=== PATIENT | female | born 1995 | race Hispanic/Latino ===

== ENCOUNTER 2017-08-06 09:35 | Emergency (ER) | payer SELFPAY ==
--- NOTE | 2017-08-06 11:00 | RAD REPORT ---
EXAM DESCRIPTION: RAD - Ankle Left 3 View -08/06/2017 10:52 am CLINICAL HISTORY: Left ankle pain FINDINGS: No fracture or dislocation is seen.
--- NOTE | 2017-08-06 11:02 | RAD REPORT ---
EXAM DESCRIPTION: RAD - Foot Left 3 View - 08/06/2017 10:52 am CLINICAL HISTORY: Left Foot pain FINDINGS: No fracture or dislocation is seen.
--- NOTE | 2017-08-06 11:20 | EDPHYS ---
Physician Documentation [facility] Name: Yahaira Vu Age: 22 yrs Sex: Female : 1995 Arrival Date: 08/06/2017 Time: 09:38 Bed 12 Private MD: None, None ED Physician Asad Mancini HPI: 08/06 10:20 This 22 yrs old Female presents to ER via Wheelchair with complaints of Ankle cp Injury. 10:20 The patient presents with an injury, pain, that is acute, tenderness. The complaints cp affect the left ankle. 10:20 Onset: The symptoms/episode began/occurred last night. cp 10:20 Context: injured ankle walking down stairs. Associated signs and symptoms: Pertinent cp negatives: calf tenderness, numbness, weakness. 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 - Social history:: Smoking status: Patient/guardian denies using tobacco. ROS: 10:25 Constitutional: Negative for body aches, chills, fever, poor PO intake. cp 10:25 Eyes: Negative for injury, pain, redness, and discharge. cp 10:25 Neck: Negative for pain with movement, pain at rest, stiffness, tenderness. 10:25 Respiratory: Negative for cough, shortness of breath, wheezing. 10:25 Abdomen/GI: Negative for abdominal pain, nausea, vomiting, and diarrhea. 10:25 MS/extremity: Positive for pain, tenderness. 10:25 Skin: Negative for cellulitis, rash. 10:25 Neuro: Negative for altered mental status, headache, numbness, tingling, weakness. 10:25 All other systems are negative. Exam: 11:00 Head/Face: Normocephalic, atraumatic. cp 11:00 Constitutional: The patient appears in no acute distress, alert, awake, non-toxic, well developed, well nourished. 11:00 Eyes: Periorbital structures: appear normal, Conjunctiva: normal, no exudate, no injection, Lids and lashes: appear normal, bilaterally. 11:00 ENT: External ear(s): are unremarkable, Nose: is normal, Mouth: is normal. 11:00 Chest/axilla: Inspection: normal. 11:00 Cardiovascular: Rate: normal. 11:00 Respiratory: the patient does not display signs of respiratory distress, Respirations: normal, no use of accessory muscles, no retractions, no splinting, no tachypnea. 11:00 Abdomen/GI: Exam negative for discomfort, distension, guarding, Inspection: abdomen appears normal. 11:00 Musculoskeletal/extremity: Extremities: grossly normal except: noted in the left foot: pain and tenderness noted base of fifth metatarsal, There is no evidence of deformity, Joints: All joints are normal except the left ankle displays pain at rest, painful range of motion, tenderness, Achilles tendon palpated and intact, no tenderness noted at proximal fibula. Vital Signs: 10:12 BP 144 / 88; Pulse 87; Resp 16; Temp 98.2; Pulse Ox 98% ; Weight 86.18 kg; Height 5 ft. iw 1 in. (154.94 cm); Pain 10; 10:12 Body Mass Index 35.90 (86.18 kg, 154.94 cm) iw MDM: 10:15 Patient medically screened. cp 11:17 Data reviewed: vital signs, nurses notes, radiologic studies, plain films, and as a cp result, I will discharge patient. 08/06 10:19 Order name: XRAY Ankle LEFT 3 view; Complete Time: 11:08 cp 08/06 11:08 Interpretation: Report reviewed. cp 08/06 10:19 Order name: XRAY Foot LEFT 3 View; Complete Time: 11:08 cp 08/06 11:08 Interpretation: Reviewed report. cp 08/06 11:08 Order name: Ousmane Wrap; Complete Time: 11:50 cp 08/06 11:08 Order name: Crutches; Complete Time: 11:50 cp 08/06 11:08 Order name: Ankle Splint: Aircast; Complete Time: 11:50 cp Administered Medications: 11:50 Drug: Ibuprofen 800 mg Route: PO; iw 12:50 Follow up: Response: No adverse reaction; Pain is decreased iw Disposition: 08/06/17 11:19 Discharged to Home. Impression: Pain in left ankle and joints of left foot. - Condition is Stable. - Discharge Instructions: Elastic Bandage and RICE, Ankle Pain. - Prescriptions for Naprosyn 500 mg Oral Tablet - take 1 tablet by ORAL route 2 times per day take with food; 20 tablet. - Medication Reconciliation Form, Thank You Letter, Antibiotic Education, Prescription Opioid Use form. - Follow up: Private Physician; When: 5 - 6 days; Reason: Recheck today's complaints. - Problem is new. - Symptoms are unchanged. Addendum: 08/08/2017 06:38 Co-signature as Attending Physician, Asad Mancini MD I agree with the assessment and w a plan of care. Signatures: Dispatcher [employer] EDMS Kaykay Zuluaga RN RN iw Aly Vera PA PA Asad Mancini MD MD wa Corrections: (The following items were deleted from the chart) 08/06 11:54 10:19 Urine Test ordered. [facility] 11:54 10:19 Urine Dipstick-Ancillary ordered. [facility] 11:54 11:19 08/06/2017 11:19 Discharged to Home. Impression: Pain in left ankle and joints of iw left foot. Condition is Stable. Forms are Medication Reconciliation Form, Thank You Letter, Antibiotic Education, Prescription Opioid Use. Follow up: Private Physician; When: 5 - 6 days; Reason: Recheck today's complaints. Problem is new. Symptoms are unchanged. cp
--- NOTE | 2017-08-06 11:20 | ER ---
Nurse's Notes [facility] Name: Yahaira Vu Age: 22 yrs Sex: Female : 1995 Arrival Date: 08/06/2017 Time: 09:38 Bed 12 Private MD: None, None Diagnosis: Pain in left ankle and joints of left foot Presentation: 08/06 10:11 Presenting complaint: Patient states: rolled her left ankle while coming down stairs iw last night. Transition of care: patient was not received from another setting of care. Onset of symptoms was August 05, 2017. Initial Sepsis Screen: Does the patient meet any 2 criteria? No. Patient's initial sepsis screen is negative. Does the patient have a suspected source of infection? No. Patient's initial sepsis screen is negative. Care prior to arrival: None. 10:11 Method Of Arrival: Wheelchair iw 10:11 Acuity: SHERYL 4 iw Triage Assessment: 11:50 General: Appears in no apparent distress. Behavior is calm, cooperative. 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 - Social history:: Smoking status: Patient/guardian denies using tobacco. Screenin:47 Abuse screen: Denies threats or abuse. Denies injuries from another. Nutritional iw screening: No deficits noted. Tuberculosis screening: No symptoms or risk factors identified. Fall Risk None identified. Assessment: 10:15 General: Appears in no apparent distress. Behavior is calm, cooperative. Pain: iw Complains of pain in left ankle and left foot. Neuro: Level of Consciousness is awake, alert, obeys commands, Oriented to person, place, time, Moves all extremities. Full function. Cardiovascular: Patient's skin is warm and dry. Respiratory: Respiratory effort is even, unlabored, Respiratory pattern is regular, symmetrical. Derm: Skin is pink, warm \T\ dry. normal. Musculoskeletal: Range of motion: limited in left ankle. Vital Signs: 10:12 BP 144 / 88; Pulse 87; Resp 16; Temp 98.2; Pulse Ox 98% ; Weight 86.18 kg; Height 5 ft. iw 1 in. (154.94 cm); Pain 10/10; 10:12 Body Mass Index 35.90 (86.18 kg, 154.94 cm) iw ED Course: 09:38 Patient arrived in ED. mr 09:38 None, None is Private Physician. mr 10:11 Kaykay Zuluaga, RN is Primary Nurse. iw 10:12 Triage completed. iw 10:12 Arm band placed on. iw 10:15 Aly Vera PA is PHCP. cp 10:15 Asad Mancini MD is Attending Physician. cp 10:40 Patient has correct armband on for positive identification. iw 10:49 XRAY Ankle LEFT 3 view In Process Unspecified. EDMS 10:49 XRAY Foot LEFT 3 View In Process Unspecified. EDMS 11:52 No provider procedures requiring assistance completed. Patient did not have IV access iw during this emergency room visit. Administered Medications: 11:50 Drug: Ibuprofen 800 mg Route: PO; iw 12:50 Follow up: Response: No adverse reaction; Pain is decreased iw Outcome: 11:19 Discharge ordered by MD. cp 11:52 Discharged to home via wheelchair, with crutches, with family. iw 11:52 Condition: good 11:52 Discharge instructions given to patient, family, Instructed on discharge instructions, follow up and referral plans. Demonstrated understanding of instructions, follow-up care, medications, Prescriptions given X 1. 11:54 Patient left the ED. iw Signatures: Dispatcher [employer] Padma Higgins Kaykay Zuluaga RN RN iw Aly Vera PA PA cp
[2017-08-06] MEDS ORDERED: IBUPROFEN 400 MG TAB ONE (11:40)
[2017-08-06 12:02] VITALS: BP 144/88; TEMP 98.2; O2SAT 98
== END 2017-08-06 11:54 | disposition home or self-care (01) ==
LOC: ER 09:35
DX: M25.572 Pain in left ankle and joints of left foot (principal); W17.89XA Other fall from one level to another, initial encounter; Y93.89 Activity, other specified; Y92.9 Unspecified place or not applicable
CPT/HCPCS: 99283

== ENCOUNTER 2018-05-21 05:13 | Emergency (ER) | payer SELFPAY ==
--- NOTE | 2018-05-21 06:00 | EDPHYS ---
Physician Documentation [facility] Name: Yahaira Vu Age: 23 yrs Sex: Female : 1995 Arrival Date: 05/21/2018 Time: 05:19 Bed 14 Private MD: ED Physician Aly Marmolejo HPI: 05/21 05:55 This 23 yrs old Female presents to ER via Ambulatory with complaints of Cough. [facility] 05:55 The patient or guardian reports cough. Onset: The symptoms/episode began/occurred 2 conrado day(s) ago. Severity of symptoms: At their worst the symptoms were mild, in the emergency department the symptoms are unchanged. Modifying factors: The symptoms are alleviated by nothing, the symptoms are aggravated by cold weather. Associated signs and symptoms: The patient has no apparent associated signs or symptoms. The patient has experienced similar episodes in the past, several times. 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 - Social history:: Smoking status: Patient/guardian denies using tobacco, Patient/guardian denies using alcohol, street drugs. - Ebola Screening: : Patient negative for fever greater than or equal to 101.5 degrees Fahrenheit, and additional compatible Ebola Virus Disease symptoms Patient denies exposure to infectious person Patient denies travel to an Ebola-affected area in the 21 days before illness onset. - Family history:: not pertinent. ROS: 05:55 Constitutional: Negative for fever, chills, and weight loss, Eyes: Negative for injury, conrado pain, redness, and discharge, Neck: Negative for injury, pain, and swelling, Cardiovascular: Negative for chest pain, palpitations, and edema, Respiratory: Negative for shortness of breath, cough, wheezing, and pleuritic chest pain, Abdomen/GI: Negative for abdominal pain, nausea, vomiting, diarrhea, and constipation, Back: Negative for injury and pain, : Negative for injury, bleeding, discharge, and swelling, MS/Extremity: Negative for injury and deformity, Skin: Negative for injury, rash, and discoloration, Neuro: Negative for headache, weakness, numbness, tingling, and seizure, Psych: Negative for depression, anxiety, suicide ideation, homicidal ideation, and hallucinations, Allergy/Immunology: Negative for hives, rash, and allergies, Endocrine: Negative for neck swelling, polydipsia, polyuria, polyphagia, and marked weight changes, Hematologic/Lymphatic: Negative for swollen nodes, abnormal bleeding, and unusual bruising. 05:55 ENT: Positive for rhinorrhea, sinus congestion. Exam: 05:55 Constitutional: This is a well developed, well nourished patient who is awake, alert, conrado and in no acute distress. Head/Face: Normocephalic, atraumatic. Eyes: Pupils equal round and reactive to light, extra-ocular motions intact. Lids and lashes normal. Conjunctiva and sclera are non-icteric and not injected. Cornea within normal limits. Periorbital areas with no swelling, redness, or edema. Neck: Trachea midline, no thyromegaly or masses palpated, and no cervical lymphadenopathy. Supple, full range of motion without nuchal rigidity, or vertebral point tenderness. No Meningismus. Chest/axilla: Normal chest wall appearance and motion. Nontender with no deformity. No lesions are appreciated. Cardiovascular: Regular rate and rhythm with a normal S1 and S2. No gallops, murmurs, or rubs. Normal PMI, no JVD. No pulse deficits. Respiratory: Lungs have equal breath sounds bilaterally, clear to auscultation and percussion. No rales, rhonchi or wheezes noted. No increased work of breathing, no retractions or nasal flaring. Abdomen/GI: Soft, non-tender, with normal bowel sounds. No distension or tympany. No guarding or rebound. No evidence of tenderness throughout. Back: No spinal tenderness. No costovertebral tenderness. Full range of motion. Skin: Warm, dry with normal turgor. Normal color with no rashes, no lesions, and no evidence of cellulitis. MS/ Extremity: Pulses equal, no cyanosis. Neurovascular intact. Full, normal range of motion. Neuro: Awake and alert, GCS 15, oriented to person, place, time, and situation. Cranial nerves II-XII grossly intact. Motor strength 5/5 in all extremities. Sensory grossly intact. Cerebellar exam normal. Normal gait. Psych: Awake, alert, with orientation to person, place and time. Behavior, mood, and affect are within normal limits. 05:55 ENT: Nose: Posterior pharynx: Tonsils: with erythema, Uvula: normal, midline, swelling, that is mild, erythema, that is mild, exudate, is not appreciated. Vital Signs: 05:20 BP 129 / 87; Pulse 84; Resp 18; Temp 99.1(O); Pulse Ox 99% on R/A; Weight 97.52 kg (R); fc Height 5 ft. 2 in. (157.48 cm) (R); Pain 5/10; 06:11 BP 128 / 77; Pulse 92; Resp 19 S; Pulse Ox 99% on R/A; cc3 05:20 Body Mass Index 39.32 (97.52 kg, 157.48 cm) MDM: 05:42 Patient medically screened. [facility] 05:58 Data reviewed: vital signs, nurses notes, lab test result(s). [facility] 05/21 05:38 Order name: Flu 05/21 05:38 Order name: Strep 05/21 06:20 Order name: Throat Culture EDMS Administered Medications: 06:05 Drug: Augmentin 875 mg Route: PO; cc3 06:08 Follow up: Response: No adverse reaction cc3 06:45 Drug: Tamiflu 75 mg Route: PO; cc3 Disposition: 05/21/18 05:59 Discharged to Home. Impression: Cough, Acute upper respiratory infection, unspecified, Influenza due to identified novel influenza A virus. - Condition is Stable. - Discharge Instructions: Influenza, Adult, Pharyngitis, Upper Respiratory Infection, Adult, Upper Respiratory Infection, Adult, [id number], Pharyngitis, Ntaf-bw-[id number], Cough, Adult, Bajt-[id number], Cough, Adult. - Prescriptions for Augmentin 875- 125 mg Oral Tablet - take 1 tablet by ORAL route every 12 hours for 10 days; 20 tablet. Latasha- D 12 Hour 60-120 mg Oral Tablet Sustained Release 12 hr - take 1 tablet by ORAL route every 12 hours As needed; 20 tablet. Guaifenesin AC 10- 100 mg/5 mL Oral Liquid - take 10 milliliters by ORAL route every 4 hours As needed; 150 milliliter. Tamiflu 75 mg Oral Capsule - take 1 tablet by ORAL route every 12 hours for 5 days; 10 tablet. - Medication Reconciliation Form, Thank You Letter, Antibiotic Education, Prescription Opioid Use, Work release form form. - Follow up: Private Physician; When: 2 - 3 days; Reason: Recheck today's complaints, Continuance of care, Re-evaluation by your physician. - Problem is new. - Symptoms have improved. Signatures: Dispatcher [employer] EDAly Ford MD MD cha Chretien, Felicia, RN RN Ritu Donahue cc3 Corrections: (The following items were deleted from the chart) 06:19 05:59 05/21/2018 05:59 Discharged to Home. Impression: Cough; Acute upper respiratory conrado infection, unspecified. Condition is Stable. Forms are Medication Reconciliation Form, Thank You Letter, Antibiotic Education, Prescription Opioid Use. Follow up: Private Physician; When: 2 - 3 days; Reason: Recheck today's complaints, Continuance of care, Re-evaluation by your physician. Problem is new. Symptoms have improved. [facility] 06:54 06:19 05/21/2018 05:59 Discharged to Home. Impression: Cough; Acute upper respiratory cc3 infection, unspecified; Influenza due to identified novel influenza A virus. Condition is Stable. Discharge Instructions: Upper Respiratory Infection, Adult, Upper Respiratory Infection, Adult, Emws-ft-Fdhw, Cough, Adult, Iyyy-ay-Uqti, Cough, Adult, Pharyngitis, Pharyngitis, Umht-ld-Xokm. Prescriptions for Augmentin 875-125 mg Oral Tablet - take 1 tablet by ORAL route every 12 hours for 10 days; 20 tablet, Latasha-D 12 Hour 60-120 mg Oral Tablet Sustained Release 12 hr - take 1 tablet by ORAL route every 12 hours As needed; 20 tablet, Guaifenesin AC 10-100 mg/5 mL Oral Liquid - take 10 milliliters by ORAL route every 4 hours As needed; 180 milliliter. and Forms are Medication Reconciliation Form, Thank You Letter, Antibiotic Education, Prescription Opioid Use. Follow up: Private Physician; When: 2 - 3 days; Reason: Recheck today's complaints, Continuance of care, Re-evaluation by your physician. Problem is new. Symptoms have improved. [facility]
--- NOTE | 2018-05-21 06:00 | ER ---
Nurse's Notes [facility] Name: Yahaira Vu Age: 23 yrs Sex: Female : 1995 Arrival Date: 05/21/2018 Time: 05:19 Bed 14 Private MD: Diagnosis: Cough;Acute upper respiratory infection, unspecified;Influenza due to identified novel influenza A virus Presentation: 05/21 05:20 Presenting complaint: Patient states: that she has had a cough with white sputum, nasal fc congestion, headache, sore throat, chest pain with cough only, fever and right ear pain x 3 days. Transition of care: patient was not received from another setting of care. Onset of symptoms was May 18, 2018. Risk Assessment: Do you want to hurt yourself or someone else? Patient reports no desire to harm self or others. Initial Sepsis Screen: Does the patient meet any 2 criteria? No. Patient's initial sepsis screen is negative. Does the patient have a suspected source of infection? No. Patient's initial sepsis screen is negative. Care prior to arrival: None. 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 - Social history:: Smoking status: Patient/guardian denies using tobacco, Patient/guardian denies using alcohol, street drugs. - Ebola Screening: : Patient negative for fever greater than or equal to 101.5 degrees Fahrenheit, and additional compatible Ebola Virus Disease symptoms Patient denies exposure to infectious person Patient denies travel to an Ebola-affected area in the 21 days before illness onset. - Family history:: not pertinent. Screenin:20 Abuse screen: Denies threats or abuse. Nutritional screening: No deficits noted. fc Tuberculosis screening: No symptoms or risk factors identified. Fall Risk None identified. Assessment: 05:32 General: Appears in no apparent distress. comfortable, Behavior is calm, cooperative, cc3 appropriate for age. Pain: Denies pain. Neuro: Level of Consciousness is awake, alert, obeys commands, Oriented to person, place, time, situation, Appropriate for age. Cardiovascular: Patient's skin is warm and dry. Respiratory: Airway is patent Respiratory effort is even, unlabored, Respiratory pattern is regular, symmetrical. GI: Abdomen is round non-distended. : No signs and/or symptoms were reported regarding the genitourinary system. EENT: No signs and/or symptoms were reported regarding the EENT system. Derm: No signs and/or symptoms reported regarding the dermatologic system. Musculoskeletal: Circulation, motion, and sensation intact. Range of motion: intact in all extremities. 06:11 Reassessment: Patient appears in no apparent distress at this time. Patient and/or cc3 family updated on plan of care and expected duration. Pain level reassessed. Patient is alert, oriented x 3, equal unlabored respirations, skin warm/dry/pink. 06:50 Reassessment: Dr. Marmolejo discharged the patient home with prescription given. No IV cc3 cannula in situ. Patient left ER vitally stable and ambulatory. Vital Signs: 05:20 BP 129 / 87; Pulse 84; Resp 18; Temp 99.1(O); Pulse Ox 99% on R/A; Weight 97.52 kg (R); fc Height 5 ft. 2 in. (157.48 cm) (R); Pain 5/10; 06:11 BP 128 / 77; Pulse 92; Resp 19 S; Pulse Ox 99% on R/A; cc3 05:20 Body Mass Index 39.32 (97.52 kg, 157.48 cm) ED Course: 05:19 Patient arrived in ED. ag3 05:20 Arm band placed on Patient placed in an exam room, on a stretcher. fc 05:20 Patient has correct armband on for positive identification. Placed in gown. Bed in low fc position. Call light in reach. 05:32 Ritu Donahue is Primary Nurse. cc3 05:36 Triage completed. 05:42 Aly Marmolejo MD is Attending Physician. [facility] 06:50 No provider procedures requiring assistance completed. Patient did not have IV access cc3 during this emergency room visit. Administered Medications: 06:05 Drug: Augmentin 875 mg Route: PO; cc3 06:08 Follow up: Response: No adverse reaction cc3 06:45 Drug: Tamiflu 75 mg Route: PO; cc3 Outcome: 05:59 Discharge ordered by MD. camp 06:50 Discharged to home ambulatory. cc3 06:50 Condition: stable 06:50 Discharge instructions given to patient, Instructed on discharge instructions, follow up and referral plans. medication usage, Demonstrated understanding of instructions, follow-up care, medications, Prescriptions given X 4. 06:54 Patient left the ED. cc3 Signatures: Aly Marmolejo MD MD cha Chretien, Felicia RN RN Ritu Calhoun cc3 Linh Henderson 3 Corrections: (The following items were deleted from the chart) 07:11 06:11 Pulse 92bpm; Resp 19bpm; Spontaneous; Pulse Ox 99% RA; cc3 cc3
[2018-05-21] MEDS ORDERED: AMOX/K CLAV 875 MG TAB ONE (06:16)
[2018-05-21] MEDS ORDERED: OSELTAMIVIR 75 MG CAP ONE (06:58)
[2018-05-21 08:23] VITALS: BP 129/87; TEMP 99.1; O2SAT 99
== END 2018-05-21 06:54 | disposition home or self-care (01) ==
LOC: ER 05:13
DX: J10.1 Influenza due to other identified influenza virus with other respiratory manifestations (principal)
CPT/HCPCS: 87070; 87081; 87804; 99283

== ENCOUNTER 2018-10-26 12:19 | Emergency (ER) | payer SELFPAY ==
--- OUTSIDE RECORDS SUMMARY | 2018-10-26 12:23 | XMS REPORT ---
:1995 [facility] [address] [place] [address] Dr. Lopez [address] [place] [id number] Care Team Providers Name Role Phone Unavailable Unavailable Unavailable Problems This patient has no known problems. Allergies, Adverse Reactions, Alerts This patient has no known allergies or adverse reactions. Medications This patient has no known medications.
--- NOTE | 2018-10-26 14:40 | ER ---
Nurse's Notes [facility] Name: Yahaira Vu Age: 23 yrs Sex: Female : 1995 Arrival Date: 10/26/2018 Time: 12:21 Bed 18 Private MD: Diagnosis: Lower abdominal pain, unspecified Presentation: 10/26 12:23 Presenting complaint: Patient states: lower abd pain that began 2 weeks ago. Pt states aa5 "the pain is mostly when I pick something heavy and I get a sharp pain and then it goes away". pt denies vomiting, diarrhea. Reports nausea. Transition of care: patient was not received from another setting of care. Onset of symptoms was October 2018. Risk Assessment: Do you want to hurt yourself or someone else? Patient reports no desire to harm self or others. Initial Sepsis Screen: Does the patient meet any 2 criteria? No. Patient's initial sepsis screen is negative. Does the patient have a suspected source of infection? No. Patient's initial sepsis screen is negative. Care prior to arrival: None. 12:23 Acuity: SHERYL 3 aa5 12:23 Method Of Arrival: Ambulatory aa5 Triage Assessment: 14:45 General: Appears in no apparent distress. comfortable, obese, Behavior is calm, ae4 cooperative. Pain: Complains of pain in right lower quadrant and left lower quadrant Pain currently is 0 out of 10 on a pain scale. EENT: No signs and/or symptoms were reported regarding the EENT system. Neuro: Level of Consciousness is awake, alert, obeys commands, Oriented to person, place, time, situation, Appropriate for age. Cardiovascular: Patient's skin is warm and dry. Respiratory: Airway is patent Respiratory effort is even, unlabored, relaxed, Respiratory pattern is regular, symmetrical. GI: Abdomen is round obese, Bowel sounds present X 4 quads. GI: Abd is soft and non tender. : No signs and/or symptoms were reported regarding the genitourinary system. Denies burning with urination, reports small amount of white discharge. Derm: Skin is normal. Musculoskeletal: No signs and/or symptoms reported regarding the musculoskeletal system. [facility]: 12:24 LMP 10/22/2018 aa5 Historical: - Allergies: 12:24 NKA; aa5 - PMHx: 12:24 Ovarian cyst; aa5 - PSHx: 12:24 None; aa5 - Immunization history:: Adult Immunizations up to date. - Social history:: Smoking status: Patient/guardian denies using tobacco. - Ebola Screening: : No symptoms or risks identified at this time. Screenin:23 Abuse screen: Denies threats or abuse. Nutritional screening: No deficits noted. ae4 Tuberculosis screening: No symptoms or risk factors identified. Fall Risk None identified. Assessment: 14:54 Reassessment: Patient is refusing pain medication at this time. Patient wants to wait ae4 for her results before taking anything for pain. Denies pain at this time, states pain is intermittent. Vital Signs: 12:24 BP 136 / 78; Pulse 73; Resp 18 S; Temp 98.5(O); Pulse Ox 100% on R/A; Weight 87.09 kg aa5 (R); Height 5 ft. 1 in. (154.94 cm) (R); Pain 0/10; 12:24 Body Mass Index 36.28 (87.09 kg, 154.94 cm) aa5 ED Course: 12:21 Patient arrived in ED. as 12:24 Triage completed. aa5 12:24 Arm band placed on. aa5 13:26 Kelsy Nicole FNP-C is [facility]. snw 13:26 Ismael Suazo MD is Attending Physician. snw 13:29 Bowen Zhang, RN is Primary Nurse. ae4 14:45 Bed in low position. Call light in reach. Side rails up X 1. Pulse ox on. NIBP on. ae4 15:26 No provider procedures requiring assistance completed. Patient did not have IV access ae4 during this emergency room visit. Administered Medications: 15:08 Not Given (Patient Refused): TORadol 30 mg IM once ae4 Outcome: 14:39 Discharge ordered by . snw 15:26 Discharged to home ambulatory. ae4 15:26 Condition: stable 15:26 Discharge instructions given to patient, Instructed on discharge instructions, follow up and referral plans. medication usage, Demonstrated understanding of instructions, Prescriptions given X 1. 15:26 Patient left the ED. ae4 Signatures: Kelsy Nicole FNP-C MASTER OF CEREMONIES-CsnZuleyma Martínez Audri RN RN aa5 Bowen Zhang, RN RN ae4
--- NOTE | 2018-10-26 14:41 | EDPHYS ---
Physician Documentation [facility] Name: Yahaira Vu Age: 23 yrs Sex: Female : 1995 Arrival Date: 10/26/2018 Time: 12:21 Bed 18 Private MD: ED Physician Ismael Suazo HPI: 10/26 14:41 This 23 yrs old Female presents to ER via Ambulatory with complaints of snw Abdominal Pain. 14:41 The patient presents with abdominal pain in the lower abdomen. Onset: The snw symptoms/episode began/occurred 3 week(s) ago, and became persistent. The symptoms do not radiate. Associated signs and symptoms: none. The symptoms are described as crampy. Severity of pain: At its worst the pain was mild. It is unknown whether or not the patient has had similar symptoms in the past. The patient has not recently seen a physician, TIKA. 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 - Social history:: Smoking status: Patient/guardian denies using tobacco. - Ebola Screening: : No symptoms or risks identified at this time. ROS: 14:39 Constitutional: Negative for fever, chills, and weight loss, Eyes: Negative for injury, snw pain, redness, and discharge, ENT: Negative for injury, pain, and discharge, Neck: Negative for injury, pain, and swelling, Cardiovascular: Negative for chest pain, palpitations, and edema, Respiratory: Negative for shortness of breath, cough, wheezing, and pleuritic chest pain, Back: Negative for injury and pain, : Negative for injury, bleeding, discharge, and swelling, MS/Extremity: Negative for injury and deformity, Skin: Negative for injury, rash, and discoloration, Neuro: Negative for headache, weakness, numbness, tingling, and seizure, Psych: Negative for depression, anxiety, suicide ideation, homicidal ideation, and hallucinations. 14:39 Abdomen/GI: Positive for abdominal pain, Negative for nausea, vomiting, and diarrhea. Exam: 14:39 Constitutional: This is a well developed, well nourished patient who is awake, alert, snw and in no acute distress. Head/Face: Normocephalic, atraumatic. Eyes: Pupils equal round and reactive to light, extra-ocular motions intact. Lids and lashes normal. Conjunctiva and sclera are non-icteric and not injected. Cornea within normal limits. Periorbital areas with no swelling, redness, or edema. ENT: Nares patent. No nasal discharge, no septal abnormalities noted. Tympanic membranes are normal and external auditory canals are clear. Oropharynx with no redness, swelling, or masses, exudates, or evidence of obstruction, uvula midline. Mucous membranes moist. Neck: Trachea midline, no thyromegaly or masses palpated, and no cervical lymphadenopathy. Supple, full range of motion without nuchal rigidity, or vertebral point tenderness. No Meningismus. Chest/axilla: Normal chest wall appearance and motion. Nontender with no deformity. No lesions are appreciated. Cardiovascular: Regular rate and rhythm with a normal S1 and S2. No gallops, murmurs, or rubs. Normal PMI, no JVD. No pulse deficits. Respiratory: Lungs have equal breath sounds bilaterally, clear to auscultation and percussion. No rales, rhonchi or wheezes noted. No increased work of breathing, no retractions or nasal flaring. Abdomen/GI: Soft, non-tender, with normal bowel sounds. No distension or tympany. No guarding or rebound. No evidence of tenderness throughout. Back: No spinal tenderness. No costovertebral tenderness. Full range of motion. Skin: Warm, dry with normal turgor. Normal color with no rashes, no lesions, and no evidence of cellulitis. MS/ Extremity: Pulses equal, no cyanosis. Neurovascular intact. Full, normal range of motion. Neuro: Awake and alert, GCS 15, oriented to person, place, time, and situation. Cranial nerves II-XII grossly intact. Motor strength 5/5 in all extremities. Sensory grossly intact. Cerebellar exam normal. Normal gait. Vital Signs: 12:24 BP 136 / 78; Pulse 73; Resp 18 S; Temp 98.5(O); Pulse Ox 100% on R/A; Weight 87.09 kg aa5 (R); Height 5 ft. 1 in. (154.94 cm) (R); Pain 0/10; 12:24 Body Mass Index 36.28 (87.09 kg, 154.94 cm) aa5 MDM: 13:35 Patient medically screened. snw 14:41 Data reviewed: vital signs, nurses notes, lab test result(s). Data interpreted: Pulse snw oximetry: on room air is 100 %. Interpretation: normal. Counseling: I had a detailed discussion with the patient and/or guardian regarding: the historical points, exam findings, and any diagnostic results supporting the discharge/admit diagnosis, lab results, the need for outpatient follow up, to return to the emergency department if symptoms worsen or persist or if there are any questions or concerns that arise at home. Special discussion: Based on the patient's Hx, exam, and Dx evaluation, there is no indication for emergent surgery or inpatient Tx. It is understood by the patient/guardian that if the Sx's persist or worsen they need to return immediately for re-evaluation. Based on the history and exam findings, there is no indication for further emergent testing or inpatient evaluation. I discussed with the patient/guardian the need to see the primary care provider for further evaluation of the symptoms. 10/26 13:06 Order name: Urine Culture snw 10/26 13:06 Order name: Urine Microscopic Only snw 10/26 13:06 Order name: Urine Test (obtain specimen); Complete Time: 14:16 snw 10/26 14:38 Order name: Urine Dipstick--Ancillary (enter results); Complete Time: 14:52 bd 10/26 14:38 Order name: Urine --Ancillary (enter results); Complete Time: 14:52 bd 10/26 13:06 Order name: Urine Dipstick-Ancillary (obtain specimen); Complete Time: 14:16 snw Administered Medications: 15:08 Not Given (Patient Refused): TORadol 30 mg IM once ae4 Disposition: 15:42 Co-signature as Attending Physician, Ismael Suazo MD. rn Disposition: 10/26/18 14:39 Discharged to Home. Impression: Lower abdominal pain, unspecified. - Condition is Stable. - Discharge Instructions: Abdominal Pain, Adult, Hypertension. - Prescriptions for Bentyl 20 mg Oral Tablet - take 1 tablet by ORAL route every 6 hours As needed; 20 tablet. - Medication Reconciliation Form, Thank You Letter, Antibiotic Education, Prescription Opioid Use, Work release form form. - Follow up: Private Physician; When: 1 - 2 days; Reason: Recheck today's complaints, Continuance of care, Re-evaluation by your physician. Follow up: Emergency Department; When: As needed; Reason: Worsening of condition. Signatures: Dispatcher [employer] EDMS BonnieKelsy santiago, COMPUTER EQUIPMENT REPAIRER-C COMPUTER EQUIPMENT REPAIRER-Csnw Ismael Suazo MD MD rn Calderon, Audri RN RN aa5 Bowen Zhang RN RN ae4 Corrections: (The following items were deleted from the chart) 15:26 14:39 10/26/2018 14:39 Discharged to Home. Impression: Lower abdominal pain, ae4 unspecified. Condition is Stable. Forms are Medication Reconciliation Form, Thank You Letter, Antibiotic Education, Prescription Opioid Use. Follow up: Private Physician; When: 1 - 2 days; Reason: Recheck today's complaints, Continuance of care, Re-evaluation by your physician. Follow up: Emergency Department; When: As needed; Reason: Worsening of condition. snw
[2018-10-26 14:51] LABS: Urine Blood 2+ (NEG); Urine Glucose NEGATIVE (NEG); Urine Protein NEGATIVE (NEG); Urine Specific Gravity 1.025 (1.005-1.030)
[2018-10-26] MEDS ORDERED: KETOROLAC 30 MG/ML INJ ONE (15:06)
[2018-10-26 15:50] VITALS: BP 136/78; TEMP 98.5; O2SAT 100
[2018-10-26 15:55] LABS: Urine Bacteria 20-50 /HPF (<20)
[2018-10-26 15:56] LABS: Urine Amorphous Sediment 2+ /HPF (NONE SEEN); Urine Culture Reflex Order NOT NEEDED; Urine Mucus 3+ /HPF (NONE SEEN)
== END 2018-10-26 15:26 | disposition home or self-care (01) ==
LOC: ER 12:19
DX: R10.30 Lower abdominal pain, unspecified (principal)
CPT/HCPCS: 81003; 81015; 81025; 87086; 87088; 99283

== ENCOUNTER 2019-09-29 19:53 | Emergency (ER) | payer SELFPAY ==
--- OUTSIDE RECORDS SUMMARY | 2019-09-29 19:55 | XMS REPORT | Continuity of Care Document ---
:1995 Author Organization [facility] t Address [facility]ly [facility] [place] [address] Care Team Providers Name Role Phone Unavailable Unavailable Unavailable Problems This patient has no known problems. Allergies, Adverse Reactions, Alerts This patient has no known allergies or adverse reactions. Medications This patient has no known medications. Procedures This patient has no known procedures. Results This patient has no known results.
[2019-09-29 21:11] LABS: Urine Specific Gravity 1.025 (1.005-1.030)
[2019-09-29 21:12] LABS: Urine Blood NEGATIVE (NEG); Urine Glucose NEGATIVE (NEG); Urine Protein NEGATIVE (NEG)
[2019-09-29 21:18] LABS: Absolute Lymphocytes (CBC) 1.8 K/uL (0.7-4.9); Basophils % 0.2 % (0-1.3); Hematocrit 40.4 % (36.0-45.0); Lymphocytes % 18.4 % (15.3-44.8); MPV 8.1 fL (7.6-11.3); RBC Red Blood Cell Count 4.45 M/uL (3.86-4.86)
[2019-09-29] MEDS ORDERED: ONDANSETRON 4 MG/2 ML VIAL ONE (21:30)
[2019-09-29] MEDS ORDERED: MORPHINE 4 MG/ML SYR ONE (21:30)
[2019-09-29 21:38] LABS: ALT/SGPT 41 U/L (12-78); AST/SGOT 53 U/L (15-37); Albumin 4.1 g/dL (3.4-5.0); Alkaline Phosphatase 77 U/L (45-117); BUN Blood Urea Nitrogen 9 mg/dL (7-18); Bicarbonate 23 mmol/L (21-32); Bilirubin Direct < 0.1 mg/dL (0-0.2); Bilirubin Total 0.3 mg/dL (0.2-1.0); Glucose Level 103 mg/dL (74-106); Lipase 159 U/L (73-393); Protein, Total 7.9 g/dL (6.4-8.2); Sodium Level 140 mmol/L (136-145)
--- NOTE | 2019-09-29 23:15 | EDPHYS ---
Physician Documentation [facility] Name: Yahaira Vu Age: 24 yrs Sex: Female : 1995 Arrival Date: 09/29/2019 Time: 19:55 Bed 13 Private MD: ED Physician Aly Marmolejo HPI: 09/28 20:20 This 24 yrs old Female presents to ER via Ambulatory with complaints of jmm Abdominal Pain. 20:20 The patient presents with abdominal pain. Onset: The symptoms/episode began/occurred jmm acutely, just prior to arrival. The symptoms radiate to Associated signs and symptoms: Pertinent negatives: nausea and vomiting, diarrhea. This is a 24 year old female with a history of ovarian cysts that presents to the ED with complaints of abdominal pain beginning after eating today. Denies fever, vomiting diarrhea. . 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 - Social history:: Smoking status: Patient denies any tobacco usage or history of. Patient/guardian denies using alcohol, street drugs, tobacco products. ROS: 20:20 Constitutional: Negative for fever, chills, and weight loss, Cardiovascular: Negative jmm for chest pain, palpitations, and edema, Respiratory: Negative for shortness of breath, cough, wheezing, and pleuritic chest pain. 20:20 Abdomen/GI: Positive for abdominal pain. 20:20 Back: Positive for radiated pain. 20:20 All other systems are negative. Exam: 20:20 Constitutional: This is a well developed, well nourished patient who is awake, alert, jmm and in no acute distress. Head/Face: atraumatic. Eyes: EOMI, no conjunctival erythema appreciated ENT: Moist Mucus Membranes Neck: Trachea midline, Supple Chest/axilla: Normal chest wall appearance and motion. Cardiovascular: Regular rate and rhythm. No edema appreciated Respiratory: Normal respirations, no respiratory distress appreciated 20:20 Back: Normal ROM Skin: General appearance color normal MS/ Extremity: Moves all extremities, no obvious deformities appreciated, no edema noted to the lower extremities Neuro: Awake and alert, normal gait Psych: Behavior is normal, Mood is normal, Patient is cooperative and pleasant 20:20 Abdomen/GI: Inspection: obese Bowel sounds: normal, Palpation: soft, mild abdominal tenderness, in the right upper quadrant and left upper quadrant. Vital Signs: 20:02 BP 142 / 64; Pulse 72; Resp 17; Temp 99.0; Pulse Ox 100% ; Weight 95.25 kg; Height 5 ll1 ft. 1 in. (154.94 cm); Pain 10/10; 20:30 BP 127 / 79; Pulse 71; Resp 18; Pulse Ox 100% ; ah 21:30 BP 126 / 67; Pulse 73; Resp 18; Pulse Ox 100% ; ah 23:44 BP 120 / 71; Pulse 71; Resp 17; Pulse Ox 99% ; Pain 2/10; ll1 20:02 Body Mass Index 39.68 (95.25 kg, 154.94 cm) ll1 MDM: 20:20 Patient medically screened. conrado 23:13 Data reviewed: vital signs, nurses notes. Counseling: I had a detailed discussion with loc the patient and/or guardian regarding: the historical points, exam findings, and any diagnostic results supporting the discharge/admit diagnosis, lab results, radiology results, the need for outpatient follow up, to return to the emergency department if symptoms worsen or persist or if there are any questions or concerns that arise at home. ED course: Patient is alert and non toxic in appearance in the ED. Abd pain decreased. Patient is advised to follow up with pcp and otherwise given strict return precautions. Patient understood and agrees with the plan of care. . 09/28 20:33 Order name: Basic Metabolic Panel; Complete Time: 21:40 [facility] 09/28 20:33 Order name: CBC with Diff; Complete Time: 21:29 [facility] 09/28 20:33 Order name: Hepatic Function; Complete Time: 21:40 [facility] 09/28 20:33 Order name: Lipase; Complete Time: 21:40 [facility] 09/28 20:43 Order name: Urine Dipstick--Ancillary (enter results); Complete Time: 21:14 md 09/28 20:43 Order name: Urine --Ancillary (enter results); Complete Time: 21:14 md 09/28 20:33 Order name: IV Saline Lock; Complete Time: 21:41 [facility] 09/28 20:33 Order name: Labs collected and sent; Complete Time: 21:41 [facility] 09/28 20:33 Order name: Urine Dipstick-Ancillary (obtain specimen); Complete Time: 21:41 [facility] 09/28 20:33 Order name: Urine Test (obtain specimen); Complete Time: 21:41 [facility] 09/28 21:13 Order name: US Abdomen Limited [facility] 09/28 21:13 Order name: CT Abd/Pelvis - IV Contrast Only [facility] Administered Medications: 22:36 Not Given (Patient Refused): morphine 4 mg IVP once; RASS on ADMIN: Combtv4, Very ll1 Agttd3, Agttd2, Rstlss1, AlertClm0, Drwsy-1, Lt Sdtn-2, Mod Sdtn-3, Dp Sdtn-4, UnArsble-5 22:36 Not Given (Patient Refused): Zofran (Ondansetron) 4 mg IVP once; over 2 minutes ll1 Disposition: 09/29 17:48 Co-signature as Attending Physician, Aly Marmolejo MD I agree with the assessment and conrado plan of care. Disposition: 09/29/19 23:14 Discharged to Home. Impression: Cholelithiasis. - Condition is Stable. - Discharge Instructions: Cholelithiasis. - Prescriptions for Bentyl 20 mg Oral Tablet - take 2 tablet by ORAL route every 6 hours As needed; 40 tablet. - Medication Reconciliation Form, Thank You Letter, Antibiotic Education, Prescription Opioid Use form. - Follow up: Lukasz Palomino MD; When: 2 - 3 days; Reason: Recheck today's complaints, Continuance of care, Re-evaluation by your physician. Signatures: Dispatcher [employer] Aly Pike MD MD cha Mickail, Joel, PA PA Petros Ward, RN RN ll1 Corrections: (The following items were deleted from the chart) 09/28 23:45 23:14 09/29/2019 23:14 Discharged to Home. Impression: Cholelithiasis. Condition is ll1 Stable. Forms are Medication Reconciliation Form, Thank You Letter, Antibiotic Education, Prescription Opioid Use. Follow up: Dr. Lukasz Palomino; When: 2 - 3 days; Reason: Recheck today's complaints, Continuance of care, Re-evaluation by your physician. jmm
--- NOTE | 2019-09-29 23:15 | ER ---
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 + Nausea, ll1 slight loose stool today. No fever. Coronavirus screen: Proceed with normal triage. Patient denies a cough. Patient denies shortness of breath or difficulty breathing. Patient denies measured and/or subjective temperature greater than 100.4F prior to today's visit. Patient denies travel on a cruise ship or to a country the [facility] currently lists as an affected area. Patient denies contact with known and/or suspected case of COVID-19. Ebola Screen: Patient denies travel to an Ebola-affected area in the 21 days before illness onset. Initial Sepsis Screen: Does the patient meet any 2 criteria? No. Patient's initial sepsis screen is negative. Does the patient have a suspected source of infection? Yes: Acute abdominal pain. Risk Assessment: Do you want to hurt yourself or someone else? Patient reports no desire to harm self or others. Onset of symptoms was September 29, 2019. 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 - Social history:: Smoking status: Patient denies any tobacco usage or history of. Patient/guardian denies using alcohol, street drugs, tobacco products. Screenin:38 Abuse screen: Denies threats or abuse. Nutritional screening: No deficits noted. ah Tuberculosis screening: No symptoms or risk factors identified. Fall Risk None identified. Assessment: 21:00 General: Appears uncomfortable, Behavior is calm, cooperative. Pain: Complains of pain ah in epigastric area. Pain: Pain radiates to back Pain currently is 8 out of 10 on a pain scale. Quality of pain is described as sharp, Pain began 1 hour ago. Neuro: Level of Consciousness is Oriented to person, place, time, situation, Appropriate for age. Cardiovascular: Capillary refill < 3 seconds Patient's skin is warm and dry. Respiratory: Airway is patent Respiratory effort is even, unlabored, Respiratory pattern is regular, symmetrical. GI: Bowel sounds present X 4 quads. Abdomen is tender to palpation in epigastric area Reports. Derm: Skin is intact, is healthy with good turgor. 21:23 Reassessment: Pt does not want any medication at this time. 21:38 Reassessment: Ultrasound in room at this time. 22:00 Reassessment: Patient appears in no apparent distress at this time. No changes from 1 previously documented assessment. Patient and/or family updated on plan of care and expected duration. Pain level reassessed. Patient is alert, oriented x 3, equal unlabored respirations, skin warm/dry/pink. 23:00 Reassessment: Patient appears in no apparent distress at this time. No changes from 1 previously documented assessment. Patient and/or family updated on plan of care and expected duration. Pain level reassessed. Patient is alert, oriented x 3, equal unlabored respirations, skin warm/dry/pink. Vital Signs: 20:02 BP 142 / 64; Pulse 72; Resp 17; Temp 99.0; Pulse Ox 100% ; Weight 95.25 kg; Height 5 ll1 ft. 1 in. (154.94 cm); Pain 10/10; 20:30 BP 127 / 79; Pulse 71; Resp 18; Pulse Ox 100% ; ah 21:30 BP 126 / 67; Pulse 73; Resp 18; Pulse Ox 100% ; ah 23:44 BP 120 / 71; Pulse 71; Resp 17; Pulse Ox 99% ; Pain 2/10; ll1 20:02 Body Mass Index 39.68 (95.25 kg, 154.94 cm) 1 ED Course: 19:55 Patient arrived in ED. cl3 20:03 Triage completed. 1 20:04 Arm band placed on Patient placed in an exam room, on a stretcher. [facility] 20:10 Luciana Rasheed, RN is Primary Nurse. 20:12 Elvin Whipple PA is PHCP. [facility] 20:12 Aly Marmolejo MD is Attending Physician. jmm 21:38 Patient has correct armband on for positive identification. Placed in gown. Bed in low ah position. Call light in reach. Side rails up X 1. Pulse ox on. NIBP on. 21:44 US Abdomen Limited In Process Unspecified. EDMS 22:25 CT Abd/Pelvis - IV Contrast Only In Process Unspecified. EDMS 23:14 Lukasz Palomino MD is Referral Physician. jmm 23:44 IV discontinued, intact, bleeding controlled, No redness/swelling at site. Pressure ll1 dressing applied, IV R AC. 23:45 No provider procedures requiring assistance completed. ll1 Administered Medications: 22:36 Not Given (Patient Refused): morphine 4 mg IVP once; RASS on ADMIN: Combtv4, Very ll1 Agttd3, Agttd2, Rstlss1, AlertClm0, Drwsy-1, Lt Sdtn-2, Mod Sdtn-3, Dp Sdtn-4, UnArsble-5 22:36 Not Given (Patient Refused): Zofran (Ondansetron) 4 mg IVP once; over 2 minutes ll1 Outcome: 23:14 Discharge ordered by . jmm 23:45 Discharged to home ambulatory. ll1 23:45 Condition: stable 23:45 Condition: stable 23:45 Discharge instructions given to patient, family, Instructed on discharge instructions, follow up and referral plans. medication usage, Demonstrated understanding of instructions, follow-up care, medications, Prescriptions given X 1. 23:45 Patient left the ED. ll1 Signatures: Dispatcher [employer] EDMS Elvin Whipple PA PA jmm Lewis, Charde cl3 Luciana Rasheed, RN Petros Rayo RN RN ll1
[2019-09-30 00:21] VITALS: TEMP 99
[2019-09-30 00:33] VITALS: BP 120/71; O2SAT 99
--- NOTE | 2019-09-30 08:44 | RAD REPORT ---
EXAM DESCRIPTION: US - Abdomen Exam Limited - 09/29/2019 9:43 pm CLINICAL HISTORY: ABD PAIN COMPARISON: ABDOMINAL EXAM LIMITED dated 04/16/2010 FINDINGS: The gallbladder demonstrates gallstones within gallbladder contraction evident. No pericho lecystic fluid or gallbladder wall thickening. The common bile duct is normal measuring 3 mm. The liver demonstrates no findings of intrahepatic biliary dilatation. IMPRESSION: Cholelithiasis. Gallbladder contraction.
--- NOTE | 2019-10-01 02:32 | RAD REPORT ---
EXAM DESCRIPTION: [id number] - Abdomen Pelvis W Contrast CLINICAL HISTORY: Abdominal pain COMPARISON: None. TECHNIQUE: CT ABDOMEN PELVIS WITH IV CONTRAST on 09/29/2019 9:13 PM CDT This exam was performed according to our departmental dose-optimization program, which includes autom ated exposure control, adjustment of the mA and/or kV according to patient size and/or use of iterati ve reconstruction technique. FINDINGS: Lower lungs are clear. Abdomen: The liver is normal in appearance. There is no biliary dilatation. Gallbladder is normal in appearance. The pancreas and spleen are normal in appearance. The adrenal glands and kidneys are unre markable. Abdominal aorta is normal in course and caliber without aneurysm. There is no free air. There is no r etroperitoneal adenopathy. Pelvis: There is no bowel obstruction. Urinary bladder is unremarkable. There is no free fluid. Appen nohemi is normal. Uterus is normal in size. Skeleton: There are no acute osseous findings. No suspicious bony lesions. IMPRESSION: No acute process. Electronically signed by: Jag Rod MD 09/29/2019 10:40 PM CDT Due to temporary technical issues with the PACS/Fluency reporting system, reports are being signed by the in house radiologist without review as a courtesy to ensure prompt reporting. The interpreting r adiologist is fully responsible for the content of the report.
== END 2019-09-29 23:45 | disposition home or self-care (01) ==
LOC: ER 19:53
DX: K80.20 Calculus of gallbladder without cholecystitis without obstruction (principal)
CPT/HCPCS: 36415; 74177; 76705; 80048; 80076; 81003; 81025; 83690; 85025; 99283; J2405; Q9967

== ENCOUNTER 2020-02-13 02:14 | Emergency (ER) | payer SELFPAY ==
--- OUTSIDE RECORDS SUMMARY | 2020-02-13 02:16 | XMS REPORT | Summary of Care ---
:1995 Author Organization [facility] Address [address] [place] [address] Care Team Providers Name Role Phone GouldAdelaideP Primary Care Provider Encounter Details Date Type Department Care Team Description 02/09/2020 Orders Only [facility] Doctor Unassigned, No [address] [facility] Name [place] [id number] [place] [address] Allergies No Known Allergiesdocumented as of this encounter (statuses as of 02/09/2020) Medications Medication Sig Dispensed Refills Start Date End Date Status multivitamin Take 1 tablet by 90 tablet 3 10/24/2015 Active ( VITAMIN) mouth daily. tabletIndications: High-risk , first trimester documented as of this encounter (statuses as of 02/09/2020) Active Problems Problem Noted Date Anembryonic 11/23/2015 High-risk , first trimester [O09.91] 09/27/19 16 Obesity complicating peripregnancy, antepartum, first trimester 09/27/2015 documented as of this encounter (statuses as of 02/09/2020) Resolved Problems Problem Noted Date Resolved Date Abdominal cramping affecting , antepartum 6 11/23/2015 Nausea and vomiting during prior to 22 weeks 09/2611/23/2015 gestation Pain pelvic 03/06/2015 09/27/2015 Screening for STDs (sexually transmitted diseases) 5 09/27/2015 Encounter for general counseling and advice on contraceptive 03/06/2015 09/27/2015 management documented as of this encounter (statuses as of 02/09/2020) Immunizations Name Administration Dates Next Due TDAP 03/01/2014 documented as of this encounter Social History Tobacco Use Types Packs/Day Years Used Date Never Smoker Smokeless Tobacco: Never Used Alcohol Use Drinks/Week oz/Week Comments No 0 Standard drinks or equivalent 0.0 Sex Assigned at Date Recorded Not on file documented as of this encounter Last Filed Vital Signs Not on filedocumented in this encounter Plan of Treatment Date Type Specialty Care Team Description 02/09/2020 [facility] [address] [place] [address] [phone] Arrived 1, [facility] Room 02/09/2020 Initial Visit OB Satellites Estefanía Avilez, CNP [address] [facility] [place] [address] Health Maintenance Due Date Last Done Comments MENINGOCOCCAL B VACCINES (1 of 2006 2 - Risk Bexsero 2-dose series) HPV VACCINES (1 - 2-dose 2007 series) Depression Screening 2008 CHLAMYDIA SCREENING 09/26/2016 09/27/2015, 03/06/2015 PAP SMEAR 2017 INFLUENZA VACCINE (#1) 2019 DTaP,Tdap,and Td Vaccines (2 - 03/01/2024 03/01/2014 Td) PNEUMOCOCCAL 0-64 YEARS Aged Out No longe r eligible based COMBINED SERIES on patient's age to complete this to [facility] documented as of this encounter Procedures Procedure Name Priority Date/Time Associated Diagnosis Comme nts ASSIGNMENT OF BENEFITS Routine 02/09/2020 9:29 AM 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
--- OUTSIDE RECORDS SUMMARY | 2020-02-13 02:16 | XMS REPORT | Continuity of Care Document ---
:1995 Author Organization [facility] Address [address] [place] [address] Care Team Providers Name Role Phone 1, Us Room Attending Clinician Unavailable Syed Macdonald Attending Clinician Problems This patient has no known problems. Allergies, Adverse Reactions, Alerts This patient has no known allergies or adverse reactions. Medications This patient has no known medications. Procedures This patient has no known procedures. Encounters Start End Encounter Admission Attending Care Care Encounter Source Date/Time Date/Time Type Type Clinicians Facility Department ID 2020-02-11 2020-02-11 Population Health Manager 1, Zulma [facility] [id number] 13:04:58 13:34:58 Visit Us Room COVERAGE ANALYST [id number] REGIONAL [id number] MATERNAL [id number] & CHILD 369 [facility] 2020-02-09 2020-02-09 Telephone TIKA Avilez [id number] 00:00:00 00:00:00 Nichelle Lynch COVERAGE ANALYST [id number] REGIONAL [id number] MATERNAL [id number] & CHILD 107 [facility] Results This patient has no known results.
--- OUTSIDE RECORDS SUMMARY | 2020-02-13 02:17 | XMS REPORT | Summary of Care ---
:1995 Author Organization [facility] Address [address] [place] [address] Care Team Providers Name Role Phone GouldAdelaide Primary Care Provider Reason for Visit Reason Comments Initial Visit Encounter Details Date Type Department Care Team Description 02/09/2020 Initial [facility] [place], Super vision of high risk , antepartum (Primary Dx); Visit [place] AIDE Steiner History of miscarriage; [address] in [facility] [address] [place], [place] [phone] Allergies No Known Allergiesdocumented as of this encounter (statuses as of 02/09/2020) Medications Medication Sig Dispensed Refills Start Date End Date Status multivitamin Take 1 tablet by 90 tablet 3 10/24/2015 Active ( VITAMIN) mouth daily. tabletIndications: High-risk , first trimester documented as of this encounter (statuses as of 02/09/2020) Active Problems Problem Noted Date Obesity in 02/09/2020 History of miscarriage 02/09/2020 Supervision of high-risk 02/09/2020 Anembryonic 11/23/2015 Estimated Date of Delivery Comments Yes 09/03/2020 Based on last menstr ual period of 11/28/2019 (Approximate) documented as of this encounter (statuses as of 02/09/2020) Resolved Problems Problem Noted Date Resolved Date High-risk , first trimester [O09.91] 09/27/2015 02/09/2020 Obesity complicating peripregnancy, antepartum, first 201502/09/2020 trimester Abdominal cramping affecting , antepartum 6 11/23/2015 [...] No 0 Standard drinks or equivalent 0.0 Estimated Date of Delivery Comments Yes 09/03/2020 Based on last menstr ual period of 11/28/2019 (Approximate) Sex Assigned at Date Recorded Not on file COVID-19 Exposure Response Date Recorded In the last month, have you been in contact with No / Unsure 02/09/2020 9:56 AM LABORER HIGH DENSITY PRESS someone who was confirmed or suspected to have Coronavirus / COVID-19? documented as of this encounter Last Filed Vital Signs Vital Sign Reading Time Taken Comments Blood Pressure 129/76 02/09/2020 10:11 AM LABORER HIGH DENSITY PRESS Pulse 88 02/09/2020 10:11 AM LABORER HIGH DENSITY PRESS Temperature 36.7 C (98.1 F) 02/09/2020 10:11 AM LABORER HIGH DENSITY PRESS Respiratory Rate 16 02/09/2020 10:11 AM LABORER HIGH DENSITY PRESS Oxygen Saturation - - Inhaled Oxygen Concentration - - Weight 100.4 kg (221 lb 7 oz) 02/09/2020 10:11 AM LABORER HIGH DENSITY PRESS Height 154.9 cm (5' 1") 02/09/2020 10:11 AM LABORER HIGH DENSITY PRESS Body Mass Index 41.84 02/09/2020 10:11 AM LABORER HIGH DENSITY PRESS documented in this encounter Progress Notes Nichelle Avilez WHDEL - 02/09/2020 10:00 AM CST Chief complaint: Chief Complaint Patient presents with Initial Visit HPI CC: Initial Visit Yahaira Vu is a 24 year old, , /White female. Patient's last menstrual period was 11/28/2019 (approximate). She is 10w3d with an intrauterine . Her Estimated Date of Delivery: 09/03/20. She is being seen today for her first obstetrical visit. She has no complaints today. OB History Para Term AB Living 2 1 SAB TAB Ectopic Multiple Live Births 1 # Outcome Date GA Lbr Renato/2nd Weight Sex Delivery Anes PTL Lv 2 Current 2015 Histories OB History Para Term AB Living 2 1 SAB TAB Ectopic Multiple Live Births 1 # Outcome Date GA Lbr Renato/2nd Weight Sex Delivery Anes PTL Lv 2 Current 2015 History reviewed. No pertinent past medical history. Family History Problem Relation Age of Onset Diabetes Maternal Grandmother Hypertension Maternal Grandmother Arthritis NoFHx Asthma NoFHx defects NoFHx Breast Cancer NoFHx Colon Cancer NoFHx Ovarian Cancer NoFHx Uterine Cancer NoFHx Cancer NoFHx Depression NoFHx Genetic NoFHx Heart NoFHx High cholesterol NoFHx Mental retardation NoFHx Neurological NoFHx Osteoporosis NoFHx Psychiatry NoFHx Other - see comments NoFHx Family Status Relation Name Status MGMo Alive NoFHx (Not Specified) History reviewed. No pertinent surgical history. 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 Social Needs Financial resource strain: Not on file Food insecurity Worry: Not on file Inability: Not on file Transportation needs Medical: Not on file Non-medical: Not on file Tobacco Use Smoking status: Never Smoker Smokeless tobacco: Never Used Substance and Sexual Activity Alcohol use: No Alcohol/week: 0.0 standard drinks Drug use: No Sexual activity: Yes Partners: Male control/protection: None Comment: Last intercourse: 02/06/2020 Lifestyle Physical activity Days per week: Not on file Minutes per session: Not on file Stress: Not on file Relationships Social connections Talks on phone: Not on file Gets together: Not on file Attends roman catholic service: Not on file Active member of club or organization: Not on file Attends meetings of clubs or organizations: Not on file Relationship status: Not on file Intimate partner violence Fear of current or ex partner: Not on file Emotionally abused: Not on file Physically abused: Not on file Forced sexual activity: Not on file Other Topics Concern Service Not Asked Blood Transfusions No Caffeine Concern Not Asked Occupational Exposure Not Asked Hobby Hazards Not Asked Sleep Concern Not Asked Stress Concern Not Asked Weight Concern Not Asked Special Diet Not Asked Back Care Not Asked Exercise Not Asked Bike Helmet Not Asked Seat Belt Not Asked Self-Exams Not Asked Social History Narrative No domestic violence or abuse. Patient lives with mom Patient feels safe at home. Patient denies any cats. Social History Substance and Sexual Activity Sexual Activity Yes Partners: Male control/protection: None Comment: Last intercourse: 02/06/2020 Genetic Screen Autism / Mental Retardation: No Lilia Disease: No Congenital Heart Defect: No Cystic Fibrosis: No Down Syndrome: No Familial Dysautonomia: No Hemophilia or other Blood Disorders: No Flathead Chorea: No Maternal Metabolic Disorder--specify (eg. Type 1 Diabetes, PKU): No Muscular Dystrophy: No Neural Tube Defect: No Recurrent Loss or a Stillbirth: No Sickle Cell Disease or Trait: No Mega Sachs: No Teratological Substances (specify type & strength/dose) since LMP: No Thalassemia: No Other Inherited Genetic or Chromosomal Disorder (specify): No No Significant History of Genetic Disorders: No Significant History of Genetic Disorders Labs Labs are pending. Radiology No new radiology. Allergies Yahaira has No Known Allergies. Medications Yahaira has a current medication list which includes the following prescription(s): multivitamin. Review of Systems Constitutional: Negative. HENT: Negative. Eyes: Negative. Respiratory: Negative. Breasts: Negative. Cardiovascular: Negative. Gastrointestinal: Negative. Genitourinary: Negative. Musculoskeletal: Negative. Skin: Negative. Neurological: Negative. Psychiatric/Behavioral: Negative. Endocrine: Endocrine negative BP 129/76 (BP Location: Right arm, Patient Position: Sitting, BP CUFF SIZE: Adult Large) | Pulse 88 | Temp 36.7 C (98.1 F) (Oral) | Resp 16 | Ht 5' 1" (1.549 m) | Wt 221 lb 7 oz (100.4 kg) | LMP 11/28/2019 (Approximate) | BMI 41.84 kg/m Pregravid BMI: 40.83 Physical Exam Vitals reviewed. Constitutional: She is oriented to person, place, and time. She appears well- developed. Her body habitus is normal. Neck: No tenderness and no mass. No thyroid nodules and no thyromegaly palpated. No neck adenopathy. Cardiovascular: Regular rate and rhythm. No gallop, no friction rub and no murmur auscultated. No peripheral edema present. Pulmonary/Chest: Breath sounds clear to auscultation. Normal inspiratory effort. Abdominal: Abdomen is soft. No mass palpated. No tenderness present. There is no hepatosplenomegaly,splenomegaly or hepatomegaly. There is no rigidity. No hernia palpated or inspected. Neuro/Psychiatric: She has a normal mood and affect. She is oriented to person, place, and time. Skin: No lesion, no rash and no ulceration present. Lymphadenopathy: No neck adenopathy present. No axillary adenopathy present. No inguinal adenopathy present. Genitourinary Comments: Vaishali coolstudejesse present during exam Breast: Right breast exhibits no mass, no nipple discharge and no tenderness. Left breast exhibits no mass, no nipple discharge and no tenderness. Breasts are symmetrical. Normal left breast and normalright breast Rectal: Rectal exam with normal anal tone. No mass, no external hemorrhoid and no internal hemorrhoid palpated or inspected. External genitalia: Normal external genitalia appropriate for age. Normal hair distribution. No labial lesion. Urethral meatus: Normal urethral meatus size, location and no lesion. No prolapse present. Normal urethral meatus Urethra: Normal urethra. No urethral tenderness, no mass and no urethral scarring palpated. Bladder: Bladder has no fullness, no mass palpated and no tenderness. Normal bladder Vagina:Normal vagina. No lesion inspected. Normal estrogen effect. Normal support. No abnormal vaginal discharge found. No lesions in the vagina. Cervix: Normal cervix. No lesion. No tenderness and no discharge present. Closed thick Uterus: Uterus is normal size, normal contour, normal position and non-tender. Normal uterus Adnexa: Right adnexa without tenderness, ovary enlargement or mass. Left adnexa without tenderness, ovary enlargement or mass. Normal left adnexa and normal right adnexa Anus/perineum: Normal perineum and normal anus. PHYSICAL: General Exam: HEENT: Normal Neurological: Normal Abdomen: Normal gravid Extremities: Normal Pelvic Exam: Vulva: Normal Vagina: Normal Cervix: Normal Membrane status: Intact Uterus: 10 Weeks Adnexa: Normal Rectum: Normal Assessment/Plan Return to clinic in 4 weeks. Denies zika virus risk, signs and symptoms such as fever,rash,joint pain, conjunctivitis (red eyes),muscle pain, headaches; outside [place] travel to areas affected by zika, and FOB exposure to zika. Educated on use of mosquito repellent. Supervision of high risk , antepartum (primary encounter diagnosis) History of miscarriage Comment: initial preanatal visit with labs and physical exam Plan: POCT TEST, POCT URINALYSIS W/O SPECIFIC GRAVITY, GLUCOSE 1 HOUR POST PRANDIAL, CBC WITH DIFF, HEPATITIS B SURFACE ANTIGEN, HIV 1/2 AG-AB WITH REFLEX, POCT URINALYSIS W SPECIFIC GRAVITY, WORKUP, BLOOD BANK, RUBELLA SCREEN (RUBIO) IGG, GALV ONLY - SYPHILIS IGG/IGM, URINE CULTURE, VZV ANTIBODY SCREEN, PAP Smear-Liquid Based, GC & CHLAMYDIA AMPLIFIED ASSAY, WORKUP, BLOOD BANK, CBC WITH DIFF, HEPATITIS B SURFACE ANTIGEN, HIV 1/2 AG-AB WITH REFLEX, RUBELLA SCREEN (RUBIO) IGG, GALV ONLY - SYPHILIS IGG/IGM, URINE CULTURE, VZV ANTIBODY SCREEN, PAP Smear-Liquid Based, GC & CHLAMYDIA AMPLIFIED ASSAY Obesity in Comment: see bmi Plan: BMI discussed, appropriate weight gain, sensible diet, and exercise, increased fiber and waterintake and protein low in fat. Encouraged exercise for 30 min everyday; begin regimen with caution to prevent injury. Encouraged to decrease BMI to <25. Educated on how obesity and smoking can affect future and health. Educated on the effects of chronic health problems, tobacco use, and mental health on future pregnancies and/or halfway health. This visit did not involve counseling and coordination that comprised more than 50% of the visit time. AIDE Bassett 02/09/2020 11:20 AM RER HIGH DENSITY PRESS Minda Moses RN - 02/09/2020 10:00 AM CSTPatient is 24 year old female here for current . Patient is . 1) Previous delivery methods N/A 2) Patient is not experiencing cramping 3) Patient is not experiencing bleeding. 4) LMP 11/28/2019 5) Last Pap was: never Results: N/A 6) PPD candidate? no 7) Patient deneis history of physical, emotional, or sexual abuse. Patient states she currently feels safe at home. 8) C/O patient denies any complaints 9) Would like flu vaccine? Declines flu New ob packet given and discussed with patient. MINDA MOSES RN 02/09/2020 10:20 AM RER HIGH DENSITY PRESS documented in this encounter Miscellaneous Notes Addendum Note - Yves Chiang RN - 02/09/2020 10:00 AM LABORER HIGH DENSITY PRESS Addended by: YVES CHIANG RN on: 02/09/2020 01:11 PM Modules accepted: Orders, SmartSet documented in this encounter Plan of Treatment Date Type Specialty Care Team Description 03/08/2020 Routine Visit [facility] Satellites [facility]ile[facility], [facility] [address] [phone] Name Type Priority Associated Diagnoses Date/Ti me GLUCOSE 1 HOUR POST LAB Routine Supervision of high r isk 02/09/2020 11:10 AM LABORER HIGH DENSITY PRESS PRANDIAL , antepartum CBC WITH DIFF LAB Routine Supervision of high risk 11:10 AM LABORER HIGH DENSITY PRESS , antepartum HEPATITIS B SURFACE LAB Routine Supervision of high r isk 02/09/2020 11:10 AM LABORER HIGH DENSITY PRESS ANTIGEN , antepartum HIV 1/2 AG-AB WITH LAB Routine Supervision of high ri sk 02/09/2020 11:10 AM LABORER HIGH DENSITY PRESS REFLEX , antepartum RUBELLA SCREEN (RUBIO) LAB Routine Supervision of hig h risk 02/09/2020 11:10 AM LABORER HIGH DENSITY PRESS IGG , antepartum GALV ONLY - SYPHILIS LAB Routine Supervision of high risk 02/09/2020 11:10 AM LABORER HIGH DENSITY PRESS IGG/IGM , antepartum URINE CULTURE LAB Routine Supervision of high risk 11:16 AM LABORER HIGH DENSITY PRESS , antepartum VZV ANTIBODY SCREEN LAB Routine Supervision of high r isk 02/09/2020 11:10 AM LABORER HIGH DENSITY PRESS , antepartum PAP Smear-Liquid Based LAB Routine Supervision of hig h risk 02/09/2020 11:16 AM LABORER HIGH DENSITY PRESS , antepartum GC & CHLAMYDIA LAB Routine Supervision of high risk 1 04/10/2019 11:16 AM LABORER HIGH DENSITY PRESS AMPLIFIED ASSAY , antepartum Name Type Priority Associated Diagnoses Order S chedule CBC WITH DIFF LAB Routine Supervision of high risk Ex pected: 02/09/2020, , antepartum s: 02/08/2021 HEPATITIS B SURFACE LAB Routine Supervision of high r isk Expected: 02/09/2020, ANTIGEN , antepartum s: 02/08/2021 HIV 1/2 AG-AB WITH LAB Routine Supervision of high ri sk Expected: 02/09/2020, REFLEX , antepartum s: 02/08/2021 POCT URINALYSIS W LAB Routine Supervision of high ris k 20 Occurrences starting SPECIFIC GRAVITY , antepartum until 12/05/2020 WORKUP, BLOOD LAB Routine Supervision of hig h risk Expected: 02/09/2020, BANK , antepartum s: 02/08/2021 RUBELLA SCREEN (RUBIO) LAB Routine Supervision of hig h risk Expected: 02/09/2020, IGG , antepartum s: 02/08/2021 GALV ONLY - SYPHILIS LAB Routine Supervision of high risk Expected: 02/09/2020, IGG/IGM , antepartum s: 02/08/2021 URINE CULTURE LAB Routine Supervision of high risk Ex pected: 02/09/2020, , antepartum s: 02/08/2021 VZV ANTIBODY SCREEN LAB Routine Supervision of high r isk Expected: 02/09/2020, , antepartum s: 02/08/2021 PAP Smear-Liquid Based LAB Routine Supervision of hig h risk Expected: 02/09/2020, , antepartum s: 02/08/2021 GC & CHLAMYDIA LAB Routine Supervision of high risk E xpected: 02/09/2020, AMPLIFIED ASSAY , antepartum Exp ires: 02/08/2021 SARS-COV-2 IGG LAB Routine Supervision of high risk O rdered: 02/09/2020 , antepartum Health Maintenance Due Date Last Done Comments INFLUENZA VACCINE (#1) 2020 Postponed from 12/07/2019 (Refused) HPV VACCINES (1 - 2-dose 01/30/2021 Postpon ed from 2007 series) ( or ) CHLAMYDIA SCREENING 02/08/2021 02/09/2020, 09/27/2015, 03/06/2015 Depression Screening 02/08/2021 02/09/2020 MENINGOCOCCAL B VACCINES (1 02/08/2021 Post poned from 2006 of 2 - Risk Bexsero 2-dose ([place] Guidelines) series) PAP SMEAR 02/08/2023 02/09/2020 DTaP,Tdap,and Td Vaccines (2 03/01/2024 03/01/2014 - Td) PNEUMOCOCCAL 0-64 YEARS Aged Out No longe r eligible based COMBINED SERIES on patient's age to complete this to [facility] documented as of this encounter Procedures Procedure Name Priority Date/Time Associated Diagnosis Comme nts POCT URINALYSIS W/O Routine 02/09/2020 10:04 Supervision of mn gh Results for this SPECIFIC GRAVITY AM LABORER HIGH DENSITY PRESS risk , procedur e are in antepartum the results section. POCT TEST Routine 02/09/2020 10:04 Supervision of mn gh Results for this AM LABORER HIGH DENSITY PRESS risk , procedure ar e in antepartum the results section. documented in this encounter Results POCT URINALYSIS W/O SPECIFIC GRAVITY (02/09/2020 10:04 AM LABORER HIGH DENSITY PRESS) Pathologist Sig nature POCT PH U 7 5 - 8 mg/dl POCT U LEUK EST Trace Negative - Negative POCT U NIT Neg Negative - Negative POCT U PROT Trace Negative - Negative POCT U GLU Neg Negative - Negative POCT U KETONE None Negative - Negative POCT U BLD Neg Negative - Negative Specimen Urine - URINE, CLEAN CATCH POCT TEST (02/09/2020 10:04 AM LABORER HIGH DENSITY PRESS) Pathologist Sig nature POCT PREG Positive On board controls acceptable Yes with C Line POCT PREG LOT # POCT PREG TEST DATE Specimen Urine - URINE, CLEAN CATCH documented in this encounter Visit Diagnoses Diagnosis Supervision of high risk , ante - Primary History of miscarriage Personal history of other genital system and obstetric disorders Obesity in Obesity complicating , childbir th, or the puerperium, unspecified as to episode of care or not applicable documented in this encounter Insurance Payer Benefit Plan / Subscriber ID Effective Phone Address T ype Group Dates MEDICAID MEDICAID PENDING 2020-[address] P[place] [address] documented as of this encounter
--- OUTSIDE RECORDS SUMMARY | 2020-02-13 02:17 | XMS REPORT | Summary of Care ---
:1995 Author Organization [facility] Address [address] [place] [address] Care Team Providers Name Role Phone GouldAdelaide Primary Care Provider Reason for Visit Reason Comments Initial Visit Encounter Details Date Type Department Care Team Description 02/09/[address] [facility]- A[place]ipe, Super vision of high risk , antepartum (Primary Dx); Visit [place] AIDE Steiner History of miscarriage; [address] [place] y in [facility] [address] [place], [place] [phone] [address] Allergies No Known Allergiesdocumented as of [...] with No / Unsure 02/09/2020 9:56 AM LAND ACQUISITION SPECIALIST someone who was confirmed or suspected to have Coronavirus / COVID-19? documented as of this encounter Last Filed Vital Signs Vital Sign Reading Time Taken Comments Blood Pressure 129/76 02/09/2020 10:11 AM LAND ACQUISITION SPECIALIST Pulse 88 02/09/2020 10:11 AM LAND ACQUISITION SPECIALIST Temperature 36.7 C (98.1 F) 02/09/2020 10:11 AM LAND ACQUISITION SPECIALIST Respiratory Rate 16 02/09/2020 10:11 AM LAND ACQUISITION SPECIALIST Oxygen Saturation - - Inhaled Oxygen Concentration - - Weight 100.4 kg (221 lb 7 oz) 02/09/2020 10:11 AM LAND ACQUISITION SPECIALIST Height 154.9 cm (5' 1") 02/09/2020 10:11 AM LAND ACQUISITION SPECIALIST Body Mass Index 41.84 02/09/2020 10:11 AM LAND ACQUISITION SPECIALIST documented in this encounter Progress Notes Nichelle [...] level: Not on file 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 Type [...] and mental health on future pregnancies and/or jail health. This visit did not involve counseling and coordination that comprised more than 50% of the visit time. AIDE Bassett 02/09/2020 11:20 AM ACQUISITION SPECIALIST Minda Moses RN - 02/09/2020 10:00 AM [...] patient. MINDA MOSES RN 02/09/2020 10:20 AM ACQUISITION SPECIALIST documented in this encounter Miscellaneous Notes Addendum Note - Yves Chiang RN - 02/09/2020 10:00 AM LAND ACQUISITION SPECIALIST Addended by: YVES CHIANG RN on: 02/09/2020 01:11 PM Modules accepted: Orders, SmartSet documented in this encounter Plan of Treatment Date Type Specialty Care Team Description 03/08/2020 Routine [facility] OB Satellites [facility] [address] [address] [phone] Name Type Priority Associated Diagnoses Date/Ti me GLUCOSE 1 HOUR POST LAB Routine Supervision of high r isk 02/09/2020 11:10 AM LAND ACQUISITION SPECIALIST PRANDIAL , antepartum CBC WITH DIFF LAB Routine Supervision of high risk 11:10 AM LAND ACQUISITION SPECIALIST , antepartum HEPATITIS B SURFACE LAB Routine Supervision of high r isk 02/09/2020 11:10 AM LAND ACQUISITION SPECIALIST ANTIGEN , antepartum HIV 1/2 AG-AB WITH LAB Routine Supervision of high ri sk 02/09/2020 11:10 AM LAND ACQUISITION SPECIALIST REFLEX , antepartum RUBELLA SCREEN (RUBIO) LAB Routine Supervision of hig h risk 02/09/2020 11:10 AM LAND ACQUISITION SPECIALIST IGG , antepartum GALV ONLY - SYPHILIS LAB Routine Supervision of high risk 02/09/2020 11:10 AM LAND ACQUISITION SPECIALIST IGG/IGM , antepartum URINE CULTURE LAB Routine Supervision of high risk 11:16 AM LAND ACQUISITION SPECIALIST , antepartum VZV ANTIBODY SCREEN LAB Routine Supervision of high r isk 02/09/2020 11:10 AM LAND ACQUISITION SPECIALIST , antepartum PAP Smear-Liquid Based LAB Routine Supervision of hig h risk 02/09/2020 11:16 AM LAND ACQUISITION SPECIALIST , antepartum GC & CHLAMYDIA LAB Routine Supervision of high risk 1 04/10/2019 11:16 AM LAND ACQUISITION SPECIALIST AMPLIFIED ASSAY , antepartum SARS-COV-2 IGG LAB Routine Supervision of high risk 1 04/10/2019 11:10 AM LAND ACQUISITION SPECIALIST , antepartum Name Type Priority Associated Diagnoses [...] AMPLIFIED ASSAY , antepartum Exp ires: 02/08/2021 Health Maintenance Due Date Last Done Comments [...] on patient's age to complete this to [facility] documented as of this encounter Procedures Procedure Name Priority Date/Time Associated Diagnosis Comme nts POCT URINALYSIS W/O Routine 02/09/2020 10:04 Supervision of ri gh Results for this SPECIFIC GRAVITY AM LAND ACQUISITION SPECIALIST risk , procedur e are in antepartum the results section. POCT TEST Routine 02/09/2020 10:04 Supervision of ri gh Results for this AM LAND ACQUISITION SPECIALIST risk , procedure ar e in antepartum the results section. documented in this encounter Results POCT URINALYSIS W/O SPECIFIC GRAVITY (02/09/2020 10:04 AM LAND ACQUISITION SPECIALIST) Pathologist Sig nature POCT PH U 7 [...] CLEAN CATCH POCT TEST (02/09/2020 10:04 AM LAND ACQUISITION SPECIALIST) Pathologist Sig nature POCT PREG Positive On [...] T ype Group Dates MEDICAID MEDICAID PENDING 2020-[address] [place] [address] documented as of this encounter
--- OUTSIDE RECORDS SUMMARY | 2020-02-13 02:17 | XMS REPORT | Summary of Care ---
:1995 Author Organization [facility] Address [address] [place] [address] Care Team Providers Name Role Phone Adelaide GouldP Primary Care Provider Reason for Referral (Routine) Status Reason Specialty Diagnoses / Referred By Referred To Procedures Contact Contact New Request Maternal Diagnoses Supervision of high risk in first trimester Adelaide Gould Medicine Procedures CONSULT MATERNAL MEDICINE ULTRASOUND Preferred Location: [facility] [address] [place] [address] Reason for Visit Reason Comments Referral/consult US Rx Concern/Question vitamins Encounter Details Date Type Department Care Team Description [facility] Ref erral/consult (US); Gay Lynch DEL Rx Concern/Question [address] [facility] [address] [facility] ( vitamins) [place] [phone] Allergies No Known Allergiesdocumented as of this encounter (statuses as of 02/10/2020) Medications Medication Sig Dispensed Refills Start Date End Date Status vit Take 1 Packet 30 Each 6 02/10/2020 Ac tive 86-bohr-vhlvp-dha by mouth (SELECT-OB + DHA) daily. 29 mg iron-1 mg -250 mg combo packIndications: Supervision of high risk in first trimester Take 1 tablet 90 tablet 3 10/24/2015 02/10/2020 Disc ontinued multivitamin by mouth ( VITAMIN) daily. tabletIndications: High-risk , first trimester documented as of this encounter (statuses as of 02/10/2020) Active Problems Problem Noted Date Obesity in 02/09/2020 History of miscarriage 02/09/2020 Supervision of high-risk 02/09/2020 Anembryonic 11/23/2015 Estimated Date of Delivery Comments Yes 09/03/2020 Based on last menstr ual period of 11/28/2019 (Approximate) documented as of this encounter (statuses as of 02/10/2020) Resolved Problems Problem Noted Date Resolved Date [...] as of this encounter (statuses as of 02/10/2020) Immunizations Name Administration Dates Next Due TDAP [...] with No / Unsure 02/09/2020 9:56 AM SENIOR DATABASE ADMINISTRATOR someone who was confirmed or suspected to have Coronavirus / COVID-19? documented as of this encounter Last Filed Vital Signs Not on filedocumented in this encounter Miscellaneous Notes Telephone Encounter - Deepika Campos LVN - 02/10/2020 9:12 AM CSTYahaira Vu is a 24 year old female Informed patient of USG order and pnv orders. Stated she has the number to call USG department. elephone Encounter - Adelaide Gould FNP - 02/10/2020 9:08 AM SENIOR DATABASE ADMINISTRATOR Please inform patient that her USG has been ordered. The USG department in [place] will call patient for appointment or patient call call herself at [phone]. Please inform patient that her vitamins have been called to her chosen Pharmacy. Patient should pick them up in 3 days or the Pharmacy will restock the vitamins. OR DATABASE ADMINISTRATOR Telephone Encounter - ACE Gonzales - 02/10/2020 8:18 AM CSTPt is calling back to check the status of referral, please call [phone] (home) elephone Encounter - Alejandra Baum - 02/09/2020 2:34 PM CSTPatient stating she now has medicaid ([id number]) and would like an order for an ultra sound and would like to see if she can get vitamins. Please call. elephone Encounter - Lilian Bingham - 02/09/2020 2:29 PM CSTIrmrg Vu is a 24 year old female Is calling to get a referral for US and to get her vitamins. Her medicaid was approved today. Please call. documented in this encounter Plan of Treatment Date Type Specialty Care Team Description 03/08/2020 Routine Visit OB Satellites Estefanía Avilez, CNP [address] [place], [place] [address] [phone] Health Maintenance Due Date Last Done Comments [...] on patient's age to complete this to [facility] documented as of this encounter Results Not on filedocumented in this encounter Visit Diagnoses Diagnosis Supervision of high risk in fi rst trimester - Primary Unspecified high-risk documented in this encounter Insurance Payer Benefit Plan Subscriber ID Effective Phone Address Typ e / Group Dates MEDICAID MEDICAID PENDING 2020-Pre [address] ending [place] [address] [facility] [id number] 2020-Pre [phone] [id number] Medicaid WOMEN sent [address] [place] [phone] documented as of this encounter
--- OUTSIDE RECORDS SUMMARY | 2020-02-13 02:17 | XMS REPORT | Summary of Care ---
:1995 Author Organization [facility] Address [address] [place] [address] Care Team Providers Name Role Phone Jared Mcmanus MD Primary Care Provider Reason for Visit Reason Comments ULTRASOUND (Routine) Status Reason Specialty Diagnoses / Referred By Referred To Procedures Contact Contact New Request Maternal Diagnoses Supervision of high risk in first trimester Adelaide Gould Medicine Procedures CONSULT MATERNAL MEDICINE ULTRASOUND Preferred Location: [facility] [address] [place] [address] Encounter Details Date Type Department Care Team Description 02/11/2020 Social Worker School Visit [facility] Jared Mcmanus, Or chrissie size-date Ultrasound-Darío SOSA discrepancy in first [address] [facility] [place] [phone] Allergies No Known Allergiesdocumented as of this encounter (statuses as of 02/11/2020) Medications Medication Sig Dispensed Refills Start Date End Date Status vit Take 1 Packet by 30 Each 6 02/10/2020 Active 27-oqau-albko-dha mouth daily. (SELECT-OB + DHA) 29 mg iron-1 mg -250 mg combo packIndications: Supervision of high risk in first trimester documented as of this encounter (statuses as of 02/11/2020) Active Problems Problem Noted Date Obesity in 02/09/2020 History of miscarriage 02/09/2020 Supervision of high-risk 02/09/2020 Anembryonic 11/23/2015 Estimated Date of Delivery Comments Yes 09/03/2020 Based on last menstr ual period of 11/28/2019 (Approximate) documented as of this encounter (statuses as of 02/11/2020) Resolved Problems Problem Noted Date Resolved Date [...] as of this encounter (statuses as of 02/11/2020) Immunizations Name Administration Dates Next Due TDAP [...] with No / Unsure 02/09/2020 9:56 AM FINAL FINISHER FORGING DIES someone who was confirmed or suspected to have Coronavirus / COVID-19? documented as of this encounter Last Filed Vital Signs Not on filedocumented in this encounter Plan of Treatment Date Type Specialty Care Team Description 03/08/2020 Routine Visit OB Satellites Estefanía Avilez, WHCNP [address] [place], [place] [address] [phone] Health Maintenance Due Date Last Done Comments INFLUENZA VACCINE (#1) 2020 Postponed from 12/07/2019 (Refu sed) HPV VACCINES (1 - 2-dose 01/30/2021 Postpon ed from series) 2007 (Preg nant or ) CHLAMYDIA SCREENING 02/08/2021 02/09/2020, 02/09/2020, 09/27/2015, Additional history exists Depression Screening 02/08/2021 02/09/2020 MENINGOCOCCAL B VACCINES (1 02/08/2021 Post poned from of 2 - Risk Bexsero 2-dose 04/06 (Alternative series) Guidelines) PAP SMEAR 02/08/2023 02/09/2020 DTaP,Tdap,and Td Vaccines 03/01/2024 03/01/2014 (2 - Td) PNEUMOCOCCAL 0-64 YEARS Aged Out No longe r eligible COMBINED SERIES based on patient 's age to complete this topic documented as of this encounter Results Not on filedocumented in this encounter Visit Diagnoses Diagnosis Uterine size-date discrepancy in first t rimester Uterine size date discrepancy, antepartu m condition or complication documented in this encounter Insurance Payer Benefit Plan / Subscriber ID Effective Phone Address T ype Group Dates MEDICAID MEDICAID PENDING 2020-Pres [address] [place] [address] P[place] [address] documented as of this encounter
--- OUTSIDE RECORDS SUMMARY | 2020-02-13 02:17 | XMS REPORT | Summary of Care ---
:1995 Author Organization [facility] Address [address] [place] [address] Care Team Providers Name Role Phone GouldAdelaide Primary Care Provider Reason for Visit Reason Comments Initial Visit Encounter Details Date Type Department Care Team Description 02/09/2020 Initial [facility] RMCHP- [place], Super vision of high risk , antepartum (Primary Dx); Visit [place] AIDE Steiner History of miscarriage; [address] [place] in [facility] [address] [place], [place] [phone] [address] Allergies No Known Allergiesdocumented as of [...] with No / Unsure 02/09/2020 9:56 AM ACID PUMP OPERATOR someone who was confirmed or suspected to have Coronavirus / COVID-19? documented as of this encounter Last Filed Vital Signs Vital Sign Reading Time Taken Comments Blood Pressure 129/76 02/09/2020 10:11 AM ACID PUMP OPERATOR Pulse 88 02/09/2020 10:11 AM ACID PUMP OPERATOR Temperature 36.7 C (98.1 F) 02/09/2020 10:11 AM ACID PUMP OPERATOR Respiratory Rate 16 02/09/2020 10:11 AM ACID PUMP OPERATOR Oxygen Saturation - - Inhaled Oxygen Concentration - - Weight 100.4 kg (221 lb 7 oz) 02/09/2020 10:11 AM ACID PUMP OPERATOR Height 154.9 cm (5' 1") 02/09/2020 10:11 AM ACID PUMP OPERATOR Body Mass Index 41.84 02/09/2020 10:11 AM ACID PUMP OPERATOR documented in this encounter Progress Notes Nichelle Avilze WHDEL - 02/09/2020 10:00 AM CST Chief [...] level: Not on file 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 Type [...] and mental health on future pregnancies and/or longterm health. This visit did not involve counseling and coordination that comprised more than 50% of the visit time. AIDE Bassett 02/09/2020 11:20 AM PUMP OPERATOR Minda Moses RN - 02/09/2020 10:00 AM [...] patient. MINDA MOSES RN 02/09/2020 10:20 AM PUMP OPERATOR documented in this encounter Plan of Treatment Date Type Specialty Care Team Description 03/08/2020 Routine Visit OB Satellites [facility], [facility] [address] [address] [phone] Name Type Priority Associated Diagnoses Date/Ti me GLUCOSE 1 HOUR POST LAB Routine Supervision of high r isk 02/09/2020 11:10 AM ACID PUMP OPERATOR PRANDIAL , antepartum CBC WITH DIFF LAB Routine Supervision of high risk 11:10 AM ACID PUMP OPERATOR , antepartum HEPATITIS B SURFACE LAB Routine Supervision of high r isk 02/09/2020 11:10 AM ACID PUMP OPERATOR ANTIGEN , antepartum HIV 1/2 AG-AB WITH LAB Routine Supervision of [facility] ri sk 02/09/2020 11:10 AM ACID PUMP OPERATOR REFLEX , antepartum RUBELLA SCREEN (RUBIO) LAB Routine Supervision of hig h risk 02/09/2020 11:10 AM ACID PUMP OPERATOR IGG , antepartum GALV ONLY - SYPHILIS LAB Routine Supervision of high risk 02/09/2020 11:10 AM ACID PUMP OPERATOR IGG/IGM , antepartum URINE CULTURE LAB Routine Supervision of high risk 11:16 AM ACID PUMP OPERATOR , antepartum VZV ANTIBODY SCREEN LAB Routine Supervision of high r isk 02/09/2020 11:10 AM ACID PUMP OPERATOR , antepartum PAP Smear-Liquid Based LAB Routine Supervision of hig h risk 02/09/2020 11:16 AM ACID PUMP OPERATOR , antepartum GC & CHLAMYDIA LAB Routine Supervision of high risk 1 04/10/2019 11:16 AM ACID PUMP OPERATOR AMPLIFIED ASSAY , antepartum Name Type Priority [...] on patient's age to complete this to [facility] documented as of this encounter Procedures Procedure Name Priority Date/Time Associated Diagnosis Comme nts POCT URINALYSIS W/O Routine 02/09/2020 10:04 Supervision of or gh Results for this SPECIFIC GRAVITY AM ACID PUMP OPERATOR risk , procedur e are in antepartum the results section. POCT TEST Routine 02/09/2020 10:04 Supervision of or gh Results for this AM ACID PUMP OPERATOR risk , procedure ar e in antepartum the results section. documented in this encounter Results POCT URINALYSIS W/O SPECIFIC GRAVITY (02/09/2020 10:04 AM ACID PUMP OPERATOR) Pathologist Sig nature POCT PH U 7 [...] CLEAN CATCH POCT TEST (02/09/2020 10:04 AM ACID PUMP OPERATOR) Pathologist Sig nature POCT PREG Positive On [...] ype Group Dates MEDICAID MEDICAID PENDING 2020-Pres [address] Pending [place] [address] documented as of this encounter
--- OUTSIDE RECORDS SUMMARY | 2020-02-13 02:17 | XMS REPORT | Summary of Care ---
:1995 Author Organization [facility] Address [address] [place] [address] Care Team Providers Name Role Phone Adelaide GouldP Primary Care Provider Reason for Referral (Routine) Status Reason Specialty Diagnoses / Referred By Referred To Procedures Contact Contact New Request Maternal Diagnoses Supervision of high risk in first trimester Adelaide Gould Medicine Procedures CONSULT MATERNAL MEDICINE ULTRASOUND Preferred Location: [facility] [address] [place] [address] Reason for Visit Reason Comments Referral/consult US Rx Concern/Question vitamins Encounter Details Date Type Department Care Team Description 02/09[facility]2020 [facility] Ref erral/consult (US); Gay Lynch DEL Rx Concern/Question [address] [facility] [address] [facility] ( vitamins) [place] [phone] Allergies No Known Allergiesdocumented as of this encounter (statuses as of 02/10/2020) Medications Medication Sig Dispensed Refills Start Date End Date Status vit Take 1 Packet 30 Each 6 02/10/2020 Ac tive 46-wqlq-ixpub-dha by mouth (SELECT-OB + DHA) daily. 29 [...] with No / Unsure 02/09/2020 9:56 AM GEAR DESIGN ENGINEER someone who was confirmed or suspected to have Coronavirus / COVID-19? documented as of this encounter Last Filed Vital Signs Not on filedocumented in this encounter Miscellaneous Notes Telephone Encounter - Adelaide Gould FNP - 02/10/2020 9:08 AM CSTPlease inform patient that her USG has been ordered. The USG department in [place] will call patient for appointment or patient call call herself at [phone]. Please inform patient that her vitamins have been called to her chosen Pharmacy. Patient should pick them up in 3 days or the Pharmacy will restock the vitamins. DESIGN ENGINEER Telephone Encounter - ACE Gonzales - 02/10/2020 8:18 AM CSTPt is calling back to check the status of referral, please call [phone] (home) elephone Encounter - Alejandra Baum - 02/09/2020 2:34 PM CSTPatient stating she now has medicaid ([id number]) and would like an order for an [...] 03/08/2020 Routine [facility] OB Satellites [facility] [address] [place], [place] [address] [phone] Health Maintenance Due Date Last Done Comments [...] on patient's age to complete this to [facility] documented as of this encounter Results Not on filedocumented in this encounter Visit Diagnoses Diagnosis Supervision of high risk in fi rst trimester - Primary Unspecified high-risk documented in this encounter Insurance Payer Benefit Plan Subscriber ID Effective Phone Address Typ e / Group Dates MEDICAID MEDICAID PENDING 2020-Pre [address] ending [place] [address] [facility] [id number] 2020-Pre [phone] [id number] Medicaid WOMEN sent [address] [place] [address] documented as of this encounter
--- NOTE | 2020-02-13 03:06 | ER ---
Nurse's Notes [facility] Name: Yahaira Vu Age: 24 yrs Sex: Female : 1995 Arrival Date: 02/13/2020 Time: 02:15 Bed 20 Private MD: Diagnosis: Anxiety disorder, unspecified Presentation: 02/12 02:29 Chief complaint: Patient states: she almost had a car accident just prior to arrival bb and got scared and now is feeling weak. Coronavirus screen: At this time, the client does not indicate any symptoms associated with coronavirus-19. Ebola Screen: No symptoms or risks identified at this time. Initial Sepsis Screen: Does the patient meet any 2 criteria? No. Patient's initial sepsis screen is negative. Does the patient have a suspected source of infection? No. Patient's initial sepsis screen is negative. Risk Assessment: Do you want to hurt yourself or someone else? Patient reports no desire to harm self or others. Onset of symptoms was February 13, 2020. 02:29 Method Of Arrival: Ambulatory bb 02:29 Acuity: SHERYL 5 bb 02:35 Note pt is 11 weeks is being seen at [facility] last visit was Friday. bb 02:43 Note pt denies abdominal pain or vaginal bleeding. bb DOCUMENT CONTROL MANAGER: 02:34 2, 1, Living 0, LMP 11/28/2019, Verified, EDC 09/03/2020, bb Gestational age from LMP: 11 weeks 0 days Historical: - Allergies: 02:34 NKA; bb - Home Meds: 02:34 vitamins [Active]; bb - PMHx: 02:34 Ovarian cyst; bb - PSHx: 02:34 None; bb - Immunization history:: Adult Immunizations up to date. - Social history:: Smoking status: Patient denies any tobacco usage or history of. Screenin:32 Abuse screen: Denies threats or abuse. Denies injuries from another. Nutritional lp1 screening: No deficits noted. Tuberculosis screening: No symptoms or risk factors identified. Fall Risk None identified. Assessment: 03:00 General: Appears in no apparent distress. Behavior is calm, cooperative, appropriate lp1 for age. Pain: Denies pain. Neuro: Level of Consciousness is awake, alert, obeys commands. Cardiovascular: Patient's skin is warm and dry. Respiratory: Respiratory effort is even, unlabored. GI: Abdomen is obese. : No signs and/or symptoms were reported regarding the genitourinary system. EENT: No signs and/or symptoms were reported regarding the EENT system. Derm: Skin is pink, warm \T\ dry. Musculoskeletal: No deficits noted. Vital Signs: 02:29 BP 134 / 85; Pulse 106; Resp 18 S; Temp 99(O); Pulse Ox 100% on R/A; Weight 99.79 kg bb (R); Height 5 ft. 1 in. (154.94 cm) (R); Pain 0/10; 02:29 Body Mass Index 41.57 (99.79 kg, 154.94 cm) ED Course: 02:15 Patient arrived in ED. ag3 02:33 Triage completed. bb 02:34 Arm band placed on Patient placed in an exam room, on a stretcher, on pulse oximetry. bb Family accompanied patient. 02:35 Evaristo Long MD is Attending Physician. tw4 03:30 Radha Eaton, RN is Primary Nurse. lp1 03:32 Patient has correct armband on for positive identification. lp1 03:32 No provider procedures requiring assistance completed. Patient did not have IV access lp1 during this emergency room visit. Administered Medications: No medications were administered Outcome: 03:05 Discharge ordered by . tw4 03:32 Discharged to home ambulatory. lp1 03:32 Condition: good 03:32 Discharge instructions given to patient, Instructed on discharge instructions, follow up and referral plans. Demonstrated understanding of instructions, follow-up care. 03:32 Patient left the ED. lp1 Signatures: Micaela Gannon RN RN bb Radha Eaton, RN RN lp1 Evaristo Long MD MD 4 Linh Henderson 3
--- NOTE | 2020-02-13 03:33 | EDPHYS ---
Physician Documentation [facility] Name: Yahaira Vu Age: 24 yrs Sex: Female : 1995 Arrival Date: 02/13/2020 Time: 02:15 Bed 20 Private MD: ED Physician Evaristo Long HPI: 02/12 03:08 This 24 yrs old Female presents to ER via Ambulatory with complaints of tw4 Weakness. 03:08 The patient presents to the emergency department with anxiety. Onset: The tw4 symptoms/episode began/occurred today. Past psychiatric history: Prior diagnosis: no previous psychiatric diagnosis known. Associated signs and symptoms: The patient has no apparent associated signs or symptoms. The patient has not experienced similar symptoms in the past. BLANKMAKER: 02:34 2, 1, Living 0, LMP 11/28/2019, Verified, EDC 09/03/2020, bb Gestational age from LMP: 11 weeks 0 days Historical: - Allergies: 02:34 NKA; bb - Home Meds: 02:34 vitamins [Active]; bb - PMHx: 02:34 Ovarian cyst; bb - PSHx: 02:34 None; bb - Immunization history:: Adult Immunizations up to date. - Social history:: Smoking status: Patient denies any tobacco usage or history of. ROS: 03:08 Constitutional: Negative for fever, chills, and weight loss, Eyes: Negative for injury, tw4 pain, redness, and discharge, Cardiovascular: Negative for chest pain, palpitations, and edema, Respiratory: Negative for shortness of breath, cough, wheezing, and pleuritic chest pain, Abdomen/GI: Negative for abdominal pain, nausea, vomiting, diarrhea, and constipation, Back: Negative for injury and pain, MS/Extremity: Negative for injury and deformity, Skin: Negative for injury, rash, and discoloration, Neuro: Negative for headache, weakness, numbness, tingling, and seizure. Exam: 03:08 Constitutional: This is a well developed, well nourished patient who is awake, alert, tw4 and in no acute distress. Head/Face: Normocephalic, atraumatic. Cardiovascular: Regular rate and rhythm with a normal S1 and S2. No gallops, murmurs, or rubs. Normal PMI, no JVD. No pulse deficits. Respiratory: Lungs have equal breath sounds bilaterally, clear to auscultation and percussion. No rales, rhonchi or wheezes noted. No increased work of breathing, no retractions or nasal flaring. Abdomen/GI: Soft, non-tender, with normal bowel sounds. No distension or tympany. No guarding or rebound. No evidence of tenderness throughout. Back: No spinal tenderness. No costovertebral tenderness. Full range of motion. MS/ Extremity: Pulses equal, no cyanosis. Neurovascular intact. Full, normal range of motion. Neuro: Awake and alert, GCS 15, oriented to person, place, time, and situation. Cranial nerves II-XII grossly intact. Motor strength 5/5 in all extremities. Sensory grossly intact. Cerebellar exam normal. Normal gait. Vital Signs: 02:29 BP 134 / 85; Pulse 106; Resp 18 S; Temp 99(O); Pulse Ox 100% on R/A; Weight 99.79 kg bb (R); Height 5 ft. 1 in. (154.94 cm) (R); Pain 0/10; 02:29 Body Mass Index 41.57 (99.79 kg, 154.94 cm) bb MDM: 02:35 Patient medically screened. tw4 03:08 Differential diagnosis: drug withdrawal. acute psychotic break, depression. Data tw4 reviewed: vital signs, nurses notes. Data interpreted: Pulse oximetry: Interpretation: normal. Counseling: I had a detailed discussion with the patient and/or guardian regarding: the historical points, exam findings, and any diagnostic results supporting the discharge/admit diagnosis. Special discussion: I discussed with the patient/guardian in detail that at this point there is no indication for admission to the hospital. It is understood, however, that if the symptoms persist or worsen the patient needs to return immediately for re-evaluation. 02/12 03:21 Order name: Heart Tones; Complete Time: 03:21 bb Administered Medications: No medications were administered Disposition: 02/13/20 03:05 Discharged to Home. Impression: Anxiety disorder, unspecified. - Condition is Stable. - Discharge Instructions: Generalized Anxiety Disorder. - Medication Reconciliation Form, Thank You Letter, Antibiotic Education, Prescription Opioid Use form. - Follow up: Private Physician; When: Upon discharge from the Emergency Department; Reason: Recheck today's complaints, Continuance of care, Re-evaluation by your physician. - Problem is new. - Symptoms have improved. Signatures: Micaela Gannon RN RN bb Radha Eaton RN RN lp1 Evaristo Long MD MD tw4 Corrections: (The following items were deleted from the chart) 03:32 03:05 02/13/2020 03:05 Discharged to Home. Impression: Anxiety disorder, unspecified. lp1 Condition is Stable. Forms are Medication Reconciliation Form, Thank You Letter, Antibiotic Education, Prescription Opioid Use. Follow up: Private Physician; When: Upon discharge from the Emergency Department; Reason: Recheck today's complaints, Continuance of care, Re-evaluation by your physician. Problem is new. Symptoms have improved. tw4
[2020-02-13 03:39] VITALS: BP 134/85; TEMP 99; O2SAT 100
== END 2020-02-13 03:32 | disposition home or self-care (01) ==
LOC: ER 02:14
DX: O99.341 Other mental disorders complicating pregnancy, first trimester (principal); F41.9 Anxiety disorder, unspecified; Z3A.11 11 weeks gestation of pregnancy
CPT/HCPCS: 99283

== ENCOUNTER 2020-03-08 22:28 | Emergency (ER) | payer OTHER ==
--- OUTSIDE RECORDS SUMMARY | 2020-03-08 22:30 | XMS REPORT | Continuity of Care Document ---
:1995 Author Organization [facility] t Address [address] [place] [address] Care Team Providers Name Role Phone Syed Macdonald Attending Clinician Monica Carty Attending Clinician , Room Attending Clinician Unavailable Problems This patient has no known problems. Allergies, Adverse Reactions, Alerts This patient has no known allergies or adverse reactions. Medications This patient has no known medications. Procedures This patient has no known procedures. Encounters Start End Encounter Admission Attending Care Care Encounter Source Date/Time Date/Time Type Type Clinicians Facility Department ID 2020-03-08 2020-03-08 Routine Fatmata [facility] [id number] 10:31:40 10:55:43 Nichelle C TOW PICKER [id number] Visit REGIONAL [id number] MATERNAL [id number] & CHILD [facility] 2020-02-14 2020-02-14 Telephone TIKA Avilez [id number] 00:00:00 00:00:00 Nichelle C TOW PICKER [id number] REGIONAL [id number] MATERNAL [id number] & CHILD [facility] 2020-02-14 2020-02-14 Abstract TIKA Gould [id number] 00:00:00 00:00:00 Toma R TOW [facility]ICKER [id number] REGIONAL [id number] MATERNAL [id number] & CHILD [facility] 2020-02-11 2020-02-11 Insemination Worker 1Zulma [facility] [id number] 13:04:58 13:34:58 Visit Us Room [facility]OW [facility]ER [id number] REGIONAL [id number] MATERNAL [id number] & CHILD 369 [facility] 2020-02-09 2020-02-09 Telephone Fatmata [facility] [id number] 00:00:00 00:00:00 Nichelle Lynch [facility] [facility] [id number] REGIONAL [id number] MATERNAL [id number] & CHILD [facility] Results This patient has no known results.
--- OUTSIDE RECORDS SUMMARY | 2020-03-08 22:32 | XMS REPORT | Summary of Care ---
:1995 Author Organization [facility] Address [address] [place] [address] Care Team Providers Name Role Phone Jared Mcmanus MD Primary Care Provider Reason for Referral (Routine) Status Reason Specialty Diagnoses / Referred By Referred To Procedures Contact Contact New Request Maternal Diagnoses Supervision of high risk , antepartum [place], Medicine Procedures CONSULT MATERNAL MEDICINE ULTRASOUND Preferred Location: [employer] Nichelle Lynch [facility] [address] [place] [address] Reason for Visit Reason Comments Care Encounter Details Date Type Department Care Team Description 03/08/2020 Routine [facility] RMP- [place], Super vision of high risk , antepartum (Primary Dx); Visit Gay Lynch [facility] History of miscarriage; [address] in [facility] [address] [place], [place] [phone] Allergies No Known Allergiesdocumented as of this encounter (statuses as of 03/08/2020) Medications Medication Sig Dispensed Refills Start Date End Date Status vit Take 1 Packet by 30 Each 6 02/10/2020 Active 43-lnbs-lxlsg-dha mouth daily. (SELECT-OB + DHA) 29 mg iron-1 mg -250 mg combo packIndications: Supervision of high risk in first trimester PNV Take 3 tablets by 90 tablet 6 03/08/2020 A ctive 286-iody-UT-om-3s-dha- mouth daily. epa (VITAFOL GUMMIES) 3.33 mg iron- 0.33 mg ChewIndications: Supervision of high risk , antepartum documented as of this encounter (statuses as of 03/08/2020) Active Problems Problem Noted Date Obesity in 02/09/2020 History of miscarriage 02/09/2020 Supervision of high-risk 02/09/2020 Anembryonic 11/23/2015 Estimated Date of Delivery Comments Yes 09/03/2020 Based on last menstr ual period of 11/28/2019 (Approximate) documented as of this encounter (statuses as of 03/08/2020) Resolved Problems Problem Noted Date Resolved Date [...] as of this encounter (statuses as of 03/08/2020) Immunizations Name Administration Dates Next Due TDAP [...] been in contact with No / Unsure 03/08/2020 10:31 AM PHARMACY TECHNICIAN ASSISTANT someone who was confirmed or suspected to have Coronavirus / COVID-19? documented as of this encounter Last Filed Vital Signs Vital Sign Reading Time Taken Comments Blood Pressure 133/77 03/08/2020 10:40 AM PHARMACY TECHNICIAN ASSISTANT Pulse 102 03/08/2020 10:40 AM PHARMACY TECHNICIAN ASSISTANT Temperature 37.1 C (98.7 F) 03/08/2020 10:40 AM PHARMACY TECHNICIAN ASSISTANT Respiratory Rate 16 03/08/2020 10:40 AM PHARMACY TECHNICIAN ASSISTANT Oxygen Saturation - - Inhaled Oxygen Concentration - - Weight 102.2 kg (225 lb 6 oz) 03/08/2020 10:40 AM PHARMACY TECHNICIAN ASSISTANT Height 154.9 cm (5' 1") 03/08/2020 10:40 AM PHARMACY TECHNICIAN ASSISTANT Body Mass Index 42.58 03/08/2020 10:40 AM PHARMACY TECHNICIAN ASSISTANT documented in this encounter Progress Notes Nichelle Avilez, WHCNP - 03/08/2020 10:45 AM CST Chief complaint: Chief Complaint Patient presents with Care HPI CC: Follow Up Visit Yahaira Vu is a 24 year old, , /White female. Patient's last menstrual period was 11/28/2019 (approximate). She is 14w3d with an intrauterine . Her estimated date of delivery is 09/03/2020, by Last Menstrual Period. She has no complaints today. Histories OB History Para Term AB Living 2 1 SAB TAB Ectopic Multiple Live Births 1 # Outcome Date GA Lbr Renato/2nd Weight Sex Delivery Anes PTL Lv 2 Current 1 2015 No past medical history on file. Family History Problem Relation Age of Onset [...] Name Status MGMo Alive NoFHx (Not Specified) No past surgical history on file. 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 Social Needs Financial resource strain: Not on [...] file Gets together: Not on file Attends rastafari service: Not on file Active member of [...] Male control/protection: None Comment: Last intercourse: 02/06/2020 Labs No new labs and Initial Visit on 02/09/2020 Component Date Value POCT PREG 02/09/2020 Positive On board controls accept* 02/09/2020 Yes POCT PH U 02/09/2020 7 POCT U LEUK EST 02/09/2020 Trace POCT U NIT 02/09/2020 Neg POCT U PROT 02/09/2020 Trace POCT U GLU 02/09/2020 Neg POCT U KETONE 02/09/2020 None POCT U BLD 02/09/2020 Neg GLUC 1 HR 02/09/2020 98* ABO & RH 02/09/2020 A POSITIVE IAT 02/09/2020 Negative WBC 02/09/2020 6.80 RBC 02/09/2020 4.08 HGB 02/09/2020 12.2 HCT 02/09/2020 36.1 MCV 02/09/2020 88.5 MCH 02/09/2020 29.9 MCHC 02/09/2020 33.8 RDW-SD 02/09/2020 41.1 RDW-CV 02/09/2020 12.8 PLT 02/09/2020 261 MPV 02/09/2020 10.4 NRBC/100 WBC 02/09/2020 0.0 NRBC x10^3 02/09/2020 <0.01 GRAN MAT (NEUT) % 02/09/2020 61.7 IMM GRAN % 02/09/2020 0.70 LYMPH % 02/09/2020 30.7 MONO % 02/09/2020 6.0 EOS % 02/09/2020 0.6 BASO % 02/09/2020 0.3 GRAN MAT x10^3(ANC) 02/09/2020 4.19 IMM GRAN x10^3 02/09/2020 0.05 LYMPH x10^3 02/09/2020 2.09 MONO x10^3 02/09/2020 0.41 EOS x10^3 02/09/2020 0.04 BASO x10^3 02/09/2020 <0.03 HBsAg 02/09/2020 Negative HBsAg Semi-Quantitative 02/09/2020 0.11 HIV 1/2 Ag-Ab with Reflex 02/09/2020 Negative HIV Semi-quantitative 02/09/2020 0.09 Rubella screen IgG 02/09/2020 Positive Syphilis IgG/IgM 02/09/2020 Non-reactive URINE CULTURE 02/09/2020 > 100,000 CFU/mL mixed aerobic organisms - suggests endogenous microbial contamination VZV IgG antibody 02/09/2020 Positive C. trachomatis Nucleic A* 02/09/2020 Negative N. gonorrhoeae Nucleic A* 02/09/2020 Negative CoV-2 IgG 02/09/2020 Negative Case Report 02/09/2020 Value:Gynecologic Cytology Case: [id number] Authorizing Provider: Nichelle Avilez, Collected: 02/09/2020 [address] [facility] Ordering Location: [facility]- Received: 02/09/2020 [address] [employer] First Screen: Bryce King Rescreen: Zulema Husain Specimen: Liquid Based Pap Preparation, CERVIX Clinical Information 02/09/2020 Value:routine Specimen Adequacy 02/09/2020 Satisfactory for Evaluation(Endocervical/Transformation Zone Component Absent) Interpretation 02/09/2020 Negative for intraepithelial lesion or malignancy LMP 02/09/2020 Educational Note 02/09/2020 Value:This result contains rich text formatting which cannot be displayed here. COVID DMT Interpretation 02/09/2020 Value:Interpretation/Recommendation: Tests (PCR) for Active Infection by SARS-CoV-2 Virus: This patient was never tested for an active SARS-CoV-2 infection by PCR. Tests for IgM and/or IgG Antibodies to SARS-CoV-2 Virus: A. A test for IgM antibody to the SARS-CoV-2 virus would be highly informative at this time. IgM antibodies to the SARS-CoV-2 virus identified in a high performing test, usually an RUBIO or chemiluminescence-based assay, should appear in most patients who are truly infected within approximately one week from the onset of symptoms, and in nearly all patients by to three weeks after symptoms begin. Ifthe IgM test is positive, it is highly probable that the patient has been infected with the virus atsome point. IgM antibodies may have developed since the first IgG antibody test was performed. B. A blood sample collected from this patient revealed a negative test for IgG antibodies to the SARS-CoV-2 virus. If the patient experienced symptoms more than 2 to 3 weeks earlier, this most likely indicates that the patient was not infectedwith the SARS-CoV-2 virus. C. IgG antibodies to the SARS-CoV-2 virus often appear after the presence of IgM antibodies. Therefore, another possible explanation is that it may be too early in the course of this patient's infection for the IgG response to occur if symptoms were within the past 2 to 3 weeks. It would be informative to test the patient at least 3 to 4 weeks post onset of symptoms for both IgG and IgM antibodies. IgM antibodies may have developed since the first IgG antibody test was performed. At this time, it isnot known if production of antibodies indicates whether the patient is immune to future infections with the SARS-CoV-2 virus. D. Some patients who have been positive for SARS-CoV-2 with a nasopharyngeal swab specimen do not generate IgG antibodies to the virus. It is possible that patients with a positive PCR test who have nosymptoms or mild symptoms do not generate antibodies. It is also possible that the antibodies were not detected because they were not present at the time the blood sample was taken. E. Although it is uncommon, some patients cannot ever mount an antibody response to infectious agents, such as SARS-CoV-2. If there are persistently negative results for IgM and IgG antibodies, this may be the explanation. Interpretation Result Comments: These interpretation comments are based upon aggregate data pooled from the [facility] medical recordincluding both current and prior COVID-19 related testing results for the following tests offered atour institution: A. Tests for the Identification of SARS-CoV-2 RNA: SARS-CoV-2 PCR assays including [place] Aptima, [place] Fusion, [place] RealTime, and [employer] Xpert Xpress. SARS-CoV-2 Rapid ID NOW by the ID NOW assay. B. Tests for the Identification of SARS-CoV-2 Antibodies: Chemiluminescent immunoassays including Access SARS-CoV-2 IgM (DXI 600), JuspS Rtal-SQQP-LrC-2 IgG (Vitros 5600 and Vitros 3600), and Jacobson SARS-CoV-2 IgG (MANUAL LATHE OPERATOR I System). These interpretation comments assume that only the above testing was utilized and that the approved acceptable specimen type(s) were used for a given test. These interpretations are autopopulated into [employer] based on computerized algorithms matching an interpretation code number to the patient's set of test results. While a clinical pathologist evaluates the combinations for clinical accuracy, clinical correlation is recommended as it may not take into account very remote prior testing. Furthermore, it does not consider testing a patient may have had outside of the [facility] system. Additionally, it should be noted that the computerized algorithm treats the results for PCR testing and Rapid ID NOW testing (also PCR) synonymously, and thus, refers to both testing methodologies as PCR tests. Given that the sensitivity of [facility]'s Rapid ID NOW testing platform is analogous to PCR-based methods, for most patients this has no significant implications for clinical decision making. However, if a patient with a negative result for Rapid ID NOW continues to have a clinical presentation consistent with COVID-19 infection, negative results should be treated as presumptive negative and a new specimen should be tested with alternative PCR molecular test. If results for COVID-19 infection continue to be negative in the context of a clinical presentation consistent with a viral respiratory illness, it is possible the patient may have an infection with another respiratory virus, such as influenza, rhinovirus, other coronaviruses that cause the common cold, etc. Influenza testing and if clinically indicated a respiratory pathogen panel may be beneficial in this setting. COVID Results 02/09/2020 CoV-2 IgG (no units) Date Value 02/09/2020 Negative Radiology Radiology pending. Allergies Yahaira has No Known Allergies. Medications Yahaira has a current medication list which includes the following prescription(s): vitafol gummies andselect-ob + dha. Review of Systems Constitutional: Negative. HENT: Negative. Eyes: Negative. Respiratory: Negative. Breasts: Negative. Cardiovascular: Negative. Gastrointestinal: Negative. Genitourinary: Negative. Musculoskeletal: Negative. Skin: Negative. Neurological: Negative. Psychiatric/Behavioral: Negative. Endocrine: Endocrine negative BP 133/77 (BP Location: Right arm, Patient Position: Sitting, BP CUFF SIZE: Adult Medium) | Pulse 102 | Temp 37.1 C (98.7 F) (Oral) | Resp 16 | Ht 5' 1" (1.549 m) | Wt 225 lb 6 oz (102.2 kg) | LMP 11/28/2019 (Approximate) | BMI 42.58 kg/m Pregravid BMI: 40.83 Physical Exam PHYSICAL: General Exam: Neurological: Normal Abdomen: Normal gravid Extremities: Normal Pelvic Exam: Uterus: 14 Weeks Assessment/Plan Return to clinic in 4 weeks. Denies zika virus risk, signs and symptoms such as fever,rash,joint pain, conjunctivitis (red eyes),muscle pain, headaches; outside [place] travel to areas affected by zika, and FOB exposure to zika. Educated on use of mosquito repellent. Supervision of high risk , antepartum (primary encounter diagnosis) History of miscarriage Comment: routine Plan: POCT URINALYSIS W SPECIFIC GRAVITY, PNV 465-oems-IU-wa-1e-dep-epa (VITAFOL GUMMIES) 3.33 mg iron- 0.33 mg Chew, CONSULT MATERNAL MEDICINE ULTRASOUND Preferred Location: [facility] Obesity in Comment: see bmi Plan: BMI [...] and mental health on future pregnancies and/or felt tipping machine tender health. This visit did not involve counseling and coordination that comprised more than 50% of the visit time. AIDE Bassett 03/08/2020 10:58 AM MACY TECHNICIAN ASSISTANT documented in this encounter Plan of Treatment Date Type Specialty Care Team Description 04/12/2020 Routine Visit OB Satellites Estefanía Avilez WHCNP [address] [place] [address], [place] [address] [phone] Health Maintenance Due Date Last Done Comments [...] 04/06 (Alternative series) Guidelines) PAP SMEAR 02/08/2023 02/09/2020, 02/09/2020 DTaP,Tdap,and Td Vaccines 03/01/2024 03/01/2014 (2 - Td) PNEUMOCOCCAL 0-64 YEARS Aged Out No longe r eligible COMBINED SERIES based on patient 's age to complete this topic documented as of this encounter Procedures Procedure Name Priority Date/Time Associated Diagnosis Comme nts POCT URINALYSIS Routine 03/08/2020 10:42 AM Supervision of [facility] Results for this PHARMACY TECHNICIAN ASSISTANT risk , procedure ar e in antepartum the results section. documented in this encounter Results POCT URINALYSIS W SPECIFIC GRAVITY (03/08/2020 10:42 AM PHARMACY TECHNICIAN ASSISTANT) Pathologist Sig nature POCT U SP GRAV . 1.005 - 1.025 mg/dl POCT PH U . 5 - 8 mg/dl POCT U LEUK EST . Negative - Negative POCT U NIT . Negative - Negative POCT U PROT Trace Negative - Negative POCT U GLU Neg Negative - Negative POCT U KETONE . Negative - Negative POCT U UROBILI . 0.2 - 1 mg/dl POCT U BILI . Negative - Negative POCT U BLD . Negative - Negative POCT U COLOR . POCT U APPEAR Specimen Urine - URINE, CLEAN CATCH documented [...] Payer Benefit Plan / Subscriber ID Effective Dates Phone Addre ss Type Group [place] [employer] [place] [employer] [id number] 2020-Presen Medicaid HEALTH PLAN - HEALTH MANAGED MEDICAID documented as of this encounter
--- OUTSIDE RECORDS SUMMARY | 2020-03-08 22:32 | XMS REPORT | Summary of Care ---
:1995 Author Organization [facility] Address [address] [place] [address] Care Team Providers Name Role Phone Jared Mcmanus MD Primary Care Provider Encounter Details Date Type Department Care Team Description 02/14/2020 Abstract [facility] Adelaide Augustine, MANAGER DATA WAREHOUSING [address] [facility] [address] [place] [address] [place] [address] [phone] Allergies No Known Allergiesdocumented as of this encounter (statuses as of 02/14/2020) Medications Medication Sig Dispensed Refills Start Date End Date Status vit Take 1 Packet by 30 Each 6 02/10/2020 Active 35-tzts-xxfqo-dha mouth daily. (SELECT-OB + DHA) 29 mg iron-1 mg -250 mg combo packIndications: Supervision of high risk in first trimester documented as of this encounter (statuses as of 02/14/2020) Active Problems Problem Noted Date Obesity in 02/09/2020 History of miscarriage 02/09/2020 Supervision of high-risk 02/09/2020 Anembryonic 11/23/2015 Estimated Date of Delivery Comments Yes 09/03/2020 Based on last menstr ual period of 11/28/2019 (Approximate) documented as of this encounter (statuses as of 02/14/2020) Resolved Problems Problem Noted Date Resolved Date [...] as of this encounter (statuses as of 02/14/2020) Immunizations Name Administration Dates Next Due TDAP [...] with No / Unsure 02/09/2020 9:56 AM GRADER GREEN MEAT someone who was confirmed or suspected to have Coronavirus / COVID-19? documented as of this encounter Last Filed Vital Signs Not on filedocumented in this encounter Plan of Treatment Date Type Specialty Care Team Description 03/08/2020 Routine Visit OB Satellites Estefanía Avilez, [facility] [address] [place], [place] [address] [phone] Health Maintenance Due Date Last Done Comments [...] Effective Dates Phone Addre ss Type Group [employer] MEDICAID OF [id number] 2020- [phone] [address] Medicaid [place] [id number] [place] [address] documented as of this encounter
--- OUTSIDE RECORDS SUMMARY | 2020-03-08 22:32 | XMS REPORT | Summary of Care ---
:1995 Author Organization [facility] Address [address] [place] [address] Care Team Providers Name Role Phone Jared Mcmanus MD Primary Care Provider Reason for Visit Reason Comments Assessment ER follow up Encounter Details Date Type Department Care Team Description [facility] (ER follow [facility], [facility] up) [address] [facility] [address], [place] [id number] Allergies No Known Allergiesdocumented as of this encounter (statuses as of 02/14/2020) Medications Medication Sig Dispensed Refills Start Date End Date Status vit Take 1 Packet by 30 Each 6 02/10/2020 Active 66-[id number]-[id number]-dha mouth daily. 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 documented as of this encounter Last Filed Vital Signs Not on filedocumented in this encounter Miscellaneous Notes Telephone Encounter - Deepika Campos LVN - 02/14/2020 11:09 AM CSTYahaira Vu is a 24 year old female Patient stated she went to [place] on Friday d/t feeling weak. Stated she was told she hadanxiety. Stated the ER nurse tried to listen for a heart beat on a doppler and was not able to. Stated the nurse told her her doppler is old and is probably why they couldn't hear anything. Patient informed heart beat was seen on USG on 02/11/2020. Informed patient it was most likely the doppler since patient is not having any symptoms. ER warnings given, verbalized understanding. elephone Encounter - Luzmaria Webster 02/14/2020 11:00 AM CSTPatient was at ER Friday and no heartbeat. Patient was told it maybe because ultrasound machine was old. Please call back documented in this encounter Plan of Treatment Date Type Specialty Care Team Description 03/08/2020 Routine Visit [facility] [address] [place] [address] [phone] Health Maintenance Due Date Last Done Comments [...] Effective Dates Phone Addre ss Type Group [facility] MEDICAID OF [id number] 2020-Presen [phone] Medicaid [place] t [id number] [place] [address] documented as of this encounter
[2020-03-09 00:33] LABS: Urine Blood 3+ (NEG); Urine Glucose NEGATIVE (NEG); Urine Protein 3+ (NEG); Urine Specific Gravity 1.025 (1.005-1.030)
[2020-03-09 00:40] LABS: Urine Bacteria 20-50 /HPF (<20); Urine RBC TNTC /HPF (NONE SEEN)
--- NOTE | 2020-03-09 00:49 | ER ---
Nurse's Notes [facility] Name: Yahaira Vu Age: 24 yrs Sex: Female : 1995 Arrival Date: 03/08/2020 Time: 22:30 Bed 20 Private MD: Diagnosis: Urinary tract infection, site not specified Presentation: 03/08 22:36 Chief complaint: Patient states: I went to the bathroom about an hour ago and noticed I jb4 had a moderate amount of vaginal bleeding, there were no clots, and it was bright red. It only happened once and I am 14 weeks and 3 days . 22:36 Coronavirus screen: Client denies travel out of the [place] in the last 14 days. At this jb4 time, the client does not indicate any symptoms associated with coronavirus-19. Ebola Screen: Patient negative for fever greater than or equal to 101.5 degrees Fahrenheit, and additional compatible Ebola Virus Disease symptoms. Initial Sepsis Screen: Does the patient meet any 2 criteria? HR > 90 bpm. Yes Does the patient have a suspected source of infection? No. Patient's initial sepsis screen is negative. Risk Assessment: Do you want to hurt yourself or someone else? Patient reports no desire to harm self or others. Onset of symptoms was March 08, 2020. Transition of care: patient was not received from another setting of care. 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 jb4 Historical: - Allergies: 22:36 NKA; jb4 - Home Meds: 22:36 vitamins [Active]; jb4 - PMHx: 22:36 Ovarian cyst; jb4 - PSHx: 22:36 None; jb4 - Immunization history:: Adult Immunizations up to date. - Social history:: Smoking status: Patient denies any tobacco usage or history of. Patient/guardian denies using alcohol, street drugs. Screenin:37 Abuse screen: Denies threats or abuse. Denies injuries from another. Nutritional mg2 screening: No deficits noted. Tuberculosis screening: No symptoms or risk factors identified. Fall Risk None identified. Assessment: 22:45 Reassessment: Ultrasound at the bedside. jb4 23:36 General: Appears in no apparent distress. comfortable, Behavior is calm, cooperative. mg2 Pain: Denies pain. Neuro: Level of Consciousness is awake, alert, obeys commands, Oriented to person, place, time, situation. Cardiovascular: Capillary refill < 3 seconds Patient's skin is warm and dry. Respiratory: Airway is patent Respiratory effort is even, unlabored, Respiratory pattern is regular, symmetrical. GI: No signs and/or symptoms were reported involving the gastrointestinal system. : Urine is blood tinged, Reports vaginal bleeding that is light flow. EENT: No signs and/or symptoms were reported regarding the EENT system. Derm: Skin is intact, is healthy with good turgor, Skin is pink, warm \T\ dry. normal. Musculoskeletal: Circulation, motion, and sensation intact. Capillary refill < 3 seconds. Vital Signs: 22:36 BP 144 / 96; Pulse 97; Resp 16; Temp 98.3(O); Pulse Ox 100% on R/A; Weight 102.06 kg jb4 (R); Height 5 ft. 1 in. (154.94 cm) (R); Pain 0/10; 22:36 Body Mass Index 42.51 (102.06 kg, 154.94 cm) jb4 ED Course: 22:30 Patient arrived in ED. bp1 22:35 Claire Dean [facility]C [facility]. kb 22:35 Gregor Teran MD is Attending Physician. kb 22:36 Arm band placed on right wrist. jb4 22:44 Mike Goncalves, RN is Primary Nurse. jb4 22:47 Triage completed. jb4 23:04 US OB Limited In Process Unspecified. EDMS 23:37 Patient has correct armband on for positive identification. mg2 23:37 No provider procedures requiring assistance completed. Patient did not have IV access mg2 during this emergency room visit. Administered Medications: 1203 01:03 Drug: Macrobid 100 mg Route: PO; mg2 01:05 Follow up: Response: No adverse reaction mg2 Outcome: 00:48 Discharge ordered by . kb 01:13 Discharged to home ambulatory, with family. mg2 01:13 Condition: stable 01:13 Discharge instructions given to patient, Instructed on discharge instructions, follow up and referral plans. medication usage, Demonstrated understanding of instructions, follow-up care, medications, Prescriptions given X 1. 01:13 Patient left the ED. mg2 Signatures: Dispatcher [employer] EDMS Claire Dean, ANDREINAC RIMMA-Mike Hall, RN RN jb4 Faustino Jovel, RN RN mg2 Heather Franco bp1
--- NOTE | 2020-03-09 00:49 | EDPHYS ---
Physician Documentation [facility] Name: Yahaira Vu Age: 24 yrs Sex: Female : 1995 Arrival Date: 03/08/2020 Time: 22:30 Bed 20 Private MD: ED Physician Gregor Teran HPI: 03/09 00:46 This 24 yrs old Female presents to ER via Ambulatory with complaints of kb Vaginal Bleeding, 14 WEEKS. 00:46 The patient presents with urinary symptoms, hematuria. Onset: The symptoms/episode kb began/occurred today. Modifying factors: The symptoms are alleviated by nothing, the symptoms are aggravated by nothing. Associated signs and symptoms: Pertinent positives: hematuria. Severity of symptoms: At their worst the symptoms were mild, in the emergency department the symptoms are unchanged. The patient has not experienced similar symptoms in the past. The patient has not recently seen a physician. Pt reports hematuria that started today. Pt is 14 weeks . Has no vaginal bleeding or abd pain. 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 jb4 Historical: - Allergies: 22:36 NKA; jb4 - Home Meds: 22:36 vitamins [Active]; jb4 - PMHx: 22:36 Ovarian cyst; jb4 - PSHx: 22:36 None; jb4 - Immunization history:: Adult Immunizations up to date. - Social history:: Smoking status: Patient denies any tobacco usage or history of. Patient/guardian denies using alcohol, street drugs. ROS: 03/09 00:46 Constitutional: Negative for fever, chills, and weight loss, Cardiovascular: Negative kb for chest pain, palpitations, and edema, Respiratory: Negative for shortness of breath, cough, wheezing, and pleuritic chest pain, Abdomen/GI: Negative for abdominal pain, nausea, vomiting, diarrhea, and constipation, MS/Extremity: Negative for injury and deformity, Skin: Negative for injury, rash, and discoloration, Neuro: Negative for headache, weakness, numbness, tingling, and seizure. : Positive for hematuria. Exam: 00:46 Constitutional: This is a well developed, well nourished patient who is awake, alert, kb and in no acute distress. Head/Face: Normocephalic, atraumatic. Chest/axilla: Normal chest wall appearance and motion. Nontender with no deformity. No lesions are appreciated. Cardiovascular: Regular rate and rhythm with a normal S1 and S2. No gallops, murmurs, or rubs. Normal PMI, no JVD. No pulse deficits. Respiratory: Lungs have equal breath sounds bilaterally, clear to auscultation and percussion. No rales, rhonchi or wheezes noted. No increased work of breathing, no retractions or nasal flaring. Abdomen/GI: Soft, non-tender, with normal bowel sounds. No distension or tympany. No guarding or rebound. No evidence of tenderness throughout. Skin: Warm, dry with normal turgor. Normal color with no rashes, no lesions, and no evidence of cellulitis. MS/ Extremity: Pulses equal, no cyanosis. Neurovascular intact. Full, normal range of motion. Neuro: Awake and alert, GCS 15, oriented to person, place, time, and situation. Cranial nerves II-XII grossly intact. Motor strength 5/5 in all extremities. Sensory grossly intact. Cerebellar exam normal. Normal gait. Vital Signs: 03/08 22:36 BP 144 / 96; Pulse 97; Resp 16; Temp 98.3(O); Pulse Ox 100% on R/A; Weight 102.06 kg jb4 (R); Height 5 ft. 1 in. (154.94 cm) (R); Pain 0/10; 22:36 Body Mass Index 42.51 (102.06 kg, 154.94 cm) jb4 MDM: 22:38 Patient medically screened. kb 03/09 00:45 Data reviewed: vital signs, nurses notes. Data interpreted: Pulse oximetry: on room air kb is 100 %. Interpretation: normal. Counseling: I had a detailed discussion with the patient and/or guardian regarding: the historical points, exam findings, and any diagnostic results supporting the discharge/admit diagnosis, lab results, the need for outpatient follow up, an OB/Gyne specialist, to return to the emergency department if symptoms worsen or persist or if there are any questions or concerns that arise at home. 03/08 23:35 Order name: Urine Microscopic Only; Complete Time: 00:42 kb 03/08 23:42 Order name: Urine --Ancillary (enter results); Complete Time: 00:37 tt3 03/08 22:34 Order name: US OB Limited kb 03/08 23:42 Order name: Urine Dipstick--Ancillary (enter results); Complete Time: 00:37 tt3 03/09 00:43 Order name: Urine Culture EDPA 03/08 23:35 Order name: Urine Dipstick-Ancillary (obtain specimen); Complete Time: 23:36 kb Administered Medications: 01:03 Drug: Macrobid 100 mg Route: PO; mg2 01:05 Follow up: Response: No adverse reaction mg2 Disposition: 03:32 Co-signature as Attending Physician, Gregor Teran MD. [email or web address] Disposition: 03/09/20 00:48 Discharged to Home. Impression: Urinary tract infection, site not specified. - Condition is Stable. - Discharge Instructions: Urinary Tract Infection, Adult, [id number]. - Prescriptions for Macrobid 100 mg Oral Capsule - take 1 capsule by ORAL route every 12 hours for 7 days; 14 capsule. - Medication Reconciliation Form, Thank You Letter, Antibiotic Education, Prescription Opioid Use, Family Work Release form. - Follow up: Emergency Department; When: As needed; Reason: Worsening of condition. Follow up: Private Physician; When: 2 - 3 days; Reason: Recheck today's complaints, Continuance of care, Re-evaluation by your physician. Signatures: Dispatcher [employer] [facility] Claire Dean, MUNIR MENDEZP-Mike Hall, RN RN jb4 Faustino Jovel RN RN mg2 Gregor Teran MD MD [email or web address] Corrections: (The following items were deleted from the chart) 01:13 00:48 03/09/2020 00:48 Discharged to Home. Impression: Urinary tract infection, site mg2 not specified. Condition is Stable. Forms are Medication Reconciliation Form, Thank You Letter, Antibiotic Education, Prescription Opioid Use. Follow up: Emergency Department; When: As needed; Reason: Worsening of condition. Follow up: Private Physician; When: 2 - 3 days; Reason: Recheck today's complaints, Continuance of care, Re-evaluation by your physician. kb
[2020-03-09] MEDS ORDERED: NITROFURAN MACRO 100 MG CAP PO ONE (01:12)
--- NOTE | 2020-03-09 07:23 | RAD REPORT ---
EXAM DESCRIPTION: US - OB Limited - 03/08/2020 11:07 pm CLINICAL HISTORY: VAGINAL BLEEDING COMPARISON: Transvaginal OB dated 11/18/2015 FINDINGS: Single intrauterine gestation within a normal shaped gestational sac. Amniotic fluid volum e is normal. Posterior placenta shows no suspicious finding. Heart rate is 152 BPM. [place]-rump length measurement corresponds to 14 weeks 6 day age. Cervical canal appears closed. No hematoma or mass within the uterus. Both ovaries are obscured by bowel. No adnexal mass seen. Preliminary findings provided at the time of the study. IMPRESSION: Single 14 week 6 day IUP with heart rate 152 BPM. Cervical canal appears closed. No mass, hematoma or suspicious uterine finding.
== END 2020-03-09 01:13 | disposition home or self-care (01) ==
LOC: ER 22:28
DX: O23.42 Unspecified infection of urinary tract in pregnancy, second trimester (principal); Z3A.14 14 weeks gestation of pregnancy
CPT/HCPCS: 76815; 81003; 81015; 81025; 87086; 87088; 99283

== ENCOUNTER 2021-08-09 21:25 | Emergency (ER) | payer OTHER ==
--- OUTSIDE RECORDS SUMMARY | 2021-08-09 21:32 | XMS REPORT | Continuity of Care Document ---
:1995 Author Organization [facility] [place] [facility] t Address [address] [place] [address] Care Team Providers Name Role Phone Monica MALAGON Attending Clinician Unavailable Fatmata LEWISCNP, C Attending Clinician FATMATA C Attending Clinician Unavailable Manas MENDEZP, R Attending Clinician Zan SITE COORDINATOR, N Attending Clinician Visit, Nurse Attending Clinician Unavailable Yonathan SOSA, F Attending Clinician Lovely SOSA, M Attending Clinician Grabiel SOSA Attending Clinician Doctor Unassigned, Name Attending Clinician Unavailable Provider, Urgent Care Attending Clinician Unavailable Will MENDEZP Attending Clinician Phil MATHEW Attending Clinician Unavailable Vinnie MATHEW Attending Clinician Unavailable Lab Attending Clinician Unavailable Ultrasound Attending Clinician Unavailable Rach Garcia MD Attending Clinician 1, Room Attending Clinician Unavailable Rocky JEAN-BAPTISTE Admitting Clinician Unavailable Yonathan SOSA, F Admitting Clinician Payers Payer Name Policy Type Policy Number Effective Date Expiration Date [facility] [id number] 2020 HEALTH 00:00:00 MEDICAID PENDING PENDING 2020 00:00:00 [place]ALTH[place] [id number] 2020 WOMEN 00:00:00 Problems Condition Condition Condition Status Onset Resolution Last Treating Co mments Source Name Details Category Date Date Treatment Clinician Date Other Other Disease Active Univers general general 6-23 ity of counseling [place] and advice and advice 00 Me dical for for Branch contracept contracept dustin dustin management management Positive Positive Disease Active Unive rs GBS test GBS test 5-10 ity of 00:00: [place] 00 Medical Branch 37 weeks 37 weeks Disease Active Unive rs gestation gestation 5-09 ity of of of 00:00: [place] 00 [facility] Branch Gestationa Gestationa Disease Active U nivers l l 5-09 ity of hypertensi hypertensi 00:[place] on, third on, third 00 [facility] trimester trimester Bran ch Pain of Pain of Disease Active Univers round round 4-09 ity of ligament ligament 00:00: [place] during during 00 Medical Bran ch 32 weeks 32 weeks Disease Active Unive rs gestation gestation 4-06 ity of of of 00:00: [place] 00 [facility] Branch Morbid Morbid Disease Active Univers obesity obesity 4-06 it[place] of with body with body [place] mass index mass index 00 Me dical of of Branch 40.0-49.9 40.0-49.9 Abnormal Abnormal Disease Active Overview: Un thalia maternal maternal 2-26 Formattin ity of glucose glucose 00:00: g of this [place] tolerance, tolerance, 00 note Me dical antepartum antepartum might be Branch different from the original. passed 3hr gtt, 2hr gtt hemolyze all other values wnl Elevated Elevated Disease Active Unive rs blood blood 2-25 ity of pressure pressure 00:00: [place] reading reading 00 Medical without without Branch diagnosis diagnosis of of hypertensi hypertensi on on Obesity in Obesity in Disease Active 2019- U nivers 1-04 ity of 00:00: [place] 00 Medical Branch History of History of Disease Active 2019- U nivers miscarriag miscarriag 04-10 it y of e e 00:00: [place] 00 Medical Branch Supervisio Supervisio Disease Active 2019- U nivers n of n of 1-04 ity of high-risk high-risk 00:[place] [facility] Anembryoni Anembryoni Disease Active U nivers c c 8-18 [place] [facility] High-risk High-risk Disease Active Uni vers , , 6-22 it y of first first 00:00: [place] trimester trimester 00 [facility] [O09.91] [O09.91] [place] Obesity Obesity Disease Active Univers complicati complicati 622 it y of ng ng 00:00: [place] peripregna peripregna 00 Me dical ncy, ncy, Branch antepartum antepartum , first , first trimester trimester Allergies, Adverse Reactions, Alerts Allergy Allergy Status Severity Reaction(s) Onset Inactive Treating Comm ents Source Name Type Date Date Clinician NO KNOWN Drug Active Univers ALLERGIE Class ity of [facility] Social History Social Habit Start Date Stop Date Quantity Comments Source ASSERTION 2019-12-12 [facility] 00:00:00 [facility] Exposure to Not sure [facility] SARS-CoV-[address] [facility] (event) [place] Tobacco use and 2020-09-27 2020-09-27 Never used Universit y of exposure 00:00:00 00:00:00 [facility] Alcohol intake 2020-09-27 2020-09-27 Current [facility] 00:00:00 00:00:00 non-drinker of [facility] alcohol Branch (finding) Sex Ass[birth year] At [birth year] Universit y of 00:00:00 00:00:00 [facility] Smoking Status Start Date Stop Date Source Never smoker [facility] Medications Ordered Filled Start Stop Current Ordering Indication Dosage Frequency Signature Comments Components Source Medication Medication Date Date Medication? Clinician (SIG) Name Name norethindro Yes [id number] 1{tbl} Take 1 Univers ne 0.35 mg 6-23 tablet by ity of tablet 00:00: mouth 00 daily. Medical Branch norethindro Yes [id number] 1{tbl} Take 1 Univers ne 0.35 mg 6-23 tablet by ity of tablet 00:00: mouth 00 daily. Medical Branch norethindro Yes [id number] 1{tbl} Take 1 Univers ne 0.35 mg 6-23 tablet by ity of tablet 00:00: mouth [place] 00 daily. Medical Branch norethindro Yes [id number] 1{tbl} Take 1 Univers ne 0.35 mg 6-23 tablet by ity of tablet 00:00: mouth [place] 00 daily. Medical Branch norethindro Yes [id number] 1{tbl} Take 1 Univers ne 0.35 mg 6-23 tablet by ity of tablet 00:00: mouth [place] 00 daily. Medical Branch norethindro Yes [id number] 1{tbl} Take 1 Univers ne 0.35 mg 6-23 tablet by ity of tablet 00:00: mouth [place] 00 daily. Medical Branch norethindro Yes [id number] 1{tbl} Take 1 Univers ne 0.35 mg 6-23 tablet by ity of tablet 00:00: mouth [place] 00 daily. Medical Branch norethindro Yes [id number] 1{tbl} Take 1 Univers ne 0.35 mg 6-23 tablet by ity of tablet 00:00: mouth [place] 00 daily. Medical Branch Yes [id number] 1{tbl} Take 1 Univers vitamin 5-13 tablet by ity of w/FA tablet 00:00: mouth [place] 00 daily. Medical Branch docusate Yes [id number] 240mg Take 1 U nivers calcium 240 5-13 capsule by it y of mg capsule 00:00: mouth once [place] 00 daily as Medical needed for Branch Constipati on. ferrous Yes [id number] 325mg Take 1 Un thalia sulfate 325 5-13 tablet by ity of mg (65 mg 00:00: mouth 2 [place] iron) 00 (two) Medical tablet times Branch daily. ibuprofen Yes [id number] 600mg Take 1 Univers 600 mg 5-13 tablet by ity of tablet 00:00: mouth [place] 00 every 6 Medical (six) Branch hours as needed (Pain). Take with food or milk. norethindro Yes [id number] .35mg Take 1 Univers ne 0.35 mg 5-13 tablet by ity of tablet 00:00: mouth [place] 00 daily. Medical Branch Yes [id number] 1{tbl} Take 1 [facility] vitamin 5-13 tablet by ity of w/FA tablet 00:00: mouth [place] 00 daily. Medical Branch docusate Yes [id number] 240mg Take 1 U nivers calcium 240 5-13 capsule by it y of mg capsule 00:00: mouth once [place] 00 daily as Medical needed for Branch Constipati on. ferrous Yes [id number] 325mg Take 1 Un thalia sulfate 325 5-13 tablet by ity of mg (65 mg 00:00: mouth 2 [place] iron) 00 (two) Medical tablet times Branch daily. ibuprofen Yes [id number] 600mg Take 1 Univers 600 mg 5-13 tablet by ity of tablet 00:00: mouth [place] 00 every 6 Medical (six) Branch hours as needed (Pain). Take with food or milk. norethindro Yes [id number] .35mg Take 1 Univers ne 0.35 mg 5-13 tablet by ity of tablet 00:00: mouth [place] 00 daily. Medical Branch Yes [id number] 1{tbl} Take 1 Univers vitamin 5-13 tablet by ity of w/FA tablet 00:00: mouth [place] 00 daily. Medical Branch docusate Yes [id number] 240mg Take 1 U nivers calcium 240 5-13 capsule by it y of mg capsule 00:00: mouth once [place] 00 daily as Medical needed for Branch Constipati on. ferrous Yes [id number] 325mg Take 1 Un thalia sulfate 325 5-13 tablet by ity of mg (65 mg 00:00: mouth 2 [place] iron) 00 (two) Medical tablet times Branch daily. ibuprofen Yes [id number] 600mg Take 1 Univers 600 mg 5-13 tablet by ity of tablet 00:00: mouth [place] 00 every 6 Medical (six) Branch hours as needed (Pain). Take with food or milk. norethindro Yes [id number] .35mg Take 1 Univers ne 0.35 mg 5-13 tablet by ity of tablet 00:00: mouth [place] 00 daily. Medical Branch Yes [id number] 1{tbl} Take 1 Univers vitamin 5-13 tablet by ity of w/FA tablet 00:00: mouth [place] 00 daily. Medical Branch docusate Yes [id number] 240mg Take 1 U nivers calcium 240 5-13 capsule by it y of mg capsule 00:00: mouth once [place] 00 daily as Medical needed for Branch Constipati on. ferrous Yes [id number] 325mg Take 1 Un thalia sulfate 325 5-13 tablet by ity of mg (65 mg 00:00: mouth 2 [place] iron) 00 (two) Medical tablet times Branch daily. ibuprofen Yes [id number] 600mg Take 1 Univers 600 mg 5-13 tablet by ity of tablet 00:00: mouth [place] 00 every 6 Medical (six) Branch hours as needed (Pain). Take with food or milk. norethindro Yes [id number] .35mg Take 1 Univers ne 0.35 mg 5-13 tablet by ity of tablet 00:00: mouth [place] 00 daily. Medical Branch Yes [id number] 1{tbl} Take 1 Univers vitamin 5-13 tablet by ity of w/FA tablet 00:00: mouth [place] 00 daily. Medical Branch docusate Yes [id number] 240mg Take 1 U nivers calcium 240 5-13 capsule by it y of mg capsule 00:00: mouth once [place] 00 daily as Medical needed for Branch Constipati on. ferrous Yes [id number] 325mg Take 1 Un th[place] sulfate 325 5-13 tablet by ity of mg (65 mg 00:00: mouth 2 [place] iron) 00 (two) Medical tablet times Branch daily. ibuprofen Yes [id number] 600mg Take 1 Univers 600 mg 5-13 tablet by ity of tablet 00:00: mouth [place] 00 every 6 Medical (six) Branch hours as needed (Pain). Take with food or milk. norethindro Yes [id number] .35mg Take 1 Univers ne 0.35 mg 5-13 tablet by ity of tablet 00:00: mouth [place] 00 daily. Medical Branch Yes [id number] 1{tbl} Take 1 Univers vitamin 5-13 tablet by ity of w/FA tablet 00:00: mouth [place] 00 daily. Medical Branch docusate Yes [id number] 240mg Take 1 U nivers calcium 240 5-13 capsule by it y of mg capsule 00:00: mouth once [place] 00 daily as Medical needed for Branch Constipati on. ferrous Yes [id number] 325mg Take 1 Un th[place] sulfate 325 5-13 tablet by ity of mg (65 mg 00:00: mouth 2 [place] iron) 00 (two) Medical tablet times Branch daily. ibuprofen Yes [id number] 600mg Take 1 Univers 600 mg 5-13 tablet by ity of tablet 00:00: mouth [place] 00 every 6 Medical (six) Branch hours as needed (Pain). Take with food or milk. norethindro Yes [id number] .35mg Take 1 Univers ne 0.35 mg 5-13 tablet by ity of tablet 00:00: mouth [place] 00 daily. Medical Branch Yes [id number] 1{tbl} Take 1 Univers vitamin 5-13 tablet by ity of w/FA tablet 00:00: mouth [place] 00 daily. Medical Branch docusate Yes [id number] 240mg Take 1 U nivers calcium 240 5-13 capsule by it y of mg capsule 00:00: mouth once [place] 00 daily as Medical needed for Branch Constipati on. ferrous Yes [id number] 325mg Take 1 Un th[place] sulfate 325 5-13 tablet by ity of mg (65 mg 00:00: mouth 2 [place] iron) 00 (two) Medical tablet times Branch daily. ibuprofen Yes [id number] 600mg Take 1 Univers 600 mg 5-13 tablet by ity of tablet 00:00: mouth [place] 00 every 6 Medical (six) Branch hours as needed (Pain). Take with food or milk. norethindro Yes [id number] .35mg Take 1 Univers ne 0.35 mg 5-13 tablet by ity of tablet 00:00: mouth [place] 00 daily. Medical Branch Yes [id number] 1{tbl} Take 1 Univers vitamin 5-13 tablet by ity of w/FA tablet 00:00: mouth [place] 00 daily. Medical Branch docusate Yes [id number] 240mg Take 1 U nivers calcium 240 5-13 capsule by it y of mg capsule 00:00: mouth once [place] 00 daily as Medical needed for Branch Constipati on. ferrous Yes [id number] 325mg Take 1 Un th[place] sulfate 325 5-13 tablet by ity of mg (65 mg 00:00: mouth 2 [place] iron) 00 (two) Medical tablet times Branch daily. ibuprofen Yes [id number] 600mg Take 1 Univers 600 mg 5-13 tablet by ity of tablet 00:00: mouth [place] 00 every 6 Medical (six) Branch hours as needed (Pain). Take with food or milk. norethindro Yes [id number] .35mg Take 1 Univers ne 0.35 mg 5-13 tablet by ity of tablet 00:00: mouth [place] 00 daily. Medical Branch 2020- No [id number] 1{tbl} Take 1 Univers vitamin 5-13 06-23 tablet by ity of w/FA tablet 00:00: 00:00 mouth [place] 00 :00 daily. Medical Branch docusate 2020- No [id number] 240mg Take 1 Univers calcium 240 5-13 06-23 capsule by i ty of mg capsule 00:00: 00:00 mouth once [place] 00 :00 daily as Medical needed for Branch Constipati on. ferrous 2020- No [id number] 325mg Take 1 U nivers sulfate 325 5-13 06-23 tablet by it y of mg (65 mg 00:00: 00:00 [place] 2 [place] iron) 00 :00 (two) Medical tablet times Branch daily. ibuprofen 2020- No [id number] 600mg Take 1 Univers 600 mg 5-13 06-23 tablet by ity of tablet 00:00: 00:00 mouth [place] 00 :00 every 6 Medical (six) Branch hours as needed (Pain). Take with food or milk. norethindro 2020- No [id number] .35mg Take 1 Univers ne 0.35 mg 5-13 06-23 tablet by ity of tablet 00:00: 00:00 mouth [place] 00 :00 daily. Medical Branch 2020- No [id number] 1{tbl} Take 1 Univers vitamin 5-13 06-23 tablet by ity of w/FA tablet 00:00: 00:00 [place] 00 :00 daily. [facility] Branch docusate 2020- No [id number] 240mg Take 1 Univers calcium 240 5-17 09-23 capsule by i ty of mg capsule 00:00: 00:00 mouth once [place] 00 :00 daily as Medical needed for Branch Constipati on. ferrous 2020- No [id number] 325mg Take 1 U nivers sulfate 325 5-17 09-23 tablet by it y of mg (65 mg 00:00: 00:00 mouth 2 [place] iron) 00 :00 (two) Medical tablet times Branch daily. ibuprofen 2020- No [id number] 600mg Take 1 Univers 600 mg 5-13 06-23 tablet by ity of tablet 00:00: 00:00 mouth [place] 00 :00 every 6 Medical (six) Branch hours as needed (Pain). Take with food or milk. norethindro 2020- No [id number] .35mg Take 1 Univers ne 0.35 mg 5-17 09-23 tablet by ity of tablet 00:00: 00:00 mouth [place] 00 :00 daily. [facility] Branch 2020- No [id number] 1{tbl} Take 1 Univers vitamin 5-17 09-23 tablet by ity of w/FA tablet 00:00: 00:[place] [facility] :[id number] 240mg Take 1 Univers calcium 240 -17 09- capsule by i ty of mg capsule 00:00: 00:00 mouth once [place] 00 :00 daily as Medical needed for Branch Constipati on. ferrous No [id number] 325mg Take 1 U nivers sulfate 325 5-13 06-23 tablet by it y of mg (65 mg 00:00: 00:00 mouth 2 [place] iron) 00 :00 (two) Medical tablet times Branch daily. ibuprofen 2020- No [id number] 600mg Take 1 Univers 600 mg 5-13 06-23 tablet by ity of tablet 00:00: 00:00 mouth [place] 00 :00 every 6 Medical (six) Branch hours as needed (Pain). Take with food or milk. norethindro 2020- No [id number] .35mg Take 1 Univers ne 0.35 mg 5-13 06-23 tablet by ity of tablet 00:00: 00:00 mouth [place] 00 :00 daily. Medical Branch 2020- No [id number] 1{tbl} Take 1 Univers vitamin 5-13 06-23 tablet by ity of w/FA tablet 00:00: 00:00 mouth [place] 00 :00 daily. Medical Branch docusate 2020- No [id number] 240mg Take 1 Univers calcium 240 5-13 06-23 capsule by i ty of mg capsule 00:00: 00:00 mouth once [place] 00 :00 daily as Medical needed for Branch Constipati on. ferrous No [id number] 325mg Take 1 U nivers sulfate 325 5-13 06-23 tablet by it y of mg (65 mg 00:00: 00:00 mouth 2 [place] iron) 00 :00 (two) Medical tablet times Branch daily. ibuprofen 2020- No [id number] 600mg Take 1 Univers 600 mg 5-13 06-23 tablet by ity of tablet 00:00: 00:00 mouth [place] 00 :00 every 6 Medical (six) Branch hours as needed (Pain). Take with food or milk. norethindro 2020- No [id number] .35mg Take 1 Univers ne 0.35 mg 5-13 06-23 tablet by ity of tablet 00:00: 00:00 mouth [place] 00 :00 daily. Medical Branch 2020- No [id number] 1{tbl} Take 1 Univers vitamin 5-13 06-23 tablet by ity of w/FA tablet 00:00: 00:00 mouth [place] 00 :00 daily. [facility] Branch docusate 2020- No [id number] 240mg Take 1 Univers calcium 240 5-13 06-23 capsule by i ty of mg capsule 00:00: 00:00 mouth once [place] 00 :00 daily as Medical needed for Branch Constipati on. ferrous 2020- No [id number] 325mg Take 1 U nivers sulfate 325 5-13 06-23 tablet by it y of mg (65 mg 00:00: 00:00 mouth 2 [place] iron) 00 :00 (two) Medical tablet times Branch daily. ibuprofen No [id number] 600mg Take 1 Univers 600 mg 5-13 -23 tablet by ity of tablet 00:00: 00:00 mouth [place] 00 :00 every 6 Medical (six) Branch hours as needed (Pain). Take with food or milk. norethindro 2020- No [id number] .35mg Take 1 Univers ne 0.35 mg 5-13 -23 tablet by ity of tablet 00:00: 00:00 mouth [place] 00 :00 daily. Medical Branch 2020- No [id number] 1{tbl} Take 1 Univers vitamin 5-13 -23 tablet by ity of w/FA tablet 00:00: 00:00 mouth [place] 00 :00 daily. Medical Branch docusate No [id number] 240mg Take 1 Univers calcium 240 -17 09- capsule by i ty of mg capsule 00:00: 00:00 mouth once [place] 00 :00 daily as Medical needed for Branch Constipati on. ferrous No [id number] 325mg Take 1 U nivers sulfate 325 -17 09-23 tablet by it y of mg (65 mg 00:00: 00:00 mouth 2 [place] iron) 00 :00 (two) Medical tablet times Branch daily. ibuprofen No [id number] 600mg Take 1 Univers 600 mg 5-13 -23 tablet by ity of tablet 00:00: 00:00 mouth [place] 00 :00 every 6 Medical (six) Branch hours as needed (Pain). Take with food or milk. norethindro No [id number] .35mg Take 1 Univers ne 0.35 mg 5-13 -23 tablet by ity of tablet 00:00: 00:00 mouth [place] 00 :00 daily. Medical Branch 2020- No [id number] 1{tbl} Take 1 Univers vitamin 5-13 -23 tablet by ity of w/FA tablet 00:00: 00:00 mouth [place] 00 :00 daily. Medical Branch docusate No [id number] 240mg Take 1 Univers calcium 240 08-17 capsule by i ty of mg capsule 00:00: 00:00 mouth once [place] 00 :00 daily as Medical needed for Branch Constipati on. ferrous No [id number] 325mg Take 1 U nivers sulfate 325 08-17 tablet by it y of mg (65 mg 00:00: 00:00 mouth 2 [place] iron) 00 :00 (two) Medical tablet times Branch daily. ibuprofen 2020- No [id number] 600mg Take 1 Univers 600 mg 08-17 tablet by ity of tablet 00:00: 00:00 mouth [place] 00 :00 every 6 Medical (six) Branch hours as needed (Pain). Take with food or milk. norethindro No [id number] .35mg Take 1 Univers ne 0.35 mg 08-17 tablet by ity of tablet 00:00: 00:00 mouth [place] 00 :00 daily. Medical Branch HYDROcodone No [id number] 1{tbl} Take 1 U nivers -acetaminop -13 05-21 tablet by it y of hen 5-325 00:00: 04:59 mouth [place] mg tablet 00 :00 every 6 Medical (six) Branch hours as needed (Pain scale above 4) for up to 7 days. Indication s: acute pain HYDROcodone No [id number] 1{tbl} Take 1 U nivers -acetaminop 5-13 05-21 tablet by it y of hen 5-325 00:00: 04:59 mouth [place] mg tablet 00 :00 every 6 Medical (six) Branch hours as needed (Pain scale above 4) for up to 7 days. Indication s: acute pain HYDROcodone No [id number] 1{tbl} Take 1 U nivers -acetaminop 5-13 05-21 tablet by it y of hen 5-325 00:00: 04:59 mouth [place] mg tablet 00 :00 every 6 Medical (six) Branch hours as needed (Pain scale above 4) for up to 7 days. Indication s: acute pain HYDROcodone No [id number] 1{tbl} Take 1 U nivers -acetaminop 5-13 05-21 tablet by it y of hen 5-325 00:00: 04:59 mouth [place] mg tablet 00 :00 every 6 Medical (six) Branch hours as needed (Pain scale above 4) for up to 7 days. Indication s: acute pain HYDROcodone 2020- No [id number] 1{tbl} Take 1 U nivers -acetaminop 5-13 05-21 tablet by it y of hen 5-325 00:00: 04:59 mouth [place] mg tablet 00 :00 every 6 Medical (six) Branch hours as needed (Pain scale above 4) for up to 7 days. Indication s: acute pain HYDROcodone 2020- No [id number] 1{tbl} Take 1 U nivers -acetaminop 5-13 05-21 tablet by it y of hen 5-325 00:00: 04:59 mouth [place] mg tablet 00 :00 every 6 Medical (six) Branch hours as needed (Pain scale above 4) for up to 7 days. Indication s: acute pain HYDROcodone No [id number] 1{tbl} Take 1 U nivers -acetaminop 5-13 05-21 tablet by it y of hen 5-325 00:00: 04:59 mouth [place] mg tablet 00 :00 every 6 Medical (six) Branch hours as needed (Pain scale above 4) for up to 7 days. Indication s: acute pain investigati Yes 500mg 500 mg, Un thalia onl 5-11 Oral, Q8H ity of drug-metron 23:00: ABX, First [place] idazole 500 00 dose on Medic al mg or Tue Branch placebo 08/15/20 at 1800, Until Discontinu ed, Routine
Principal investigat or: SHENG MCMANUS investigati Yes 500mg 500 mg, Un thalia onl 5-11 Oral, Q8H ity of drug-cephal 23:00: ABX, First [place] exin 500 mg 00 dose on Medic al or placebo Tue Branch 08/15/20 at 1800, Until Discontinu ed, Routine
Principal investigat or: SHENG MCMANUSati No 500mg 500 mg, U nivers onl 5-11 05-14 Oral, Q8H ity of drug-metron 23:00: 00:05 ABX, First [place] idazole 500 00 :07 dose on Medic al mg or Tue Branch placebo 08/15/20 at 1800, Until Discontinu ed, Routine
Principal investigat or: SHENG MCMANUS investigati 2020- No 500mg 500 mg, U nivers onl 08-15 Oral, Q8H ity of drug-cephal 23:00: 00:05 ABX, First [place] exin 500 mg 00 :07 dose on Medic al or placebo Tue Branch 08/15/20 at 1800, Until Discontinu ed, Routine
Principal investigat or: SHENG MCMANUS rho(D) Yes 300ug 300 mcg, Univer s immune 08-15 Intramuscu ity of globulin 19:23: lar, ONCE, [place] (RHOGAM) 58 For 1 Medical syringe 300 dose, Branch mcg Conditiona l, Routine rho(D) No 300ug 300 mcg, Unive rs immune 08-15 Intramuscu ity of globulin 19:23: 00:05 [place]CE, [place] (RHOGAM) 58 :07 For 1 Medical syringe 300 dose, Branch mcg Conditiona l, Routine simethicone Yes 160mg 160 mg, Un thalia (GAS RELIEF 08-15 Oral, ity of (SIMETHICON 19:23: PC+HSPRN, [place] E)) 53 Starting Medical chewable Tue Branch tablet 160 08/15/20 at mg 1423, Until Discontinu ed, Routine, Gas simethicone 2020- No 160mg 160 mg, U nivers (GAS RELIEF 08-15 Oral, ity of (SIMETHICON 19:23: 00:05 PC+HSPRN, [place] E)) 53 :07 Starting Medical chewable Tue Branch tablet 160 08/15/20 at mg 1423, Until [place] 08/17/20 at 1905, Routine, Gas ibuprofen Yes 600mg 600 mg, Univ ers (IBU) 08-15 Oral, ity of tablet 600 19:23: Q6HPRN, [place] mg 52 Starting Medical Tue Branch 08/15/20 at 1423, Until Discontinu ed, Routine, Pain (scale 1-3) HYDROcodone 2020-0 Yes 1{tbl} 1 tablet, Univers -acetaminop 5-11 Oral, ity of hen (NORCO 19:23: Q6HPRN, [place] 5) 5-325 mg 52 Starting Medi rush tablet 1 e Branch tablet 08/15/20 at 1423, Until Discontinu ed, Routine, Pain (scale 4-6), If uncontroll ed by Ibuprofen HYDROcodone 2020-0 Yes 2{tbl} 2 tablet, Univers -acetaminop 5-11 Oral, ity of hen (NORCO 19:23: Q6HPRN, [place] 5) 5-325 mg 52 Starting Medi rush tablet [facility] tablet 08/15/20 at 1423, Until Discontinu ed, Routine, Pain (scale 7-10), If uncontroll ed by Ibuprofen human 2020-0 Yes .5mL 0.5 mL, Univers papillomav 5-11 Intramuscu ity of vac,9-melissa(P 19:23: lar, [place] F) 52 ONCE-PRIOR Medical (GARDASIL-9 TO [place] ) syringe DISCHARGE, 0.5 mL 1 dose, Starting 08/15/20 at 1423, Until Discontinu ed, Routine, Give vaccine prior to discharge diphenhydrA 2020-0 Yes 25mg 25 mg, IV U nivers MINE-0.9 % 5-11 Piggyback, ity of sod.chlr 19:23: Administer [place] (BENADRYL) 52 over 30 Medica l 25 mg/50 mL Minutes, Bran ch piggyback Q6HPRN, 1 25 mg dose, Starting 08/15/20 at 1423, Until Discontinu ed, Routine, Itching diphenhydrA 2020-0 Yes 25mg 25 mg, Univ ers MINE 5-11 Oral, ity of (BENADRYL) 19:23: Q6HPRN, [place] tablet 25 52 Starting Medica l [facility] 08/15/20 at 1423, Until Discontinu ed, Routine, Sleep, Itching ondansetron 2020-0 Yes 4mg 4 mg, Slow Univers (ZOFRAN 5-11 IV Push, ity of (PF)) 19:23: Q8HPRN, [place] injection 4 52 Starting Medi rush mg e Branch 08/15/20 at 1423, Until Discontinu ed, Routine, Nausea and Vomiting (N/V) bisacodyL Yes 10mg 10 mg, Univer s (DULCOLAX) 08-15 Rectal, ity of suppository 19:23: QDAILYPRN, [place] 10 mg 52 Starting Medical e Branch 08/15/20 at 1423, Until Discontinu ed, Routine, Constipati on docusate Yes 240mg 240 mg, Unive rs calcium 08-15 Oral, ity of (SURFAK) 19:23: QDAILYPRN, [place] capsule 240 52 Starting Medi rush mg e Branch 08/15/20 at 1423, Until Discontinu ed, Routine, Constipati on magnesium Yes 30mL 30 mL, Univer s hydroxide 08-15 Oral, ity of (MILK OF 19:23: QDAILYPRN, [place] MAGNESIA) 52 Starting Medica l 400 mg/5 mL e Branch suspension 08/15/20 at 30 mL 1423, Until Discontinu ed, Routine, Constipati on ibuprofen 2020- No 600mg 600 mg, Uni vers (IBU) 08-15 Oral, ity of tablet 600 19:23: 00:05 Q6HPRN, [place] mg 52 :07 Starting Medical e Branch 08/15/20 at 1423, Until [place] 08/17/20 at 1905, Routine, Pain (scale 1-3) HYDROcodone 2020- No 1{tbl} 1 tablet, Univers -acetaminop 08-15 Oral, ity of hen (NORCO 19:23: 00:05 Q6HPRN, [place] 5) 5-325 mg 52 :07 Starting Medi rush tablet 1 Tue Branch tablet 08/15/20 at 1423, Until [place] 08/17/20 at 1905, Routine, Pain (scale 4-6), If uncontroll ed by Ibuprofen HYDROcodone 2020- No 2{tbl} 2 tablet, Univers -acetaminop 08-15 Oral, ity of hen (NORCO 19:23: 00:05 Q6HPRN, [place] 5) 5-325 mg 52 :07 Starting Medi rush tablet 2 Fri Branch tablet 08/15/20 at 1423, Until [place] 08/17/20 at 1905, Routine, Pain (scale 7-10), If uncontroll ed by Ibuprofen human 2020- No .5mL 0.5 mL, Univers papillomav 08-15 Intramuscu it y of vac,9-melissa(P 19:23: 00:05 lar, [place] F) 52 :07 ONCE-PRIOR Medical (GARDASIL-9 TO Branch ) syringe DISCHARGE, 0.5 mL 1 dose, Starting Fri08/15/20 at 1423, Until [place] 08/17/20 at 1905, Routine, Give vaccine prior to discharge diphenhydrA No 25mg 25 mg, IV Univers MINE-0.9 % 08-15 Piggyback, it y of sod.chlr 19:23: 00:05 Administer [place] (BENADRYL) 52 :07 over 30 Medica l 25 mg/50 mL Minutes, Bran ch piggyback Q6HPRN, 1 25 mg dose, Starting Fri08/15/20 at 1423, Until [place] 08/17/20 at 1905, Routine, Itching diphenhydrA 2020- No 25mg 25 mg, Uni vers MINE 08-15 Oral, ity of (BENADRYL) 19:23: 00:05 Q6HPRN, [place] tablet 25 52 :07 Starting Medica l mg Fri Branch 08/15/20 at 1423, Until [place] 08/17/20 at 1905, Routine, Sleep, Itching ondansetron 2020- No 4mg 4 mg, Slow Univers (ZOFRAN 08-15 IV Push, ity of (PF)) 19:23: 00:05 Q8HPRN, [place] injection 4 52 :07 Starting Medi rush mg e Branch 08/15/20 at 1423, Until [place] 08/17/20 at 1905, Routine, Nausea and Vomiting (N/V) bisacodyL 2020- No 10mg 10 mg, Unive rs (DULCOLAX) 08-15 Rectal, ity o f suppository 19:23: 00:05 QDAILYPRN, [place] 10 mg 52 :07 Starting Medical Tue Branch 08/15/20 at 1423, Until [place] 08/17/20 at 1905, Routine, Constipati on docusate No 240mg 240 mg, Univ ers calcium 08-15 Oral, ity of (SURFAK) 19:23: 00:05 QDAILYPRN, [place] capsule 240 52 :07 Starting Medi rush mg Tue Branch 08/15/20 at 1423, Until [place] 08/17/20 at 1905, Routine, Constipati on magnesium No 30mL 30 mL, Unive rs hydroxide 08-15 Oral, ity of (MILK OF 19:23: 00:05 QDAILYPRN, [place] MAGNESIA) 52 :07 Starting Medica l 400 mg/5 mL Tue Branch suspension 08/15/20 at 30 mL 1423, Until [place] 08/17/20 at 1905, Routine, Constipati on ketorolac No 30mg 30 mg, Unive rs (TORADOL) 08-15 Slow IV ity of injection 15:52: 17:35 Push, PRN, [place] 30 mg 22 :00 1 dose, Medical Starting Branch [facility] 08/15/20 at 1052, Until Discontinu ed, Routine, Pain (scale 7-10)
F aculty member approving Restricted medication : DAWOOD YANEZ lactated No 500mL at 999 Unive rs ringers IV 08-15 mL/hr, 500 it y of infusion 14:15: 13:40 mL, IV [place] 500 mL 00 :00 Infusion, Medical ONCE, 1 Branch dose, e 08/15/20 at 0915, Routine lactated No 1000mL at 125 Univ ers ringers IV 08-15 mL/hr, ity of infusion 13:15: 19:23 1,000 mL, [place] 1,000 mL 00 :58 IV Medical Infusion, Branch CONTINUOUS , Starting [facility] 08/15/20 at 0815, Until 08/15/20 at 1423, Routine sodium No 30mL 30 mL, Univers citrate-cit 08-15 Oral, ity of clay[place] acid 13:09: 14:33 PRE-PROCED [place] (BICITRA) 05 :00 URE ONCE, Medic al 500-334 1 dose, Branch mg/5 mL Starting solution 30 Tue mL 08/15/20 at 0809, Until Discontinu ed, Routine, Surgery ceFAZolin No 2000mg 2 g (2,000 Univers in dextrose 08-15 mg), IV ity of (iso-os) 13:09: 14:33 Piggyback, [place] (ANCEF) 2 05 :00 O.R. Medical gram/100 mL HOLDING Branc h Piggyback 2 ONCE, 1 g dose, Starting 08/15/20 at 0809, Until Discontinu ed, 100 mL
Reas on for Anti-Infec tive: Surgical Prophylaxi s
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
Duration of therapy: within 24 hours of surgery diphenhydrA No 25mg 25 mg, Uni vers MINE 08-15 Slow IV ity of (BENADRYL) 05:15: 04:40 Push, [place] injection 00 :00 ONCE, 1 Medical 25 mg dose, Tue Branch 08/15/20 at 0015, Routine penicillin No 510 5 Million U nivers g potassium 08-14 05-10 Units, IV it y of 5 Million 23:45: 23:55 Piggyback, [place] Units in 00 :00 ONCE, 1 Medical NaCl 0.9% dose, Mon Branc h (NS) 100 mL 08/14/20 at MINI-BAG 1845, 100 mL
Reas on for Anti-Infec tive: Documented Infection< br>Documen kaylee Infection Site: Pelvic
Duration of Therapy: Other (see Comments) sodium No 30mL 30 mL, Univers citrate-cit 08-14 05- Oral, ity of clay[place] acid 19:28: 19:33 PRE-PROCED [place] (BICITRA) 47 :00 URE ONCE, Medic al 500-334 1 dose, Branch mg/5 mL Starting solution 30 Mon mL 08/14/20 at 1428, Until 08/14/20 at 1433, Routine, Surgery/Pr ocedure lactated 2020- No 500mL at 999 Unive rs ringers IV 5- 05-10 mL/hr, 500 it y of infusion 19:28: 19:33 mL, IV [place] 500 mL 47 :00 Infusion, Medical PRN - SEE Branch INSTRUCTIO NS, 1 dose, Starting 08/14/20 at 1428, Until 08/14/20 at 1433, Routine LR 1000 mL 2020- No 2mU/min 2-40 Uni vers + oxytocin 08-14 05-11 anderson-unit it y of 20 units IV 16:58: 19:23 s/min [place] Solution 09 :58 (6-120 Medical mL/hr), IV Branch Infusion, TITRATE, Oxytocin Induction / Augmentati on of Labor, Starting 08/14/20 at 1158
In fuse IV through a controlled infusion pump at a proximal port on the peripheral IV line.&nbsp ; Sta rt at 2 anderson-unit s/min and increase by 2 anderson-unit s/min every 20 minutes according to oxytocin policy 7.11.52.&n bsp; Going over 20 anderson-unit s/min requires faculty approval.& nbsp;&nbsp ;Max 40 anderson-unit s/min.
proMETHazin 2020- No 25mg 25 mg, IV Univers e 08-14 05-10 Piggyback, ity of (PHENERGAN) 07:46: 08:22 ONCE, 1 [place] 25 mg in 00 :00 dose, Mon Medica l NaCl 0.9% 08/14/20 at Bran ch (NS) 50 mL 0300, IV Routine piggyback nalbuphine 2020- No 10mg 10 mg, Univ ers (NUBAIN) 08-14 05-10 Intravenou ity of injection 07:46: 07:54 s, ONCE, 1 [place] 10 mg 00 :00 dose, Mon Medical 08/14/20 at Branch 0300, Routine D5W-LR IV 2020- No 1000mL at 125 Uni vers infusion 08-14 05-11 mL/hr, IV ity o f 1,000 mL 03:30: 19:23 Infusion, [place] 00 :58 CONTINUOUS Medical , Starting Branch 08/13/20 at 2230, Until Tu08/15/20 at 1423, Routine metroNIDAZO 2020- No [id number] 500mg Take 1 Univers LE (FLAGYL) 4- 04-14 tablet by it y of 500 mg 00:00: 04:59 mouth 2 [place] tablet 00 :00 (two) Medical times Branch daily for 7 days. PNV 2020- Yes [id number] 3{tbl} Take 3 Unive rs 112-iron-FA 2-02 tablets by it y of -om-3s-dha- 00:00: mouth [place] epa 00 daily. Medical ([facility] GUMMIES) 3.33 mg iron- 0.33 mg Chew PNV 2020-1 Yes [id number] 3{tbl} Take 3 Unive rs 112-iron-FA 2-02 tablets by it y of -om-3s-dha- 00:00: mouth [place] epa 00 daily. Medical (VITOL [place] GUMMIES) 3.33 mg iron- 0.33 mg Chew PNV 2020-1 Yes [id number] 3{tbl} Take 3 Unive rs 112-iron-FA 2-02 tablets by it y of -om-3s-dha- 00:00: mouth [place] epa 00 daily. Medical ([facility] GUMMIES) 3.33 mg iron- 0.33 mg Chew PNV 2020-1 Yes [id number] 3{tbl} Take 3 Unive rs 112-iron-FA 2-02 tablets by it y of -om-3s-dha- 00:00: mouth [place] epa 00 daily. Medical ([facility] GUMMIES) 3.33 mg iron- 0.33 mg Chew PNV 2020-1 Yes [id number] 3{tbl} Take 3 Unive rs 112-iron-FA 2-02 tablets by it y of -om-3s-dha- 00:00: mouth [place] epa 00 daily. Medical (VITOL [place] GUMMIES) 3.33 mg iron- 0.33 mg Chew PNV 2020-1 Yes [id number] 3{tbl} Take 3 Unive rs 112-iron-FA 2-02 tablets by it y of -om-3s-dha- 00:00: mouth [place] epa 00 daily. Medical (VITAFOL Branch GUMMIES) 3.33 mg iron- 0.33 mg Chew PNV 2020-1 Yes [id number] 3{tbl} Take 3 Unive rs 112-iron-FA 2-02 tablets by it y of -om-3s-dha- 00:00: mouth [place] epa 00 daily. Medical (VITAFOL Branch GUMMIES) 3.33 mg iron- 0.33 mg Chew PNV 2020-1 Yes [id number] 3{tbl} Take 3 Unive rs 112-iron-FA 2-02 tablets by it y of -om-3s-dha- 00:00: mouth [place] epa 00 daily. Medical (VITAFOL Branch GUMMIES) 3.33 mg iron- 0.33 mg Chew PNV 2020- Yes [id number] 3{tbl} Take 3 Unive rs 112-iron-FA 2-02 tablets by it y of -om-3s-dha- 00:00: mouth [place] epa 00 daily. Medical (VITAFOL Branch GUMMIES) 3.33 mg iron- 0.33 mg Chew PNV 2020-1 Yes [id number] 3{tbl} Take 3 Unive rs 112-iron-FA 2-02 tablets by it y of -om-3s-dha- 00:00: mouth [place] epa 00 daily. Medical (VITAFOL Branch GUMMIES) 3.33 mg iron- 0.33 mg Chew PNV 2020-1 Yes [id number] 3{tbl} Take 3 Unive rs 112-iron-FA 2-02 tablets by it y of -om-3s-dha- 00:00: mouth [place] epa 00 daily. Medical (VITAFOL Branch GUMMIES) 3.33 mg iron- 0.33 mg Chew PNV 2020-1 Yes [id number] 3{tbl} Take 3 Unive rs 112-iron-FA 2-02 tablets by it y of -om-3s-dha- 00:00: mouth [place] epa 00 daily. Medical (VITAFOL Branch GUMMIES) 3.33 mg iron- 0.33 mg Chew PNV 2020-1 Yes [id number] 3{tbl} Take 3 Unive rs 112-iron-FA 2-02 tablets by it y of -om-3s-dha- 00:00: mouth [place] epa 00 daily. Medical (VITAFOL Branch GUMMIES) 3.33 mg iron- 0.33 mg Chew PNV 2020-1 Yes [id number] 3{tbl} Take 3 Unive rs 112-iron-FA 2-02 tablets by it y of -om-3s-dha- 00:00: mouth [place] epa 00 daily. Medical (VITAFOL Branch GUMMIES) 3.33 mg iron- 0.33 mg Chew PNV 2020-1 Yes [id number] 3{tbl} Take 3 Unive rs 112-iron-FA 2-02 tablets by it y of -om-3s-dha- 00:00: mouth [place] epa 00 daily. Medical (VITAFOL Branch GUMMIES) 3.33 mg iron- 0.33 mg Chew PNV 2020-1 Yes [id number] 3{tbl} Take 3 Unive rs 112-iron-FA 2-02 tablets by it y of -om-3s-dha- 00:00: mouth [place] epa 00 daily. Medical (VITAFOL Branch GUMMIES) 3.33 mg iron- 0.33 mg Chew PNV 2020-1 Yes [id number] 3{tbl} Take 3 Unive rs 112-iron-FA 2-02 tablets by it y of -om-3s-dha- 00:00: mouth [place] epa 00 daily. Medical (VITAFOL Branch GUMMIES) 3.33 mg iron- 0.33 mg Chew PNV 2020-1 Yes [id number] 3{tbl} Take 3 Unive rs 112-iron-FA 2-02 tablets by it y of -om-3s-dha- 00:00: mouth [place] epa 00 daily. Medical (VITAFOL Branch GUMMIES) 3.33 mg iron- 0.33 mg Chew PNV 2020-1 Yes [id number] 3{tbl} Take 3 Unive rs 112-iron-FA 2-02 tablets by it y of -om-3s-dha- 00:00: mouth [place] epa 00 daily. Medical (VITAFOL Branch GUMMIES) 3.33 mg iron- 0.33 mg Chew PNV 2020-1 Yes [id number] 3{tbl} Take 3 Unive rs 112-iron-FA 2-02 tablets by it y of -om-3s-dha- 00:00: mouth [place] epa 00 daily. Medical (VITAFOL Branch GUMMIES) 3.33 mg iron- 0.33 mg Chew PNV 2020-1 Yes [id number] 3{tbl} Take 3 Unive rs 112-iron-FA 2-02 tablets by it y of -om-3s-dha- 00:00: mouth [place] epa 00 daily. Medical (VITAFOL Branch GUMMIES) 3.33 mg iron- 0.33 mg Chew PNV 2020-1 Yes [id number] 3{tbl} Take 3 Unive rs 112-iron-FA 2-02 tablets by it y of -om-3s-dha- 00:00: mouth [place] epa 00 daily. Medical (VITAFOL Branch GUMMIES) 3.33 mg iron- 0.33 mg Chew PNV 2020-1 Yes [id number] 3{tbl} Take 3 Unive rs 112-iron-FA 2-02 tablets by it y of -om-3s-dha- 00:00: mouth [place] epa 00 daily. Medical (VITAFOL Branch GUMMIES) 3.33 mg iron- 0.33 mg Chew PNV 2020-1 Yes [id number] 3{tbl} Take 3 Unive rs 112-iron-FA 2-02 tablets by it y of -om-3s-dha- 00:00: mouth [place] epa 00 daily. Medical (VITAFOL Branch GUMMIES) 3.33 mg iron- 0.33 mg Chew PNV 2020-1 Yes [id number] 3{tbl} Take 3 Unive rs 112-iron-FA 2-02 tablets by it y of -om-3s-dha- 00:00: mouth [place] epa 00 daily. Medical (VITAFOL Branch GUMMIES) 3.33 mg iron- 0.33 mg Chew PNV 2020-1 Yes [id number] 3{tbl} Take 3 Unive rs 112-iron-FA 2-02 tablets by it y of -om-3s-dha- 00:00: mouth [place] epa 00 daily. Medical (VITAFOL Branch GUMMIES) 3.33 mg iron- 0.33 mg Chew PNV 2020-1 Yes [id number] 3{tbl} Take 3 Unive rs 112-iron-FA 2-02 tablets by it y of -om-3s-dha- 00:00: mouth [place] epa 00 daily. Medical (VITAFOL Branch GUMMIES) 3.33 mg iron- 0.33 mg Chew PNV 2020-1 Yes [id number] 3{tbl} Take 3 Unive rs 112-iron-FA 2-02 tablets by it y of -om-3s-dha- 00:00: mouth [place] epa 00 daily. Medical (VITAFOL Branch GUMMIES) 3.33 mg iron- 0.33 mg Chew PNV 2020-1 Yes [id number] 3{tbl} Take 3 Unive rs 112-iron-FA 2-02 tablets by it y of -om-3s-dha- 00:00: mouth [place] epa 00 daily. Medical (VITAFOL Branch GUMMIES) 3.33 mg iron- 0.33 mg Chew PNV 2020-1 Yes [id number] 3{tbl} Take 3 Unive rs 112-iron-FA 2-02 tablets by it y of -om-3s-dha- 00:00: mouth [place] epa 00 daily. Medical (VITAFOL Branch GUMMIES) 3.33 mg iron- 0.33 mg Chew PNV 2020-1 Yes [id number] 3{tbl} Take 3 Unive rs 112-iron-FA 2-02 tablets by it y of -om-3s-dha- 00:00: mouth [place] epa 00 daily. Medical (VITAFOL Branch GUMMIES) 3.33 mg iron- 0.33 mg Chew PNV 2020-1 Yes [id number] 3{tbl} Take 3 Unive rs 112-iron-FA 2-02 tablets by it y of -om-3s-dha- 00:00: mouth [place] epa 00 daily. Medical (VITAFOL Branch GUMMIES) 3.33 mg iron- 0.33 mg Chew PNV 2020-1 Yes [id number] 3{tbl} Take 3 Unive rs 112-iron-FA 2-02 tablets by it y of -om-3s-dha- 00:00: mouth [place] epa 00 daily. Medical (VITAFOL Branch GUMMIES) 3.33 mg iron- 0.33 mg Chew PNV 2020-1 Yes [id number] 3{tbl} Take 3 Unive rs 112-iron-FA 2-02 tablets by it y of -om-3s-dha- 00:00: mouth [place] epa 00 daily. Medical (VITAFOL Branch GUMMIES) 3.33 mg iron- 0.33 mg Chew PNV 2020- Yes [id number] 3{tbl} Take 3 Unive rs 112-iron-FA 2-02 tablets by it y of -om-3s-dha- 00:00: mouth [place] epa 00 daily. Medical (VITAFOL Branch GUMMIES) 3.33 mg iron- 0.33 mg Chew PNV 2020- Yes [id number] 3{tbl} Take 3 Unive rs 112-iron-FA 2-02 tablets by it y of -om-3s-dha- 00:00: mouth [place] epa 00 daily. Medical (VITAFOL Branch GUMMIES) 3.33 mg iron- 0.33 mg Chew PNV 2020- Yes [id number] 3{tbl} Take 3 Unive rs 112-iron-FA 2-02 tablets by it y of -om-3s-dha- 00:00: mouth [place] epa 00 daily. Medical (VITAFOL Branch GUMMIES) 3.33 mg iron- 0.33 mg Chew PNV 2020- Yes [id number] 3{tbl} Take 3 Unive rs 112-iron-FA 2-02 tablets by it y of -om-3s-dha- 00:00: mouth [place] epa 00 daily. Medical (VITAFOL Branch GUMMIES) 3.33 mg iron- 0.33 mg Chew PNV 2020- Yes [id number] 3{tbl} Take 3 Unive rs 112-iron-FA 2-02 tablets by it y of -om-3s-dha- 00:00: mouth [place] epa 00 daily. Medical (VITAFOL Branch GUMMIES) 3.33 mg iron- 0.33 mg Chew PNV 2020-2020- No [id number] 3{tbl} Take 3 Univ ers 112-iron-FA 2-02 06-23 tablets by i ty of -om-3s-dha- 00:00: 00:00 mouth [place] epa 00 :00 daily. Medical (VITAFOL Branch GUMMIES) 3.33 mg iron- 0.33 mg Chew PNV 2020-2020- No [id number] 3{tbl} Take 3 Univ ers 112-iron-FA 2-02 06-23 tablets by i ty of -om-3s-dha- 00:00: 00:00 mouth [place] epa 00 :00 daily. Medical (VITAFOL Branch GUMMIES) 3.33 mg iron- 0.33 mg Chew PNV 2019-04- No [id number] 3{tbl} Take 3 Univ ers 112-iron-FA 2-02 06-23 tablets by i ty of -om-3s-dha- 00:00: 00:00 mouth [place] epa 00 :00 daily. Medical (VITAFOL Branch GUMMIES) 3.33 mg iron- 0.33 mg Chew PNV 2019-04- No [id number] 3{tbl} Take 3 Univ ers 112-iron-FA 2-02 06-23 tablets by i ty of -om-3s-dha- 00:00: 00:00 mouth [place] epa 00 :00 daily. Medical (VITAFOL Branch GUMMIES) 3.33 mg iron- 0.33 mg Chew PNV 2019-04- No [id number] 3{tbl} Take 3 Univ ers 112-iron-FA 2-02 06-23 tablets by i ty of -om-3s-dha- 00:00: 00:00 mouth [place] epa 00 :00 daily. Medical (VITAFOL Branch GUMMIES) 3.33 mg iron- 0.33 mg Chew PNV 2019-04- No [id number] 3{tbl} Take 3 Univ ers 112-iron-FA 2-02 06-23 tablets by i ty of -om-3s-dha- 00:00: 00:00 mouth [place] epa 00 :00 daily. Medical (VITAFOL Branch GUMMIES) 3.33 mg iron- 0.33 mg Chew PNV 2019-04- No [id number] 3{tbl} Take 3 Univ ers 112-iron-FA 2-02 06-23 tablets by i ty of -om-3s-dha- 00:00: 00:00 mouth [place] epa 00 :00 daily. Medical (VITAFOL Branch GUMMIES) 3.33 mg iron- 0.33 mg Chew 2019-04 Yes [id number] 1{packe Take 1 Univers vit 1-05 t} Packet by ity of 33-iron-fol 00:00: mouth [place] ic-dha 00 daily. Medical (SELECT-OB Branch + DHA) 29 mg iron-1 mg -250 mg combo pack 2020- Yes [id number] 1{packe Take 1 Univers vit 1-05 t} Packet by ity of 33-iron-fol 00:00: mouth [place] ic-dha 00 daily. Medical (SELECT-OB Branch + DHA) 29 mg iron-1 mg -250 mg combo pack 2020- Yes [id number] 1{packe Take 1 Univers vit 1-05 t} Packet by ity of 33-iron-fol 00:00: mouth [place] ic-dha 00 daily. Medical (SELECT-OB Branch + DHA) 29 mg iron-1 mg -250 mg combo pack 2020- Yes [id number] 1{packe Take 1 Univers vit 1-05 t} Packet by ity of 33-iron-fol 00:00: mouth [place] ic-dha 00 daily. Medical (SELECT-OB Branch + DHA) 29 mg iron-1 mg -250 mg combo pack 2020 Yes [id number] 1{packe Take 1 Univers vit 1-05 t} Packet by ity of 33-iron-fol 00:00: mouth [place] ic-dha 00 daily. Medical (SELECT-OB Branch + DHA) 29 mg iron-1 mg -250 mg combo pack 2020- Yes [id number] 1{packe Take 1 Univers vit 1-05 t} Packet by ity of 33-iron-fol 00:00: mouth [place] ic-dha 00 daily. Medical (SELECT-OB Branch + DHA) 29 mg iron-1 mg -250 mg combo pack 2020- Yes [id number] 1{packe Take 1 Univers vit 1-05 t} Packet by ity of 33-iron-fol 00:00: mouth [place] ic-dha 00 daily. Medical (SELECT-OB Branch + DHA) 29 mg iron-1 mg -250 mg combo pack 2020- Yes [id number] 1{packe Take 1 Univers vit 1-05 t} Packet by ity of 33-iron-fol 00:00: mouth [place] ic-dha 00 daily. Medical (SELECT-OB Branch + DHA) 29 mg iron-1 mg -250 mg combo pack 2020- Yes [id number] 1{packe Take 1 Univers vit 1-05 t} Packet by ity of 33-iron-fol 00:00: mouth [place] ic-dha 00 daily. Medical (SELECT-OB Branch + DHA) 29 mg iron-1 mg -250 mg combo pack 2020- Yes [id number] 1{packe Take 1 Univers vit 1-05 t} Packet by ity of 33-iron-fol 00:00: mouth [place] ic-dha 00 daily. Medical (SELECT-OB Branch + DHA) 29 mg iron-1 mg -250 mg combo pack 2019-04 Yes [id number] 1{packe Take 1 Univers vit 1-05 t} Packet by ity of 33-iron-fol 00:00: mouth [place] ic-dha 00 daily. Medical (SELECT-OB Branch + DHA) 29 mg iron-1 mg -250 mg combo pack 2019-04 Yes [id number] 1{packe Take 1 Univers vit 1-05 t} Packet by ity of 33-iron-fol 00:00: mouth [place] ic-dha 00 daily. Medical (SELECT-OB Branch + DHA) 29 mg iron-1 mg -250 mg combo pack 2019-04 Yes [id number] 1{packe Take 1 Univers vit 1-05 t} Packet by ity of 33-iron-fol 00:00: mouth [place] ic-dha 00 daily. Medical (SELECT-OB Branch + DHA) 29 mg iron-1 mg -250 mg combo pack 2019-04 Yes [id number] 1{packe Take 1 Univers vit 1-05 t} Packet by ity of 33-iron-fol 00:00: mouth [place] ic-dha 00 daily. Medical (SELECT-OB Branch + DHA) 29 mg iron-1 mg -250 mg combo pack 2019- Yes [id number] 1{packe Take 1 Univers vit 1-05 t} Packet by ity of 33-iron-fol 00:00: mouth [place] ic-dha 00 daily. Medical (SELECT-OB Branch + DHA) 29 mg iron-1 mg -250 mg combo pack 2019- Yes [id number] 1{packe Take 1 Univers vit 1-05 t} Packet by ity of 33-iron-fol 00:00: mouth [place] ic-dha 00 daily. Medical (SELECT-OB Branch + DHA) 29 mg iron-1 mg -250 mg combo pack 2019- Yes [id number] 1{packe Take 1 Univers vit 1-05 t} Packet by ity of 33-iron-fol 00:00: mouth [place] ic-dha 00 daily. Medical (SELECT-OB Branch + DHA) 29 mg iron-1 mg -250 mg combo pack 2019-04 Yes [id number] 1{packe Take 1 Univers vit 1-05 t} Packet by ity of 33-iron-fol 00:00: mouth [place] ic-dha 00 daily. Medical (SELECT-OB Branch + DHA) 29 mg iron-1 mg -250 mg combo pack 2019-04 Yes [id number] 1{packe Take 1 Univers vit 1-05 t} Packet by ity of 33-iron-fol 00:00: mouth [place] ic-dha 00 daily. Medical (SELECT-OB Branch + DHA) 29 mg iron-1 mg -250 mg combo pack 2019-04 Yes [id number] 1{packe Take 1 Univers vit 1-05 t} Packet by ity of 33-iron-fol 00:00: mouth [place] ic-dha 00 daily. Medical (SELECT-OB Branch + DHA) 29 mg iron-1 mg -250 mg combo pack 2019-04 Yes [id number] 1{packe Take 1 Univers vit 1-05 t} Packet by ity of 33-iron-fol 00:00: mouth [place] ic-dha 00 daily. Medical (SELECT-OB Branch + DHA) 29 mg iron-1 mg -250 mg combo pack 2019-04 Yes [id number] 1{packe Take 1 Univers vit 1-05 t} Packet by ity of 33-iron-fol 00:00: mouth [place] ic-dha 00 daily. Medical (SELECT-OB Branch + DHA) 29 mg iron-1 mg -250 mg combo pack 2019-04 Yes [id number] 1{packe Take 1 Univers vit 1-05 t} Packet by ity of 33-iron-fol 00:00: mouth [place] ic-dha 00 daily. Medical (SELECT-OB Branch + DHA) 29 mg iron-1 mg -250 mg combo pack 2019-04 Yes [id number] 1{packe Take 1 Univers vit 1-05 t} Packet by ity of 33-iron-fol 00:00: mouth [place] ic-dha 00 daily. Medical (SELECT-OB Branch + DHA) 29 mg iron-1 mg -250 mg combo pack 2019-04 Yes [id number] 1{packe Take 1 Univers vit 1-05 t} Packet by ity of 33-iron-fol 00:00: mouth [place] ic-dha 00 daily. Medical (SELECT-OB Branch + DHA) 29 mg iron-1 mg -250 mg combo pack 2019-04 Yes [id number] 1{packe Take 1 Univers vit 1-05 t} Packet by ity of 33-iron-fol 00:00: mouth [place] ic-dha 00 daily. Medical (SELECT-OB Branch + DHA) 29 mg iron-1 mg -250 mg combo pack 2019-04 Yes [id number] 1{packe Take 1 Univers vit 1-05 t} Packet by ity of 33-iron-fol 00:00: mouth [place] ic-dha 00 daily. Medical (SELECT-OB Branch + DHA) 29 mg iron-1 mg -250 mg combo pack 2019-04 Yes [id number] 1{packe Take 1 Univers vit 1-05 t} Packet by ity of 33-iron-fol 00:00: mouth [place] ic-dha daily. Medical (SELECT-OB Branch + DHA) 29 mg iron-1 mg -250 mg combo pack 2019-04 Yes [id number] 1{packe Take 1 Univers vit 1-05 t} Packet by ity of 33-iron-fol 00:00: mouth [place] ic-dha daily. Medical (SELECT-OB Branch + DHA) 29 mg iron-1 mg -250 mg combo pack 2019-04 Yes [id number] 1{packe Take 1 Univers vit 1-05 t} Packet by ity of 33-iron-fol 00:00: mouth [place] ic-dha 00 daily. Medical (SELECT-OB Branch + DHA) 29 mg iron-1 mg -250 mg combo pack 2019-04 Yes [id number] 1{packe Take 1 Univers vit 1-05 t} Packet by ity of 33-iron-fol 00:00: mouth [place] ic-dha 00 daily. Medical (SELECT-OB Branch + DHA) 29 mg iron-1 mg -250 mg combo pack 2019-04 Yes [id number] 1{packe Take 1 Univers vit 1-05 t} Packet by ity of 33-iron-fol 00:00: mouth [place] ic-dha 00 daily. Medical (SELECT-OB Branch + DHA) 29 mg iron-1 mg -250 mg combo pack 1 Yes [id number] 1{packe Take 1 Univers vit 1-05 t} Packet by ity of 33-iron-fol 00:00: mouth [place] ic-dha 00 daily. Medical (SELECT-OB Branch + DHA) 29 mg iron-1 mg -250 mg combo pack 2020 Yes [id number] 1{packe Take 1 Univers vit 1-05 t} Packet by ity of 33-iron-fol 00:00: mouth [place] ic-dha 00 daily. Medical (SELECT-OB Branch + DHA) 29 mg iron-1 mg -250 mg combo pack 2019-04 Yes [id number] 1{packe Take 1 Univers vit 1-05 t} Packet by ity of 33-iron-fol 00:00: mouth [place] ic-dha daily. Medical (SELECT-OB Branch + DHA) 29 mg iron-1 mg -250 mg combo pack 2019-04 Yes [id number] 1{packe Take 1 [facility] 1-05 t} Packet by [facility]iron-fol 00:00: mouth [place] ic-d[facility] daily. [facility] ([facility]) 29 mg iron-1 mg -250 mg combo pack 2019-04 Yes [id number] 1{packe Take 1 [facility] 1-05 t} Packet by [facility]iron[facility]fol 00:00: mouth [place] ic-d[facility] daily. [facility] ([facility]) 29 mg iron-1 mg -250 mg combo pack 2019-04 Yes [id number] 1{packe Take 1 [facility] 1-05 t} Packet by [facility]-fol 00:00: mouth [place] ic-d[facility] daily. [facility] ([facility]) 29 mg iron-1 mg -250 mg combo pack 2020- Yes [id number] 1{packe Take 1 [facility] 1-05 t} Packet by [facility]iron-fol 00:00: mouth [place] ic-d[facility] 00 daily. [facility] ([facility]) 29 mg iron-1 mg -250 mg combo pack 2020 Yes [id number] 1{packe Take 1 [facility] 1-05 t} Packet by [facility]iron-fol 00:00: mouth [place] ic-d[facility] 00 daily. [facility] ([facility]) 29 mg iron-1 mg -250 mg combo pack 2019-04 Yes [id number] 1{packe Take 1 [facility] 1-05 t} Packet by [facility]iron-fol 00:00: mouth [place] ic-d[facility] 00 daily. [facility] ([facility]) 29 mg iron-1 mg -250 mg combo pack 2019-04 Yes [id number] 1{packe Take 1 [facility] 1-05 t} Packet by [facility]iron-fol 00:00: mouth [place] ic-d[facility] 00 daily. [facility] ([facility]) 29 mg iron-1 mg -250 mg combo pack 2019-04 Yes [id number] 1{packe Take 1 [facility] 1-05 t} Packet by [facility]iron-fol 00:00: mouth [place] ic-d[facility] 00 daily. [facility] ([facility]) 29 mg iron-1 mg -250 mg combo pack 2019-04 Yes [id number] 1{packe Take 1 [facility] 1-05 t} Packet by [facility]iron-fol 00:00: mouth [place] ic-d[facility] 00 daily. [facility] ([facility]) 29 mg iron-1 mg -250 mg combo pack 2019-04 Yes [id number] 1{packe Take 1 [facility] 1-05 t} Packet by [facility]iron-fol 00:00: mouth [place] ic-d[facility] 00 daily. [facility] ([facility]) 29 mg iron-1 mg -250 mg combo pack 2019-04- No [id number] 1{packe Take 1 [facility] 1-05 06-23 t} Packet by [facility] 00:00[place] [facility] :00 daily. [facility] ([facility]) 29 mg iron-1 mg -250 mg combo pack 2019-04- No [id number] 1{packe Take 1 [facility] 1-05 06-23 t} Packet by [facility]iron-fol [place] daily. [facility] ([facility] + DHA) 29 mg iron-1 mg -250 mg combo pack 2019-04- No [id number] 1{packe Take 1 Univers vit 1-05 06-23 t} Packet by ity of 33-iron-fol 00:00: 00:[place] :00 daily. Medical ([facility] + DHA) 29 mg iron-1 mg -250 mg combo pack 2019-04- No [id number] 1{packe Take 1 Univers vit 1-05 06-23 t} Packet by ity of 33-iron-fol 00:00: 00:[place] :00 daily. Medical ([facility] + DHA) 29 mg iron-1 mg -250 mg combo pack 2019-04- No [id number] 1{packe Take 1 Univers vit 1-05 06-23 t} Packet by ity of 33-iron-fol 00:00: 00:[place] :00 daily. Medical ([facility] + DHA) 29 mg iron-1 mg -250 mg combo pack 2019-04- No [id number] 1{packe Take 1 Univers vit 1-05 06-23 t} Packet by ity of 33-iron-fol 00:00: 00:[place] :00 daily. Medical ([facility] + DHA) 29 mg iron-1 mg -250 mg combo pack 2019-04- No [id number] 1{packe Take 1 Univers vit 1-05 06-23 t} Packet by [facility]y [facility] 33-iron-fol 00:00[place] 00:[place] :00 daily. Medical ([facility] + DHA) 29 mg iron-1 mg -250 mg combo pack Yes [id number] 1{tbl} Take 1 U nivers multivitami 7-19 tablet by ity of n ( 00:00: mouth [place] VITAMIN) 00 daily. Medical tablet Branch Yes [id number] 1{tbl} Take 1 U nivers multivitami 7-19 tablet by ity of n ( 00:00: mouth [place] VITAMIN) 00 daily. Medical tablet Branch Yes [id number] 1{tbl} Take 1 U nivers multivitami 7-19 tablet by ity of n ( 00:00: mouth [place] VITAMIN) 00 daily. Medical tablet Branch Yes [id number] 1{tbl} Take 1 U nivers multivitami 7-19 tablet by ity of n ( 00:00: mouth [place] VITAMIN) 00 daily. Medical tablet Branch 2020- No [id number] 1{tbl} Take 1 [facility] multivitami 7-19 11-05 tablet by it y [facility] n ( [place] :00 daily. Medical tablet Branch 2020- No [id number] 1{tbl} Take 1 [facility] multivitami 7-19 11-05 tablet by it y [facility] n ( [place] :00 daily. Medical tablet Branch Immunizations Ordered Filled Immunization Date Status Comments [facility] e Immunization Name Name HPV9 2020-09-27 Completed University of 00:00:[address] [facility] HPV9 2020-09-27 Completed University of 00:00:00 [facility] HPV9 2020-09-27 Completed [facility] 00:00:00 [facility] HPV9 2020-09-27 Completed [facility] 00:00:00 [facility] HPV9 2020-09-27 Completed [facility] of 00:00:00 [facility] HPV9 2020-09-27 Completed University of 00:00:00 [facility] TDAP 2020-06-15 Completed University of 00:00:00 [facility] TDAP 2020-06-15 Completed University of 00:00:00 [facility] TDAP 2020-06-15 Completed [facility] of 00:00:00 [facility] TDAP 2020-06-15 Completed [facility] 00:00:00 [facility] TDAP 2020-06-15 Completed [facility] 00:00:00 [facility] TDAP 2020-06-15 Completed [facility] of 00:00:00 [facility] TDAP 2020-06-15 Completed [facility] of 00:00:00 [facility] TDAP 2020-06-15 Completed University of 00:00:[address] [facility] TDAP 2020-06-15 Completed University of 00:00:00 [facility] TDAP 2020-06-15 Completed University of 00:00:00 [facility] TDAP 2020-06-15 Completed University of 00:00:00 [place] [facility] TDAP 2020-06-15 Completed University of 00:00:00 [facility] TDAP 2020-06-15 Completed [facility] of 00:00:00 [facility] TDAP 2020-06-15 Completed [facility] of 00:00:00 [facility] TDAP 2020-06-15 Completed [facility] of 00:00:00 [facility] TDAP 2020-06-15 Completed [facility] of 00:00:00 [facility] TDAP 2020-06-15 Completed [facility] of 00:00:00 [facility] TDAP 2020-06-15 Completed [facility] of 00:00:00 [facility] TDAP 2020-06-15 Completed [facility] of 00:00:00 [facility] TDAP 2020-06-15 Completed [facility] of 00:00:00 [facility] TDAP 2020-06-15 Completed [facility] 00:00:00 [facility] TDAP 2020-06-15 Completed University of 00:00:[address] [facility] TDAP 2020-06-15 Completed University of 00:00:00 [facility] TDAP 2020-06-15 Completed University of 00:00:[address] [facility] TDAP 2020-06-15 Completed University of 00:00:00 [facility] TDAP 2020-06-15 Completed University of 00:00:00 [facility] TDAP 2020-06-15 Completed University of 00:00:00 [facility] TDAP 2020-06-15 Completed University of 00:00:[address] [facility] TDAP 2014-03-01 Completed University of 00:00:[address] [facility] TDAP 2014-03-01 Completed University of 00[facility]00:00 [facility] TDAP 2014-03-01 Completed [facility] 00:00:00 [facility] TDAP 2014-03-01 Completed [facility] 00:00:00 [facility] TDAP 2014-03-01 Completed [facility] of 00:00:00 [facility] TDAP 2014-03-01 Completed [facility] of 00:00:00 [facility] TDAP 2014-03-01 Completed University of 00:00:[address] [facility] TDAP 2014-03-01 Completed University of 00:00:[address] [facility] TDAP 2014-03-01 Completed University of 00:00:00 [facility] TDAP 2014-03-01 Completed University of 00:00:00 [facility] TDAP 2014-03-01 Completed [facility] of 00:00:00 [facility] TDAP 2014-03-01 Completed [facility] of 00:00:00 [facility] TDAP 2014-03-01 Completed [facility] of 00:00:00 [facility] TDAP 2014-03-01 Completed [facility] 00:00:00 [facility] TDAP 2014-03-01 Completed [facility] of 00:00:00 [facility] TDAP 2014-03-01 Completed [facility] 00:00:00 [facility] TDAP 2014-03-01 Completed [facility] of 00:00:00 [facility] TDAP 2014-03-01 Completed [facility] of 00:00:00 [facility] TDAP 2014-03-01 Completed [facility] of 00:00:00 [facility] TDAP 2014-03-01 Completed [facility] of 00:00:00 [facility] TDAP 2014-03-01 Completed [facility] of 00:00:00 [facility] TDAP 2014-03-01 Completed [facility] of 00:00:00 [facility] TDAP 2014-03-01 Completed [facility] of 00:00:00 [facility] TDAP 2014-03-01 Completed [facility] of 00:00:00 [facility] TDAP 2014-03-01 Completed [facility] of 00:00:00 [facility] TDAP 2014-03-01 Completed [facility] of 00:00:00 [facility] TDAP 2014-03-01 Completed [facility] of 00:00:00 [facility] TDAP 2014-03-01 Completed [facility] of 00:00:00 [facility] TDAP 2014-03-01 Completed [facility] of 00:00:00 [facility] TDAP 2014-03-01 Completed [facility] of 00:00:00 [facility] TDAP 2014-03-01 Completed [facility] of 00:00:00 [facility] TDAP 2014-03-01 Completed [facility] of 00:00:00 [facility] TDAP 2014-03-01 Completed [facility] of 00:00:00 [facility] TDAP 2014-03-01 Completed [facility] of 00:00:00 [facility] TDAP 2014-03-01 Completed [facility] of 00:00:00 [facility] TDAP 2014-03-01 Completed [facility] of 00:00:00 [facility] TDAP 2014-03-01 Completed [facility] of 00:00:00 [facility] TDAP 2014-03-01 Completed [facility] of 00:00:00 [facility] TDAP 2014-03-01 Completed [facility] of 00:00:00 [facility] TDAP 2014-03-01 Completed [facility] of 00:00:00 [facility] TDAP 2014-03-01 Completed [facility] of 00:00:00 [facility] TDAP 2014-03-01 Completed [facility] of 00:00:00 [facility] TDAP 2014-03-01 Completed [facility] of 00:00:00 [facility] TDAP 2014-03-01 Completed [facility] of 00:00:00 [facility] TDAP 2014-03-01 Completed [facility] of 00:00:00 [facility] TDAP 2014-03-01 Completed [facility] of 00:00:00 [facility] TDAP 2014-03-01 Completed [facility] of 00:00:00 [facility] TDAP 2014-03-01 Completed [facility] of 00:00:00 [facility] TDAP 2014-03-01 Completed [facility] of 00:00:00 [facility] TDAP 2014-03-01 Completed University of 00:00:[address] [facility] TDAP 2014-03-01 Completed University of 00:00:00 [place] [facility] TDAP 2014-03-01 Completed [facility] of 00:00:00 [facility] TDAP 2014-03-01 Completed [facility] of 00:00:00 [facility] TDAP 2014-03-01 Completed [facility] of 00:00:00 [facility] TDAP 2014-03-01 Completed University of 00:00:[address] [facility] TDAP 2014-03-01 Completed University of 00:00:[address] [facility] TDAP 2014-03-01 Completed University of 00:00:00 [facility] Vital Signs Vital Name Observation Time Observation Value Comments Source Systolic blood 2020-09-27 19:45:00 126 mm[Hg] Univer sity of pressure [facility] Diastolic blood 2020-09-27 19:45:00 84 mm[Hg] Unive rsity of pressure [facility] Heart rate 2020-09-27 19:41:00 74 /min Universi ty [facility] Body temperature 2020-09-27 19:41:00 36.67 Nasrin Univ ersity of [facility] Respiratory rate 2020-09-27 19:40:00 16 /min Univ ersity [facility] Body height 2020-09-27 19:40:00 154.9 cm Universi ty [facility] Body weight 2020-09-27 19:40:00 107.162 kg [facility]i [facility] [place] [facility] BMI 2020-09-27 19:40:00 44.64 kg/m2 [facility] [place] [facility] Systolic blood 2020-09-08 16:19:00 126 mm[Hg] Univer sity of pressure [facility] Diastolic blood 2020-09-08 16:19:00 84 mm[Hg] Unive rsity of pressure [facility] Heart rate 2020-09-08 16:19:00 62 /min Universi ty [facility] [place] [facility] Body temperature 2020-09-08 16:19:00 36.78 Nasrin Univ [facility] [place] [facility] Respiratory rate 2020-09-08 16:19:00 16 /min Univ ersity of [place] [facility] Body height 2020-09-08 16:19:00 154.9 cm [facility]i [facility] [place] [facility] Body weight 2020-09-08 16:19:00 106.624 kg [facility] [place] [facility] BMI 2020-09-08 16:19:00 44.41 kg/m2 [facility] [place] [facility] Systolic blood 2020-08-22 19:11:00 130 mm[Hg] Univer sity of pressure [facility] Diastolic blood 2020-08-22 19:11:00 88 mm[Hg] Unive rsity of pressure [facility] Heart rate 2020-08-22 19:11:00 79 /min [facility]i [facility] [place] [facility] Body temperature 2020-08-22 19:11:00 36.61 Nasrin [facility] [place] [facility] Respiratory rate 2020-08-22 19:11:00 16 /min Univ ersity [facility] [place] [facility] Body height 2020-08-22 19:11:00 154.9 cm [facility] [place] [facility] Body weight 2020-08-22 19:11:00 109.226 kg [facility] [place] [facility] BMI 2020-08-22 19:11:00 45.50 kg/m2 [facility] [place] [facility] Systolic blood 2020-08-17 12:26:00 143 mm[Hg] Univer sity of pressure [facility] Diastolic blood 2020-08-17 12:26:00 88 mm[Hg] Unive rsity of pressure [facility] Heart rate 2020-08-17 12:26:00 75 /min [facility]i ty [facility] [place] [facility] Body temperature 2020-08-17 12:26:00 36.67 Nasrin Univ [facility] [place] [facility] Respiratory rate 2020-08-17 12:26:00 18 /min Univ ersity of [place] [facility] Oxygen saturation in 2020-08-17 12:26:00 98 /min University of Arterial blood by [facility] rush Pulse oximetry Branch Body height 2020-08-14 04:00:00 154.9 cm Universi ty [facility] [place] [facility] Body weight 2020-08-14 04:00:00 114.1 kg [facility] [place] [facility] BMI 2020-08-14 04:00:00 47.55 kg/m2 [facility] [place] [facility] Systolic blood 2020-08-15 17:30:00 117 mm[Hg] Univer sity of pressure [facility] Diastolic blood 2020-08-15 17:30:00 64 mm[Hg] Unive rsity of pressure [facility] Heart rate 2020-08-15 17:30:00 74 /min [facility]i ty [facility] [place] [facility] Respiratory rate 2020-08-15 17:30:00 24 /min Univ ersity of [place] [facility] Oxygen saturation in 2020-08-15 17:30:00 100 /min University of Arterial blood by [facility] Pulse oximetry Branch Body temperature 2020-08-15 16:30:00 36.44 Nasrin Univ ers[facility] [place] [facility] Body height 2020-08-14 04:00:00 154.9 cm [facility]i [facility] [place] [facility] Body weight 2020-08-14 04:00:00 114.1 kg [facility] [place] [facility] BMI 2020-08-14 04:00:00 47.55 kg/m2 [facility] [place] [facility] Systolic blood 2020-07-28 16:12:00 134 mm[Hg] Univer sity of pressure [facility] Diastolic blood 2020-07-28 16:12:00 80 mm[Hg] Unive rsity of pressure [facility] Heart rate 2020-07-28 16:12:00 102 /min [facility]i [facility] [place] [facility] Body temperature 2020-07-28 16:12:00 37.44 Nasrin [facility] [place] [facility] Respiratory rate 2020-07-28 16:12:00 16 /min Univ ersity [facility] [place] [facility] Body height 2020-07-28 16:12:00 154.9 cm [facility]i [facility] [place] [facility] Body weight 2020-07-28 16:12:00 114.125 kg Universi ty of [facility] BMI 2020-07-28 16:12:00 47.54 kg/m2 Universi ty of [facility] Systolic blood 2020-07-25 14:45:00 145 mm[Hg] Univer sity of pressure [facility] Diastolic blood 2020-07-25 14:45:00 86 mm[Hg] Unive rsity of pressure [facility] Heart rate 2020-07-25 14:45:00 87 /min Universi ty of [facility] Body temperature 2020-07-25 14:45:00 36.94 Nasrin Univ ersity of [facility] Respiratory rate 2020-07-25 14:45:00 20 /min Univ ersity of [facility] Body height 2020-07-25 14:45:00 154.9 cm [facility]i [facility] [place] [facility] Body weight 2020-07-25 14:45:00 108.863 kg [facility] [place] [facility] BMI 2020-07-25 14:45:00 45.35 kg/m2 Universi ty of [facility] Oxygen saturation in 2020-07-25 14:45:00 99 /min University Arterial blood by [facility] Pulse oximetry Branch Systolic blood 2020-07-14 15:42:00 122 mm[Hg] Univer sity of pressure [facility] Diastolic blood 2020-07-14 15:42:00 79 mm[Hg] Unive rsity of pressure [facility] Heart rate 2020-07-14 15:42:00 82 /min Universi ty [facility] [place] [facility] Body temperature 2020-07-14 15:42:00 37.06 Nasrin Univ ersity of [facility] Respiratory rate 2020-07-14 15:42:00 16 /min Univ ersity of [facility] Body height 2020-07-14 15:42:00 154.9 cm Universi ty of [facility] Body weight 2020-07-14 15:42:00 112.237 kg Universi ty [facility] [place] [facility] BMI 2020-07-14 15:42:00 46.75 kg/m2 Universi ty of [place] [facility] Systolic blood 2020-06-29 14:46:00 124 mm[Hg] Univer sity of pressure [place] [facility] Diastolic blood 2020-06-29 14:46:00 79 mm[Hg] Unive rsity of pressure [place] [facility] Heart rate 2020-06-29 14:46:00 93 /min Universi ty [facility] [place] [facility] Body temperature 2020-06-29 14:46:00 37 Nasrin Univ ers[facility] [place] [facility] Respiratory rate 2020-06-29 14:46:00 16 /min Univ ersity [facility] [place] [facility] Body height 2020-06-29 14:46:00 154.9 cm [facility] [place] [facility] Body weight 2020-06-29 14:46:00 111.245 kg [facility] [place] [facility] BMI 2020-06-29 14:46:00 46.34 kg/m2 [facility] [place] [facility] Systolic blood 2020-06-15 16:58:00 128 mm[Hg] Univer sity of pressure [place] [facility] Diastolic blood 2020-06-15 16:58:00 78 mm[Hg] Unive rsity of pressure [facility] Heart rate 2020-06-15 16:54:00 113 /min Universi ty [facility] [place] [facility] Body temperature 2020-06-15 16:54:00 36.78 Nasrin Univ [facility] [place] [facility] Respiratory rate 2020-06-15 16:54:00 16 /min Univ ersity [facility] [place] [facility] Body height 2020-06-15 16:54:00 154.9 cm [facility] [place] [facility] Body weight 2020-06-15 16:54:00 110.763 kg [facility] [place] [facility] BMI 2020-06-15 16:54:00 46.14 kg/m2 [facility] [place] [facility] Systolic blood 2020-06-01 15:34:00 131 mm[Hg] Univer sity of pressure [place] [facility] Diastolic blood 2020-06-01 15:34:00 82 mm[Hg] Unive rsity of pressure [place] [facility] Heart rate 2020-06-01 15:29:00 107 /min [facility] [place] [facility] Body temperature 2020-06-01 15:29:00 36.78 Nasrin [facility] [place] [facility] Respiratory rate 2020-06-01 15:29:00 16 /min Univ ersity [facility] [place] [facility] Body height 2020-06-01 15:29:00 154.9 cm [facility] [place] [facility] Body weight 2020-06-01 15:29:00 109.515 kg [facility] [place] [facility] BMI 2020-06-01 15:29:00 45.62 kg/m2 [facility] [place] [facility] Systolic blood 2020-05-09 18:53:00 126 mm[Hg] Univer sity of pressure [facility] Diastolic blood 2020-05-09 18:53:00 72 mm[Hg] Unive rsity of pressure [facility] Heart rate 2020-05-09 18:53:00 92 /min [facility]i ty [facility] [place] [facility] Body temperature 2020-05-09 18:53:00 36.83 Nasrin Univ [facility] [place] [facility] Respiratory rate 2020-05-09 18:53:00 16 /min Univ ersity [facility] [place] [facility] Body weight 2020-05-09 18:53:00 106.278 kg [facility] [place] [facility] BMI 2020-05-09 18:53:00 44.27 kg/m2 [facility] [place] [facility] Systolic blood 2020-04-11 14:20:00 121 mm[Hg] Univer sity of pressure [place] [facility] Diastolic blood 2020-04-11 14:20:00 74 mm[Hg] Unive rsity of pressure [facility] Heart rate 2020-04-11 14:20:00 93 /min [facility]i ty [facility] [place] [facility] Body temperature 2020-04-11 14:20:00 36.94 Nasrin Univ ers[facility] [place] [facility] Respiratory rate 2020-04-11 14:20:00 16 /min Univ ersity [facility] [place] [facility] Body height 2020-04-11 14:20:00 154.9 cm [facility] [place] [facility] Body weight 2020-04-11 14:20:00 104.809 kg [facility] [place] [facility] BMI 2020-04-11 14:20:00 43.66 kg/m2 [facility] [place] [facility] Systolic blood 2020-03-08 16:40:00 133 mm[Hg] Univer sity of pressure [facility] Diastolic blood 2020-03-08 16:40:00 77 mm[Hg] Unive rsity of pressure [facility] Heart rate 2020-03-08 16:40:00 102 /min [facility]i [facility] [place] [facility] Body temperature 2020-03-08 16:40:00 37.06 Nasrin [facility] [place] [facility] Respiratory rate 2020-03-08 16:40:00 16 /min Univ ers[facility] [place] [facility] Body height 2020-03-08 16:40:00 154.9 cm [facility] [place] [facility] Body weight 2020-03-08 16:40:00 102.229 kg [facility] [place] [facility] BMI 2020-03-08 16:40:00 42.58 kg/m2 [facility] [place] [facility] Systolic blood 2020-03-08 16:40:00 133 mm[Hg] Univer sity of pressure [facility] Diastolic blood 2020-03-08 16:40:00 77 mm[Hg] Unive rsity of pressure [facility] Heart rate 2020-03-08 16:40:00 102 /min [facility] [place] [facility] Body temperature 2020-03-08 16:40:00 37.06 Nasrin [facility] [place] [facility] Respiratory rate 2020-03-08 16:40:00 16 /min Univ [facility] [place] [facility] Body height 2020-03-08 16:40:00 154.9 cm [facility] [place] [facility] Body weight 2020-03-08 16:40:00 102.229 kg [facility] [place] [facility] BMI 2020-03-08 16:40:00 42.58 kg/m2 [facility] [place] [facility] Systolic blood 2020-02-09 16:11:00 129 mm[Hg] Univer sity of pressure [facility] Diastolic blood 2020-02-09 16:11:00 76 mm[Hg] Unive rsity of pressure [facility] Heart rate 2020-02-09 16:11:00 88 /min [facility] [place] [facility] Body temperature 2020-02-09 16:11:00 36.72 Nasrin [facility] [place] [facility] Respiratory rate 2020-02-09 16:11:00 16 /min Univ [facility] [place] [facility] Body height 2020-02-09 16:11:00 154.9 cm [facility] Body weight 2020-02-09 16:11:00 100.443 kg [facility] BMI 2020-02-09 16:11:00 41.84 kg/m2 [facility] Procedures Procedure Date / Time Performing Clinician Source Performed GARDASIL 9 (HPV 9V) 2020-09-27 20:26:33 Nichelle Avilez [facility] POCT TEST 2020-09-27 19:42:00 Nichelle Avilez [facility] CBC WITH DIFF 2020-08-16 07:46:00 [facility] CBC WITH DIFF 2020-08-16 07:46:00 [facility] VENOUS CORD GAS 2020-08-15 15:18:00 Simoneffegagan [facility] VENOUS CORD GAS 2020-08-15 15:18:00 Bruce [facility] SECTION 2020-08-15 14:28:00 Grabiel [facility] SECTION 2020-08-15 14:28:00 Grabiel [facility] LACTATE DEHYDROGENASE 2020-08-14 04:13:00 Degraffegagan [facility] GALV ONLY - SYPHILIS 2020-08-14 04:13:00 Cheryl Barrera [facility] IGG/IGM [facility] LACTATE DEHYDROGENASE 2020-08-14 04:13:00 Degraffegagan [facility] GALV ONLY - SYPHILIS 2020-08-14 04:13:00 SimoneffeCheryl farah [facility] IGG/IGM [facility] SGOT (ASPARTATE AMINO 2020-08-14 04:12:00 [facility] CREATININE 2020-08-14 04:12:00 Simoneffegagan Cheryl [facility] ALANINE AMINO 2020-08-14 04:12:00 Degraffenreid, [facility] Branch URIC ACID 2020-08-14 04:12:00 Degraffenreid, Cheryl [facility] sity [facility] CBC WITH DIFF 2020-08-14 04:12:00 Degraffenreid, Cheryl [facility] 2020-08-14 04:12:00 Degraffenreid, Cheryl [facility] [place] ANTIGEN [facility] PROTEIN CREAT RATIO 2020-08-14 04:12:00 Degraffenreid, Cheryl [facility] [place] URINE RANDOM Medical Branch SGOT (ASPARTATE AMINO 2020-08-14 04:12:00 Degraffenreid, Cheryl [facility] TRANSFER) Medical Branch CREATININE 2020-08-14 04:12:00 Degraffenreid, Cheryl [facility] ALANINE AMINO 2020-08-14 04:12:00 Degraffenreid, Cheryl [facility] TRANSFERASE(SGPT Medical Branch URIC ACID 2020-08-14 04:12:00 Degraffenreid, Cheryl [facility] CBC WITH DIFF 2020-08-14 04:12:00 Degraffenreid, Cheryl [facility]IS [facility] SURFACE 2020-08-14 04:12:00 DegraffenreidCherly [facility] [place] ANTIGEN [facility] PROTEIN CREAT RATIO 2020-08-14 04:12:00 Degraffenreid, Cheryl [facility] [place] URINE RANDOM Medical [facility] HB ABO GROUPING 2020-08-14 03:33:00 Degraffenreid, Cheryl [facility] RHO (D) IMMUNE GLOBULIN 2020-08-14 03:33:00 Yoni, [place] HB ABO GROUPING 2020-08-14 03:33:00 Degraffenreid, Cheryl [facility] RHO ([facility] IMMUNE GLOBULIN 2020-08-14 03:33:00 Yoni, [facility] COVID-19 (ID NOW RAPID 2020-08-14 01:55:00 [facility] COVID-19 (ID NOW RAPID 2020-08-14 01:55:00 Sheng Mcmanus [facility] TESTING) [facility] HOSPITAL ADMISSION 2020-08-13 05:01:00 Doctor Unassigned, No [facility] POCT URINALYSIS 2020-07-28 16:10:00 Nichelle Avilez [facility] POCT URINALYSIS 2020-07-14 15:46:00 Nichelle Avilez [facility] CONSENT/REFUSAL FOR 2020-07-11 05:01:00 Doctor Unassigned, No [facility] [place] [facility] [facility] CONSENT/REFUSAL FOR 2020-07-11 05:01:00 Doctor Unassigned, No [facility] [place] [facility] POCT URINALYSIS 2020-06-29 14:47:00 Nichelle Avilez [facility] POCT URINALYSIS 2020-06-15 16:59:00 Nichelle Avilez [facility] TDAP VACCINE, >11 YRS, 2020-06-15 16:42:54 Nichelle Avilez [facility] POCT URINALYSIS 2020-06-01 15:36:00 Nichelle Avilez [facility] SECOND AND THIRD 2020-05-18 14:32:00 Adelaide Malagon [facility] TRIMESTER ULTRASOUND [facility] POCT URINALYSIS 2020-05-09 18:56:00 Nichelle Avilez [facility] QUAD SCRN 2020-04-11 14:41:00 Nichelle Avilez [facility] POCT URINALYSIS 2020-04-11 14:22:00 Nichelle Avilez [facility] POCT URINALYSIS 2020-03-08 16:42:00 Nichelle Avilez Univers [facility] POCT TEST 2020-02-09 16:04:00 Nichelle Avilez Uni versity [facility] POCT URINALYSIS W/O 2020-02-09 16:04:00 Nichelle Avilez Uni versity [facility] SPECIFIC [facility] ASSIGNMENT OF BENEFITS 2020-02-09 15:29:34 Doctor Unassigned, No [facility] Encounters Start End Encounter Admission Attending Care Care Encounter Source Date/Time Date/Time Type Type Clinicians Facility Department ID 2021-02-04 Outpatient P [facility] CELESTE [id number] Univers 11:05:46 ity [facility] 2021-02-04 Outpatient [facility] [id number] Univers [facility]:00[facility] 2020-12-28 2020-12-28 Outpatient R [facility] [id number] Univers 15:00:00 15:00:00 [id number] [facility] 2020-12-28 2020-12-28 Outpatient R [facility] [id number] Univers 15:00:00 15:00:00 ity [facility] 2020-10-30 2020-10-30 Outpatient R [facility] [id number] Univers 15:00:00 15:00:00 [id number] [facility] 2020-10-30 2020-10-30 Outpatient R [facility] [id number] Univers 15:00:00 15:00:[facility] 2020-09-29 2020-09-29 Outpatient R MANAS [facility] [id number] Univers 10:15:00 10:15:00 ROSFERNANDONDTodd [id number] ity o f [facility] 2020-09-29 2020-09-29 Outpatient R MANAS [facility] [id number] Univers 10:15:00 10:15:00 ROSHUNDA ity o f [facility] 2020-09-28 2020-09-28 Telephone Fatmata ORNORIS 1.2.840.114 [id number] Univers 00:00:00 00:00:00 Nichelle Lynch [employer] 350.1.13.10 ity of REGIONAL 4.2.7.2.686 Julito as MATERNAL [id number] [facility] & [address] 2020-09-27 2020-09-27 Office [facility] 1.2.114.428 [id number] Univers 14:20:51 15:29:27 Visit Nichelle Syed [employer] 350.1.13.10 ity of REGIONAL 4.2.7.2.686 Julito as MATERNAL [id number] [address] 2020-09-27 2020-09-27 Outpatient R FATMATA [facility] [id number] [id number] Univers 14:15:00 14:15:00 NICHELLE [id number] [facility] 2020-09-27 2020-09-27 [facility] [id number] Univers 14:15:00 14:15:00 NICHELLE [facility] 2020-09-08 2020-09-08 Routine [facility] 1.2.840.114 [id number] Univers 11:03:54 11:35:50 Rosfernandograya R [employer] 350.1.13.10 ity of Visit REGIONAL 4.2.7.2.686 Julito as MATERNAL [phone] [address] 2020-09-08 2020-09-08 Outpatient Monica MALAGON [facility] [id number] Univers 10:45:00 10:45:[address] [facility] 2020-09-08 2020-09-08 Outpatient Monica MALAGON [facility] [id number] -[id number] Univers 10:30:00 10:30:[address]LA[id number] it[address] [facility] 2020-09-08 2020-09-08 Outpatient Monica MALAGON [facility] [id number] Univers 10:30:00 10:30:[address] [facility] 2020-08-24 2020-08-24 Telephone [facility] 1.2.840.114 [id number] Univers 00:00:00 00:00:00 Radha Kirk [employer] 350.1.13.10 it y of [facility] 4.2.7.2.686 Julito as MATERNAL [phone] [facility] [address] [place] [address] 2020-08-22 2020-08-22 Nurse Visit, Isaac-Rmchp Nurse [facility] 1.2 .840.114 [id number] Univers 13:33:00 13:48:00 Visit Nichelle Avilez [employer] 350.1.13. 10 ity of [facility] 4.2.7.2.686 Julito as MATERNAL [phone] [facility] ical & CHILD [address] [place] [address] 2020-08-22 2020-08-22 Outpatient R FATMATA [facility] [id number] Univers 13:30:00 13:30:00 NICHELLE suárez [facility] 2020-08-18 2020-08-18 Outpatient R FATMATA, [facility] [id number] 6Q-20 Univers 11:00:00 11:00:[id number] [facility] 2020-08-18 2020-08-18 Outpatient R FATMATA, [facility] [id number] Univers 11:00:00 11:00:[address] [facility] 2020-08-13 2020-08-17 Hospital Sheng Mcmanus 1.2.840.1 14 [id number] Univers 20:50:00 17:05:00 Encounter Zane Murry 350.1.13.1 0 ity of [facility] 4.2.7.2.686 Julito as [id number] [facility] [address] [place] 2020-08-17 2020-08-17 1.2.840.1 1.2.840.114 [id number] Univers 00:00:00 00:00:00 Encounter 28467.1.1 350.1.13.10 ity of 3.104.2.7 [place][id number] [address] [facility] [facility] [place] 2020-08-17 2020-08-17 Telephone OLE [place] 1.2.235.863 [id number] Univers 00:00:00 00:00:00 Keysha FAUSTO 350.1.13.10 i ty of HOSPITAL 2.7.2.686 Julito as [id number] [facility] [address] 2020-08-15 2020-08-15 Surgery SpainOLE 1.2.840.114 [id number] Univers 11:50:00 13:39:00 Keysha FAUSTO 350.1.13.10 i ty of [place]2.[place] [id number] [facility] [address] 2020-08-13 2020-08-13 Orders Doctor OLE 1.2.840.114 [id number] Univers 00:00:00 00:00:00 Only Unassigned, FAUSTO 350.1.13.10 ity of [place] [address]2.686 Julito as [id number] [facility] [address] 2020-08-11 2020-08-11 Outpatient R FATMATA, [facility] [id number] [id number]-20 Univers 11:00:00 11:00:[id number] [facility] 2020-08-11 2020-08-11 Outpatient R FATMATA, [facility] [id number] Univers 11:00:00 11:00:00 NICHELLE suárez [facility] 2020-07-28 2020-07-28 Routine Valentepe, [facility] 1.2.254.715 [id number] Univers 10:52:44 11:24:35 Nichelle Lynch [employer] 350.1.13.10 ity of Visit [facility] 4.2.7.2.686 Julito as MATERNAL [id number] [facility] ical & CHILD [address] [place] [address] 2020-07-28 2020-07-28 Outpatient R FATMATA, [facility] [id number] [id number]-20 Univers 10:45:00 10:45:[id number] [facility] 2020-07-28 2020-07-28 Outpatient R AKINEVELYN, [facility] [id number] Univers 10:45:00 10:45:[address] [facility] 2020-07-25 2020-07-25 Urgent Provider, [facility] 1.2.840.114 [id number] Univers 09:36:57 09:56:57 Care Neida Solis 350.1.13.10 ity of [place] 4.2.7.2.686 Julito as Professio [phone] [place] [address] 2020-07-25 2020-07-25 Outpatient R [facility] [id number] -[id number] Univers 09:40:00 09:40:00 [id number] ity [facility] 2020-07-25 2020-07-25 Outpatient R [facility] [id number] Univers 09:40:00 09:40:00 ity [facility] 2020-07-25 2020-07-25 Lion Solis [facility] 1.2.840.114 [id number] Univers 00:00:00 00:00:00 (Out) Neida [facility] 350.1.13.10 it y of [place] 4.2.7.2.686 Julito as Professio [id number] [address] One 2020-07-24 2020-07-24 Telephone [facility] 1.2.840.114 [id number] Univers 00:00:00 00:00:00 Nichelle Lynch STE[employer] D[employer] TENDER 350.1.13.10 ity of REGIONAL 4.2.7.2.686 Julito as MATERNAL [phone] Med ical & CHILD [address] [place] [address] 2020-07-14 2020-07-14 Routine [facility], [facility] 1.2.672.389 [id number] Univers 10:26:16 11:03:01 Nichelle C STEAM DRIER TENDER 350.1.13.10 ity of Visit REGIONAL 4.2.7.2.686 Julito as MATERNAL [phone] [facility] [address] [place] [address] 2020-07-14 2020-07-14 Outpatient FATMATA, [facility] [id number] 6Q-20 Univers 10:45:00 10:45:00 NICHELLE [id number] ity o f [facility] 2020-07-14 2020-07-14 Outpatient R AKINSIPE, [facility] [id number] Univers 10:45:00 10:45:00 NICHELLE ity o f [facility] 2020-07-10 2020-07-10 Nurse OLE Villarreal 1.2.840.114 [id number] Univers 00:00:00 00:00:00 Triage Jeannette LAMBERT 350.1.13.10 it y of HOSPITAL 4.2.7.2.686 Julito as [id number] [address] 2020-06-29 2020-06-29 Routine Akinsipe, [facility] 1.2.408.897 [id number] Univers 09:32:20 10:11:49 Nichelle C STEAM DRIER TENDER 350.1.13.10 ity of Visit REGIONAL 4.2.7.2.686 Julito as MATERNAL [id number] [facility] ical & CHILD [address] [place] [address] 2020-06-29 2020-06-29 Outpatient R AKINSIPE, [facility] [id number] 6Q-20 Univers 09:30:00 09:30:00 NICHELLE [id number] ity o f [facility] 2020-06-29 2020-06-29 Outpatient R AKINSIPE, [facility] [id number] Univers 09:30:00 09:30:00 NICHELLE ity o f [facility] 2020-06-16 2020-06-16 OLE [place] 1.2.840.114 [id number] Univers 00:00:00 00:00:00 Triage Winston LAMBERT 350.1.13.10 ity of [facility] 4.2.7.2.686 Julito as [id number] [address] 2020-06-15 2020-06-15 Routine Akinsipe, [facility] 1.2.971.786 [id number] Univers 10:40:50 11:30:51 Nichelle C STEAM DRIER TENDER 350.1.13.10 ity of Visit [facility] 4.2.7.2.686 Julito as MATERNAL [id number] [facility] [address] [place] [address] 2020-06-15 2020-06-15 Outpatient R AKINSIPE, [facility] [id number] 6Q-20 Univers 10:45:00 10:45:[id number] [facility] 2020-06-15 2020-06-15 Outpatient R FATMATA [facility] [id number] Univers 10:45:00 10:45:00 NICHELLE ity o f [facility] 2020-06-08 2020-06-08 Telephone [facility] 1.2.840.114 [id number] Univers 00:00:00 00:00:00 Nichelle Lynch STE[employer] D[employer]ER TENDER 350.1.13.10 ity of REGIONAL 4.2.7.2.686 Julito as MATERNAL [id number] [facility] ical & CHILD [address] [place] [address] 2020-06-07 2020-06-07 Manager News Lab, [facility] 1.2.840. 114 [id number] Univers 08:07:07 08:21:51 Visit Nichelle Avilez [employer] 350.1.13. 10 ity of REGIONAL 4.2.7.2.686 Julito as MATERNAL [phone] [facility] ical & CHILD [address] [place] [address] 2020-06-07 2020-06-07 Outpatient R [facility] [id number] Univers 08:00:00 08:00:00 [id number] ity of [facility] 2020-06-07 2020-06-07 Outpatient R FATMATA [facility] [id number] Univers 08:00:00 08:00:[address] [facility] 2020-06-06 2020-06-06 Outpatient R FATMATA [facility] [id number] 6Q-20 Univers 14:00:00 14:00:[id number] ity [address] [facility] 2020-06-02 2020-06-02 Telephone [facility] 1.2.840.114 [id number] Univers 00:00:00 00:00:00 Nichelle Lynch STEAM DRIER TENDER 350.1.13.10 ity of REGIONAL 4.2.7.2.686 Julito as MATERNAL [phone] [facility] [address] [place] [address] 2020-06-01 2020-06-01 Routine Akinsipe, [facility] 1.2.129.026 [id number] Univers 09:08:05 09:53:33 Nichelle Lynch STEAM DRIER TENDER 350.1.13.10 ity of Visit REGIONAL 4.2.7.2.686 Julito as MATERNAL [id number] [facility] [address] [place] [address] 2020-06-01 2020-06-01 Outpatient R [facility] [id number] 6Q-20 Univers 09:15:00 09:15:00 NICHELLE [id number] ity o f [facility] 2020-06-01 2020-06-01 Outpatient R [facility] [id number] Univers 09:15:00 09:15:00 NICHELLE ity o f [facility] 2020-05-19 2020-05-19 Abstract [facility] 1.2.840.114 [id number] Univers 00:00:00 00:00:00 Adelaide Anderson STE[employer] DRIER TENDER 350.1.13.10 ity of REGIONAL 4.2.7.2.686 Julito as MATERNAL [phone] [facility] [address] [place] [address] 2020-05-18 2020-05-18 Manager News Ultrasound, [facility] 1.2 .840.114 [id number] Univers 08:04:42 08:42:46 Visit Keysha Spain STE[employer] D[employer]ER TENDER 350.1.13.10 ity of REGIONAL 4.2.7.2.686 Julito as MATERNAL [phone] [facility] 2020-05-18 2020-05-18 Outpatient R [facility] [id number] Univers 08:00:00 08:00:00 [id number] ity of [facility] 2020-05-18 2020-05-18 Outpatient P [facility] [id number] Univers 08:00:00 08:00:00 ity [facility] 2020-05-18 2020-05-18 Orders [facility] 1.2.840.114 [id number] Univers 00:00:00 00:00:00 Only Catienda R [employer]ER 350.1.13.10 ity of REGIONAL 4.2.7.2.686 Julito as MATERNAL [phone] [facility] & CHILD [address] [place] [address] 2020-05-09 2020-05-09 Routine ValenterubenADV[facility] 1.2.139.800 [id number] Univers 12:45:11 13:23:31 Nichelle Lynch STEAM DRIER TENDER 350.1.13.10 ity of Visit REGIONAL 4.2.7.2.686 Julito as MATERNAL [phone] [facility] & CHILD [address] [place] [address] 2020-05-09 2020-05-09 Outpatient R AKINPE, [facility] [id number] 6Q-20 Univers 12:45:00 12:45:[id number] [facility] 2020-05-09 2020-05-09 Outpatient R [facility] [id number] Univers 12:45:00 12:45:[address] [facility] 2020-04-18 2020-04-18 Abstract Manas [facility] 1.2.840.114 [id number] Univers 00:00:00 00:00:00 Adelaide Anderson STEAM DRIER TENDER 350.1.13.10 ity of REGIONAL 4.2.7.2.686 Julito as MATERNAL [id number] [address] 2020-04-17 2020-04-17 Manager News Ultrasound, [facility] 1.2 .840.114 [id number] Univers 12:57:46 14:12:46 Visit Clarissa Noland STEAM DRIER TENDER 350.1. 13.10 ity of REGIONAL 4.2.7.2.686 Julito as MATERNAL [id number] [facility] CH[facility] [address] [place] [address] 2020-04-17 2020-04-17 Outpatient R [facility] [id number] Univers 13:00:00 13:00:00 [id number] ity [facility] 2020-04-17 2020-04-17 Outpatient P [facility] [id number] Univers 13:00:00 13:00:00 ity [facility] 2020-04-12 2020-04-12 Outpatient R AKINSIPE, [facility] [id number] 6Q-20 Univers 12:45:00 12:45:00 NICHELLE [id number] itroderick o f [facility] 2020-04-11 2020-04-11 Outpatient R AKINSIPE, [facility] [id number] 6Q-20 Univers 15:45:00 15:45:[id number] itroderick o [facility] 2020-04-11 2020-04-11 Routine Akinsipe, [facility] 1.2.911.814 [id number] Univers 08:06:51 08:47:38 Nichelle C STEAM DRIER TENDER 350.1.13.10 ity of Visit REGIONAL 4.2.7.2.686 Julito as MATERNAL [phone] [facility] [address] [place] [address] 2020-04-11 2020-04-11 Outpatient R AKINSIPE, [facility] [id number] Univers 08:00:00 08:00:[address] [facility] 2020-04-05 2020-04-05 Outpatient R AKINSIPE, [facility] [id number] 6Q-20 Univers 12:45:00 12:45:[id number] [facility] 2020-03-09 2020-03-09 Telephone Akinsipe, [facility] 1.2.840.114 [id number] Univers 00:00:00 00:00:00 Nichelle C STEAM DRIER TENDER 350.1.13.10 ity of REGIONAL 4.2.7.2.686 Julito as MATERNAL [id number] [facility] ical & CHILD [address] [place] [address] 2020-03-08 2020-03-08 Routine Akinsipe, [facility] 1.2.776.407 [id number] 10:31:40 10:55:43 Nichelle C STEAM DRIER TENDER 350.1.13.10 Visit REGIONAL 4.2.7.2.686 MATERNAL [id number] & CHILD [address] [place] [address] 2020-03-08 2020-03-08 Routine Akinsipe, [facility] 1.2.394.240 [id number] [facility] 10:31:40 10:55:43 Nichelle C STEAM DRIER TENDER 350.1.13.10 ity of Visit REGIONAL 4.2.7.2.686 Julito as MATERNAL [id number] Med ical & CHILD [address] [place] [address] 2020-03-08 2020-03-08 Outpatient R FATMATA, [facility] [id number] 6Q-20 Univers 10:45:00 10:45:00 NICHELLE [id number] ity o f [facility] 2020-03-08 2020-03-08 Outpatient R VALENTERUBEN, [facility] [id number] Univers 10:45:00 10:45:00 NICHELLE ity o f [facility] 2020-03-05 2020-03-05 Refill Doctor [facility] 1.2.840.114 [id number] Univers 00:00:00 00:00:00 Unassigned, STEAM DRIER TENDER 350.1.13.10 ity of [place]IONAL 4.2.7.2.686 Julito as MATERNAL [phone] [facility] [address] [place] [address] 2020-02-16 2020-02-16 Outpatient [facility] [id number] Univers 11:30:00 11:30:00 [id number] ity of [facility] 2020-02-16 2020-02-16 Outpatient R [facility] [id number] Univers 11:30:00 11:30:00 ity of [facility] 2020-02-14 2020-02-14 Telephone [facility] 1.2.840.114 [id number] Univers 00:00:00 00:00:00 Nichelle Lynch STEAM DRIER TENDER 350.1.13.10 ity of REGIONAL 4.2.7.2.686 Julito as MATERNAL [id number] [facility] [address] [place] [address] 2020-02-14 2020-02-14 Abstract Malagon, [facility] 1.2.840.114 [id number] Univers 00:00:00 00:00:00 Adelaide R STEAM DRIER TENDER 350.1.13.10 ity of REGIONAL 4.2.7.2.686 Julito as MATERNAL [id number] [facility] [address] [place] [address] 2020-02-14 2020-02-14 Telephone [facility] 1.2.840.114 [id number] 00:00:00 00:00:00 Nichelle C STEAM DRIER TENDER 350.1.13.10 REGIONAL 4.2.7.2.686 MATERNAL [id number] & CHILD [address] [facility] 2020-02-14 2020-02-14 Slick Malagon [facility] 1.2.840.114 [id number] 00:00:00 00:00:00 Adelaide R STEAM DRIER TENDER 350.1.13.10 REGIONAL 4.2.7.2.686 MATERNAL [id number] & CHILD 107 [facility] 2020-02-11 2020-02-11 Manager News 1, Pea[employer] Us Room [facility] 1.2. 840.114 [id number] Univers 13:04:58 13:34:58 Visit Sheng Mcmanus STE[employer] D[employer]ER TENDER 350.1.13.10 ity of REGIONAL 4.2.7.2.686 Julito as MATERNAL [id number] Med ical & CHILD 369 [facility] 2020-02-11 2020-02-11 Manager News 1, [facility] 1.2.840.114 [id number] 13:04:58 13:34:58 Visit Us Room STE[employer] DRIER TENDER 350.1.13.10 REGIONAL 4.2.7.2.686 MATERNAL [id number] & CHILD [address] [place] [address] 2020-02-11 2020-02-11 Outpatient R [facility] [id number] Univers 13:00:00 13:00:00 ity [facility] 2020-02-11 2020-02-11 Outpatient R [facility] [id number] Univers 13:00:00 13:00:00 ity [facility] 2020-02-09 2020-02-09 [facility] 1.2.967.331 [id number] Univers 09:56:57 10:54:32 Nichelle C STEAM DRIER TENDER 350.1.13.10 ity of Visit REGIONAL 4.2.7.2.686 Julito as MATERNAL [phone] Med ical & CHILD 107 [facility] 2020-02-09 2020-02-09 [facility] [id number] Univers 10:00:00 10:00:00 NICHELLE ity o f [facility] 2020-02-09 2020-02-09 Orders Doctor OLE 1.2.840.114 [id number] Univers 00:00:00 00:00:00 Only Unassigned, FAUSTO 350.1.13.10 ity of [place] [facility] 4.2.7.2.686 Julito as [id number] [address] 2020-02-09 2020-02-09 Telephone [facility] 1.2.840.114 [id number] Univers 00:00:00 00:00:00 Nichelle Lynch STEAM DRIER TENDER 350.1.13.10 ity of [facility] 4.2.7.2.686 Julito as MATERNAL [id number] Med ical & CHILD [address] [place] [address] 2020-02-09 2020-02-09 Telephone [facility], [facility] 1.2.840.114 [id number] 00:00:00 00:00:00 Nichelle C STEAM DRIER TENDER 350.1.13.10 [facility] 4.2.7.2.686 MATERNAL [id number] & CHILD 107 [facility] Results Test Description Test Time Test Comments Results Result Comments Source POCT TEST 2020-09-27 19:42:00 Test Item Value Reference Range Interpretation Comme nts POCT PREG (test code = 1605) Negative On board controls acceptable with C Line (test code = 3574) Yes POCT PREG LOT # (test code = 3575) POCT PREG TEST DATE (test code = 3576) [id number] 19:42:00 Test Item Value Reference Range Interpretation Comments POCT PREG (test code = 1605) Negative On board controls acceptable with C Yes Line (test code = 3574) POCT PREG LOT # (test code = 3575) POCT PREG TEST DATE (test code = 3576) [facility] [id number] 19:42:00 Test Item Value Reference Range Interpretation Comments POCT PREG (test code = 1605) Negative On board controls acceptable with C Yes Line (test code = 3574) POCT PREG LOT # (test code = 3575) POCT PREG TEST DATE (test code = 3576) [facility] [id number] 19:42:00 Test Item Value Reference Range Interpretation Comments POCT PREG (test code = 1605) Negative On board controls acceptable with C Yes Line (test code = 3574) POCT PREG LOT # (test code = 3575) POCT PREG TEST DATE (test code = 3576) [facility] [id number] 19:42:00 Test Item Value Reference Range Interpretation Comments POCT PREG (test code = 1605) Negative On board controls acceptable with C Yes Line (test code = 3574) POCT PREG LOT # (test code = 3575) POCT PREG TEST DATE (test code = 3576) [facility] [id number] 19:42:00 Test Item Value Reference Range Interpretation Comments POCT PREG (test code = 1605) Negative On board controls acceptable with C Yes Line (test code = 3574) POCT PREG LOT # (test code = 3575) POCT PREG TEST DATE (test code = 3576) [facility] [id number] 19:42:00 Test Item Value Reference Range Interpretation Comments POCT PREG (test code = 1605) Negative On board controls acceptable with C Yes Line (test code = 3574) POCT PREG LOT # (test code = 3575) POCT PREG TEST DATE (test code = 3576) [facility] with [id number] 08:21:13 Test Item Value Reference Range Interpretation Comments WBC (test code = See_Comment [Automated 4890-2) message] The sy stem which generated this result transmitted reference range : 4.30 - 11.10 10*3/?L. The reference range was not used to interpret this result as normal/abnormal . RBC (test code = See_Comment L [Automated 117-8) message] The sy stem which generated this result transmitted reference range : 3.93 - 5.25 10*6/?L. The reference range was not used to interpret this result as normal/abnormal . HGB (test code = 9.2 g/dL 11.6-15.0 L 718-7) HCT (test code = 28.1 % 35.7-45.2 L 4544-3) MCV (test code = 87.3 fL 80.6-95.5 787-2) MCH (test code = 28.6 pg 25.9-32.8 785-6) MCHC (test code = 32.7 g/dL 31.6-35.1 786-4) RDW-SD (test code = 45.3 fL 39.0-49.9 46169-8) RDW-CV (test code = 14.4 % 12.0-15.5 788-0) PLT (test code = See_Comment [Automated 777-3) message] The sy stem which generated this result transmitted reference range : 166 - 358 10*3/ ?L. The reference r sondra was not used to interpret this result as normal/abnormal . MPV (test code = 9.7 fL 9.5-12.9 06495-9) NRBC/100 WBC (test See_Comment [Automat ed code = 9900218857) message] The system which generated this result transmitted reference range : 0.0 - 10.0 /100 WBCs. The refer ence range was not u sed to interpret th is result as normal/abnormal . NRBC x10^3 (test code <0.01 See_Comment [Auto mated = 7444067391) message] The s ystem which generated this result transmitted reference range : 10*3/?L. The reference range was not used to interpret this result as normal/abnormal . GRAN MAT (NEUT) % 73.6 % (test code = 770-8) IMM GRAN % (test code 0.70 % = 5432084147) LYMPH % (test code = 18.9 % 736-9) MONO % (test code = 5.6 % 5905-5) EOS % (test code = 1.0 % 713-8) BASO % (test code = 0.2 % 706-2) GRAN MAT x10^3(ANC) 7.85 10*3/uL 1.88-7.09 H (test code = 2909201061) IMM GRAN x10^3 (test 0.08 10*3/uL 0.00-0.06 H code = 9657721051) LYMPH x10^3 (test code 2.02 10*3/uL 1.32-3.29 = 731-0) MONO x10^3 (test code 0.60 10*3/uL 0.33-0.92 = 742-7) EOS x10^3 (test code = 0.11 10*3/uL 0.03-0.39 711-2) BASO x10^3 (test code <0.03 0.01-0.07 = 704-7) Lab Interpretation Abnormal (test code = 67983-2) [facility] with [id number] 08:21:13 Test Item Value Reference Range Interpretation Comments WBC (test code = See_Comment [Automated 6690-2) message] The sy stem which generated this result transmitted reference range : 4.30 - 11.10 10*3/?L. The reference range was not used to interpret this result as normal/abnormal . RBC (test code = See_Comment L [Automated 789-8) message] The sy stem which generated this result transmitted reference range : 3.93 - 5.25 10*6/?L. The reference range was not used to interpret this result as normal/abnormal . HGB (test code = 9.2 g/dL 11.6-15.0 L 718-7) HCT (test code = 28.1 % 35.7-45.2 L 4544-3) MCV (test code = 87.3 fL 80.6-95.5 787-2) MCH (test code = 28.6 pg 25.9-32.8 785-6) MCHC (test code = 32.7 g/dL 31.6-35.1 786-4) RDW-SD (test code = 45.3 fL 39.0-49.9 91506-8) RDW-CV (test code = 14.4 % 12.0-15.5 788-0) PLT (test code = See_Comment [Automated 777-3) message] The sy stem which generated this result transmitted reference range : 166 - 358 10*3/ ?L. The reference r sondra was not used to interpret this result as normal/abnormal . MPV (test code = 9.7 fL 9.5-12.9 40223-4) NRBC/100 WBC (test See_Comment [Automat ed code = 4548126508) message] The system which generated this result transmitted reference range : 0.0 - 10.0 /100 WBCs. The refer ence range was not u sed to interpret th is result as normal/abnormal . NRBC x10^3 (test code <0.01 See_Comment [Auto mated = 1150691825) message] The s ystem which generated this result transmitted reference range : 10*3/?L. The reference range was not used to interpret this result as normal/abnormal . GRAN MAT (NEUT) % 73.6 % (test code = 770-8) IMM GRAN % (test code 0.70 % = 0072017784) LYMPH % (test code = 18.9 % 736-9) MONO % (test code = 5.6 % 5905-5) EOS % (test code = 1.0 % 713-8) BASO % (test code = 0.2 % 706-2) GRAN MAT x10^3(ANC) 7.85 10*3/uL 1.88-7.09 H (test code = 9695011593) IMM GRAN x10^3 (test 0.08 10*3/uL 0.00-0.06 H code = 1594696046) LYMPH x10^3 (test code 2.02 10*3/uL 1.32-3.29 = 731-0) MONO x10^3 (test code 0.60 10*3/uL 0.33-0.92 = 742-7) EOS x10^3 (test code = 0.11 10*3/uL 0.03-0.39 711-2) BASO x10^3 (test code <0.03 0.01-0.07 = 704-7) Lab Interpretation Abnormal (test code = 72855-9) [facility] [id number] 19:29:53 Test Item Value Reference Range Interpretation Comments RHIG CANDIDATE? No- see comment Patient i s not a (test code = candidate for R hIg- 5055) Patient is Rh Positive.Perfor med at [facility] Laboratory Services - [facility] Blood [address] [address]Mm[address] Free: [phone] A No. [id number] [facility] IMMUNE [id number] 19:29:53 Test Item Value Reference Range Interpretation Comments RHIG CANDIDATE? No- see comment Patient i s not a (test code = candidate for R hIg- 5055) Patient is Rh Positive.Perfor med at [facility] Laboratory Services - [facility] Blood [address] [place] [address]Apjh Free: [phone] A No. [id number] [facility] [id number] 15:37:27 Test Item Value Reference Range Interpretation Comments BASE EXCESS, CORD mEq/L (test code = 6594699138) AC PH, CORD (BEAKER) 7.18-7.38 (test code = 3510971497) PC02, CORD (test code See_Comment [Auto mated message] The = 8003321935) system which g enerated this result transmit kaylee reference range : 32 - 66 mmHg. The refer ence range was not used to interpret this result as normal/abnormal . PO2, CORD (test code Machine did not read = 2794959458) BICARBONATE, CORD See_Comment [Automate d message] The (test code = system which ge nerated this 6527891995) result transmit kaylee reference range : 17 - 27 mEq/L. The refe rence range was not used to interpret this result as normal/abnormal . [facility] CORD [id number] 15:37:27 Test Item Value Reference Range Interpretation Comments BASE EXCESS, CORD mEq/L (test code = 2403293189) AC PH, CORD (BEAKER) 7.18-7.38 (test code = 9219048446) PC02, CORD (test code See_Comment [Auto mated message] The = 5053789721) system which g enerated this result transmit kaylee reference range : 32 - 66 mmHg. The refer ence range was not used to interpret this result as normal/abnormal . PO2, CORD (test code Machine did not read = 8533977292) BICARBONATE, CORD See_Comment [Automate d message] The (test code = system which ge nerated this 1060552293) result transmit kaylee reference range : 17 - 27 mEq/L. The refe rence range was not used to interpret this result as normal/abnormal . [facility] CORD [id number] 15:27:27 Test Item Value Reference Range Interpretation Comments VENOUS BASE EXCESS, CORD mEq/L (test code = 0744453379) VENOUS PH, CORD (test 7.25-7.45 code = 8525866066) VENOUS PC02, CORD (test See_Comment H [Au tomated message] code = 4156041386) The syste m which generated this result transmitted ref erence range: 27 - 49 mmHg. The reference r sondra was not used to interpret this result as normal/abnor mal. VENOUS PO2, CORD (test See_Comment L [Aut omated message] code = 7864773557) The syste m which generated this result transmitted ref erence range: 17 - 41 mmHg. The reference r sondra was not used to interpret this result as normal/abnor mal. VENOUS BICARBONATE, CORD See_Comment [A utomated message] (test code = 5616742431) The system which generated this result transmitted ref erence range: 12 - 29 mEq/L. The reference r sondra was not used to interpret this result as normal/abnor mal. Lab Interpretation (test Abnormal code = 67840-5) [facility] CORD [id number] 15:27:27 Test Item Value Reference Range Interpretation Comments VENOUS BASE EXCESS, CORD mEq/L (test code = 0898610673) VENOUS PH, CORD (test 7.25-7.45 code = 1199005223) VENOUS PC02, CORD (test See_Comment H [Au tomated message] code = 7059987422) The syste m which generated this result transmitted ref erence range: 27 - 49 mmHg. The reference r sondra was not used to interpret this result as normal/abnor mal. VENOUS PO2, CORD (test See_Comment L [Aut omated message] code = 9986020517) The syste m which generated this result transmitted ref erence range: 17 - 41 mmHg. The reference r sondra was not used to interpret this result as normal/abnor mal. VENOUS BICARBONATE, CORD See_Comment [A utomated message] (test code = 2389446445) The system which generated this result transmitted ref erence range: 12 - 29 mEq/L. The reference r sondra was not used to interpret this result as normal/abnor mal. Lab Interpretation (test Abnormal code = 70748-9) [facility] ONLY - SYPHILIS [id number] 16:35:38 Test Item Value Reference Range Interpretation Comments Syphilis IgG/IgM (test Non-reactive Non-reactive code = 83451-4) BENTON (test code = BENTON) Non-reactive - No serologic evidence of T. pallidum infection. Cannot exclude incubating or early syphilis. Submit a second specimen in 2-4 weeks if syphilis is clinically suspected. Equivocal - Further testing to follow. Reactive - Further testing to follow. Lab Interpretation (test Normal code = 32363-5) [facility] ONLY - SYPHILIS [id number] 16:35:38 Test Item Value Reference Range Interpretation Comments Syphilis IgG/IgM (test Non-reactive Non-reactive code = 63475-6) [place]ENTON (test code = BENTON) Non-reactive - No serologic evidence of T. pallidum infection. Cannot exclude incubating or early syphilis. Submit a second specimen in 2-4 weeks if syphilis is clinically suspected. Equivocal - Further testing to follow. Reactive - Further testing to follow. Lab Interpretation (test Normal code = 23818-0) [facility] Surface [id number] 05:24:39 Test Item Value Reference Range Interpretation Comments HBsAg Semi-Quantitative (test code = Negative Negative 5195-3) [facility] [id number] 05:24:39 Test Item Value Reference Range Interpretation Comments HBsAg Semi-Quantitative (test code = Negative Negative 5195-3) [facility] [id number] 04:54:01 Test Item Value Reference Range Interpretation Comments URIC ACID (test code = 0507630706) 4.2 mg/dL 2.9-6.0 Lab Interpretation (test code = Normal 49078-0) [facility] [id number] 04:54:01 Test Item Value Reference Range Interpretation Comments URIC ACID (test code = 2116242692) 4.2 mg/dL 2.9-6.0 Lab Interpretation (test code = Normal 85079-0) [facility]ALANINE AMINO TRANSFERASE([id number] 04:54:00 Test Item Value Reference Range Interpretation Comments ALTv (test code = 1742-6) 20 U/L 5-35 Lab Interpretation (test code = Normal 28502-1) [facility]2021-05-10 04:54:00 Test Item Value Reference Range Interpretation Comments CREATININE (test code = 0.46 mg/dL 0.50-1.04 L 9132826071) eGFR (test code = mL/min/1.73m2 7928991020) BENTON (test code = BENTON) Association of Glomerular Filtration Rate (GFR) and Staging of Kidney Disease* + --+ --+ ------+| GFR (mL/min/1.73 m2) ?| With Kidney Damage ?| ?Without Kidney Damage+ --------+ --------+ +| ?>90 ?| ?Stage one ?| ? Normal ?+ ---+ ---+ -------+| ?60-89 ?| ?Stage two ?| ? Decreased GFR ? + --+ --+ ------+| ?30-59 ?| ?Stage three ?| ? Stage three ? + --+ --+ ------+| ?15-29 ?| ?Stage four ? | ? Stage four ?+ ---+ ---+ -------+| ?<15 (or dialysis) ? ?| ?Stage five ? | ? Stage five ?+ ---+ ---+ -------+ *Each stage assumes the associated GFR level has been in effect for at least three months. ?Stages 1 to 5, with or without kidney disease, indicate chronic kidney disease. Notes: Determination of stages one and two (with eGFR >59mL/min/1.73 m2) requires estimation of kidney damage for at least three months as defined by structural or functional abnormalities of the kidney, manifested by either:Pathological abnormalities or Markers of kidney damage (including abnormalities in the composition of the blood or urine or abnormalities in imaging tests). Lab Interpretation Abnormal (test code = 69258-3) [facility] (ASPARTATE AMINO TRANSFER)2020-08-14 04:54:00 Test Item Value Reference Range Interpretation Comments AST(SGOT) (test code = 0812532606) 30 U/L 13-40 Lab Interpretation (test code = Normal 07653-0) [facility]AL[facility] AMINO TRANSFERASE([id number] 04:54:00 Test Item Value Reference Range Interpretation Comments ALTv (test code = 1742-6) 20 U/L 5-35 Lab Interpretation (test code = Normal 66809-1) [facility]2021-[facility]-10 04:54:00 Test Item Value Reference Range Interpretation Comments CREATININE (test code = 0.46 mg/dL 0.50-1.04 L 2532697999) eGFR (test code = mL/min/1.73m2 9630413196) BENTON (test code = BENTON) Association of Glomerular Filtration Rate (GFR) and Staging of Kidney Disease* + --+ --+ ------+| GFR (mL/min/1.73 m2) ?| With Kidney Damage ?| ?Without Kidney Damage+ --------+ --------+ +| ?>90 ?| ?Stage one ?| ? Normal ?+ ---+ ---+ -------+| ?60-89 ?| ?Stage two ?| ? Decreased GFR ? + --+ --+ ------+| ?30-59 ?| ?Stage three ?| ? Stage three ? + --+ --+ ------+| ?15-29 ?| ?Stage four ? | ? Stage four ?+ ---+ ---+ -------+| ?<15 (or dialysis) ? ?| ?Stage five ? | ? Stage five ?+ ---+ ---+ -------+ *Each stage assumes the associated GFR level has been in effect for at least three months. ?Stages 1 to 5, with or without kidney disease, indicate chronic kidney disease. Notes: Determination of stages one and two (with eGFR >59mL/min/1.73 m2) requires estimation of kidney damage for at least three months as defined by structural or functional abnormalities of the kidney, manifested by either:Pathological abnormalities or Markers of kidney damage (including abnormalities in the composition of the blood or urine or abnormalities in imaging tests). Lab Interpretation Abnormal (test code = 19178-3) [facility] (ASPARTATE AMINO TRANSFER[facility]2020-08-14 04:54:00 Test Item Value Reference Range Interpretation Comments AST(SGOT) (test code = 3323816441) 30 U/L 13-40 Lab Interpretation (test code = Normal 22174-1) [facility] HospitalLACTATE [id number] 04:53:05 Test Item Value Reference Range Interpretation Comments LDH (test code = 8800610306) 349 U/L 300-600 Lab Interpretation (test code = Normal 82440-9) [facility] HospitalLALAATE [id number] 04:53:05 Test Item Value Reference Range Interpretation Comments LDH (test code = 0045539814) 349 U/L 300-600 Lab Interpretation (test code = Normal 44274-8) [facility] HospitalType and Screen - ONCE [id number] 04:46:40 Test Item Value Reference Range Interpretation Comments ABO & RH (test code A POSITIVE Performe d at [facility] = 20) Laboratory Serv [facility] Blood [facility] [place] [address] s [address]Odyh Free: [phone] A No. [id number] IAT (test code = Negative Performed a t [facility] 1185) Laboratory [facility] [place] [address] s [address]Wcqs Free: [phone] A No. [id number] [facility] HospitalType [facility] Screen - ONCE [id number] 04:46:40 Test Item Value Reference Range Interpretation Comments ABO & RH (test code A POSITIVE Performe d at [facility] = 20) Laboratory [facility] [address] [place] [address] s [address]Sovx Free: [phone] A No. [id number] IAT (test code = Negative Performed a t [facility] 1185) Laboratory [facility] [address] [place] [address] s [address]Fqua Free: [phone] A No. [id number] [facility] HospitalPROTEIN CREAT RATIO URINE [id number] 04:33:02 Test Item Value Reference Range Interpretation Comments T. PROT U (test code = 2888-6) 8 mg/dL CREAT U (test code = 2050113083) 173.4 mg/dL Protein/Creatinine Ratio Urine 0.0-2.0 (test code = 4913015181) [facility]PROTE[facility] CREAT RATIO URINE [id number] 04:33:02 Test Item Value Reference Range Interpretation Comments T. PROT U (test code = 2888-6) 8 mg/dL CREAT U (test code = 4653400998) 173.4 mg/dL Protein/Creatinine Ratio Urine 0.0-2.0 (test code = 6942877961) [facility] HospitalCBC WITH [id number] 04:29:21 Test Item Value Reference Range Interpretation Comments WBC (test code = See_Comment [Automated 6690-2) message] The sy stem which generated this result transmitted reference range : 4.30 - 11.10 10*3/?L. The reference range was not used to interpret this result as normal/abnormal . RBC (test code = See_Comment [Automated 789-8) message] The sy stem which generated this result transmitted reference range : 3.93 - 5.25 10*6/?L. The reference range was not used to interpret this result as normal/abnormal . HGB (test code = 11.3 g/dL 11.6-15.0 L 718-7) HCT (test code = 34.1 % 35.7-45.2 L 4544-3) MCV (test code = 86.3 fL 80.6-95.5 787-2) MCH (test code = 28.6 pg 25.9-32.8 785-6) MCHC (test code = 33.1 g/dL 31.6-35.1 786-4) RDW-SD (test code = 45.3 fL 39.0-49.9 21322-2) RDW-CV (test code = 14.6 % 12.0-15.5 788-0) PLT (test code = See_Comment [Automated 777-3) message] The sy stem which generated this result transmitted reference range : 166 - 358 10*3/ ?L. The reference r sondra was not used to interpret this result as normal/abnormal . MPV (test code = 9.7 fL 9.5-12.9 53229-7) NRBC/100 WBC (test See_Comment [Automat ed code = 3311211464) message] The system which generated this result transmitted reference range : 0.0 - 10.0 /100 WBCs. The refer ence range was not u sed to interpret th is result as normal/abnormal . NRBC x10^3 (test code <0.01 See_Comment [Auto mated = 0865603341) message] The s ystem which generated this result transmitted reference range : 10*3/?L. The reference range was not used to interpret this result as normal/abnormal . GRAN MAT (NEUT) % 69.9 % (test code = 770-8) IMM GRAN % (test code 1.30 % = 8987456506) LYMPH % (test code = 21.5 % 736-9) MONO % (test code = 6.3 % 5905-5) EOS % (test code = 0.7 % 713-8) BASO % (test code = 0.3 % 706-2) GRAN MAT x10^3(ANC) 7.03 10*3/uL 1.88-7.09 (test code = 9824511151) IMM GRAN x10^3 (test 0.13 10*3/uL 0.00-0.06 H code = 6228198872) LYMPH x10^3 (test code 2.16 10*3/uL 1.32-3.29 = 731-0) MONO x10^3 (test code 0.63 10*3/uL 0.33-0.92 = 742-7) EOS x10^3 (test code = 0.07 10*3/uL 0.03-0.39 711-2) BASO x10^3 (test code 0.03 10*3/uL 0.01-0.07 = 704-7) Lab Interpretation Abnormal (test code = 67342-3) [facility] WITH [id number] 04:29:21 Test Item Value Reference Range Interpretation Comments WBC (test code = See_Comment [Automated 5690-2) message] The sy stem which generated this result transmitted reference range : 4.30 - 11.10 10*3/?L. The reference range was not used to interpret this result as normal/abnormal . RBC (test code = See_Comment [Automated 899-8) message] The sy stem which generated this result transmitted reference range : 3.93 - 5.25 10*6/?L. The reference range was not used to interpret this result as normal/abnormal . HGB (test code = 11.3 g/dL 11.6-15.0 L 718-7) HCT (test code = 34.1 % 35.7-45.2 L 4544-3) MCV (test code = 86.3 fL 80.6-95.5 787-2) MCH (test code = 28.6 pg 25.9-32.8 785-6) MCHC (test code = 33.1 g/dL 31.6-35.1 786-4) RDW-SD (test code = 45.3 fL 39.0-49.9 98915-4) RDW-CV (test code = 14.6 % 12.0-15.5 788-0) PLT (test code = See_Comment [Automated 777-3) message] The sy stem which generated this result transmitted reference range : 166 - 358 10*3/ ?L. The reference r sondra was not used to interpret this result as normal/abnormal . MPV (test code = 9.7 fL 9.5-12.9 25336-5) NRBC/100 WBC (test See_Comment [Automat ed code = 4332114679) message] The system which generated this result transmitted reference range : 0.0 - 10.0 /100 WBCs. The refer ence range was not u sed to interpret th is result as normal/abnormal . NRBC x10^3 (test code <0.01 See_Comment [Auto mated = 8802054125) message] The s ystem which generated this result transmitted reference range : 10*3/?L. The reference range was not used to interpret this result as normal/abnormal . GRAN MAT (NEUT) % 69.9 % (test code = 770-8) IMM GRAN % (test code 1.30 % = 3318432191) LYMPH % (test code = 21.5 % 736-9) MONO % (test code = 6.3 % 5905-5) EOS % (test code = 0.7 % 713-8) BASO % (test code = 0.3 % 706-2) GRAN MAT x10^3(ANC) 7.03 10*3/uL 1.88-7.09 (test code = 7336397469) IMM GRAN x10^3 (test 0.13 10*3/uL 0.00-0.06 H code = 7417714550) LYMPH x10^3 (test code 2.16 10*3/uL 1.32-3.29 = 731-0) MONO x10^3 (test code 0.63 10*3/uL 0.33-0.92 = 742-7) EOS x10^3 (test code = 0.07 10*3/uL 0.03-0.39 711-2) BASO x10^3 (test code 0.03 10*3/uL 0.01-0.07 = 704-7) Lab Interpretation Abnormal (test code = 66621-1) [facility] (ID NOW RAPID TESTING)2020-08-14 02:36:16 Test Item Value Reference Range Interpretation Comments SARS-CoV-2 Rapid ID NOW Not Detected Not Detected (test code = 42366-4) BENTON (test code = BENTON) ID NOW COVID-19 Assay is an isothermal nucleic acid amplification test intended for the qualitative detection of nucleic acid from SARS-CoV-2 viral RNA in nasopharyngeal ([employer]) specimens. It is used under Emergency Use Authorization (EUA) by FDA. The limit of detection (LOD) of the assay is 125 Genome Equivalents/mL. A positive result is indicative of the presence of SARS-CoV-2 RNA. ?Clinical correlation with patient history and other diagnostic information is necessary to determine patient infection status. A negative (Not Detected) result does not preclude SARS-CoV-2 infection. In patients with clinical symptoms and other tests that are consistent with SARS-CoV-2 infection, negative results should be treated as presumptive negative and a new specimen should be tested with alternative PCR molecular test. Invalid: Please collect a new specimen for repeat patient testing if clinically indicated. Lab Interpretation Normal (test code = 42869-6) [facility] ([facility] NOW RAPID TESTING)2020-08-14 02:36:16 Test Item Value Reference Range Interpretation Comments SARS-CoV-2 Rapid ID NOW Not Detected Not Detected (test code = 33501-4) [place]ENTON (test code = BENTON) ID NOW COVID-19 Assay is an isothermal nucleic acid amplification test intended for the qualitative detection of nucleic acid from SARS-CoV-2 viral RNA in nasopharyngeal ([employer]) specimens. It is used under Emergency Use Authorization (EUA) by FDA. The limit of detection (LOD) of the assay is 125 Genome Equivalents/mL. A positive result is indicative of the presence of SARS-CoV-2 RNA. ?Clinical correlation with patient history and other diagnostic information is necessary to determine patient infection status. A negative (Not Detected) result does not preclude SARS-CoV-2 infection. In patients with clinical symptoms and other tests that are consistent with SARS-CoV-2 infection, negative results should be treated as presumptive negative and a new specimen should be tested with alternative PCR molecular test. Invalid: Please collect a new specimen for repeat patient testing if clinically indicated. Lab Interpretation Normal (test code = 69594-6) [facility] URINALYSIS W SPECIFIC [id number] 16:11:00 Test Item Value Reference Range Interpretation Comments POCT U SP GRAV (test code = 3255) . 1.005-1.025 POCT PH U (test code = 3254) . 5-8 POCT U LEUK EST (test code = 3263) . Negative - Negative POCT U NIT (test code = 3262) . Negative - Negative POCT U PROT (test code = 3259) neg Negative - Negative POCT U GLU (test code = 3256) trace Negative - Negative POCT U KETONE (test code = 3258) . Negative - Negative POCT U UROBILI (test code = 3260) . 0.2-1 POCT U BILI (test code = 3261) . Negative - Negative POCT U BLD (test code = 3257) . Negative - Negative POCT U COLOR (test code = 3266) . POCT U APPEAR (test code = 3267) Lab Interpretation (test code = Normal 68710-5) [facility] URINALYSIS W SPECIFIC [id number] 16:11:00 Test Item Value Reference Range Interpretation Comments POCT U SP GRAV (test code = 3255) . 1.005-1.025 POCT PH U (test code = 3254) . 5-8 POCT U LEUK EST (test code = 3263) . Negative - Negative POCT U NIT (test code = 3262) . Negative - Negative POCT U PROT (test code = 3259) neg Negative - Negative POCT U GLU (test code = 3256) trace Negative - Negative POCT U KETONE (test code = 3258) . Negative - Negative POCT U UROBILI (test code = 3260) . 0.2-1 POCT U BILI (test code = 3261) . Negative - Negative POCT U BLD (test code = 3257) . Negative - Negative POCT U COLOR (test code = 3266) . POCT U APPEAR (test code = 3267) Lab Interpretation (test code = Normal 77827-9) [facility] URINALYSIS W SPECIFIC [id number] 15:46:00 Test Item Value Reference Range Interpretation Comments POCT U SP GRAV (test code = 3255) . 1.005-1.025 POCT PH U (test code = 3254) . 5-8 POCT U LEUK EST (test code = 3263) . Negative - Negative POCT U NIT (test code = 3262) . Negative - Negative POCT U PROT (test code = 3259) Trace Negative - Negative POCT U GLU (test code = 3256) Neg Negative - Negative POCT U KETONE (test code = 3258) . Negative - Negative POCT U UROBILI (test code = 3260) . 0.2-1 POCT U BILI (test code = 3261) . Negative - Negative POCT U BLD (test code = 3257) . Negative - Negative POCT U COLOR (test code = 3266) POCT U APPEAR (test code = 3267) [facility] URINALYSIS W SPECIFIC [id number] 14:48:00 Test Item Value Reference Range Interpretation Comments POCT U SP GRAV (test code = 3255) . 1.005-1.025 POCT PH U (test code = 3254) . 5-8 POCT U LEUK EST (test code = 3263) . Negative - Negative POCT U NIT (test code = 3262) . Negative - Negative POCT U PROT (test code = 3259) Trace Negative - Negative POCT U GLU (test code = 3256) Neg Negative - Negative POCT U KETONE (test code = 3258) . Negative - Negative POCT U UROBILI (test code = 3260) . 0.2-1 POCT U BILI (test code = 3261) . Negative - Negative POCT U BLD (test code = 3257) . Negative - Negative POCT U COLOR (test code = 3266) POCT U APPEAR (test code = 3267) [facility] URINALYSIS W SPECIFIC [id number] 16:59:00 Test Item Value Reference Range Interpretation Comments POCT U SP GRAV (test code = 3255) . 1.005-1.025 POCT PH U (test code = 3254) . 5-8 POCT U LEUK EST (test code = 3263) . Negative - Negative POCT U NIT (test code = 3262) . Negative - Negative POCT U PROT (test code = 3259) Trace Negative - Negative POCT U GLU (test code = 3256) 1+ Negative - Negative POCT U KETONE (test code = 3258) . Negative - Negative POCT U UROBILI (test code = 3260) . 0.2-1 POCT U BILI (test code = 3261) . Negative - Negative POCT U BLD (test code = 3257) . Negative - Negative POCT U COLOR (test code = 3266) . POCT U APPEAR (test code = 3267) [facility] URINALYSIS W SPECIFIC [id number] 16:59:00 Test Item Value Reference Range Interpretation Comments POCT U SP GRAV (test code = 3255) . 1.005-1.025 POCT PH U (test code = 3254) . 5-8 POCT U LEUK EST (test code = 3263) . Negative - Negative POCT U NIT (test code = 3262) . Negative - Negative POCT U PROT (test code = 3259) Trace Negative - Negative POCT U GLU (test code = 3256) 1+ Negative - Negative POCT U KETONE (test code = 3258) . Negative - Negative POCT U UROBILI (test code = 3260) . 0.2-1 POCT U BILI (test code = 3261) . Negative - Negative POCT U BLD (test code = 3257) . Negative - Negative POCT U COLOR (test code = 3266) . POCT U APPEAR (test code = 3267) [facility] URINALYSIS W SPECIFIC [id number] 16:59:00 Test Item Value Reference Range Interpretation Comments POCT U SP GRAV (test code = 3255) . 1.005-1.025 POCT PH U (test code = 3254) . 5-8 POCT U LEUK EST (test code = 3263) . Negative - Negative POCT U NIT (test code = 3262) . Negative - Negative POCT U PROT (test code = 3259) Trace Negative - Negative POCT U GLU (test code = 3256) 1+ Negative - Negative POCT U KETONE (test code = 3258) . Negative - Negative POCT U UROBILI (test code = 3260) . 0.2-1 POCT U BILI (test code = 3261) . Negative - Negative POCT U BLD (test code = 3257) . Negative - Negative POCT U COLOR (test code = 3266) . POCT U APPEAR (test code = 3267) [facility] URINALYSIS W SPECIFIC [id number] 15:36:00 Test Item Value Reference Range Interpretation Comments POCT U SP GRAV (test code = 3255) . 1.005-1.025 POCT PH U (test code = 3254) . 5-8 POCT U LEUK EST (test code = 3263) . Negative - Negative POCT U NIT (test code = 3262) . Negative - Negative POCT U PROT (test code = 3259) Trace Negative - Negative POCT U GLU (test code = 3256) Neg Negative - Negative POCT U KETONE (test code = 3258) . Negative - Negative POCT U UROBILI (test code = 3260) . 0.2-1 POCT U BILI (test code = 3261) . Negative - Negative POCT U BLD (test code = 3257) . Negative - Negative POCT U COLOR (test code = 3266) POCT U APPEAR (test code = 3267) [facility] URINALYSIS W SPECIFIC [id number] 15:36:00 Test Item Value Reference Range Interpretation Comments POCT U SP GRAV (test code = 3255) . 1.005-1.025 POCT PH U (test code = 3254) . 5-8 POCT U LEUK EST (test code = 3263) . Negative - Negative POCT U NIT (test code = 3262) . Negative - Negative POCT U PROT (test code = 3259) Trace Negative - Negative POCT U GLU (test code = 3256) Neg Negative - Negative POCT U KETONE (test code = 3258) . Negative - Negative POCT U UROBILI (test code = 3260) . 0.2-1 POCT U BILI (test code = 3261) . Negative - Negative POCT U BLD (test code = 3257) . Negative - Negative POCT U COLOR (test code = 3266) POCT U APPEAR (test code = 3267) [facility] URINALYSIS W SPECIFIC [id number] 15:36:00 Test Item Value Reference Range Interpretation Comments POCT U SP GRAV (test code = 3255) . 1.005-1.025 POCT PH U (test code = 3254) . 5-8 POCT U LEUK EST (test code = 3263) . Negative - Negative POCT U NIT (test code = 3262) . Negative - Negative POCT U PROT (test code = 3259) Trace Negative - Negative POCT U GLU (test code = 3256) Neg Negative - Negative POCT U KETONE (test code = 3258) . Negative - Negative POCT U UROBILI (test code = 3260) . 0.2-1 POCT U BILI (test code = 3261) . Negative - Negative POCT U BLD (test code = 3257) . Negative - Negative POCT U COLOR (test code = 3266) POCT U APPEAR (test code = 3267) [facility] URINALYSIS W SPECIFIC [id number] 15:36:00 Test Item Value Reference Range Interpretation Comments POCT U SP GRAV (test code = 3255) . 1.005-1.025 POCT PH U (test code = 3254) . 5-8 POCT U LEUK EST (test code = 3263) . Negative - Negative POCT U NIT (test code = 3262) . Negative - Negative POCT U PROT (test code = 3259) Trace Negative - Negative POCT U GLU (test code = 3256) Neg Negative - Negative POCT U KETONE (test code = 3258) . Negative - Negative POCT U UROBILI (test code = 3260) . 0.2-1 POCT U BILI (test code = 3261) . Negative - Negative POCT U BLD (test code = 3257) . Negative - Negative POCT U COLOR (test code = 3266) POCT U APPEAR (test code = 3267) [facility] URINALYSIS W SPECIFIC [id number] 18:56:00 Test Item Value Reference Range Interpretation Comments POCT U SP GRAV (test code = 3255) . 1.005-1.025 POCT PH U (test code = 3254) . 5-8 POCT U LEUK EST (test code = 3263) . Negative - Negative POCT U NIT (test code = 3262) . Negative - Negative POCT U PROT (test code = 3259) trace Negative - Negative POCT U GLU (test code = 3256) normal Negative - Negative POCT U KETONE (test code = 3258) . Negative - Negative POCT U UROBILI (test code = 3260) . 0.2-1 POCT U BILI (test code = 3261) . Negative - Negative POCT U BLD (test code = 3257) . Negative - Negative POCT U COLOR (test code = 3266) POCT U APPEAR (test code = 3267) [facility] URINALYSIS W SPECIFIC [id number] 18:56:00 Test Item Value Reference Range Interpretation Comments POCT U SP GRAV (test code = 3255) . 1.005-1.025 POCT PH U (test code = 3254) . 5-8 POCT U LEUK EST (test code = 3263) . Negative - Negative POCT U NIT (test code = 3262) . Negative - Negative POCT U PROT (test code = 3259) trace Negative - Negative POCT U GLU (test code = 3256) normal Negative - Negative POCT U KETONE (test code = 3258) . Negative - Negative POCT U UROBILI (test code = 3260) . 0.2-1 POCT U BILI (test code = 3261) . Negative - Negative POCT U BLD (test code = 3257) . Negative - Negative POCT U COLOR (test code = 3266) POCT U APPEAR (test code = 3267) [facility] [id number]:22:00 Test Item Value Reference Interpretation Comments Range RACE (test code = 9381181069) WEIGHT (test code = lbs 3994821886) GEST. AGE (test 19,2 code = 0216441134) INS. DEP (test code No = 1278067812) LMP (test code = 6230649403) US DATE (test code = 0694886283) PE DATE (test code = 1569920623) METHOD (test code = LMP 8743918951) MULT GEST (test No code = 0402211128) NTD HX (test code = No 2724093788) INITAL OR REPEAT Initial (test code = Testing 6739267362) SMOKER (test code = No 3422991336) INHIBIN (test code 189.4 pg/mL = 3359055858) AFP-MS (test code = 33.9 ng/mL 9332339173) ESTRIOL (test code 1.66 ng/mL = 0107381260) BHCG DOWNS (test mIU/mL code = 6325256865) AFP-MS MoM (test code = 4208908388) BHCG MoM (test code = 1273712459) INHIBIN MoM (test code = 6068860654) E3 MoM (test code = 9316400820) EQ AGE RSK (test < 15.0 less than t hat of a 15.0 code = 5385967433) year old DS APR (test code = 1:1090 0998532847) DS INTERP (test See Note The risk of Down code = 3282796315) syndrome is LESS than the screening c ut-off. Nofollow-up is indicated regarding this result. DS RSK (test code = 1:4180 The risk at 5631558341) mid-trimester i s equal to 1:4180 DS SCRN (test code Negative = 3977396913) TRISOMY 18 (test See Note These serum marker code = 0777506975) levels ar e not consistent with the pattern seen in Trisomy 18 pregnancies. Maternal serum screening will detectapproxima tely 60% of Trisomy 18 pregnancies. ES RSK (test code = 1:00321 The risk of Trisomy 18 6371109934) is equal to 1:9 5400The Trisomy 18 cut- off is 1:45 ES SCRN (test code Negative = 6971735742) OSB INTERP (test See Note The materna l serum AFP code = 3772581253) result is NOT elevated for a of thisgestational age. The risk of an open neural tube def ect is less thanthe sc reening cut-off. OSB RSK (test code 1:8490 The risk of OSB is equal = 9163237893) to 1:8490The O SB cut-off is 2.57 (1:104) OSB SCRN (test code Negative = 7275841526) INTERPRETATION N INTERPRETATIO N: SCREEN (test code = NEGATIVE 2111031194) [facility] URINALYSIS W SPECIFIC [id number] 14:23:00 Test Item Value Reference Range Interpretation Comments POCT U SP GRAV (test code = 3255) . 1.005-1.025 POCT PH U (test code = 3254) . 5-8 POCT U LEUK EST (test code = 3263) . Negative - Negative POCT U NIT (test code = 3262) . Negative - Negative POCT U PROT (test code = 3259) Trace Negative - Negative POCT U GLU (test code = 3256) Neg Negative - Negative POCT U KETONE (test code = 3258) . Negative - Negative POCT U UROBILI (test code = 3260) . 0.2-1 POCT U BILI (test code = 3261) . Negative - Negative POCT U BLD (test code = 3257) . Negative - Negative POCT U COLOR (test code = 3266) . POCT U APPEAR (test code = 3267) [facility] URINALYSIS W SPECIFIC [id number] 16:42:00 Test Item Value Reference Range Interpretation Comments POCT U SP GRAV (test code = 3255) . 1.005-1.025 POCT PH U (test code = 3254) . 5-8 POCT U LEUK EST (test code = 3263) . Negative - Negative POCT U NIT (test code = 3262) . Negative - Negative POCT U PROT (test code = 3259) Trace Negative - Negative POCT U GLU (test code = 3256) Neg Negative - Negative POCT U KETONE (test code = 3258) . Negative - Negative POCT U UROBILI (test code = 3260) . 0.2-1 POCT U BILI (test code = 3261) . Negative - Negative POCT U BLD (test code = 3257) . Negative - Negative POCT U COLOR (test code = 3266) . POCT U APPEAR (test code = 3267) [facility] [id number] 16:04:00 Test Item Value Reference Range Interpretation Comments POCT PREG (test code = 1605) Positive On board controls acceptable with C Yes Line (test code = 3574) POCT PREG LOT # (test code = 3575) POCT PREG TEST DATE (test code = 357) [facility] URINALYSIS W/O SPECIFIC [id number] 16:04:00 Test Item Value Reference Range Interpretation Comments POCT PH U (test code = 3254) 7 mg/dl 5-8 POCT U LEUK EST (test code = Trace Negative - Negative 3263) POCT U NIT (test code = 3262) Neg Negative - Negative POCT U PROT (test code = 3259) Trace Negative - Negative POCT U GLU (test code = 3256) Neg Negative - Negative POCT U KETONE (test code = 3258) None Negative - Negative POCT U BLD (test code = 3257) Neg Negative - Negative [facility] [id number] 16:04:00 Test Item Value Reference Range Interpretation Comments POCT PREG (test code = 1605) Positive On board controls acceptable with C Yes Line (test code = 3574) POCT PREG LOT # (test code = 3575) POCT PREG TEST DATE (test code = 357) [facility] URINALYSIS W/O SPECIFIC [id number] 16:04:00 Test Item Value Reference Range Interpretation Comments POCT PH U (test code = 3254) 7 mg/dl 5-8 POCT U LEUK EST (test code = Trace Negative - Negative 3263) POCT U NIT (test code = 3262) Neg Negative - Negative POCT U PROT (test code = 3259) Trace Negative - Negative POCT U GLU (test code = 3256) Neg Negative - Negative POCT U KETONE (test code = 3258) None Negative - Negative POCT U BLD (test code = 3257) Neg Negative - Negative [facility] [id number] 16:04:00 Test Item Value Reference Range Interpretation Comments POCT PREG (test code = 1605) Positive On board controls acceptable with C Yes Line (test code = 3574) POCT PREG LOT # (test code = 3575) POCT PREG TEST DATE (test code = 3576) [facility] [id number] 16:04:00 Test Item Value Reference Range Interpretation Comments POCT PH U (test code = 3254) 7 mg/dl 5-8 POCT U LEUK EST (test code = Trace Negative - Negative 3263) POCT U NIT (test code = 3262) Neg Negative - Negative POCT U PROT (test code = 3259) Trace Negative - Negative POCT U GLU (test code = 3256) Neg Negative - Negative POCT U KETONE (test code = 3258) None Negative - Negative POCT U BLD (test code = 3257) Neg Negative - Negative [facility]"
[2021-08-09 22:14] LABS: Urine Blood Trace-intact (Negative); Urine Glucose Negative (Negative); Urine Protein Negative (Negative); Urine Specific Gravity >=1.030 (1.005-1.030)
[2021-08-09] MEDS ORDERED: NA CHLORIDE 0.9% 1,000 ML ONE (23:04)
[2021-08-09] MEDS ORDERED: FAMOTIDINE 20 MG/2 ML VIAL IV ONE (23:04)
[2021-08-09 23:06] LABS: Absolute Lymphocytes (CBC) 2.9 K/uL (0.7-4.9); Lymphocytes % 37.7 % (15.3-44.8); MPV 7.5 fL (7.6-11.3); RBC Red Blood Cell Count 4.23 M/uL (3.86-4.86)
[2021-08-09 23:22] LABS: ALT/SGPT 17 U/L (12-78); AST/SGOT 8 U/L (15-37); Albumin 3.5 g/dL (3.4-5.0); Alkaline Phosphatase 57 U/L (45-117); BUN Blood Urea Nitrogen 12 mg/dL (7-18); Bicarbonate 24 mmol/L (21-32); Bilirubin Total 0.3 mg/dL (0.2-1.0); Glucose Level 88 mg/dL (74-106); Lipase 132 U/L (73-393); Potassium 4.2 mmol/L (3.5-5.1); Sodium Level 139 mmol/L (136-145)
--- NOTE | 2021-08-10 01:14 | EDPHYS ---
Physician Documentation [facility] Name: Yahaira Vu Age: 26 yrs Sex: Female : 1995 Arrival Date: 08/09/2021 Time: 21:28 Bed 17 Private MD: ED Physician Jaime Chau HPI: 08/10 01:50 This 26 yrs old Female presents to ER via Ambulatory with complaints of kdr Abdominal Pain. 01:47 The patient presents with abdominal pain in the epigastric area, in the upper abdomen, kdr in the left upper quadrant. Onset: The symptoms/episode began/occurred gradually, 3 day(s) ago. The symptoms do not radiate. Associated signs and symptoms: Pertinent positives: nausea, Pertinent negatives: anorexia, blood in stools, chest pain, constipation, diarrhea, dysuria, fever, headache, hematuria, palpitations, shortness of breath, vaginal discharge, vomiting, vomiting blood. The symptoms are described as achy, dull, intermittent. Severity of pain: At its worst the pain was mild in the emergency department the pain is unchanged. The patient has experienced similar episodes in the past, multiple times, but today's symptoms are worse. The patient has not recently seen a physician. Patient presents with 3 days of intermittent abdominal pain. The pain is been in her upper abdomen. It comes and goes and is not precipitated or made better by any particular activity. She has had this intermittent over the last 2 years however the last 3 days has been much worse. He has been evaluated for this once before without a specific etiology found. There may have been some suggestion that her gallstone was involved. [facility]UC[facility]UTION: 08/09 21:54 LMP 07/23/2021 lp1 Historical: - Allergies: 21:53 NKA; lp1 - Home Meds: 21:53 control [Active]; lp1 - PMHx: 21:53 Ovarian cyst; lp1 - PSHx: 21:53 section; lp1 - Immunization history:: Adult Immunizations up to date. - Social history:: Smoking status: Patient denies any tobacco usage or history of. ROS: 08/10 01:47 Constitutional: Negative for fever, chills, and weight loss, Eyes: Negative for injury, kdr pain, redness, and discharge, ENT: Negative for injury, pain, and discharge, Neck: Negative for injury, pain, and swelling, Cardiovascular: Negative for chest pain, palpitations, and edema, Respiratory: Negative for shortness of breath, cough, wheezing, and pleuritic chest pain, Back: Negative for injury and pain, : Negative for injury, bleeding, discharge, and swelling, MS/Extremity: Negative for injury and deformity, Skin: Negative for injury, rash, and discoloration, Neuro: Negative for headache, weakness, numbness, tingling, and seizure activity. Psych: Negative for depression, anxiety, suicide ideation, homicidal ideation, and hallucinations, Allergy/Immunology: Negative for hives, rash, and allergies, Endocrine: Negative for neck swelling, polydipsia, polyuria, polyphagia, and marked weight changes, Hematologic/Lymphatic: Negative for swollen nodes, abnormal bleeding, and unusual bruising. Abdomen/GI: Positive for abdominal pain, nausea, Negative for constipation, abdominal cramps, abdominal distension, anorexia, black/tarry stool, rectal pain, rectal bleeding, bowel incontinence, flatulence. Exam: 01:47 Constitutional: This is a well developed, well nourished patient who is awake, alert, kdr and in no acute distress. Head/Face: Normocephalic, atraumatic. Eyes: Pupils equal round and reactive to light, extra-ocular motions intact. Lids and lashes normal. Conjunctiva and sclera are non-icteric and not injected. Cornea within normal limits. Periorbital areas with no swelling, redness, or edema. Neck: Trachea midline, no thyromegaly or masses palpated, and no cervical lymphadenopathy. Supple, full range of motion without nuchal rigidity, or vertebral point tenderness. No Meningismus. Chest/axilla: Normal chest wall appearance and motion. Nontender with no deformity. No lesions are appreciated. Cardiovascular: Regular rate and rhythm with a normal S1 and S2. No gallops, murmurs, or rubs. Normal PMI, no JVD. No pulse deficits. Respiratory: Lungs have equal breath sounds bilaterally, clear to auscultation and percussion. No rales, rhonchi or wheezes noted. No increased work of breathing, no retractions or nasal flaring. Back: No spinal tenderness. No costovertebral tenderness. Full range of motion. Skin: Warm, dry with normal turgor. Normal color with no rashes, no lesions, and no evidence of cellulitis. MS/ Extremity: Pulses equal, no cyanosis. Neurovascular intact. Full, normal range of motion. Neuro: Awake and alert, GCS 15, oriented to person, place, time, and situation. Cranial nerves II-XII grossly intact. Motor strength 5/5 in all extremities. Sensory grossly intact. Cerebellar exam normal. Normal gait. Psych: Awake, alert, with orientation to person, place and time. Behavior, mood, and affect are within normal limits. 01:47 Abdomen/GI: Inspection: abdomen appears normal, Bowel sounds: normal, Palpation: soft, mild abdominal tenderness, in the epigastric area and left upper quadrant. Vital Signs: 08/09 21:54 BP 131 / 89; Pulse 80; Resp 18; Temp 98.2(O); Pulse Ox 100% on R/A; Weight 95.25 kg lp1 (R); Height 5 ft. 1 in. (154.94 cm); Pain 6/10; 08/10 00:30 BP 136 / 76; Pulse 64; Resp 16; Pulse Ox 100% on R/A; jb4 01:28 BP 140 / 66; Pulse 68; Resp 16; Pulse Ox 98% on R/A; jb4 08/09 21:54 Body Mass Index 39.68 (95.25 kg, 154.94 cm) lp1 MDM: 01:13 Patient medically screened. kdr 01:47 Data reviewed: vital signs, nurses notes, lab test result(s), radiologic studies. kdr Counseling: I had a detailed discussion with the patient and/or guardian regarding: the historical points, exam findings, and any diagnostic results supporting the discharge/admit diagnosis, lab results, radiology results, the need for outpatient follow up. 08/09 22:14 Order name: Urine Dipstick-Ancillary; Complete Time: 22:47 EDMS 08/09 22:47 Order name: CT Abd/Pelvis - IV Contrast Only kdr 08/09 22:47 Order name: CBC with Diff; Complete Time: 23:50 kdr 08/09 22:47 Order name: CMP; Complete Time: 23:50 kdr 08/09 22:47 Order name: Lipase; Complete Time: 23:50 kdr 08/09 22:05 Order name: Urine Dipstick-Ancillary (obtain specimen); Complete Time: 22:15 lp1 08/09 22:05 Order name: Urine Test (obtain specimen); Complete Time: 22:15 lp1 08/09 22:47 Order name: IV Saline Lock; Complete Time: 23:05 kdr 08/09 22:47 Order name: Labs collected and sent; Complete Time: 23:05 kdr Administered Medications: 08/09 23:04 Drug: NS 0.9% 1000 ml Route: IV; Rate: 1 bolus; Site: right antecubital; jb4 08/10 01:28 Follow up: Response: No adverse reaction; IV Status: Completed infusion; IV Intake: jb4 1000ml 08/09 23:04 Drug: Pepcid (famotidine) 20 mg Route: IVP; Site: right antecubital; jb4 08/10 01:28 Follow up: Response: No adverse reaction jb4 Disposition Summary: 08/10/21 01:13 Discharge Ordered Location: Home kdr Problem: new kdr Symptoms: have improved kdr Condition: Stable kdr Diagnosis - Abdominal pain, Generalized kdr - Upper abdominal pain, unspecified kdr - Acute gastritis kdr Followup: kdr - With: Private Physician - When: 2 - 3 days - Reason: If symptoms return, Further diagnostic work-up, Recheck today's complaints, Continuance of care, Re-evaluation by your physician Discharge Instructions: - Discharge Summary Sheet kdr - Gastritis, Adult, [id number] kdr - Abdominal Pain, Adult, [id number] kdr Forms: - Medication Reconciliation Form kdr - Thank You Letter kdr Prescriptions: - Zofran 4 mg Oral Tablet - take 1 tablet by ORAL route every 12 hours As needed; 6 tablet; Refills: 0, kdr Product Selection Permitted - Pepcid 20 mg Oral Tablet - take 1 tablet by ORAL route every 12 hours As needed; 20 tablet; Refills: 0, kdr Product Selection Permitted Signatures: [facility] Jaime Her[facility] MD MD kdr Radha Eaton RN RN lp1 Mike Goncalves RN RN jb4
--- NOTE | 2021-08-10 01:14 | ER ---
Nurse's Notes [facility] Name: Yahaira Vu Age: 26 yrs Sex: Female : 1995 Arrival Date: 08/09/2021 Time: 21:28 Bed 17 Private MD: Diagnosis: Abdominal pain, Generalized;Upper abdominal pain, unspecified;Acute gastritis Presentation: 08/09 21:52 Chief complaint: Patient states: Pain to upper abdomen x 3 days, Denes nausea or lp1 vomiting; Hx of similar pain about 2 years ago and diagnosed with gallstones. Coronavirus screen: At this time, the client does not indicate any symptoms associated with coronavirus-19. Ebola Screen: No symptoms or risks identified at this time. Risk Assessment: Do you want to hurt yourself or someone else? Patient reports no desire to harm self or others. Onset of symptoms was August 09, 2021. 21:52 Method Of Arrival: Ambulatory lp1 21:52 Acuity: SHERYL 3 lp1 21:54 Initial Sepsis Screen: Does the patient meet any 2 criteria? No. Patient's initial lp1 sepsis screen is negative. Does the patient have a suspected source of infection? No. Patient's initial sepsis screen is negative. 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 - Social history:: Smoking status: Patient denies any tobacco usage or history of. Screenin:55 Abuse screen: Denies threats or abuse. Nutritional screening: No deficits noted. jb4 Tuberculosis screening: No symptoms or risk factors identified. Fall Risk None identified. Assessment: 22:55 General: Appears in no apparent distress. comfortable, Behavior is calm, cooperative, jb4 appropriate for age. Pain: Complains of pain in abdomen Pain does not radiate. Pain currently is 6 out of 10 on a pain scale. Neuro: Level of Consciousness is awake, alert, obeys commands, Oriented to person, place, time, situation. Cardiovascular: Patient's skin is warm and dry. Respiratory: Airway is patent Respiratory effort is even, unlabored, Respiratory pattern is regular, symmetrical. GI: Abdomen is non-distended, obese. : No signs and/or symptoms were reported regarding the genitourinary system. EENT: No signs and/or symptoms were reported regarding the EENT system. Derm: Skin is intact, Skin is pink, warm \T\ dry. Musculoskeletal: Circulation, motion, and sensation intact. Range of motion: intact in all extremities. 08/10 00:00 Reassessment: Patient appears in no apparent distress at this time. Patient and/or jb4 family updated on plan of care and expected duration. Pain level reassessed. Patient is alert, oriented x 3, equal unlabored respirations, skin warm/dry/pink. 01:28 Reassessment: Patient appears in no apparent distress at this time. Patient and/or jb4 family updated on plan of care and expected duration. Pain level reassessed. Patient is alert, oriented x 3, equal unlabored respirations, skin warm/dry/pink. Vital Signs: 08/09 21:54 BP 131 / 89; Pulse 80; Resp 18; Temp 98.2(O); Pulse Ox 100% on R/A; Weight 95.25 kg lp1 (R); Height 5 ft. 1 in. (154.94 cm); Pain 6/10; 08/10 00:30 BP 136 / 76; Pulse 64; Resp 16; Pulse Ox 100% on R/A; jb4 01:28 BP 140 / 66; Pulse 68; Resp 16; Pulse Ox 98% on R/A; jb4 08/09 21:54 Body Mass Index 39.68 (95.25 kg, 154.94 cm) lp1 ED Course: 08/09 21:28 Patient arrived in ED. ja2 21:39 Jaime Chau MD is Attending Physician. kdr 21:51 Arm band placed on left wrist. lp1 21:53 Triage completed. lp1 22:48 Mike Goncalves, PRIYANKA is Primary Nurse. jb4 22:55 Patient has correct armband on for positive identification. Placed in gown. Bed in low jb4 position. Call light in reach. Side rails up X 1. Client placed on continuous cardiac and pulse oximetry monitoring. NIBP monitoring applied. 22:55 Initial lab(s) drawn, by me, sent to lab. Inserted saline lock: 18 gauge in right jb4 antecubital area, using aseptic technique. Blood collected. 23:58 CT Abd/Pelvis - IV Contrast Only In Process Unspecified. EDMS 08/10 01:29 No provider procedures requiring assistance completed. IV discontinued, intact, jb4 bleeding controlled, No redness/swelling at site. Pressure dressing applied. Administered Medications: 08/09 23:04 Drug: NS 0.9% 1000 ml Route: IV; Rate: 1 bolus; Site: right antecubital; jb4 08/10 01:28 Follow up: Response: No adverse reaction; IV Status: Completed infusion; IV Intake: jb4 1000ml 08/09 23:04 Drug: Pepcid (famotidine) 20 mg Route: IVP; Site: right antecubital; jb4 08/10 01:28 Follow up: Response: No adverse reaction jb4 Intake: 01:28 IV: 1000ml; Total: 1000ml. jb4 Outcome: 01:13 Discharge ordered by . kdr 01:29 Discharged to home ambulatory. jb4 01:29 Condition: stable 01:29 Discharge instructions given to patient, Instructed on discharge instructions, follow up and referral plans. medication usage, Demonstrated understanding of instructions, follow-up care, medications, Prescriptions given X 2. 01:29 Patient left the ED. jb4 Signatures: Dispatcher [employer] EDAK Jaime Chau MD MD kdr Radha Eaton, RN RN lp1 Mike Goncalves, RN RN jb4 Judie Garibay Corrections: (The following items were deleted from the chart) 00:42 00:00 BP 136 / 76; Pulse 64bpm; Resp 16bpm; Pulse Ox 100% RA; jb4 jb4
[2021-08-10 02:09] VITALS: TEMP 98.2
[2021-08-10 02:15] VITALS: BP 140/66; O2SAT 98
--- NOTE | 2021-08-13 11:37 | RAD REPORT ---
EXAM DESCRIPTION: CT - Abdomen Pelvis W Contrast - 08/10/2021 6:38 am CLINICAL HISTORY: The patient is 26 years old and is Female; LUQ abdominal pain TECHNIQUE: Axial computed tomography images of the abdomen and pelvis with intravenous contrast. S agittal and coronal reformatted images were created and reviewed. This CT exam was performed using one or more of the following dose reduction techniques: automated exposure control, adjustment of t he mA and/or kV according to patient size, and/or use of iterative reconstruction technique. COMPARISON: No relevant prior studies available. FINDINGS: Lung bases: Unremarkable. No mass. No consolidation. ABDOMEN: Liver: Unremarkable. No mass. Gallbladder and bile ducts: Unremarkable. No calcified stones. No ductal dilation. Pancreas: Unremarkable. No mass. No ductal dilation. Spleen: Unremarkable. No splenomegaly. Adrenals: Unremarkable. No mass. Kidneys and ureters: Unremarkable. No solid mass. No hydronephrosis. Stomach and bowel: Unremarkable. No obstruction. No mucosal thickening. PELVIS: Appendix: No findings to suggest acute appendicitis. Bladder: Unremarkable. No mass. Reproductive: 2.6 cm left ovarian/adnexal cyst. ABDOMEN and PELVIS: Intraperitoneal space: Unremarkable. No free air. No significant fluid collection. Bones/joints: No acute fracture. No dislocation. Soft tissues: Unremarkable. Vasculature: Unremarkable. No abdominal aortic aneurysm. Lymph nodes: Unremarkable. No enlarged lymph nodes. IMPRESSION: No acute findings in the abdomen or pelvis. Electronically signed by: J Luis Johnson MD 08/10/2021 12:26 AM CDT Due to temporary technical issues with the PACS/Fluency reporting system, reports are being signed by the in house radiologist without review as a courtesy to ensure prompt reporting. The interpreting r adiologist is fully responsible for the content of the report.
== END 2021-08-10 01:29 | disposition home or self-care (01) ==
LOC: ER 21:25
DX: K29.00 Acute gastritis without bleeding (principal); R10.84 Generalized abdominal pain
CPT/HCPCS: 96361; 85025; 36415; 81003; 83690; 80053; 74177; 96374; 99284; Q9967; J7030; J3490

== ENCOUNTER 2022-01-26 12:56 | Emergency (ER) | payer OTHER ==
--- OUTSIDE RECORDS SUMMARY | 2022-01-26 13:04 | XMS REPORT | Continuity of Care Document ---
:1995 Author Organization [facility] t Address [address] [place] [address] Care Team Providers Name Role Phone Jared Mcmanus MD Primary Care Physician RICKY AVILEZ Attending Clinician Unavailable KENNEDY PATTERSON Attending Clinician Unavailable Kennedy Kovacs Attending Clinician Fatmata [facility] ALMARicky Andres Attending Clinician [phone] Lizette Hernandez Attending Clinician Ultrasound, Isaac-lexi Attending Clinician Unavailable Aly Tyler DO Attending Clinician CECE EDWARD Attending Clinician Unavailable Cece Edward DO Attending Clinician Jared Mcmanus MD Attending Clinician LIZETTE ALVAREZ Attending Clinician Unavailable Provider, Florentino Temp Attending Clinician Unavailable ADELAIDE MALAGON Attending Clinician Unavailable Doctor Unassigned, Mayetta Attending Clinician Unavailable Adelaide Carty Attending Clinician Lizette Leos Attending Clinician Visit, Ang[facility] Nurse Attending Clinician Unavailable Lovely SOSA, Zane Caraballo Attending Clinician Grabiel SOSA, Keysha Attending Clinician Provider, [facility] Attending Clinician Unavailable Will MENDEZP, Neida Attending Clinician Phil RN, Jeannette Attending Clinician Unavailable Vinnie RN, Winston Attending Clinician Unavailable Lab, Isaac[facility] Attending Clinician Unavailable Rach Garcia MD, Clarissa Attending Clinician [phone], [facility] Room Attending Clinician Unavailable NICK JEAN-BAPTISTE Admitting Clinician Unavailable Yonathan SOSA, Jared Ivy Admitting Clinician Payers Payer Name Policy Type Policy Number Effective Date Expiration Date Demetris christianson [place] [facility] [id number] 2020 HEALTH 00:00:00 MEDICAID PENDING PENDING 2020 00:00:00 [place] [id number] 2020 WOMEN 00:00:00 Problems Condition Condition Condition Status Onset Resolution Last Treating Co mments Source Name Details Category Date Date Treatment Clinician Date Multiparit Multiparit Disease Active 2021-04 U nivers y y 0-06 ity of 00:00: [place] 00 Medical Branch Obesity in Obesity in Disease Active 2021-04 U nivers 0-06 ity of 00:00: [place] 00 Medical Branch Depression Depression Disease Active 2021-04 Overview : Univers during during 0 Formattin ity of 00:00: g of this [place] 00 note Medical might be Branch different from the original. Was on meds in the past reports stable mood currently UTI in UTI in Disease Active 2021-04 Overview: Univer s 006 Formattin i ty of 00:00: g of this [place] 00 note Medical might be Branch different from the original. Dx at the hospital see chart review History of History of Disease Active Overview : Univers gestationa gestationa 12-13 Formattin ity of l l 00:00: g of this [place] hypertensi hypertensi 00 note Me dical on on might be Branch different from the original. 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 00 Medical depressive depressive Br anch disorder disorder without without prior prior episode episode Encounter Encounter Disease Active Uni vers for for 6-23 [place]y of prescripti prescript[place] of oral on of oral 00 Me dical contracept contracept Br anch darren darren Morbid Morbid Disease Active Univers obesity obesity 4-06 [place]y of with body [place] body [place] mass index mass index 00 Me dical of of Branch 40.0-49.9 40.0-49.9 Elevated Elevated Disease Active Unive rs blood blood 2-25 ity of pressure pressure 00:00: [place] reading reading 00 Medical without without Branch diagnosis diagnosis of of hypertensi hypertensi on on Allergies, Adverse Reactions, Alerts Allergy Allergy Status Severity Reaction(s) Onset Inactive Treating Comm ents Source Name Type Date Date Clinician NO KNOWN Drug Active Univers ALLERGIE Class ity of [facility] Social History Social Habit Start Date Stop Date Quantity Comments Source ASSERTION 2021-11-[address] 00:[address] [facility] History [facility] o f Alcohol Frequency [facility] edical Branch History [facility] University o f Alcohol Std [place] Medical Drinks Branch History [facility] University o f Alcohol Binge [place] Medic al Branch Exposure to 2022-01-15 2022-01-25 Not sure University of SARS-CoV-2 00:00:00 10:54:00 [facility] (event) Branch Alcohol intake 2022-01-25 2022-01-25 Current drinker Unive rsity of 00:00:00 00:00:00 of alcohol [facility] (finding) Branch Tobacco use and 2021-10-17 2021-10-17 Smokeless tobacco Un iversity of exposure 00:00:00 00:00:[address] non-user [facility] Alcohol Comment 2021-10-17 2021-10-17 rarely Universit y of 00:00:00 00:00:[address] [facility] Sex Assigned At [birth year] Universit y of 00:00:00 00:00:[address] [facility] Smoking Status Start Date Stop Date Source Never smoked tobacco [facility] Medications Ordered Filled Start Stop Current Ordering Indication Dosage Frequency Signature Comments Components Source Medication Medication Date Date Medication? Clinician (SIG) Name Name cefTRIAXone 2021-04 Yes 1000mg 1,000 mg, Univers (ROCEPHIN) 0-21 Intramuscu ity of injection 18:45: [place] Q24H[place] 1,000 mg 00 First dose Medic al on [facility] 01/25/22 at 1345, Until Discontinu ed, CHRISTA
Re ason for Anti-Infec tive: Documented Infection< br>Documen kaylee Infection Site: Urine
D uration of Therapy: 7 days acetaminoph 2021-04- No 1000mg 1,000 mg, Univers en 0-21 10-21 Oral, ity of (TYLENOL) 18:00: 16:55 ONCE, 1 [place] tablet [place] :00 dose, On Medical 1,000 mg [facility] 01/25/22 at 1300, Routine cefdinir 2021-04- Yes [id number] 300mg Take 1 Univers 300 mg 0-21 10- capsule by ity of capsule 00:00: 04:59 mouth [place] 00 :00 every 12 Medical (twelve) Branch hours for 7 days. PNV 2021-04 Yes [id number] 3{tbl} Take 3 Unive rs 112-iron-FA 0-06 tablets by it y of -om-3s-dha- 00:00: mouth [place] epa 00 daily. Medical (VITAFOL Branch GUMMIES) 3.33 mg iron- 0.33 mg Chew PNV 2021-04 Yes [id number] 3{tbl} Take 3 Unive rs 112-iron-FA 0-06 tablets by it y of -om-3s-dha- 00:00: mouth [place] epa 00 daily. Medical (VITAFOL [place] GUMMIES) 3.33 mg iron- 0.33 mg Chew PNV 67-iron Yes [id number] 1{each} Take 1 Univers ps-folate 9-15 Each by ity of no.1-dha 00:00: mouth [place] (VITAFOL 00 daily. Medical ULTRA) 29 Branch mg iron- 1 mg-200 mg Cap PNV 67-iron 2021-0 Yes [id number] 1{each} Take 1 Univers ps-folate 9-15 Each by ity of no.1-dha 00:00: mouth [place] (VITAFOL 00 daily. Medical ULTRA) 29 Branch mg iron- 1 mg-200 mg Cap PNV 67-iron 2021-0 Yes [id number] 1{each} Take 1 Univers ps-folate 9-15 Each by ity of no.1-dha 00:00: mouth [place] (VITAFOL 00 daily. Medical ULTRA) 29 Branch mg iron- 1 mg-200 mg Cap PNV 67-iron 2021-0 Yes [id number] 1{each} Take 1 Univers ps-folate 9-15 Each by ity of no.1-dha 00:00: mouth [place] (VITAFOL 00 daily. Medical ULTRA) 29 Branch mg iron- 1 mg-200 mg Cap PNV 67-iron 2021-0 Yes [id number] 1{each} Take 1 Univers ps-folate 9-15 Each by ity of no.1-dha 00:00: mouth [place] (VITAFOL 00 daily. Medical ULTRA) 29 Branch mg iron- 1 mg-200 mg Cap buPROPion 2021-0 Yes [id number] 150mg Take 1 U nivers SR 9-12 tablet by ity of (WELLBUTRIN 00:00: mouth [place] SR) 150 mg 00 every Medical SR tablet morning. Branch buPROPion 2021-0 Yes [id number] 150mg Take 1 U nivers SR 9-12 tablet by ity of (WELLBUTRIN 00:00: mouth [place] SR) 150 mg 00 every Medical SR tablet morning. Branch buPROPion 2021-0 Yes [id number] 150mg Take 1 U nivers SR 9-12 tablet by ity of (WELLBUTRIN 00:00: mouth [place] SR) 150 mg 00 every Medical SR tablet morning. Branch buPROPion 2021-0 Yes [id number] 150mg Take 1 U nivers SR 9-12 tablet by ity of (WELLBUTRIN 00:00: mouth [place] SR) 150 mg 00 every Medical SR tablet morning. Branch buPROPion 2021-0 Yes [id number] 150mg Take 1 U nivers SR 9-12 tablet by ity of (WELLBUTRIN 00:00: mouth [place] SR) 150 mg 00 every Medical SR tablet morning. Branch buPROPion Yes [id number] 150mg Take 1 U nivers SR 9-12 tablet by ity of (WELLBUTRIN 00:00: mouth [place] SR) 150 mg 00 every Medical SR tablet morning. Branch buPROPion Yes [id number] 150mg Take 1 U nivers SR 9-12 tablet by ity of (WELLBUTRIN 00:00: mouth [place] SR) 150 mg 00 every Medical SR tablet morning. Branch buPROPion Yes [id number] 150mg Take 1 U nivers SR 9-12 tablet by ity of (WELLBUTRIN 00:00: mouth [place] SR) 150 mg 00 every Medical SR tablet morning. Branch cephALEXin 2021- Yes [id number] 500mg Take 1 Univers 500 mg 12-17 capsule by ity of capsule 00:00: 04:59 mouth 4 [place] 00 :00 (four) Medical times [place] daily for 3 days. cephALEXin 2021- Yes [id number] 500mg Take 1 Univers 500 mg 12-17 capsule by ity of capsule 00:00: 04:59 mouth 4 [place] 00 :00 (four) Medical times [place] daily for 3 days. Yes [id number] 1{tbl} Take 1 U nivers vit 9-09 tablet by ity of no.130-iron 00:00: mouth in [place] -folic 00 the Medical ( morning. Branch VITAMIN) Yes [id number] 1{tbl} Take 1 U nivers vit 9-09 tablet by ity of no.130-iron 00:00: mouth in [place] -folic 00 the Medical ( morning. Branch VITAMIN) Yes [id number] 1{tbl} Take 1 U nivers vit 9-09 tablet by ity of no.130-iron 00:00: mouth in [place] -folic 00 the Medical ( morning. Branch VITAMIN) Yes [id number] 1{tbl} Take 1 U nivers vit 9-09 tablet by ity of no.130-iron 00:00: mouth in [place] -folic 00 the Medical ( morning. Branch VITAMIN) Yes [id number] 1{tbl} Take 1 U nivers vit 9-09 tablet by ity of no.130-iron 00:00: mouth in [place] -folic 00 the Medical ( morning. Branch VITAMIN) Yes [id number] 1{tbl} Take 1 U nivers vit 9-09 tablet by ity of no.130-iron 00:00: mouth in [place] -folic 00 the Medical ( morning. Branch VITAMIN) Yes [id number] 1{tbl} Take 1 U nivers vit 9-09 tablet by ity of no.130-iron 00:00: mouth in [place] -folic 00 the Medical ( morning. Branch VITAMIN) Yes [id number] 1{tbl} Take 1 U nivers vit 9-09 tablet by ity of no.130-iron 00:00: mouth in [place] -folic 00 the Medical ( morning. Branch VITAMIN) Yes [id number] 1{tbl} Take 1 U nivers vit 9-09 tablet by ity of no.130-iron 00:00: mouth in [place] -folic 00 the Medical ( morning. Branch VITAMIN) Yes [id number] 1{tbl} Take 1 U nivers vit 9-09 tablet by ity of no.130-iron 00:00: mouth in [place] -folic 00 the Medical ( morning. Branch VITAMIN) Yes [id number] 1{tbl} Take 1 U nivers vit 9-09 tablet by ity of no.130-iron 00:00: mouth in [place] -folic 00 the Medical ( morning. Branch VITAMIN) No known No No known Unive rs medications 8-26 medication it y of 09:35: s [address] No known No No known Unive rs medications 8-26 medication it y of 09:35: s [address] Immunizations Ordered Filled Immunization Date Status Comments [facility] e Immunization Name Name HPV9 2020-09-27 Completed [facility] 00:00:[address] [facility] HPV9 2020-09-27 Completed [facility] 00:00:[address] [facility] HPV9 2020-09-27 Completed [facility] 00:00:[address] [facility] HPV9 2020-09-27 Completed University of 00:00:00 [place] [facility] HPV9 2020-09-27 Completed University of 00:00:00 [place] [facility] HPV9 2020-09-27 Completed University of 00:00:00 [place] [facility] HPV9 2020-09-27 Completed University of 00:00:00 [place] [facility] HPV9 2020-09-27 Completed University of 00:00:00 [place] [facility] HPV9 2020-09-27 Completed University of 00:00:00 [place] [facility] HPV9 2020-09-27 Completed University of 00:00:00 [place] [facility] HPV9 2020-09-27 Completed University of 00:00:00 [place] [facility] HPV9 2020-09-27 Completed University of 00:00:00 [place] [facility] HPV9 2020-09-27 Completed University of 00:00:00 [facility] Branch TDAP 2020-06-15 Completed University of 00:00:00 [facility] Branch TDAP 2020-06-15 Completed University of 00:00:00 [place] [facility] TDAP 2020-06-15 Completed University of 00:00:00 [place] [facility] TDAP 2020-06-15 Completed University of 00:00:00 [place] [facility] TDAP 2020-06-15 Completed University of 00:00:00 [place] [facility] TDAP 2020-06-15 Completed University of 00:00:00 [place] [facility] TDAP 2020-06-15 Completed University of 00:00:00 [place] [facility] TDAP 2020-06-15 Completed University of 00:00:00 [place] [facility] TDAP 2020-06-15 Completed University of 00:00:00 [place] [facility] TDAP 2020-06-15 Completed University of 00:00:00 [place] [facility] TDAP 2020-06-15 Completed University of 00:00:00 [place] [facility] TDAP 2020-06-15 Completed University of 00:00:00 [place] [facility] TDAP 2020-06-15 Completed University of 00:00:00 [facility] Branch TDAP 2014-03-01 Completed University of 00:00:00 [place] [facility] TDAP 2014-03-01 Completed University of 00:00:00 [facility] Branch TDAP 2014-03-01 Completed University of 00:00:00 [place] [facility] TDAP 2014-03-01 Completed University of 00:00:00 [place] [facility] TDAP 2014-03-01 Completed University of 00:00:00 [place] [facility] TDAP 2014-03-01 Completed University of 00:00:00 [place] [facility] TDAP 2014-03-01 Completed University of 00:00:00 [place] [facility] TDAP 2014-03-01 Completed University of 00:00:00 [place] [facility] TDAP 2014-03-01 Completed University of 00:00:00 [place] [facility] TDAP 2014-03-01 Completed University of 00:00:00 [place] [facility] TDAP 2014-03-01 Completed University of 00:00:00 [place] [facility] TDAP 2014-03-01 Completed University of 00:00:00 [place] [facility] TDAP 2014-03-01 Completed University of 00:00:[address] [facility] Vital Signs Vital Name Observation Time Observation Value Comments Source Systolic blood 2022-01-25 15:54:00 142 mm[Hg] Univer sity of pressure [facility] Diastolic blood 2022-01-25 15:54:00 87 mm[Hg] Unive rsity of [facility] Heart rate 2022-01-25 15:54:00 85 /min [facility] Body temperature 2022-01-25 15:54:00 36.94 Nasrin [facility] Respiratory rate 2022-01-25 15:54:00 18 /min [facility] Body height 2022-01-25 15:54:00 154.9 cm [facility] Body weight 2022-01-25 15:54:00 104.781 kg [facility] BMI 2022-01-25 15:54:00 43.65 kg/m2 [facility] Oxygen saturation in 2022-01-25 15:54:00 100 /min [facility] Arterial blood by [facility] Pulse oximetry Branch Systolic blood 2022-01-10 13:31:00 132 mm[Hg] Univer sity of pressure [facility] Diastolic blood 2022-01-10 13:31:00 74 mm[Hg] Unive rsity of pressure [facility] Heart rate 2022-01-10 13:31:00 85 /min Universi [facility] Body temperature 2022-01-10 13:31:00 36.33 Nasrin Univ ersity of [place] [facility] Respiratory rate 2022-01-10 13:31:00 18 /min Univ ersity of [place] [facility] Body height 2022-01-10 13:31:00 154.9 cm Universi ty of [place] [facility] Body weight 2022-01-10 13:31:00 104.781 kg Universi ty of [place] [facility] BMI 2022-01-10 13:31:00 43.65 kg/m2 Universi ty of [place] [facility] Systolic blood 2021-12-17 16:50:00 138 mm[Hg] Univer sity of pressure [place] [facility] Diastolic blood 2021-12-17 16:50:00 80 mm[Hg] Unive rsity of pressure [place] [facility] Heart rate 2021-12-17 16:50:00 78 /min Universi ty of [place] [facility] Body temperature 2021-12-17 16:50:00 37.5 Nasrin Univ ersity of [place] [facility] Respiratory rate 2021-12-17 16:50:00 17 /min Univ ersity of [place] [facility] Body height 2021-12-17 16:50:00 154.9 cm Universi ty of [place] [facility] Body weight 2021-12-17 16:50:00 102.059 kg Universi ty of [place] [facility] BMI 2021-12-17 16:50:00 42.51 kg/m2 Universi ty of [facility] Branch Oxygen saturation in 2021-12-17 16:50:00 100 /min University Arterial blood by [facility] Pulse oximetry Branch Systolic blood 2021-12-13 20:26:00 117 mm[Hg] Univer sity of pressure [place] [facility] Diastolic blood 2021-12-13 20:26:00 75 mm[Hg] Unive rsity of pressure [place] [facility] Heart rate 2021-12-13 20:26:00 74 /min Universi ty of [place] [facility] Body temperature 2021-12-13 20:26:00 36.28 Nasrin Univ ersity of [facility] Branch Respiratory rate 2021-12-13 20:26:00 20 /min Univ ersity of [place] [facility] Body height 2021-12-13 20:26:00 154.9 cm Universi ty of [place] [facility] Body weight 2021-12-13 20:26:00 101.923 kg Universi ty of [place] [facility] BMI 2021-12-13 20:26:00 42.46 kg/m2 [facility] Systolic blood 2021-11-30 13:47:00 120 mm[Hg] [facility] Diastolic blood 2021-11-30 13:47:00 72 mm[Hg] [facility] Heart rate 2021-11-30 13:45:00 71 /min [facility] Body temperature 2021-11-30 13:45:00 36.11 Nasrin [facility] Respiratory rate 2021-11-30 13:45:00 18 /min [facility] Body weight 2021-11-30 13:45:00 102.377 kg [facility] BMI 2021-11-30 13:45:00 42.65 kg/m2 [facility] Procedures Procedure Date / Time Performing Clinician Source Performed POCT TEST 2022-01-25 16:49:00 Kennedy Patterson [facility] URINALYSIS 2022-01-25 16:46:00 Kennedy Patterson [facility] CONSENT/REFUSAL FOR 2022-01-25 15:49:26 Doctor Unassigned, No Un [facility] DIAGNOSIS AND TREATMENT Name [facility] GLUCOSE 1 HOUR POST 2022-01-10 14:49:00 Ricky Avilez [facility] THYROID STIMULATING 2022-01-10 14:49:00 Lizette Alvarez [facility] HORMONE [facility] CBC WITH DIFF 2022-01-10 14:49:00 Lizette Alvarez [facility] GLYCOSYLATED HEMOGLOBIN 2022-01-10 14:49:00 [facility] URINE CULTURE 2022-01-10 14:49:00 Ricky Avilez [facility] POCT URINALYSIS 2022-01-10 13:32:00 Lizette Alvarez [facility] POCT TEST 2021-12-17 17:29:00 Faulconer, Cece [facility] URINALYSIS 2021-12-17 17:28:00 Cece [facility] CONSENT/REFUSAL FOR 2021-12-17 16:42:22 Doctor Unassigned, No [facility] CBC WITH DIFF 2021-12-13 21:28:00 Lizette Alvarez [facility] HB ABO GROUPING 2021-12-13 21:18:00 Lizette Alvarez [facility] ASSIGNMENT OF BENEFITS 2021-12-13 19:14:26 Doctor Unassigned, No [facility] POCT TEST 2021-12-13 00:00:00 Lizette Alvarez [facility] POCT URINALYSIS W/O 2021-12-13 00:00:00 Lizette Alvarez [facility] SPECIFIC GRAVITY [facility] POCT TEST 2021-11-30 13:46:00 Adelaide Malagon [facility] Encounters Start End Encounter Admission Attending Care Care Encounter Source Date/Time Date/Time Type Type Clinicians Facility Department ID 2021-02-04 Outpatient P [facility] [id number] Univers 11:05:46 [facility] 2021-02-04 Outpatient [facility] [id number] [facility] 2022-03-28 2022-03-28 Outpatient P [facility] [id number] Univers 11:00:00 [facility] 2022-02-07 2022-02-07 Outpatient R AKINSIPE, [facility] [id number] Univers 10:30:00 10:30:[address] o [address] [facility] 2022-01-25 2022-01-25 Emergency X CANDIDO [facility] ERT [id number] Univers 10:55:00 13:13:00 [facility] 2022-01-25 2022-01-25 Emergency [facility] [id number] Univers 10:55:00 13:13:00 Kennedy Ivy [place] [id number] ity of [place] [id number] [place] [facility] [id number] [address] 2022-01-10 2022-01-10 Outpatient R FATMATA [facility] [id number] Univers 08:00:00 08:54:[address] [facility] 2022-01-10 2022-01-10 Routine [facility] [id number] Univers 08:00:00 08:54:12 Ricky C [facility] [id number] ity of Visit [facility] [id number] Julito as MATERNAL [id number] Med ical & CHILD [address] [place] [address] 2021-12-31 2021-12-31 Abstract Kayla [facility] [id number] Univers 00:00:00 00:00:00 Lizette Poe [facility] [id number] i ty of REGIONAL [id number] Julito as MATERNAL [id number] Med ical & CHILD 125 [facility] 2021-12-28 2021-12-28 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 Ultrasound, Sarath [facility] [id number] .[id number] Univers 13:00:00 13:30:00 Visit Aly Tyler [facility] [id number] ity of REGIONAL [id number] Julito as MATERNAL [id number] [facility] ical & CHILD [address] [facility] 2021-12-28 2021-12-28 Outpatient P MAXIME [facility] [id number] Univers 13:00:00 13:27:[address] [facility] 2021-12-20 2021-12-20 Telephone [facility] [id number] Univers 00:00:00 00:00:00 Ricky Lynch [facility] [id number] ity of [facility] [id number] Julito as MATERNAL [id number] Med ical & CHILD [address] [place] [address] 2021-12-17 2021-12-17 Emergency X CHEYANNE [facility] ERT [id number] Univers 11:51:00 14:43:[address] [facility] 2021-12-17 2021-12-17 Emergency [facility] [id number] Univers 11:51:00 14:43:00 [facility] [id number] i ty of [place] [id number] [id number] [address] 2021-12-17 2021-12-17 Telephone [facility] [id number] Univers 00:00:00 00:00:00 Ricky Lynch [facility] [id number] ity of [facility] [id number] Julito as MATERNAL [id number] Med ical & CHILD [address] [place] [address] 2021-12-16 2021-12-16 Refgabriel [facility] [id number] Univers 00:00:00 00:00:00 Lizette Poe [facility] [id number] i ty of [facility] [id number] Julito as MATERNAL [id number] [facility] ica & CHILD [address] [place] [address] 2021-12-14 2021-12-14 Telephone [facility] [id number] Univers 00:00:00 00:00:00 Jared Ivy [facility] [id number] ity [place] [id number] Julito as MATERNAL [id number] [facility] ical & CHILD [address] [place] [address] 2021-12-13 2021-12-13 Outpatient R LIZETTE ALVAREZ [facility] [id number] Univers 14:45:00 16:29:38 LIZETTE ALVAREZ [facility] 2021-12-13 2021-12-13 Initial Provider, IlsaRmchp [facility] 1 .2.840.114 [id number] Univers 14:45:00 16:29:38 Lizette Alvarez [facility] 350.1.13.10 ity of Visit [facility] 42.7.2.686 Julito as MATERNAL [phone] [facility] & CHILD [address] [place] [address] 2021-12-13 2021-12-13 Outpatient R MANAS [facility] [id number] Univers 15:45:00 15:45:00 ADELAIDE suárez o [facility] 2021-12-13 2021-12-13 Orders Doctor OLE 1.2.840.114 [id number] Univers 00:00:00 00:00:00 Only Unassigned, FAUSTO 350.1.13.10 ity of [place] [address].2.7.2.686 Julito as [phone] [address] 2021-12-13 2021-12-13 [facility] 1.2.840.114 [id number] Univers 00:00:00 00:00:00 Lizette Poe [facility] 350.1.13.10 i ty of [address]686 Julito as MATERNAL [phone] [facility] & CHILD [address] [place] [address] 2021-11-30 2021-11-30 Outpatient [facility] [id number] Univers 08:30:00 09:19:57 RUSTMARCIO jacobs [facility] 2021-11-30 2021-11-30 [facility] 1.2.840.114 [id number] Univers 08:30:00 09:19:57 Visit Ceciliabe Anderson [facility] 350.1.13.10 ity of [place] [address].7.2.686 Julito as MATERNAL [phone] [facility] & CHILD [address] [place] [address] 2021-10-31 2021-10-31 Outpatient Monica AVILEZ [facility] [id number] Univers 10:15:00 10:15:00 RICKY niesharoderick reynaldo [facility] 2021-10-18 2021-10-18 [facility] 1.2.840.114 [id number] Univers 00:00:00 00:00:00 Lizette Poe [facility] 350.1.13.10 i ty of [facility] 4.2.7.2.686 Julito as MATERNAL [phone] Med ical & CHILD 107 [facility] 2021-10-17 2021-10-17 Outpatient R LIZETTE ALVAREZ [facility] [id number] Univers 15:15:00 16:28:09 LIZETTE ALVAREZ [facility] 2021-10-17 2021-10-17 Office Provider, Ilsachchristiano [facility] 1 .2.840.114 [id number] Univers 15:15:00 16:28:09 Visit Lizette Alvarez [facility] 350..13.10 ity of [facility] 4.2.7.2.686 Julito as MATERNAL [id number] [facility] ical & CHILD [address] [place] [address] 2021-10-17 2021-10-17 Outpatient R LIZETTE ALVAREZ [facility] [id number] Univers 15:15:00 16:28:09 LIZETTE ALVAREZ [facility] 2021-10-17 2021-10-17 Outpatient [facility] [id number] Univers 09:00:00 09:00:[address] [facility] 2021-10-05 2021-10-05 Telephone [facility] 1.2.567.718 [id number] Univers 00:00:00 00:00:00 Adelaide Anderson [facility] 350..13.10 ity of [facility] 4.2.7.2.686 Julito as MATERNAL [phone] [facility] ical & CHILD [address] [place] [address] 2021-10-03 2021-10-03 Outpatient [facility] [id number] Univers 07:45:00 08:48:[address] [facility] 2021-10-03 2021-10-03 Office [facility] 1.2.840.114 [id number] Univers 07:45:00 08:48:34 Visit Adelaide Anderson [facility] 350.1.13.10 ity of [facility] 4.2.7.2.686 Julito as MATERNAL [phone] Med ical & CHILD [address] [place] [address] 2021-10-03 2021-10-03 Orders Doctor OLE 1.2.840.114 [id number] Univers 00:00:00 00:00:00 Only Unassigned, FAUSTO 350.1.13.10 ity of [place] [facility] 42.7.2.686 Julito as [phone] [address] 2020-12-28 2020-12-28 Outpatient R [facility] [id number] Univers 15:00:00 15:00:00 ity [facility] 2020-10-30 2020-10-30 Outpatient R [facility] [id number] Univers 15:00:00 15:00:00 ity [facility] 2020-09-29 2020-09-29 Outpatient R [facility] [id number] Univers 10:15:00 10:15:00 ADELAIDE suárez o [facility] 2020-09-28 2020-09-28 Telephone [facility] 1.2.840.114 [id number] Univers 00:00:00 00:00:00 Ricky Lynch [facility] 350.1.13.10 ity of [facility] 4.2.7.2.686 Julito as MATERNAL [phone] [address] 2020-09-27 2020-09-27 Office [facility] 1.2.361.983 [id number] Univers 14:20:51 15:29:27 Visit Ricky C [facility] 350.1.13.10 ity of [facility] 4.2.7.2.686 Julito as MATERNAL [phone] [facility] & CHILD [address] [place] [address] 2020-09-27 2020-09-27 Outpatient R [facility] [id number] Univers 14:15:00 14:15:00 RICYK suárez o f [facility] 2020-09-08 2020-09-08 Routine [facility] 1.2.840.114 [id number] Univers 11:03:54 11:35:50 Adelaide R [facility] 350.1.13.10 ity of Visit [facility] 4.2.7.2.686 Julito as MATERNAL [phone] [facility] & CHILD [address] [place] [address] 2020-09-08 2020-09-08 Outpatient Monica NICOLESalima [facility] [id number] Univers 10:45:00 10:45:00 ADELAIDE suárez o [facility] 2020-09-08 2020-09-08 Outpatient Monica NICOLESalima [facility] [id number] Univers 10:30:00 10:30:00 [facility] 2020-08-24 2020-08-24 Telephone [facility] 1.2.840.114 [id number] Univers 00:00:00 00:00:00 Lizette Kirk [facility] 350.1.13.10 it y of [facility] 4.2.7.2.686 Julito as MATERNAL [phone] [facility] & CHILD [address] [place] [address] 2020-08-22 2020-08-22 Nurse Visit, [facility] Nurse [facility] 1.2 .840.114 [id number] Univers 13:33:00 13:48:00 Visit Ricky Avilez [facility] 350.1.13. 10 ity of [facility] 4.2.7.2.686 Julito as MATERNAL [phone] [facility] & CHILD [address] [place] [address] 2020-08-22 2020-08-22 Outpatient R [facility] [id number] Univers 13:30:00 13:30:00 RICKY scherery o [facility] 2020-08-18 2020-08-18 Outpatient R FATMATA, [facility] [id number] Univers 11:00:00 11:00:00 RICKY ity o [facility] 2020-08-13 2020-08-17 Hospital Jared Mcmanus 1.2.840.1 14 [id number] Univers 20:50:00 17:05:00 Encounter Zane Murry 350.1.13.1 0 ity of [facility] 4.2.7.2.686 Julito as [phone] [address] 2020-08-17 2020-08-17 1.2.840.1 1.2.840.114 [id number] Univers 00:00:00 00:00:00 Encounter 44465.1.1 350.1.13.10 ity of 3.104.2.[place][id number] [address] [place] 2020-08-17 2020-08-17 Telephone [place] 1.2.033.809 [id number] Univers 00:00:00 00:00:00 Keysha FAUSTO 350.1.13.10 i ty of HOSPITAL 4.2.7.2.686 Julito as [phone] [facility] [address] [place] 2020-08-15 2020-08-15 Surgery OLE [place] 1.2.840.114 [id number] Univers 11:50:00 13:39:00 Keysha FAUSTO 350.1.13.10 i ty of [place] [id number] [facility] [address] [place] 2020-08-13 2020-08-13 Orders Doctor OLE 1.2.840.114 [id number] Univers 00:00:00 00:00:00 Only Unassigned, FAUSTO 350.1.13.10 ity of [place] [facility] 4.2.7.2.686 Julito as [phone] [facility] [address] [place] 2020-08-11 2020-08-11 Outpatient R FATMATA, [facility] [id number] Univers 11:00:00 11:00:[address] [facility] 2020-07-28 2020-07-28 Routine Akinsipe, [facility] 1.2.652.735 [id number] Univers 10:52:44 11:24:35 Ricky Lynch [facility] 350.1.13.10 ity of Visit [facility] 4.2.7.2.686 Julito as MATERNAL [phone] Med ical & CHILD [address] [place] [address] 2020-07-28 2020-07-28 Outpatient R FATMATA, [facility] [id number] Univers 10:45:00 10:45:[address] [facility] 2020-07-25 2020-07-25 Urgent Provider, [facility] 1.2.840.114 [id number] Univers 09:36:57 09:56:57 Care Neida Solis 350.1.13.10 ity of [place] 4.2.7.2.686 Julito as Professio [phone] [address] One 2020-07-25 2020-07-25 Outpatient R [facility] [id number] Univers 09:40:00 09:40:[address] [facility] 2020-07-25 2020-07-25 Lion Solis [facility] 1.2.840.114 [id number] Univers 00:00:00 00:00:00 (Out) Neida [facility] 350.1.13.10 it y of [place] 4.2.7.2.686 Julito as Professio [phone] [address] 2020-07-24 2020-07-24 Telephone [facility] 1.2.840.114 [id number] Univers 00:00:00 00:00:00 Ricky C [facility] 350.1.13.10 ity of REGIONAL 4.2.7.2.686 Julito as MATERNAL [phone] [facility] [address] [place] [address] 2020-07-14 2020-07-14 Routine [facility] 1.2.936.776 [id number] Univers 10:26:16 11:03:01 Ricky C [facility] 350.1.13.10 ity of Visit REGIONAL 4.2.7.2.686 Julito as MATERNAL [phone] [facility] & CHILD [address] [place] [address] 2020-07-14 2020-07-14 Outpatient R LEVINDALE [facility] [id number] Univers 10:45:00 10:45:[address]Y ity o f [facility] 2020-07-10 2020-07-10 Nurse OLE Villarreal 1.2.840.114 [id number] Univers 00:00:00 00:00:00 Triage Jeannette LAMBERT 350.1.13.10 it y of HOSPITAL 4.2.7.2.686 Julito as [phone] [address] 2020-06-29 2020-06-29 Routine Akinpe, [facility] 1.2.919.614 [id number] Univers 09:32:20 10:11:49 Ricky C [facility] 350.1.13.10 ity of Visit REGIONAL 4.2.7.2.686 Julito as MATERNAL [phone] [facility] CH[facility] [address] [place] [address] 2020-06-29 2020-06-29 Outpatient R AKINSIPE, [facility] [id number] Univers 09:30:00 09:30:[address]Y ity o f [facility] 2020-06-16 2020-06-16 Nurse OLE [place] 1.2.840.114 [id number] Univers 00:00:00 00:00:00 Triage Winston LAMBERT 350.1.13.10 ity of [facility] 4.2.7.2.686 Julito as [phone] [address] 2020-06-15 2020-06-15 Routine Akinpe, [facility] 1.2.101.443 [id number] Univers 10:40:50 11:30:51 Ricky C [facility] 350.1.13.10 ity of Visit REGIONAL 4.2.7.2.686 Julito as MATERNAL [phone] [facility] & [address] 2020-06-15 2020-06-15 Outpatient R AKINSIPE, [facility] [id number] Univers 10:45:00 10:45:[address] o f [facility] 2020-06-08 2020-06-08 Telephone [facility], [facility] 1.2.840.114 [id number] Univers 00:00:00 00:00:00 Ricky C [facility] 350.1.13.10 ity of [facility] 4.2.7.2.686 Julito as MATERNAL [phone] [facility] & CHILD [address] [place] [address] 2020-06-07 2020-06-07 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 Lab, [facility] 1.2.840. 114 [id number] Univers 08:07:07 08:21:51 Visit Ricky Avilez [facility] 350.1.13. 10 ity of REGIONAL 4.2.7.2.686 Julito as MATERNAL [id number] [facility] & CHILD [address] [place] [address] 2020-06-07 2020-06-07 Outpatient R [facility] [id number] Univers 08:00:00 08:00:[address] ity o f [facility] 2020-06-02 2020-06-02 Telephone [facility] 1.2.840.114 [id number] Univers 00:00:00 00:00:00 Ricky C [facility] 350.1.13.10 ity of REGIONAL 4.2.7.2.686 Julito as MATERNAL [phone] [facility] & [address] 2020-06-01 2020-06-01 Routine [facility] 1.2.922.989 [id number] Univers 09:08:05 09:53:33 Ricky C [facility] 350.1.13.10 ity of Visit REGIONAL 4.2.7.2.686 Julito as MATERNAL [phone] [address] 2020-06-01 2020-06-01 Outpatient R [facility] [id number] Univers 09:15:00 09:15:[address]y o f [facility] 2020-05-19 2020-05-19 Abstract Manas [facility] 1.2.840.114 [id number] Univers 00:00:00 00:00:00 Roshunda R [facility] 350.1.13.10 ity of REGIONAL 4.2.7.2.686 Julito as MATERNAL [phone] [facility] & [address] 2020-05-18 2020-05-18 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 Ultrasound, [facility] 1.2 .840.114 [id number] Univers 08:04:42 08:42:46 Visit Keysha Spain [facility] 350.1.13.10 ity of REGIONAL 4.2.7.2.686 Julito as MATERNAL [phone] [facility] ical & CHILD [address] [facility] 2020-05-18 2020-05-18 Outpatient P [facility] [id number] Univers 08:00:00 08:00:[address] [facility] 2020-05-18 2020-05-18 Orders Malagon [facility] 1.2.840.114 [id number] Univers 00:00:00 00:00:00 Only Catienda R [facility] 350.1.13.10 ity of REGIONAL 4.2.7.2.686 Julito as MATERNAL [id number] [facility] & CHILD [address] [place] [address] 2020-05-09 2020-05-09 Routine [facility] 1.2.855.075 [id number] Univers 12:45:11 13:23:31 Ricky Lynch [facility] 350.1.13.10 ity of Visit REGIONAL 4.2.7.2.686 Julito as MATERNAL [phone] [facility] & CHILD [address] [place] [address] 2020-05-09 2020-05-09 Outpatient R [facility] [id number] Univers 12:45:00 12:45:00 RICKY suárez o f [facility] 2020-04-18 2020-04-18 [facility] 1.2.840.114 [id number] Univers 00:00:00 00:00:00 Toma R [facility] 350.1.13.10 ity of REGIONAL 4.2.7.2.686 Julito as MATERNAL [phone] [facility] ical & CHILD [address] [place] [address] 2020-04-17 2020-04-17 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 Ultrasound, [facility] 1.2 .840.114 [id number] Univers 12:57:46 14:12:46 Visit Clarissa Noland [facility] 350.1. 13.10 ity of REGIONAL 4.2.7.2.686 Julito as MATERNAL [phone] [facility] ical & CHILD [address] [facility] 2020-04-17 2020-04-17 Outpatient P [facility] [id number] Univers 13:00:00 13:00:[address] [facility] 2020-04-11 2020-04-11 Routine Fatmata, [facility] 1.2.211.746 [id number] Univers 08:06:51 08:47:38 Ricky C [facility] 350.1.13.10 ity of Visit REGIONAL 4.2.7.2.686 Julito as MATERNAL [phone] Med ical & CHILD [address] [place] [address] 2020-04-11 2020-04-11 Outpatient R FATMATA, [facility] [id number] Univers 08:00:00 08:00:[address] ity o f [facility] 2020-03-09 2020-03-09 Telephone Fatmata, [facility] 1.2.840.114 [id number] Univers 00:00:00 00:00:00 Ricky C [facility] 350.1.13.10 ity of REGIONAL 4.2.7.2.686 Julito as MATERNAL [id number] [facility] [address] [place] [address] 2020-03-08 2020-03-08 Routine Fatmata, [facility] 1.2.546.241 [id number] 10:31:40 10:55:43 Ricky C [facility] 350.1.13.10 Visit REGIONAL 4.2.7.2.686 MATERNAL [id number] & CHILD [address] [place] [address] 2020-03-08 2020-03-08 Routine [facility] 1.2.785.478 [id number] Univers 10:31:40 10:55:43 Ricky C [facility] 350.1.13.10 ity of Visit REGIONAL 4.2.7.2.686 [place] as MATERNAL [phone] [facility] & CHILD [address] [place] [address] 2020-03-08 2020-03-08 Outpatient R FATMATA, [facility] [id number] Univers 10:45:00 10:45:[address] o [address] [facility] 2020-03-05 2020-03-05 Refill Doctor [facility] 1.2.840.114 [id number] Univers 00:00:00 00:00:00 Unassigned, [facility] 350.1.13.10 ity of [place] [facility]AL 4.2.7.2.686 Julito as MATERNAL [phone] Med ical & CHILD [address] [place] [address] 2020-02-16 2020-02-16 Outpatient R [facility] [id number] Univers 11:30:00 11:30:[address] [facility] 2020-02-14 2020-02-14 Telephone [facility] 1.2.840.114 [id number] [facility] 00:00:00 00:00:00 Ricky C [facility] 350.1.13.10 ity of REGIONAL 4.2.7.2.686 Julito as MATERNAL [phone] Med ical & CHILD [address] [place] [address] 2020-02-14 2020-02-14 [facility] 1.2.840.114 [id number] [facility] 00:00:00 00:00:00 Toma R [facility] 350.1.13.10 ity of [facility] 4.2.7.2.686 Julito as MATERNAL [phone] Med ical & CHILD [address] [place] [address] 2020-02-14 2020-02-14 Telephone [facility] 1.2.840.114 [id number] 00:00:00 00:00:00 Ricky C [facility] 350.1.13.10 REGIONAL 4.2.7.2.686 MATERNAL [phone] & CHILD [address] [place] [address] 2020-02-14 2020-02-14 Abstract [facility] 1.2.840.114 [id number] 00:00:00 00:00:00 Cecilianda R [facility] 350.1.13.10 REGIONAL 4.2.7.2.686 MATERNAL [id number] & CHILD [address] [place] [address] 2020-02-11 2020-02-11 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 1Zulma Room [facility] 1.2. 840.114 [id number] Univers 13:04:58 13:34:58 Visit Jared Mcmanus [facility] 350.1.13.10 ity of REGIONAL 4.2.7.2.686 Julito as MATERNAL [phone] Med ical & CHILD 369 [facility] 2020-02-11 2020-02-11 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 1, Marcial-Mflexi [facility] 1.2.840.114 [id number] 13:04:58 13:34:58 Visit Us Room [facility] 350.1.13.10 REGIONAL 4.2.7.2.686 MATERNAL [phone] & CHILD [address] [place] [address] 2020-02-11 2020-02-11 Outpatient R [facility] [id number] Univers 13:00:00 13:00:[address] [facility] 2020-02-09 2020-02-09 Initial [facility] 1.2.977.017 [id number] Univers 09:56:57 10:54:32 Ricky C [facility] 350.1.13.10 ity of Visit REGIONAL 4.2.7.2.686 Julito as MATERNAL [phone] [facility] & CHILD [address] [place] [address] 2020-02-09 2020-02-09 Outpatient R LEVINDALE [facility] [id number] Univers 10:00:00 10:00:[address] ity o f [facility] 2020-02-09 2020-02-09 Orders Doctor OLE 1.2.840.114 [id number] Univers 00:00:00 00:00:00 Only Unassigned, FAUSTO 350.1.13.10 ity of [place] [facility] 4.2.7.2.686 Julito as [id number] [address] 2020-02-09 2020-02-09 Telephone [facility] 1.2.840.114 [id number] Univers 00:00:00 00:00:00 Ricky C [facility] 350.1.13.10 ity of REGIONAL 4.2.7.2.686 Julito as MATERNAL [phone] [facility] ical & CHILD [address] [place] [address] 2020-02-09 2020-02-09 Telephone [facility] 1.2.840.114 [id number] 00:00:00 00:00:00 Ricky C [facility] 350.1.13.10 REGIONAL 4.2.7.2.686 MATERNAL [id number] & CHILD [address] [place] [address] Results Test Description Test Time Test Comments Results Result Comments Source POCT TEST 2022-01-25 16:49:00 Test Item Value Reference Range Interpretation Comme nts POCT PREG (test code = 1605) positive On board controls acceptable with C Line (test code = 3574) present POCT PREG LOT # (test code = 3575) [id number] POCT PREG TEST DATE (test code = 3576) 06/05/2023 Lab Interpretation (test code = 04857-4) [facility][id number]] 2022-01-11 21:47:02 Test Item Value Reference Range Interpretation Comments TSH (test code = See_Comment Biotin has been [id number]) reported to cau se a negative bias, interpret resul ts relative to alecia collazo's use of biotin. [Automated mess age] The system [employer] generated this result transmitted ref erence range: 0.45 - 4 .70 mIU/L. The refe rence range was not u sed to interpret this result as normal/abnor mal. Lab Interpretation (test Normal code = 86333-0) [facility] (A1C)(aka A1C) [[id number]]2022-01-11 08:43:24 Test Item Value Reference Range Interpretation Comments HGB A1C (test code = 4.9 % 4-5.7 4548-4) [place]ENT[place] (test code = BENT[place]) Reference RangesNormal: <5.7%Prediabetes: 5.7 - 6.4%Diabetes: > 6.5% Lab Interpretation (test Normal code = 86360-7) [facility] Hour Post [id number] 06:05:20 Test Item Value Reference Range Interpretation Comments GLUC 1 HR (test code = 1129315009) 90 mg/dL 120-170 L Lab Interpretation (test code = Abnormal 38882-7) [facility]FF [[id number]]2022-01-11 05:35:59 Test Item Value Reference Range Interpretation Comments WBC (test code = See_Comment [Automated message] 6690-2) The system [employer] generated this result transmitted ref erence range: 4.30 - 1 1.10 10*3/?L. The re ference range was not u sed to interpret this result as normal/abnor mal. RBC (test code = See_Comment [Automated message] 789-8) The system [employer] generated this result transmitted ref erence range: 3.93 - 5 .25 10*6/?L. The re ference range was not u sed to interpret this result as normal/abnor mal. HGB (test code = 13.1 g/dL 11.6-15 718-7) HCT (test code = 38.8 % 35.7-45.2 4544-3) MCV (test code = 89.2 fL 80.6-95.5 787-2) MCH (test code = 30.1 pg 25.9-32.8 785-6) MCHC (test code = 33.8 g/dL 31.6-35.1 786-4) RDW-SD (test code 40.2 fL 39-49.9 = 84339-0) RDW-CV (test code 12.4 % 12-15.5 = 788-0) PLT (test code = See_Comment [Automated message] 777-3) The system [employer] generated this result transmitted ref erence range: 166 - 35 8 10*3/?L. The re ference range was not u sed to interpret this result as normal/abnor mal. MPV (test code = 9.6 fL 9.5-12.9 23467-1) NRBC/100 WBC (test See_Comment [Automat ed message] code = 3608425011) The syste m which generated this result transmitted ref erence range: 0.0 - 10 .0 /100 WBCs. The refer ence range was not u sed to interpret this result as normal/abnor mal. NRBC x10^3 (test See_Comment [Automated message] code = 4100002582) The syste m which generated this result transmitted ref erence range: 10*3/?L. The reference range was not used to interpr et this result as normal/abnormal . GRAN MAT (NEUT) % 69.5 % (test code = 770-8) IMM GRAN % (test 0.50 % code = 2551398146) LYMPH % (test code 23.1 % = 736-9) MONO % (test code 5.4 % = 5905-5) EOS % (test code = 1.1 % 713-8) BASO % (test code 0.4 % = 706-2) GRAN MAT 5.96 10*3/uL 1.88-7.09 x10^3(ANC) (test code = 3553659064) IMM GRAN x10^3 0.04 10*3/uL 0-0.06 (test code = 9565660198) LYMPH x10^3 (test 1.98 10*3/uL 1.32-3.29 code = 731-0) MONO x10^3 (test 0.46 10*3/uL 0.33-0.92 code = 742-7) EOS x10^3 (test 0.09 10*3/uL 0.03-0.39 code = 711-2) BASO x10^3 (test 0.03 10*3/uL 0.01-0.07 code = 704-7) [facility] URINALYSIS W SPECIFIC [id number] 13:32:00 Test Item Value Reference Range Interpretation Comments [...] POCT U APPEAR (test code = 3267) . [facility] [id number] 17:29:00 Test Item Value Reference Range Interpretation Comments POCT PREG (test code = 1605) positive On board controls acceptable with present C Line (test code = 3574) POCT PREG LOT # (test code = 3575) [id number] POCT PREG TEST DATE (test 03-06-2023 code = 3576) Lab Interpretation (test code = Normal 72553-1) [id number] 07:03:08 Test Item Value Reference Range Interpretation Comments ABO & RH (test code A POSITIVE Performe d at [facility] = 20) [facility] Blood Bank3 [address] [facility] s [id number] Free: [phone] A No. [id number] IAT (test code = Negative Performed a t [facility] 1185) [facility] Blood [employer] [facility] s [id number] Free: [phone] A No. [id number] [facility] WITH [id number] 05:08:49 Test Item Value Reference Range Interpretation Comments WBC (test code = See_Comment [Automated message] 6690-2) The system [employer] generated this result transmitted ref erence range: 4.30 - 1 1.10 10*3/?L. The re ference range was not u sed to interpret this result as normal/abnor mal. RBC (test code = See_Comment [Automated message] 789-8) The system [employer] generated this result transmitted ref erence range: 3.93 - 5 .25 10*6/?L. The re ference range was not u sed to interpret this result as normal/abnor mal. HGB (test code = 13.6 g/dL 11.6-15 718-7) HCT (test code = 40.4 % 35.7-45.2 4544-3) MCV (test code = 91.0 fL 80.6-95.5 787-2) MCH (test code = 30.6 pg 25.9-32.8 785-6) MCHC (test code = 33.7 g/dL 31.6-35.1 786-4) RDW-SD (test code 41.6 fL 39-49.9 = 48580-5) RDW-CV (test code 12.7 % 12-15.5 = 788-0) PLT (test code = See_Comment [Automated message] 777-3) The system whic h generated this result transmitted ref erence range: 166 - 35 8 10*3/?L. The re ference range was not u sed to interpret this result as normal/abnor mal. MPV (test code = 9.6 fL 9.5-12.9 92498-9) NRBC/100 WBC (test See_Comment [Automat ed message] code = 0699845018) The syste m which generated this result transmitted ref erence range: 0.0 - 10 .0 /100 WBCs. The refer ence range was not u sed to interpret this result as normal/abnor mal. NRBC x10^3 (test See_Comment [Automated message] code = 0697023773) The syste m which generated this result transmitted ref erence range: 10*3/?L. The reference range was not used to interpr et this result as normal/abnormal . GRAN MAT (NEUT) % 66.2 % (test code = 770-8) IMM GRAN % (test 0.40 % code = 5189927499) LYMPH % (test code 26.5 % = 736-9) MONO % (test code 5.9 % = 5905-5) EOS % (test code = 0.7 % 713-8) BASO % (test code 0.3 % = 706-2) GRAN MAT 5.89 10*3/uL 1.88-7.09 x10^3(ANC) (test code = 4429837742) IMM GRAN x10^3 0.04 10*3/uL 0-0.06 (test code = 5000949206) LYMPH x10^3 (test 2.36 10*3/uL 1.32-3.29 code = 731-0) MONO x10^3 (test 0.53 10*3/uL 0.33-0.92 code = 742-7) EOS x10^3 (test 0.06 10*3/uL 0.03-0.39 code = 711-2) BASO x10^3 (test 0.03 10*3/uL 0.01-0.07 code = 704-7) [facility] [id number] 19:53:00 Test Item Value Reference Range Interpretation Comments POCT PREG (test code = 1605) Positive On board controls acceptable with C Yes Line (test code = 3574) POCT PREG LOT # (test code = 3575) POCT PREG TEST DATE (test code = 3576) [facility] [id number] 19:53:00 Test Item Value Reference Range Interpretation Comments POCT PH U (test code = 3254) 6 mg/dl 5-8 POCT U LEUK EST (test code = 1+ Negative - Negative 3263) POCT U NIT (test code = 3262) negative Negative - Negative POCT U PROT (test code = 3259) trace Negative - Negative POCT U GLU (test code = 3256) negative Negative - Negative POCT U KETONE (test code = 3258) negative Negative - Negative POCT U BLD (test code = 3257) trace Negative - Negative [facility] [id number] 13:46:00 Test Item Value Reference Range Interpretation Comments POCT PREG (test code = 1605) Negative On board controls acceptable with C Yes Line (test code = 3574) POCT PREG LOT # (test code = 3575) POCT PREG TEST DATE (test code = 3576) [facility]
[2022-01-26 13:48] LABS: Urine Blood Trace-intact (Negative); Urine Glucose Negative (Negative); Urine Protein 1+ (Negative); Urine Specific Gravity 1.025 (1.005-1.030); Urine pH 6.5 (5.0-7.0)
[2022-01-26] MEDS ORDERED: CYCLOBENZAPRINE 10 MG TAB ONE (13:52)
[2022-01-26] MEDS ORDERED: ACETAMINOPHEN 500 MG TAB ONE (13:52)
[2022-01-26 14:04] LABS: Urine Bacteria <20 /HPF (<20); Urine Mucus Slight /HPF (None Seen)
--- NOTE | 2022-01-26 16:35 | RAD REPORT ---
EXAM DESCRIPTION: USExtrem Venous W Compress Bil01/26/2022 4:02 pm CLINICAL HISTORY: Leg pain COMPARISON: none FINDINGS: The common femoral, superficial femoral, popliteal and posterior tibial veins bilaterally are compressible and demonstrate augmentation. Doppler demonstrates good flow. Grayscale, color and spectral analysis performed on all vessels IMPRESSION: No evidence of deep venous thrombosis involving either lower extremity.
--- NOTE | 2022-01-26 16:38 | RAD REPORT ---
EXAM DESCRIPTION: US - OB Limited - 01/26/2022 4:02 pm CLINICAL HISTORY: with abdominal and back pain COMPARISON: None FINDINGS: A gestational sac is present within the endometrium measuring 4.9 centimeters. Within this is a pole with a crown rump length 4.7 centimeters. Cardiac activity 163 beats per minute. The right and left adnexa are unremarkable. Cervix 4.4 centimeters If a survey is desired it should be performed in approximately 7 weeks IMPRESSION: Single live intrauterine with an estimated gestational age 11 weeks 2 days ALEXEY 08/15/2022
--- NOTE | 2022-01-26 17:02 | ER ---
Nurse's Notes [facility] Name: Yahaira Vu Age: 26 yrs Sex: Female : 1995 Arrival Date: 01/26/2022 Time: 13:04 Bed DIS9 Private MD: Diagnosis: Lumbago with sciatica, right side;11 weeks gestation of Presentation: 01/26 13:21 Chief complaint: Low back pain that radiates to right leg and right leg tingling x 4 hb days. Pt is approx 11 weeks . Coronavirus screen: At this time, the client does not indicate any symptoms associated with coronavirus-19. Ebola Screen: No symptoms or risks identified at this time. Onset of symptoms was January 22, 2022. 13:21 Method Of Arrival: Ambulatory hb 13:21 Acuity: SHERYL 4 hb 13:41 Initial Sepsis Screen: Does the patient meet any 2 criteria? No. Patient's initial kb3 sepsis screen is negative. Does the patient have a suspected source of infection? No. Patient's initial sepsis screen is negative. Risk Assessment: Do you want to hurt yourself or someone else? Patient reports no desire to harm self or others. 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 - Social history:: Smoking status: Patient denies any tobacco usage or history of. Screenin:38 Abuse screen: Denies threats or abuse. Denies injuries from another. Nutritional kb3 screening: No deficits noted. Tuberculosis screening: No symptoms or risk factors identified. Fall Risk None identified. Assessment: 13:38 General: Appears in no apparent distress. Behavior is calm, cooperative, Received care kb3 of pt ambulatory from triage. Pt reports lower back pain x4 days that radiates down her right leg. States she was seen at [facility] ER yesterday and dx with UTI and sciatica. Pt received Rocephin injection and rx for oral antibiotics and was instructed to take Tylenol for the discomfort. . Pain: Complains of pain in right low back Pain radiates to right hamstring, posterior aspect of right knee and right calf Pain currently is 7 out of 10 on a pain scale. Quality of pain is described as burning, aching, Pain began 4 days ago. 13:41 General: Pt ambulatory to restroom without distress. Gait steady. kb3 Vital Signs: 13:21 BP 135 / 94; Pulse 88; Resp 16; Temp 98.3; Pulse Ox 100% on R/A; Weight 104.33 kg; hb Height 5 ft. 1 in. (154.94 cm); Pain 8/10; 16:58 BP 131 / 89; Pulse 78; Resp 18; Pulse Ox 100% ; kb3 13:21 Body Mass Index 43.46 (104.33 kg, 154.94 cm) hb ED Course: 13:04 Patient arrived in ED. mr 13:12 Aly Vera PA is PHCP. cp 13:12 Ismael Suazo MD is Attending Physician. cp 13:22 Triage completed. hb 13:28 Lilian Varma, RN is Primary Nurse. kb3 13:38 Patient has correct armband on for positive identification. Bed in low position. Call kb3 light in reach. Warm blanket given. 13:38 No provider procedures requiring assistance completed. Patient did not have IV access kb3 during this emergency room visit. 16:07 US Extremity Venous W Compression Maxim In Process Unspecified. EDMS 16:07 OB Limited US In Process Unspecified. EDMS 17:09 Arm band placed on right wrist. kb3 Administered Medications: 14:00 Drug: Tylenol 1000 mg Route: PO; kb3 15:00 Follow up: Response: No adverse reaction; Pain is decreased kb3 14:00 Drug: Flexeril (cyclobenzaprine) 10 mg Route: PO; kb3 15:00 Follow up: Response: No adverse reaction; Pain is decreased kb3 Medication: 13:38 VIS not applicable for this client. kb3 Outcome: 17:01 Discharge ordered by . cp 17:09 Discharged to home ambulatory. kb3 17:09 Condition: good 17:09 Discharge instructions given to patient, Instructed on discharge instructions, follow up and referral plans. medication usage, Demonstrated understanding of instructions, follow-up care, medications. 17:13 Patient left the ED. kb3 Signatures: Dispatcher [employer] EDAvril Retana mr Aly Vera PA PA cp Baxter, Heather RN RN Lilian Mendez RN RN kb3 Corrections: (The following items were deleted from the chart) 17:10 17:09 Home Meds: control; kb3 kb3
--- NOTE | 2022-01-26 17:02 | EDPHYS ---
Physician Documentation [facility] Name: Yahaira Vu Age: 26 yrs Sex: Female : 1995 Arrival Date: 01/26/2022 Time: 13:04 Bed DIS9 Private MD: ED Physician Ismael Suazo HPI: 01/26 13:35 This 26 yrs old Female presents to ER via Ambulatory with complaints of Leg cp Pain, 11 wks ,leg numbness. 13:35 The patient presents with pain that is acute, with no known mechanism of injury. The cp symptoms are located in the right low back. 13:35 The pain radiates to the posterior aspect right leg. The problem was sustained from cp unknown cause. Onset: The symptoms/episode began/occurred 4 day(s) ago. Associated signs and symptoms: Pertinent positives: numbness of left leg. 13:35 Patient reports she is approximately 11 weeks . Denies abdominal pain, denies cp vaginal bleeding and/or leakage of fluid. 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 - Social history:: Smoking status: Patient denies any tobacco usage or history of. ROS: 13:40 Constitutional: Negative for body aches, chills, fever, poor PO intake. cp 13:40 Eyes: Negative for injury, pain, redness, and discharge. cp 13:40 ENT: Negative for drainage from ear(s), ear pain, sore throat, difficulty swallowing, difficulty handling secretions. 13:40 Cardiovascular: Negative for chest pain, edema, palpitations. 13:40 Respiratory: Negative for cough, shortness of breath, wheezing. 13:40 Abdomen/GI: Negative for abdominal pain, nausea, vomiting, and diarrhea, constipation, bowel incontinence. 13:40 Back: Positive for pain at rest, pain with movement, of the right low back. 13:40 : Negative for difficulty urinating, bladder incontinence, vaginal bleeding. 13:40 MS/extremity: Positive for pain, of the right leg, Negative for injury or acute deformity, decreased range of motion. 13:40 Neuro: Positive for tingling, of the right leg, Negative for weakness, saddle anesthesia. 13:40 All other systems are negative. Exam: 13:45 Constitutional: The patient appears in no acute distress, alert, awake, non-toxic, well cp developed, well nourished, obese. 13:45 Head/Face: Normocephalic, atraumatic. cp 13:45 Eyes: Periorbital structures: appear normal, Conjunctiva: normal, no exudate, no injection, Sclera: no appreciated abnormality, Lids and lashes: appear normal, bilaterally. 13:45 ENT: External ear(s): are unremarkable, Nose: is normal, Mouth: Lips: moist, Oral mucosa: moist, Posterior pharynx: Airway: no evidence of obstruction, patent. 13:45 Neck: ROM/movement: is normal, is supple, without pain, no range of motions limitations. 13:45 Chest/axilla: Inspection: normal. 13:45 Cardiovascular: Rate: normal, Rhythm: regular. 13:45 Respiratory: the patient does not display signs of respiratory distress, Respirations: normal, no use of accessory muscles, no retractions, labored breathing, is not present, Breath sounds: are clear throughout, no decreased breath sounds, no stridor, no wheezing. 13:45 Abdomen/GI: Inspection: obese Palpation: abdomen is soft and non-tender, in all quadrants. 13:45 Back: pain, that is moderate, of the right low back, ROM is normal, Straight leg raises: of both lower extremities does not illicit pain. 13:45 Neuro: Orientation: is normal, Mentation: is normal, Motor: moves all fours, strength is normal, Sensation: tingling, that is mild, of the right leg, Gait: is steady, at a normal pace, without difficulty, Deep tendon reflexes are 2+ (normal) in the right patellar, right Achilles, left patellar and left Achilles. Vital Signs: 13:21 BP 135 / 94; Pulse 88; Resp 16; Temp 98.3; Pulse Ox 100% on R/A; Weight 104.33 kg; hb Height 5 ft. 1 in. (154.94 cm); Pain 8/10; 16:58 BP 131 / 89; Pulse 78; Resp 18; Pulse Ox 100% ; kb3 13:21 Body Mass Index 43.46 (104.33 kg, 154.94 cm) hb MDM: 13:26 Patient medically screened. cp 14:00 Differential diagnosis: strain, sciatica, Herniated disc UTI, cauda equina, spinal cp stenosis. 17:00 Data reviewed: vital signs, nurses notes, lab test result(s), radiologic studies, cp ultrasound, and as a result, I will discharge patient. 17:00 Counseling: I had a detailed discussion with the patient and/or guardian regarding: the cp historical points, exam findings, and any diagnostic results supporting the discharge/admit diagnosis, lab results, radiology results, the need for outpatient follow up, an OB/Gyne specialist, to return to the emergency department if symptoms worsen or persist or if there are any questions or concerns that arise at home. Response to treatment: the patient's symptoms have markedly improved after treatment, and as a result, I will discharge patient. 17:01 ED course: VSS. Pain improved with meds. Recommend OTC tylenol as directed for pain cp while and f/u with OB. 01/26 13:32 Order name: Urine Microscopic Only; Complete Time: 15:21 cp 01/26 15:21 Interpretation: Normal except: URBC 5-10; BYST Trace. cp 01/26 13:48 Order name: Urine Dipstick-Ancillary; Complete Time: 13:49 EDMS 01/26 13:49 Interpretation: Normal except: UBLD Trace-intact; UPROT 1+; UESTR Trace. cp 01/26 13:32 Order name: US Extremity Venous W Compression Maxim; Complete Time: 16:43 cp 01/26 16:43 Interpretation: Report reviewed. cp 01/26 15:25 Order name: OB Limited US; Complete Time: 16:43 cp 01/26 16:43 Interpretation: Report reviewed. cp 01/26 13:32 Order name: FHT's; Complete Time: 16:47 cp 01/26 13:32 Order name: Urine Dipstick-Ancillary (obtain specimen); Complete Time: 14:27 cp Administered Medications: 14:00 Drug: Tylenol 1000 mg Route: PO; kb3 15:00 Follow up: Response: No adverse reaction; Pain is decreased kb3 14:00 Drug: Flexeril (cyclobenzaprine) 10 mg Route: PO; kb3 15:00 Follow up: Response: No adverse reaction; Pain is decreased kb3 Disposition: 17:14 Co-signature as Attending Physician, Ismael Suazo MD. rn Disposition Summary: 01/26/22 17:01 Discharge Ordered Location: Home cp Problem: new cp Symptoms: have improved cp Condition: Stable cp Diagnosis - Lumbago with sciatica, right side cp - 11 weeks gestation of cp Followup: cp - With: Private Physician - When: 2 - 3 days - Reason: Recheck today's complaints Discharge Instructions: - Discharge Summary Sheet cp - Sciatica cp - First Trimester of cp - Heat Therapy cp Forms: - Medication Reconciliation Form cp - Thank You Letter cp - Antibiotic Education cp - Prescription Opioid Use cp Prescriptions: - Cyclobenzaprine 10 mg Oral Tablet - take 1 tablet by ORAL route every 8 hours As needed; 20 tablet; Refills: 0, cp Product Selection Permitted Signatures: Dispatcher [employer] EDIsmael Tavares MD MD rn Page, Corey, PA PA cp Julia Mcclain RN RN Lilian Mendez RN RN kb3 Corrections: (The following items were deleted from the chart) 17:10 17:09 Home Meds: control; kb3 kb3
[2022-01-26 17:20] VITALS: TEMP 98.3; O2SAT 100
[2022-01-26 17:21] VITALS: BP 131/89
== END 2022-01-26 17:13 | disposition home or self-care (01) ==
LOC: ER 12:56
DX: O99.891 Other specified diseases and conditions complicating pregnancy (principal); M54.41 Lumbago with sciatica, right side; Z3A.11 11 weeks gestation of pregnancy
CPT/HCPCS: 76815; 81003; 81015; 93970; 99283

== ENCOUNTER → 2023-05-26 | Emergency (ER) | payer SELFPAY ==
[~2023-05-26] MED LIST: IBUPROFEN 400 MG TAB ONE; predniSONE 20 MG TAB ONE
--- OUTSIDE RECORDS SUMMARY | 2023-05-26 16:37 | XMS REPORT | Continuity of Care Document ---
Author Name Unknown Address [address] [facility] [address] [place] [address] [facility] Address [address] [place] [address] Care Team Providers Care Pulp Piler Name Role Phone [facility] Primary Care Physician UnavailRICKY Stinson Attending Clinician Unavail able Fatmata Ricky MATHIS Attending Clinician + Doctor Unassigned, [place] Attending Clinician U SYEDA Kirby Attending Clinician UnavailSyeda Barney DO Attending Clinician [phone] OLE NASSAR Attending Clinician Unavailable Visit, [facility] Nurse Attending Clinician Unajesus ilNano Elliott DNP Attending Clinician + [phone] NANO ZIMMER Attending Clinician Unavail able ELIE ANSARI Attending Clinician UnavailSona Howard DO Attending Clinician [phone] Elie Ansari MD Attending Clinician [phone] Fany Spain MD Attending Clinician [phone] Joyce Hoskins MD Attending Clinician [phone] MARCIA CONNOLLY Attending Clinician Unavailable Long SOSA, Marcia Attending Clinician [phone] BENEDICT RINCON Attending Clinician Unavailable BENEDICT RINCON Attending Clinician Unavailable MICAELA GONZALES Attending Clinician Unavailrg rodriguez Provider, [facility] Attending Clinician Jossy vailable Micaela Gonzales CNM Attending Clinician [phone] Ultrasound, Ang-m Attending Clinician Unavaila jennifer Jayson DO Aly Attending Clinician [phone], [facility] Attending Clinician Unavailab FANY Vieyra Attending Clinician Unavailable FANY SPAIN Attending Clinician Unavailable KENNEDY REY Attending Clinician Unavaila jennifer Rey SCRAP CUTTER, Kennedy Ivy Attending Clinician [phone] Lizette Hernandez Attending Clinician + [phone] Luis Fernando MENDEZP, Adelaide Anderson Attending Clinician Unava ilCECE Wilson Attending Clinician Unavailab Cece Cid DO Attending Clinician [phone] Jared Mcmanus MD Attending Clinician [phone] LIZETTE ALVAREZ Attending Clinician UnavailADELAIDE Park Attending Clinician Unavailab HuntP, Lizette Kirk Attending Clinician [phone] Visit, [facility] Nurse Attending Clinician Unava ilalejandro Murry MD, Zane Caraballo Attending Clinician + [phone] Provider, [facility] Attending Clinician Un available Will SHANKS, Neida Attending Clinician [phone] Phil MATHEW, Jeannette Attending Clinician UnavailWinston Hopper RN Attending Clinician Unavailab louise Holder, [employer] [facility] Attending Clinician Unavailable Rach Garcia MD, Clarissa Attending Clinician + NICK JEAN-BAPTISTE Admitting Clinician Unavailable SYEDA DIXON Admitting Clinician Unavailab ELIE Gomez Admitting Clinician UnavailElei Florence MD Admitting Clinician [phone] MARCIA CONNOLLY Admitting Clinician Unavailable Long SOSA, Marcia Admitting Clinician [phone] BENEDICT RINCON Admitting Clinician Unavailable Yonathan SOSA, Jared Ivy Admitting Clinician [phone] Payers Payer Name Policy Type Policy Number Effective Date Expirati on Date Source [facility] [id number] 2020 00:00:00 MEDICAID [place] [id number] 2022 00:00:00 MEDICAID PENDING PENDING 2020 00:00:00 [place] [id number] 2020 00:00:00 Problems Condition Name Condition Details Condition Category Status Onset Date Resolution Date Last Treatment Date Treating Clinician Comments Source Other general counseling and advice for contracept dustin management Other general counseling and advice for contracept dustin management Disease Active 7-06 00:00: 00 [facility] delivery delivered delivery delivered Disease Active 5-06 00:00: 00 [facility] 38 weeks gestation of 38 weeks gestation of Disease Active 0 4-28 00:00: 00 [facility] Supervisio n of high-risk Supervisio n of high-risk Disease Active 4-13 00:00: 00 [facility] 35 weeks gestation of 35 weeks gestation of Disease Active 4-08 00:00: 00 [facility] Pain of round ligament during Pain of round ligament during Disease Active 0 3-03 00:00: 00 [facility] Patient desires vaginal after section () Patient desires vaginal after section () Disease Active 2-17 00:00: 00 [facility] UTI in UTI in Disease Active 2021-04 0-06 00:00: 00 Overview: Formattin g of this note might be different from the original. Dx at the hospital see chart review -natalie neg [facility] Morbid obesity Morbid obesity Disease Active 2021-04 0-06 00:00: 00 [facility] Multiparit y Multiparit y Disease Active 2021-04 0-06 00:00: 00 [facility] Obesity in Obesity in Disease Active 2021-04 0-06 00:00: 00 [facility] Depression during Depression during Disease Active 2021-04 0-06 00:00: 00 Overview: Formattin g of this note might be different from the original. Was on meds in the past reports stable mood currently [facility] History of gestationa l hypertensi on History of gestationa l hypertensi on Disease Active 9-08 00:00: 00 Overview: Formattin g of this note might be different from the original. Pt reports at the end of around 37 weeks [facility] Previous delivery affecting , antepartum Previous delivery affecting , antepartum Disease Active 9-08 00:00: 00 Overview: Formattin g of this note might be different from the original. Primary LTC on 08/15/20, see chart review [facility] Tired Tired Disease Active 8-26 00:00: 00 [facility] Current moderate episode of major depressive disorder without prior episode Current moderate episode of major depressive disorder without prior episode Disease Active 7-14 00:00: 00 [facility] Encounter for prescripti on of oral contracept darren Encounter for prescripti on of oral contracept darren Disease Active 6-23 00:00: 00 [facility] Morbid obesity with body mass index of 40.0-49.9 Morbid obesity with body mass index of 40.0-49.9 Disease Active 4-06 00:00: 00 [facility] Elevated blood pressure reading without diagnosis of hypertensi on Elevated blood pressure reading without diagnosis of hypertensi on Disease Active 2-25 00:00: 00 [facility] Pelvic pressure in Pelvic pressure in Disease Active 2014-04 1-30 00:00: 00 [facility] Allergies, Adverse Reactions, Alerts Allergy Name Allergy Type Status Severity Reaction(s) Onset Date Inactive Date Treating Clinician Comments Source NO KNOWN ALLERGIE S Drug Class Active [facility] Social History Social Habit Start Date Stop Date Quantity Comments Source ASSERTION 2021-11-23 00:00:00 [facility] History SDOH Alcohol Frequency [facility] History SDOH Alcohol Std Drinks [facility] History SDOH Alcohol Binge [facility] Gender identity [facility] intake 2022-10-10 00:00:00 2022-10-10 00:00:00 Ex-drinker (finding) [facility] History of Social function 2022-10-10 00:00:00 2022-10-10 00:00:00 [facility] Exposure to SARS-CoV-2 (event) 2022-08-02 00:00:00 2022-08-12 11:03:[address] [facility] Tobacco use and exposure 2021-10-17 00:00:00 2021-10-17 00:00:00 Smokeless tobacco non-user [facility] Alcohol Comment 2021-10-17 00:00:00 2021-10-17 00:00:[address] [facility] Sex Assigned At 1995 00:00:00 1995 00:00:00 [facility] Smoking Status Start Date Stop Date Source Never smoked tobacco [facility] Medications Ordered Medication Name Filled Medication Name Start Date Stop Date Current Medication? Ordering Clinician Indication Dosage Frequency Signature (SIG) Comments Components Source etonogestre L (NEXPLANON) implant 68 mg 2022-11-22 22:00: 00 11-22 21:06 :00 No [id number] 68mg [facility] etonogestre L (NEXPLANON) implant 68 mg 2022-18 22:00: 00 11-22 21:06 :00 No [id number] 68mg 68 mg, Subdermal, ONCE NOW, 1 dose, On Fri11/22/22 at 1700, Routine
Use approved by: [employer] [facility] etonogestre L (NEXPLANON) implant 68 mg 2022-11-22 22:00: 00 11-22 21:06 :00 No [id number] 68mg [facility] etonogestre L (NEXPLANON) implant 68 mg 11-22 22:00: 00 11-22 21:06 :00 No [id number] 68mg 68 mg, Subdermal, ONCE NOW, 1 dose, On Fri11/22/22 at 1700, Routine
Use approved by: [employer] [facility] norethindro ne 0.35 mg tablet 11-06 00:00: 00 Yes .35mg Take 1 tablet by mouth in the morning. [facility] norethindro ne 0.35 mg tablet 11-06 00:00: 00 Yes .35mg Take 1 tablet by mouth in the morning. [facility] norethindro ne 0.35 mg tablet 11-06 00:00: 00 Yes .35mg Take 1 tablet by mouth in the morning. [facility] norethindro ne 0.35 mg tablet 11-06 00:00: 00 Yes .35mg Take 1 tablet by mouth in the morning. [facility] norethindro ne 0.35 mg tablet 11-06 00:00: 00 Yes .35mg Take 1 tablet by mouth in the morning. [facility] norethindro ne 0.35 mg tablet 10-10 00:00: 00 Yes .35mg Take 1 tablet by mouth in the morning. [facility] norethindro ne 0.35 mg tablet 10-10 00:00: 00 Yes .35mg Take 1 tablet by mouth in the morning. [facility] norethindro ne 0.35 mg tablet 0 10-10 00:00: 00 Yes .35mg Take 1 tablet by mouth in the morning. [facility] norethindro ne 0.35 mg tablet 10-10 00:00: 00 11-06 00:00 :00 No .35mg Take 1 tablet by mouth in the morning. [facility] [id number] fum-folic () 27 mg iron- 1 mg folic tablet 0 08-05 00:00: 00 Yes [id number] 1{tbl} Take 1 tablet by mouth in the morning. [facility] docusate 100 mg capsule 08-05 00:00: 00 Yes [id number] 200mg Take 2 capsules by mouth once daily as needed for Constipati on. [facility] ibuprofen 600 mg tablet 08-05 00:00: 00 Yes [id number] 600mg Take 1 tablet by mouth every 6 (six) hours as needed (Pain). Take with food or milk. [facility] norethindro ne 0.35 mg tablet 08-05 00:00: 00 Yes [id number] .35mg Take 1 tablet by mouth in the morning. [facility] [id number]-[id number] fum-folic () 27 mg iron- 1 mg folic tablet 08-05 00:00: 00 Yes [id number] 1{tbl} Take 1 tablet by mouth in the morning. [facility] docusate 100 mg capsule 08-05 00:00: 00 Yes [id number] 200mg Take 2 capsules by mouth once daily as needed for Constipati on. [facility] ibuprofen 600 mg tablet 08-05 00:00: 00 Yes [id number] 600mg Take 1 tablet by mouth every 6 (six) hours as needed (Pain). Take with food or milk. [facility] norethindro ne 0.35 mg tablet 0 08-05 00:00: 00 Yes [id number] .35mg Take 1 tablet by mouth in the morning. [facility] [id number]-khok fum-folic () 27 mg iron- 1 mg folic tablet 08-05 00:00: 00 Yes [id number] 1{tbl} Take 1 tablet by mouth in the morning. [facility] docusate 100 mg capsule 2022-0 08-05 00:00: 00 Yes [id number] 200mg Take 2 capsules by mouth once daily as needed for Constipati on. [facility] ibuprofen 600 mg tablet 2022-0 08-05 00:00: 00 Yes [id number] 600mg Take 1 tablet by mouth every 6 (six) hours as needed (Pain). Take with food or milk. [facility] norethindro ne 0.35 mg tablet 2022-0 08-05 00:00: 00 Yes [id number] .35mg Take 1 tablet by mouth in the morning. [facility] atm216-pepr fum-folic () 27 mg iron- 1 mg folic tablet 0 08-05 00:00: 00 Yes [id number] 1{tbl} Take 1 tablet by mouth in the morning. [facility] docusate 100 mg capsule 2022-0 08-05 00:00: 00 Yes [id number] 200mg Take 2 capsules by mouth once daily as needed for Constipati on. [facility] ibuprofen 600 mg tablet 2022-0 08-05 00:00: 00 Yes [id number] 600mg Take 1 tablet by mouth every 6 (six) hours as needed (Pain). Take with food or milk. [facility] norethindro ne 0.35 mg tablet 2022-0 08-05 00:00: 00 Yes [id number] .35mg Take 1 tablet by mouth in the morning. [facility] [id number]-wkde fum-folic () 27 mg iron- 1 mg folic tablet 0 08-05 00:00: 00 Yes [id number] 1{tbl} Take 1 tablet by mouth in the morning. [facility] docusate 100 mg capsule 2022-0 08-05 00:00: 00 Yes [id number] 200mg Take 2 capsules by mouth once daily as needed for Constipati on. [facility] ibuprofen 600 mg tablet 2022-0 08-05 00:00: 00 Yes [id number] 600mg Take 1 tablet by mouth every 6 (six) hours as needed (Pain). Take with food or milk. [facility] norethindro ne 0.35 mg tablet 2022-0 08-05 00:00: 00 Yes [id number] .35mg Take 1 tablet by mouth in the morning. [facility] fhf466-ceyj fum-folic () 27 mg iron- 1 mg folic tablet 2022-0 08-05 00:00: 00 Yes [id number] 1{tbl} Take 1 tablet by mouth in the morning. [facility] docusate 100 mg capsule 2022-0 08-05 00:00: 00 Yes [id number] 200mg Take 2 capsules by mouth once daily as needed for Constipati on. [facility] ibuprofen 600 mg tablet 2022-0 08-05 00:00: 00 Yes [id number] 600mg Take 1 tablet by mouth every 6 (six) hours as needed (Pain). Take with food or milk. [facility] [id number]-[id number] fum-folic () 27 mg iron- 1 mg folic tablet 0 08-05 00:00: 00 Yes [id number] 1{tbl} Take 1 tablet by mouth in the morning. [facility] docusate 100 mg capsule 2022-0 08-05 00:00: 00 Yes [id number] 200mg Take 2 capsules by mouth once daily as needed for Constipati on. [facility] ibuprofen 600 mg tablet 0 08-05 00:00: 00 Yes [id number] 600mg Take 1 tablet by mouth every 6 (six) hours as needed (Pain). Take with food or milk. [facility] [id number]-swcm fum-folic () 27 mg iron- 1 mg folic tablet 08-05 00:00: 00 Yes [id number] 1{tbl} Take 1 tablet by mouth in the morning. [facility] docusate 100 mg capsule 2022-0 08-05 00:00: 00 Yes [id number] 200mg Take 2 capsules by mouth once daily as needed for Constipati on. [facility] ibuprofen 600 mg tablet 2022-0 08-05 00:00: 00 Yes [id number] 600mg Take 1 tablet by mouth every 6 (six) hours as needed (Pain). Take with food or milk. [facility] bib316-kpws fum-folic () 27 mg iron- 1 mg folic tablet 2022-0 08-05 00:00: 00 Yes [id number] 1{tbl} Take 1 tablet by mouth in the morning. [facility] docusate 100 mg capsule 2022-0 08-05 00:00: 00 Yes [id number] 200mg Take 2 capsules by mouth once daily as needed for Constipati on. [facility] ibuprofen 600 mg tablet 0 08-05 00:00: 00 Yes [id number] 600mg Take 1 tablet by mouth every 6 (six) hours as needed (Pain). Take with food or milk. [facility] [id number] fum-folic () 27 mg iron- 1 mg folic tablet 0 08-05 00:00: 00 Yes [id number] 1{tbl} Take 1 tablet by mouth in the morning. [facility] docusate 100 mg capsule 2022-0 08-05 00:00: 00 Yes [id number] 200mg Take 2 capsules by mouth once daily as needed for Constipati on. [facility] ibuprofen 600 mg tablet 0 08-05 00:00: 00 Yes [id number] 600mg Take 1 tablet by mouth every 6 (six) hours as needed (Pain). Take with food or milk. [facility] [id number]-rwrh fum-folic () 27 mg iron- 1 mg folic tablet 0 08-05 00:00: 00 Yes [id number] 1{tbl} Take 1 tablet by mouth in the morning. [facility] docusate 100 mg capsule 2022-0 08-05 00:00: 00 Yes [id number] 200mg Take 2 capsules by mouth once daily as needed for Constipati on. [facility] ibuprofen 600 mg tablet 2022-0 08-05 00:00: 00 Yes [id number] 600mg Take 1 tablet by mouth every 6 (six) hours as needed (Pain). Take with food or milk. [facility] [id number]-roes fum-folic () 27 mg iron- 1 mg folic tablet 0 08-05 00:00: 00 Yes [id number] 1{tbl} Take 1 tablet by mouth in the morning. [facility] docusate 100 mg capsule 2022-0 08-05 00:00: 00 Yes [id number] 200mg Take 2 capsules by mouth once daily as needed for Constipati on. [facility] ibuprofen 600 mg tablet 2022-0 08-05 00:00: 00 Yes [id number] 600mg Take 1 tablet by mouth every 6 (six) hours as needed (Pain). Take with food or milk. [facility] [id number]-jkhn fum-folic () 27 mg iron- 1 mg folic tablet 0 08-05 00:00: 00 Yes [id number] 1{tbl} Take 1 tablet by mouth in the morning. [facility] docusate 100 mg capsule 2022-0 08-05 00:00: 00 Yes [id number] 200mg Take 2 capsules by mouth once daily as needed for Constipati on. [facility] ibuprofen 600 mg tablet 2022-0 08-05 00:00: 00 Yes [id number] 600mg Take 1 tablet by mouth every 6 (six) hours as needed (Pain). Take with food or milk. [facility] [id number] fum-folic () 27 mg iron- 1 mg folic tablet 0 08-05 00:00: 00 Yes [id number] 1{tbl} Take 1 tablet by mouth in the morning. [facility] docusate 100 mg capsule 0 08-05 00:00: 00 Yes [id number] 200mg Take 2 capsules by mouth once daily as needed for Constipati on. [facility] ibuprofen 600 mg tablet 0 08-05 00:00: 00 Yes [id number] 600mg Take 1 tablet by mouth every 6 (six) hours as needed (Pain). Take with food or milk. [facility] acetaminoph en (TYLENOL) 325 mg tablet 0 08-05 00:00: 00 08-05 04:59 :00 No [id number] 650mg Take 2 tablets by mouth every 6 (six) hours as needed for Pain (scale 1-3) or Pain (scale 4-6). [facility] acetaminoph en (TYLENOL) 325 mg tablet 2022-0 08-05 00:00: 00 08-05 04:59 :00 No [id number] 650mg Take 2 tablets by mouth every 6 (six) hours as needed for Pain (scale 1-3) or Pain (scale 4-6). [facility] acetaminoph en (TYLENOL) 325 mg tablet 08-05 00:00: 00 08-05 04:59 :00 No [id number] 650mg Take 2 tablets by mouth every 6 (six) hours as needed for Pain (scale 1-3) or Pain (scale 4-6). [facility] acetaminoph en (TYLENOL) 325 mg tablet 08-05 00:00: 00 08-05 04:59 :00 No [id number] 650mg Take 2 tablets by mouth every 6 (six) hours as needed for Pain (scale 1-3) or Pain (scale 4-6). [facility] acetaminoph en (TYLENOL) 325 mg tablet 08-05 00:00: 00 08-05 04:59 :00 No [id number] 650mg Take 2 tablets by mouth every 6 (six) hours as needed for Pain (scale 1-3) or Pain (scale 4-6). [facility] acetaminoph en (TYLENOL) 325 mg tablet 08-05 00:00: 00 08-05 04:59 :00 No [id number] 650mg Take 2 tablets by mouth every 6 (six) hours as needed for Pain (scale 1-3) or Pain (scale 4-6). [facility] acetaminoph en (TYLENOL) 325 mg tablet 08-05 00:00: 00 08-05 04:59 :00 No [id number] 650mg Take 2 tablets by mouth every 6 (six) hours as needed for Pain (scale 1-3) or Pain (scale 4-6). [facility] acetaminoph en (TYLENOL) 325 mg tablet 0 08-05 00:00: 00 08-05 04:59 :00 No [id number] 650mg Take 2 tablets by mouth every 6 (six) hours as needed for Pain (scale 1-3) or Pain (scale 4-6). [facility] acetaminoph en (TYLENOL) 325 mg tablet 08-05 00:00: 00 08-05 04:59 :00 No [id number] 650mg Take 2 tablets by mouth every 6 (six) hours as needed for Pain (scale 1-3) or Pain (scale 4-6). [facility] acetaminoph en (TYLENOL) 325 mg tablet 08-05 00:00: 00 08-05 04:59 :00 No [id number] 650mg Take 2 tablets by mouth every 6 (six) hours as needed for Pain (scale 1-3) or Pain (scale 4-6). [facility] acetaminoph en (TYLENOL) 325 mg tablet 08-05 00:00: 00 08-05 04:59 :00 No [id number] 650mg Take 2 tablets by mouth every 6 (six) hours as needed for Pain (scale 1-3) or Pain (scale 4-6). [facility] acetaminoph en (TYLENOL) 325 mg tablet 08-05 00:00: 00 08-05 04:59 :00 No [id number] 650mg Take 2 tablets by mouth every 6 (six) hours as needed for Pain (scale 1-3) or Pain (scale 4-6). [facility] acetaminoph en (TYLENOL) 325 mg tablet 08-05 00:00: 00 08-05 04:59 :00 No [id number] 650mg Take 2 tablets by mouth every 6 (six) hours as needed for Pain (scale 1-3) or Pain (scale 4-6). [facility] acetaminoph en (TYLENOL) 325 mg tablet 08-05 00:00: 00 08-05 04:59 :00 No [id number] 650mg Take 2 tablets by mouth every 6 (six) hours as needed for Pain (scale 1-3) or Pain (scale 4-6). [facility] norethindro ne 0.35 mg tablet 08-05 00:00: 00 10-10 00:00 :00 No [id number] .35mg Take 1 tablet by mouth in the morning. [facility] norethindro ne 0.35 mg tablet 08-05 00:00: 00 10-10 00:00 :00 No [id number] .35mg Take 1 tablet by mouth in the morning. [facility] HYDROcodone -acetaminop hen 5-325 mg tablet 08-05 00:00: 00 08-13 04:59 :00 No [id number] 1{tbl} Take 1 tablet by mouth every 6 (six) hours as needed for Pain (scale 7-10) for up to 7 days. Indication s: acute pain [facility] HYDROcodone -acetaminop hen 5-325 mg tablet 08-05 00:00: 00 08-13 04:59 :00 No [id number] 1{tbl} Take 1 tablet by mouth every 6 (six) hours as needed for Pain (scale 7-10) for up to 7 days. Indication s: acute pain [facility] HYDROcodone -acetaminop hen 5-325 mg tablet 08-05 00:00: 00 08-13 04:59 :00 No [id number] 1{tbl} Take 1 tablet by mouth every 6 (six) hours as needed for Pain (scale 7-10) for up to 7 days. Indication s: acute pain [facility] HYDROcodone -acetaminop hen 5-325 mg tablet 08-05 00:00: 00 08-13 04:59 :00 No [id number] 1{tbl} Take 1 tablet by mouth every 6 (six) hours as needed for Pain (scale 7-10) for up to 7 days. Indication s: acute pain [facility] rho(D) immune globulin (RHOGAM) syringe 300 mcg 08-04 17:20: 06 Yes 300ug 300 mcg, Intramuscu lar, ONCE, For 1 dose, Conditiona l, Routine [facility] rho(D) immune globulin (RHOGAM) syringe 300 mcg 30 17:20: 06 08-05 22:45 :38 No 300ug 300 mcg, Intramuscu lar, ONCE, For 1 dose, Conditiona l, Routine [facility] acetaminoph en (TYLENOL) tablet 650 mg 08-04 17:20: 01 Yes 650mg 650 mg, Oral, Q6HPRN, Starting on 08/04/22 at 1220, Until Discontinu ed, Routine, Pain (scale 1-3), Pain (scale 4-6) [facility] HYDROcodone -acetaminop hen (NORCO 5) 5-325 mg tablet 2 tablet 08-04 17:20: 01 Yes 2{tbl} 2 tablet, Oral, Q6HPRN, Starting on 08/04/22 at 1220, Until Discontinu ed, Routine, Pain (scale 7-10), Alternate with Ibuprofen [facility] HYDROcodone -acetaminop hen (NORCO 5) 5-325 mg tablet 1 tablet 08-04 17:20: 01 Yes 1{tbl} 1 tablet, Oral, Q6HPRN, Starting on Fri08/04/22 at 1220, Until Discontinu ed, Routine, Pain (scale 4-6), Alternate with Ibuprofen [facility] ibuprofen (IBU) tablet 600 mg 08-04 17:20: 01 Yes 600mg 600 mg, Oral, Q6HPRN, Starting on 08/04/22 at 1220, Until Discontinu ed, Routine, Pain (scale 1-3), Pain (scale 4-6) [facility] diphenhydrA MINE (BENADRYL) injection 25 mg 08-04 17:20: 01 Yes 25mg 25 mg, Slow IV Push, Q6HPRN, Starting on 08/04/22 at 1220, Until Discontinu ed, Routine, Itching [facility] diphenhydrA MINE (BENADRYL) tablet 25 mg 08-04 17:20: 01 Yes 25mg 25 mg, Oral, Q6HPRN, Starting on 08/04/22 at 1220, Until Discontinu ed, Routine, Sleep, Itching [facility] ondansetron (ZOFRAN (PF)) injection 4 mg 08-04 17:20: 01 Yes 4mg 4 mg, Slow IV Push, Q8HPRN, Starting on Fri08/04/22 at 1220, Until Discontinu ed, Routine, Nausea and Vomiting (N/V) [facility] bisacodyL (DULCOLAX) suppository 10 mg 08-04 17:20: 01 Yes 10mg 10 mg, Rectal, QDAILYPRN, Starting on Fri08/04/22 at 1220, Until Discontinu ed, Routine, Constipati on [facility] simethicone (GAS RELIEF (SIMETHICON E)) chewable tablet 160 mg 08-04 17:20: 01 Yes 160mg 160 mg, Oral, PC+HSPRN, Starting on Fri08/04/22 at 1220, Until Discontinu ed, Routine, Gas [facility] docusate (COLACE) capsule 200 mg 08-04 17:20: 01 Yes 200mg 200 mg, Oral, QDAILYPRN, Starting on Fri08/04/22 at 1220, Until Discontinu ed, Routine, Constipati on [facility] magnesium hydroxide (MILK OF MAGNESIA) 400 mg/5 mL suspension 30 mL 08-04 17:20: 01 Yes 30mL 30 mL, Oral, QDAILYPRN, Starting on Fri08/04/22 at 1220, Until Discontinu ed, Routine, Constipati on [facility] lactated ringers IV infusion 1,000 mL 08-04 17:20: 01 Yes 1000mL at 125 mL/hr, 1,000 mL, IV Infusion, PRN, 1 dose, Starting on Fri08/04/22 at 1220, Until Discontinu ed, Routine [facility] acetaminoph en (TYLENOL) tablet 650 mg 08-04 17:20: 01 08-05 22:45 :38 No 650mg 650 mg, Oral, Q6HPRN, Starting on Fri08/04/22 at 1220, Until 08/05/22 at 1745, Routine, Pain (scale 1-3), Pain (scale 4-6) [facility] HYDROcodone -acetaminop hen (NORCO 5) 5-325 mg tablet 2 tablet 08-04 17:20: 08-05 22:45 :38 No 2{tbl} 2 tablet, Oral, Q6HPRN, Starting on 08/04/22 at 1220, Until 08/05/22 at 1745, Routine, Pain (scale 7-10), Alternate with Ibuprofen [facility] HYDROcodone -acetaminop hen (NORCO 5) 5-325 mg tablet 1 tablet 08-04 17:20: 08-05 22:45 :38 No 1{tbl} 1 tablet, Oral, Q6HPRN, Starting on Fri08/04/22 at 1220, Until Fri08/05/22 at 1745, Routine, Pain (scale 4-6), Alternate with Ibuprofen [facility] ibuprofen (IBU) tablet 600 mg 08-04 17:20: 08-05 22:45 :38 No 600mg 600 mg, Oral, Q6HPRN, Starting on 08/04/22 at 1220, Until 08/05/22 at 1745, Routine, Pain (scale 1-3), Pain (scale 4-6) [facility] diphenhydrA MINE (BENADRYL) injection 25 mg 08-04 17:20: 08-05 22:45 :38 No 25mg 25 mg, Slow IV Push, Q6HPRN, Starting on Fri08/04/22 at 1220, Until Fri08/05/22 at 1745, Routine, Itching [facility] diphenhydrA MINE (BENADRYL) tablet 25 mg 08-04 17:20: 08-05 22:45 :38 No 25mg 25 mg, Oral, Q6HPRN, Starting on 08/04/22 at 1220, Until 08/05/22 at 1745, Routine, Sleep, Itching [facility] ondansetron (ZOFRAN (PF)) injection 4 mg 08-04 17:20: 01 08-05 22:45 :38 No 4mg 4 mg, Slow IV Push, Q8HPRN, Starting on Fri08/04/22 at 1220, Until 08/05/22 at 1745, Routine, Nausea and Vomiting (N/V) [facility] bisacodyL (DULCOLAX) suppository 10 mg 08-04 17:20: 08-05 22:45 :38 No 10mg 10 mg, Rectal, QDAILYPRN, Starting on Fri08/04/22 at 1220, Until Fri08/05/22 at 1745, Routine, Constipati on [facility] simethicone (GAS RELIEF (SIMETHICON E)) chewable tablet 160 mg 08-04 17:20: 08-05 22:45 :38 No 160mg 160 mg, Oral, PC+HSPRN, Starting on Fri08/04/22 at 1220, Until Fri08/05/22 at 1745, Routine, Gas [facility] docusate (COLACE) capsule 200 mg 08-04 17:20: 08-05 22:45 :38 No 200mg 200 mg, Oral, QDAILYPRN, Starting on Fri08/04/22 at 1220, Until 08/05/22 at 1745, Routine, Constipati on [facility] magnesium hydroxide (MILK OF MAGNESIA) 400 mg/5 mL suspension 30 mL 08-04 17:20: 08-05 22:45 :38 No 30mL 30 mL, Oral, QDAILYPRN, Starting on Fri08/04/22 at 1220, Until 08/05/22 at 1745, Routine, Constipati on [facility] lactated ringers IV infusion 1,000 mL 08-04 17:20: 08-05 22:45 :38 No 1000mL at 125 mL/hr, 1,000 mL, IV Infusion, PRN, 1 dose, Starting on Fri08/04/22 at 1220, Until Fri08/05/22 at 1745, Routine [facility] naloxone (NARCAN) injection 0.4 mg 08-04 16:52: 58 08-06 16:51 :58 No .4mg 0.4 mg, Slow IV Push, PRN - SEE INSTRUCTIO NS, Starting on Fri08/04/22 at 1152, Until Fri08/06/22 at 1151, Routine, Analgesia Recovery, PACU [facility] naloxone (NARCAN) injection 0.4 mg 08-04 16:52: 58 08-05 22:45 :38 No .4mg 0.4 mg, Slow IV Push, PRN - SEE INSTRUCTIO NS, Starting on Fri08/04/22 at 1152, Until Fri08/05/22 at 1745, Routine, Analgesia Recovery, PACU [facility] acetaminoph en (TYLENOL) tablet 650 mg 08-04 12:30: 00 08-04 12:32 :00 No 650mg 650 mg, Oral, ONCE, 1 dose, On Fri08/04/22 at 0730, Routine [facility] sodium citrate-cit clayton acid (BICITRA) 500-334 mg/5 mL solution 30 mL 08-04 11:17: 13 08-04 13:25 :00 No 30mL 30 mL, Oral, PRE-PROCED URE ONCE, 1 dose, Starting on Fri08/04/22 at 0617, Until Fri08/04/22 at 0825, Routine, Surgery [facility] ceFAZolin (ANCEF) 2,000 mg in NaCl 0.9% (NS) 100 mL MINI-BAG 08-04 11:16: 47 08-04 13:55 :00 No 2000mg 2,000 mg, IV Piggyback, O.R. HOLDING ONCE, 1 dose, Starting on Fri08/04/22 at 0616, Until Fri08/04/22 at 2359, Administer over 30 Minutes, 100 mL
Reas on for Anti-Infec tive: Surgical Prophylaxi s
Surgi rush Prophylaxi s: [employer]
Duration of therapy: within 24 hours of surgery [facility] FENTanyl PF (SUBLIMAZE (PF)) injection 50 mcg 08-04 08:00: 00 08-04 07:18 :00 No 50ug 50 mcg, Slow IV Push, ONCE, 1 dose, On Fri08/04/22 at 0300, Routine [facility] lactated ringers IV infusion 500 mL 08-03 01:56: 36 08-04 17:20 :04 No 500mL at 999 mL/hr, 500 mL, IV Infusion, PRN - SEE INSTRUCTIO NS, Starting on Fri08/02/22 at 2056, Until Fri08/04/22 at 1220, Routine [facility] D5W-LR IV infusion 1,000 mL 08-03 01:56: 36 08-04 17:20 :04 No 1000mL at 1-125 mL/hr, IV Infusion, TITRATE, Starting on Fri08/02/22 at 2056, Until Fri08/04/22 at 1220, Routine [facility] fluconazole (DIFLUCAN) tablet 150 mg 07-22 14:00: 00 07-21 23:27 :00 No 150mg 150 mg, Oral, DAILY, 1 dose, First dose on Fri07/22/22 at 0900, CHRISTA
Re ason for Anti-Infec tive: Documented Infection< br>Documen kaylee Infection Site: Pelvic
Duration of Therapy: Other (see Comments) [facility] acetaminoph en (TYLENOL) tablet 650 mg 07-21 23:45: 00 07-21 22:38 :00 No 650mg 650 mg, Oral, ONCE NOW, 1 dose, On Fri07/21/22 at 1845, Routine [facility] fluconazole 150 mg tablet 07-21 00:00: 00 07-21 00:00 :00 No [id number] 150mg Take 1 tablet by mouth once now for 1 dose. [facility] fluconazole (DIFLUCAN) 150 mg tablet 07-04 00:00: 00 07-05 04:59 :00 No [id number] 150mg Take 1 tablet by mouth once now for 1 dose. [facility] metroNIDAZO LE 500 mg tablet 2021-04 00:00: 00 Yes [id number] 500mg Take 1 tablet by mouth in the morning and 1 tablet in the evening. [facility] metroNIDAZO LE 500 mg tablet 2021-04 00:00: 00 Yes [id number] 500mg Take 1 tablet by mouth in the morning and 1 tablet in the evening. [facility] metroNIDAZO LE 500 mg tablet 2021-04 00:00: 00 03-08 00:00 :00 No [id number] 500mg Take 1 tablet by mouth in the morning and 1 tablet in the evening. [facility] fluconazole (DIFLUCAN) 150 mg tablet 2021-04 00:00: 00 02-12 05:59 :00 No [id number] 150mg Take 1 tablet by mouth once now for 1 dose. [facility] fluconazole (DIFLUCAN) 150 mg tablet 2021-04 00:00: 00 02-12 05:59 :00 No [id number] 150mg Take 1 tablet by mouth once now for 1 dose. [facility] cefTRIAXone (ROCEPHIN) injection 1,000 mg 2021-04 18:45: 00 Yes 1000mg 1,000 mg, Intramuscu lar, Q24H, First dose on Fri01/25/22 at 1345, Until Discontinu ed, CHRISTA
Re ason for Anti-Infec tive: Documented Infection< br>Documen kaylee Infection Site: Urine
D uration of Therapy: 7 days [facility] acetaminoph en (TYLENOL) tablet 1,000 mg 2021-04 18:00: 00 01-25 16:55 :00 No 1000mg 1,000 mg, Oral, ONCE, 1 dose, On Fri01/25/22 at 1300, Routine [facility] cefdinir 300 mg capsule 2021-04 00:00: 00 02-02 04:59 :00 No [id number] 300mg Take 1 capsule by mouth every 12 (twelve) hours for 7 days. [facility] PNV 112-iron-FA -om-3s-dha- epa (VITAFOL GUMMIES) 3.33 mg iron- 0.33 mg Chew 2021- 0-06 00:00: 00 Yes [id number] 3{tbl} Take 3 tablets by mouth daily. [facility] PNV 112-iron-FA -om-3s-dha- epa (VITAFOL GUMMIES) 3.33 mg iron- 0.33 mg Chew 2021- 0-06 00:00: 00 Yes [id number] 3{tbl} Take 3 tablets by mouth daily. [facility] PNV 112-iron-FA -om-3s-dha- epa (VITAFOL GUMMIES) 3.33 mg iron- 0.33 mg Chew 2021- 0-06 00:00: 00 Yes [id number] 3{tbl} Take 3 tablets by mouth daily. [facility] PNV 112-iron-FA -om-3s-dha- epa (VITAFOL GUMMIES) 3.33 mg iron- 0.33 mg Chew 2021- 0-06 00:00: 00 Yes [id number] 3{tbl} Take 3 tablets by mouth daily. [facility] PNV 112-iron-FA -om-3s-dha- epa (VITAFOL GUMMIES) 3.33 mg iron- 0.33 mg Chew 2021- 0-06 00:00: 00 Yes [id number] 3{tbl} Take 3 tablets by mouth daily. [facility] PNV 112-iron-FA -om-3s-dha- epa (VITAFOL GUMMIES) 3.33 mg iron- 0.33 mg Chew 2021- 0-06 00:00: 00 Yes [id number] 3{tbl} Take 3 tablets by mouth daily. [facility] PNV 112-iron-FA -om-3s-dha- epa (VITAFOL GUMMIES) 3.33 mg iron- 0.33 mg Chew 2021- 0-06 00:00: 00 Yes [id number] 3{tbl} Take 3 tablets by mouth daily. [facility] PNV 112-iron-FA -om-3s-dha- epa (VITAFOL GUMMIES) 3.33 mg iron- 0.33 mg Chew 2021- 0-06 00:00: 00 Yes [id number] 3{tbl} Take 3 tablets by mouth daily. [facility] PNV 112-iron-FA -om-3s-dha- epa (VITAFOL GUMMIES) 3.33 mg iron- 0.33 mg Chew 2021-04 0-06 00:00: 00 Yes [id number] 3{tbl} Take 3 tablets by mouth daily. [facility] PNV 112-iron-FA -om-3s-dha- epa (VITAFOL GUMMIES) 3.33 mg iron- 0.33 mg Chew 2021-04 0-06 00:00: 00 Yes [id number] 3{tbl} Take 3 tablets by mouth daily. [facility] PNV 112-iron-FA -om-3s-dha- epa (VITAFOL GUMMIES) 3.33 mg iron- 0.33 mg Chew 2021-04 0-06 00:00: 00 Yes [id number] 3{tbl} Take 3 tablets by mouth daily. [facility] PNV 112-iron-FA -om-3s-dha- epa (VITAFOL GUMMIES) 3.33 mg iron- 0.33 mg Chew 2021-04 0-06 00:00: 00 Yes [id number] 3{tbl} Take 3 tablets by mouth daily. [facility] PNV 112-iron-FA -om-3s-dha- epa (VITAFOL GUMMIES) 3.33 mg iron- 0.33 mg Chew 2021-04 0-06 00:00: 00 Yes [id number] 3{tbl} Take 3 tablets by mouth daily. [facility] PNV 112-iron-FA -om-3s-dha- epa (VITAFOL GUMMIES) 3.33 mg iron- 0.33 mg Chew 2021-04 0-06 00:00: 00 Yes [id number] 3{tbl} Take 3 tablets by mouth daily. [facility] PNV 112-iron-FA -om-3s-dha- epa (VITAFOL GUMMIES) 3.33 mg iron- 0.33 mg Chew 2-1 0-06 00:00: 00 Yes [id number] 3{tbl} Take 3 tablets by mouth daily. [facility] PNV 112-iron-FA -om-3s-dha- epa (VITAFOL GUMMIES) 3.33 mg iron- 0.33 mg Chew 2021- 0-06 00:00: 00 Yes [id number] 3{tbl} Take 3 tablets by mouth daily. [facility] PNV 112-iron-FA -om-3s-dha- epa (VITAFOL GUMMIES) 3.33 mg iron- 0.33 mg Chew 2021- 0-06 00:00: 00 Yes [id number] 3{tbl} Take 3 tablets by mouth daily. [facility] PNV 112-iron-FA -om-3s-dha- epa (VITAFOL GUMMIES) 3.33 mg iron- 0.33 mg Chew 2021- 0-06 00:00: 00 Yes [id number] 3{tbl} Take 3 tablets by mouth daily. [facility] PNV 112-iron-FA -om-3s-dha- epa (VITAFOL GUMMIES) 3.33 mg iron- 0.33 mg Chew 2021- 0-06 00:00: 00 Yes [id number] 3{tbl} Take 3 tablets by mouth daily. [facility] PNV 112-iron-FA -om-3s-dha- epa (VITAFOL GUMMIES) 3.33 mg iron- 0.33 mg Chew 2021- 0-06 00:00: 00 Yes [id number] 3{tbl} Take 3 tablets by mouth daily. [facility] PNV 112-iron-FA -om-3s-dha- epa (VITAFOL GUMMIES) 3.33 mg iron- 0.33 mg Chew 2021- 0-06 00:00: 00 Yes [id number] 3{tbl} Take 3 tablets by mouth daily. [facility] PNV 112-iron-FA -om-3s-dha- epa (VITAFOL GUMMIES) 3.33 mg iron- 0.33 mg Chew 2021- 0-06 00:00: 00 Yes [id number] 3{tbl} Take 3 tablets by mouth daily. [facility] PNV 112-iron-FA -om-3s-dha- epa (VITAFOL GUMMIES) 3.33 mg iron- 0.33 mg Chew 2021- 0-06 00:00: 00 Yes [id number] 3{tbl} Take 3 tablets by mouth daily. [facility] PNV 112-iron-FA -om-3s-dha- epa (VITAFOL GUMMIES) 3.33 mg iron- 0.33 mg Chew 2021- 0-06 00:00: 00 Yes [id number] 3{tbl} Take 3 tablets by mouth daily. [facility] PNV 112-iron-FA -om-3s-dha- epa (VITAFOL GUMMIES) 3.33 mg iron- 0.33 mg Chew 2021- 0-06 00:00: 00 Yes [id number] 3{tbl} Take 3 tablets by mouth daily. [facility] PNV 112-iron-FA -om-3s-dha- epa (VITAFOL GUMMIES) 3.33 mg iron- 0.33 mg Chew 2021- 0-06 00:00: 00 Yes [id number] 3{tbl} Take 3 tablets by mouth daily. [facility] PNV 112-iron-FA -om-3s-dha- epa (VITAFOL GUMMIES) 3.33 mg iron- 0.33 mg Chew 2021- 0-06 00:00: 00 Yes [id number] 3{tbl} Take 3 tablets by mouth daily. [facility] PNV 112-iron-FA -om-3s-dha- epa (VITAFOL GUMMIES) 3.33 mg iron- 0.33 mg Chew 2021- 0-06 00:00: 00 Yes [id number] 3{tbl} Take 3 tablets by mouth daily. [facility] PNV 112-iron-FA -om-3s-dha- epa (VITAFOL GUMMIES) 3.33 mg iron- 0.33 mg Chew 2021- 0-06 00:00: 00 Yes [id number] 3{tbl} Take 3 tablets by mouth daily. [facility] PN 112-iron-FA -om-3s-dha- epa (VITAFOL GUMMIES) 3.33 mg iron- 0.33 mg Chew 2021-04 0-06 00:00: 00 08-05 00:00 :00 No [id number] 3{tbl} Take 3 tablets by mouth daily. [facility] PNV 112-iron-FA -om-3s-dha- epa (VITAFOL GUMMIES) 3.33 mg iron- 0.33 mg Chew 2021-04 0-06 00:00: 00 08-05 00:00 :00 No [id number] 3{tbl} [facility]VITAFOL ULTRA) 29 mg iron- 1 mg-200 mg Cap 2021-0 9-15 00:00: 00 Yes [id number] 1{each} Take 1 Each by mouth daily. [facility] PNV 67-iron ps-folate no.1-dha (VITAFOL ULTRA) 29 mg iron- 1 mg-200 mg Cap 2-0 9-15 00:00: 00 Yes [id number] 1{each} Take 1 [facility] mouth daily. [facility]-fol[facility] no.1-dha (VITAFOL ULTRA) 29 mg iron- 1 mg-200 mg Cap 2-0 9-15 00:00: 00 Yes [id number] 1{each} Take 1 Each by mouth daily. [facility] PNV 67-iron ps-folate no.1-dha (VITAFOL ULTRA) 29 mg iron- 1 mg-200 mg Cap 2-0 9-15 00:00: 00 Yes [id number] 1{each} Take 1 Each by mouth daily. [facility] PNV 67-iron ps-folate no.1-dha (VITAFOL ULTRA) 29 mg iron- 1 mg-200 mg Cap 2022-0 9-15 00:00: 00 Yes [id number] 1{each} Take 1 Each by mouth daily. [facility] PNV 67-iron ps-folate no.1-dha (VITAFOL ULTRA) 29 mg iron- 1 mg-200 mg Cap 15 00:00: 00 Yes [id number] 1{each} Take 1 Each by mouth daily. [facility] PNV 67-iron ps-folate no.1-dha (VITAFOL ULTRA) 29 mg iron- 1 mg-200 mg Cap -15 00:00: 00 Yes [id number] 1{each} Take 1 Each by mouth daily. [facility] PNV 67-iron ps-folate no.1-dha (VITAFOL ULTRA) 29 mg iron- 1 mg-200 mg Cap 12-20 00:00: 00 Yes [id number] 1{each} Take 1 Each by mouth daily. [facility] PNV 67-iron ps-folate no.1-dha (VITAFOL ULTRA) 29 mg iron- 1 mg-200 mg Cap 12-20 00:00: 00 03-10 00:00 :00 No [id number] 1{each} Take 1 Each by mouth daily. [facility] buPROPion SR (WELLBUTRIN SR) 150 mg SR tablet 12-17 00:00: 00 Yes [id number] 150mg Take 1 tablet by mouth every morning. [facility] buPROPion SR (WELLBUTRIN SR) 150 mg SR tablet 12-17 00:00: 00 Yes [id number] 150mg Take 1 tablet by mouth every morning. [facility] buPROPion SR (WELLBUTRIN SR) 150 mg SR tablet 12-17 00:00: 00 Yes [id number] 150mg Take 1 tablet by mouth every morning. [facility] buPROPion SR (WELLBUTRIN SR) 150 mg SR tablet 12-17 00:00: 00 Yes [id number] 150mg Take 1 tablet by mouth every morning. [facility] buPROPion SR (WELLBUTRIN SR) 150 mg SR tablet 12-17 00:00: 00 Yes [id number] 150mg Take 1 tablet by mouth every morning. [facility] buPROPion SR (WELLBUTRIN SR) 150 mg SR tablet 12-17 00:00: 00 Yes [id number] 150mg Take 1 tablet by mouth every morning. [facility] buPROPion SR (WELLBUTRIN SR) 150 mg SR tablet 12-17 00:00: 00 Yes [id number] 150mg Take 1 tablet by mouth every morning. [facility] buPROPion SR (WELLBUTRIN SR) 150 mg SR tablet 12-17 00:00: 00 Yes [id number] 150mg Take 1 tablet by mouth every morning. [facility] buPROPion SR (WELLBUTRIN SR) 150 mg SR tablet 12-17 00:00: 00 Yes [id number] 150mg Take 1 tablet by mouth every morning. [facility] buPROPion SR (WELLBUTRIN SR) 150 mg SR tablet 12-17 00:00: 00 Yes [id number] 150mg Take 1 tablet by mouth every morning. [facility] buPROPion SR (WELLBUTRIN SR) 150 mg SR tablet 12-17 00:00: 00 Yes [id number] 150mg Take 1 tablet by mouth every morning. [facility] buPROPion SR (WELLBUTRIN SR) 150 mg SR tablet 12-17 00:00: 00 Yes [id number] 150mg Take 1 tablet by mouth every morning. [facility] buPROPion SR (WELLBUTRIN SR) 150 mg SR tablet 12-17 00:00: 00 Yes [id number] 150mg Take 1 tablet by mouth every morning. [facility] buPROPion SR (WELLBUTRIN SR) 150 mg SR tablet 12-17 00:00: 00 04-04 00:00 :00 No [id number] 150mg Take 1 tablet by mouth every morning. [facility] cephALEXin 500 mg capsule 12-17 00:00: 00 12-21 04:59 :00 No [id number] 500mg Take 1 capsule by mouth 4 (four) times daily for 3 days. [facility] cephALEXin 500 mg capsule 12-17 00:00: 00 2022- 09-16 04:59 :00 No [id number] 500mg Take 1 capsule by mouth 4 (four) times daily for 3 days. [facility] vit no.130-iron -folic ( VITAMIN) 12-14 00:00: 00 Yes [id number] 1{tbl} Take 1 tablet by mouth in the morning. [facility] vit no.130-iron -folic ( VITAMIN) 12-14 00:00: 00 Yes [id number] 1{tbl} Take 1 tablet by mouth in the morning. [facility] vit no.130-iron -folic ( VITAMIN) 12-14 00:00: 00 Yes [id number] 1{tbl} Take 1 tablet by mouth in the morning. [facility] vit no.130-iron -folic ( VITAMIN) 12-14 00:00: 00 Yes [id number] 1{tbl} Take 1 tablet by mouth in the morning. [facility] vit no.130-iron -folic ( VITAMIN) 12-14 00:00: 00 Yes [id number] 1{tbl} Take 1 tablet by mouth in the morning. [facility] vit no.130-iron -folic ( VITAMIN) 12-14 00:00: 00 Yes [id number] 1{tbl} Take 1 tablet by mouth in the morning. [facility] vit no.130-iron -folic ( VITAMIN) 0 12-14 00:00: 00 Yes [id number] 1{tbl} Take 1 tablet by mouth in the morning. [facility] vit no.130-iron -folic ( VITAMIN) 0 12-14 00:00: 00 Yes [id number] 1{tbl} Take 1 tablet by mouth in the morning. [facility] vit no.130-iron -folic ( VITAMIN) 0 12-14 00:00: 00 Yes [id number] 1{tbl} Take 1 tablet by mouth in the morning. [facility] vit no.130-iron -folic ( VITAMIN) 12-14 00:00: 00 Yes [id number] 1{tbl} Take 1 tablet by mouth in the morning. [facility] vit no.130-iron -folic ( VITAMIN) 12-14 00:00: 00 Yes [id number] 1{tbl} Take 1 tablet by mouth in the morning. [facility] vit no.130-iron -folic ( VITAMIN) 12-14 00:00: 00 Yes [id number] 1{tbl} Take 1 tablet by mouth in the morning. [facility] vit no.130-iron -folic ( VITAMIN) 12-14 00:00: 00 Yes [id number] 1{tbl} Take 1 tablet by mouth in the morning. [facility] vit no.130-iron -folic ( VITAMIN) 12-14 00:00: 00 Yes [id number] 1{tbl} Take 1 tablet by mouth in the morning. [facility] vit no.130-iron -folic ( VITAMIN) 12-14 00:00: 00 03-08 00:00 :00 No [id number] 1{tbl} Take 1 tablet by mouth in the morning. [facility] No known medications 11-30 09:35: 29 No No known medication s [facility] No known medications 11-30 09:35: 29 No No known medication s [facility] Immunizations Ordered Immunization Name Filled Immunization Name Date Status Comments Source HPV9 2022-08-05 00:00:[address] [facility] HPV9 2022-08-05 00:00:[address] [facility] HPV9 2022-08-05 00:00:[address] [facility] HPV9 2022-08-05 00:00:[address] [facility] HPV9 2022-08-05 00:00:[address] [facility] HPV9 2022-08-05 00:00:[address] [facility] HPV9 2022-08-05 00:00:[address] [facility] HPV9 2022-08-05 00:00:[address] [facility] HPV9 2022-08-05 00:00:[address] [facility] HPV9 2022-08-05 00:00:[address] [facility] HPV9 2022-08-05 00:00:[address] [facility] TDAP 2022-05-24 00:00:[address] [facility] TDAP 2022-05-24 00:00:[address] [facility] TDAP 2022-05-24 00:00:[address] [facility] TDAP 2022-05-24 00:00:[address] [facility] TDAP 2022-05-24 00:00:[address] [facility] TDAP 2022-05-24 00:00:[address] [facility] TDAP 2022-05-24 00:00:[address] [facility] TDAP 2022-05-24 00:00:[address] [facility] TDAP 2022-05-24 00:00:[address] [facility] TDAP 2022-05-24 00:00:[address] [facility] TDAP 2022-05-24 00:00:[address] [facility] TDAP 2022-05-24 00:00:[address] [facility] TDAP 2022-05-24 00:00:[address] [facility] TDAP 2022-05-24 00:00:[address] [facility] TDAP 2022-05-24 00:00:[address] [facility] TDAP 2022-05-24 00:00:[address] [facility] TDAP 2022-05-24 00:00:[address] [facility] TDAP 2022-05-24 00:00:[address] [facility] TDAP 2022-05-24 00:00:[address] [facility] TDAP 2022-05-24 00:00:[address] [facility] TDAP 2022-05-24 00:00:[address] [facility] TDAP 2022-05-24 00:00:[address] [facility] TDAP 2022-05-24 00:00:[address] [facility] TDAP 2022-05-24 00:00:[address] [facility] TDAP 2022-05-24 00:00:00 Completed [facility] TDAP 2022-05-24 00:00:[address] [facility] TDAP 2022-05-24 00:00:[address] [facility] TDAP 2022-05-24 00:00:[address] [facility] HPV9 2020-09-27 00:00:00 Completed [facility] HPV9 2020-09-27 00:00:00 Completed [facility] HPV9 2020-09-27 00:00:[address] [facility] HPV9 2020-09-27 00:00:[address] [facility] HPV9 2020-09-27 00:00:[address] [facility] HPV9 2020-09-27 00:00:[address] [facility] HPV9 2020-09-27 00:00:00 Completed [facility] HPV9 2020-09-27 00:00:00 Completed [facility] HPV9 2020-09-27 00:00:00 Completed [facility] HPV9 2020-09-27 00:00:00 Completed [facility] HPV9 2020-09-27 00:00:00 Completed [facility] HPV9 2020-09-27 00:00:00 Completed [facility] HPV9 2020-09-27 00:00:00 Completed [facility] HPV9 2020-09-27 00:00:00 Completed [facility] HPV9 2020-09-27 00:00:00 Completed [facility] HPV9 2020-09-27 00:00:00 Completed [facility] HPV9 2020-09-27 00:00:00 Completed [facility] HPV9 2020-09-27 00:00:00 Completed [facility] HPV9 2020-09-27 00:00:00 Completed [facility] HPV9 2020-09-27 00:00:00 Completed [facility] HPV9 2020-09-27 00:00:00 Completed [facility] HPV9 2020-09-27 00:00:00 Completed [facility] HPV9 2020-09-27 00:00:00 Completed [facility] HPV9 2020-09-27 00:00:00 Completed [facility] HPV9 2020-09-27 00:00:00 Completed [facility] HPV9 2020-09-27 00:00:[address] [facility] HPV9 2020-09-27 00:00:00 Completed [facility] HPV9 2020-09-27 00:00:00 Completed [facility] HPV9 2020-09-27 00:00:00 Completed [facility] HPV9 2020-09-27 00:00:00 Completed [facility] HPV9 2020-09-27 00:00:00 Completed [facility] HPV9 2020-09-27 00:00:[address] [facility] HPV9 2020-09-27 00:00:00 Completed [facility] HPV9 2020-09-27 00:00:00 Completed [facility] HPV9 2020-09-27 00:00:00 Completed [facility] HPV9 2020-09-27 00:00:00 Completed [facility] HPV9 2020-09-27 00:00:00 Completed [facility] HPV9 2020-09-27 00:00:00 Completed [facility] HPV9 2020-09-27 00:00:00 Completed [facility] HPV9 2020-09-27 00:00:00 Completed [facility] HPV9 2020-09-27 00:00:00 Completed [facility] HPV9 2020-09-27 00:00:00 Completed [facility] HPV9 2020-09-27 00:00[facility]00 [facility] [facility] HPV9 2020-09-27 00:00:00 Completed [facility] HPV9 2020-09-27 00:00:00 Completed [facility] HPV9 2020-09-27 00:00:00 Completed [facility] HPV9 2020-09-27 00:00:00 Completed [facility] HPV9 2020-09-27 00:00:[address] [facility] HPV9 2020-09-27 00:00:[address] [facility] HPV9 2020-09-27 00:00:[address] [facility] HPV9 2020-09-27 00:00:[address] [facility] HPV9 2020-09-27 00:00:[address] [facility] TDAP 2020-06-15 00:00:[address] [facility] TDAP 2020-06-15 00:00:[address] [facility] TDAP 2020-06-15 00:00:[address] [facility] TDAP 2020-06-15 00:00:[address] [facility] TDAP 2020-06-15 00:00:[address] [facility] TDAP 2020-06-15 00:00:[address] [facility] TDAP 2020-06-15 00:00:[address] [facility] TDAP 2020-06-15 00:00:[address] [facility] TDAP 2020-06-15 00:00:[address] [facility] TDAP 2020-06-15 00:00:[address] [facility] TDAP 2020-06-15 00:00:[address] [facility] TDAP 2020-06-15 00:00:[address] [facility] TDAP 2020-06-15 00:00:[address] [facility] TDAP 2020-06-15 00:00:00 Completed [facility] TDAP 2020-06-15 00:00:00 Completed [facility] TDAP 2020-06-15 00:00:00 Completed [facility] TDAP 2020-06-15 00:00:[address] [facility] TDAP 2020-06-15 00:00:[address] [facility] TDAP 2020-06-15 00:00:[address] [facility] TDAP 2020-06-15 00:00:[address] [facility] TDAP 2020-06-15 00:00:00 Completed [facility] TDAP 2020-06-15 00:00:[address] [facility] TDAP 2020-06-15 00:00:00 Completed [facility] TDAP 2020-06-15 00:00:[address] [facility] TDAP 2020-06-15 00:00:[address] [facility] TDAP 2020-06-15 00:00:[address] [facility] TDAP 2020-06-15 00:00:[address] [facility] TDAP 2020-06-15 00:00:[address] [facility] TDAP 2020-06-15 00:00:[address] [facility] TDAP 2020-06-15 00:00:[address] [facility] TDAP 2020-06-15 00:00:[address] [facility] TDAP 2020-06-15 00:00:[address] [facility] TDAP 2020-06-15 00:00:[address] [facility] TDAP 2020-06-15 00:00:[address] [facility] TDAP 2020-06-15 00:00:[address] [facility] TDAP 2020-06-15 00:00:[address] [facility] TDAP 2020-06-15 00:00:[address] [facility] TDAP 2020-06-15 00:00:[address] [facility] TDAP 2020-06-15 00:00:[address] [facility] TDAP 2020-06-15 00:00:[address] [facility] TDAP 2020-06-15 00:00:[address] [facility] TDAP 2020-06-15 00:00:[address] [facility] TDAP 2020-06-15 00:00:00 Completed [facility] TDAP 2020-06-15 00:00:[address] [facility] TDAP 2020-06-15 00:00:[address] [facility] TDAP 2020-06-15 00:00:[address] [facility] TDAP 2020-06-15 00:00:[address] [facility] TDAP 2020-06-15 00:00:[address] [facility] TDAP 2020-06-15 00:00:[address] [facility] TDAP 2020-06-15 00:00:[address] [facility] TDAP 2020-06-15 00:00:[address] [facility] TDAP 2020-06-15 00:00:[address] [facility] TDAP 2014-03-01 00:00:[address] [facility] TDAP 2014-03-01 00:00:[address] [facility] TDAP 2014-03-01 00:00:[address] [facility] TDAP 2014-03-01 00:00:[address] [facility] TDAP 2014-03-01 00:00:[address] [facility] TDAP 2014-03-01 00:00:[address] [facility] TDAP 2014-03-01 00:00:[address] [facility] TDAP 2014-03-01 00:00:[address] [facility] TDAP 2014-03-01 00:00:[address] [facility] TDAP 2014-03-01 00:00:[address] [facility] TDAP 2014-03-01 00:00:[address] [facility] TDAP 2014-03-01 00:00:[address] [facility] TDAP 2014-03-01 00:00:[address] [facility] TDAP 2014-03-01 00:00:[address] [facility] TDAP 2014-03-01 00:00:[address] [facility] TDAP 2014-03-01 00:00:00 Completed [facility] TDAP 2014-03-01 00:00:00 Completed [facility] TDAP 2014-03-01 00:00:00 Completed [facility] TDAP 2014-03-01 00:00:[address] [facility] TDAP 2014-03-01 00:00:00 Completed [facility] TDAP 2014-03-01 00:00:00 Completed [facility] TDAP 2014-03-01 00:00:00 Completed [facility] TDAP 2014-03-01 00:00:00 Completed [facility] TDAP 2014-03-01 00:00:00 Completed [facility] TDAP 2014-03-01 00:00:00 Completed [facility] TDAP 2014-03-01 00:00:00 Completed [facility] TDAP 2014-03-01 00:00:00 Completed [facility] TDAP 2014-03-01 00:00:00 Completed [facility] TDAP 2014-03-01 00:00:[address] [facility] TDAP 2014-03-01 00:00:00 Completed [facility] TDAP 2014-03-01 00:00:00 Completed [facility] TDAP 2014-03-01 00:00:00 Completed [facility] TDAP 2014-03-01 00:00:[address] [facility] TDAP 2014-03-01 00:00:[address] [facility] TDAP 2014-03-01 00:00:[address] [facility] TDAP 2014-03-01 00:00:[address] [facility] TDAP 2014-03-01 00:00:00 Completed [facility] TDAP 2014-03-01 00:00:00 Completed [facility] TDAP 2014-03-01 00:00:00 Completed [facility] TDAP 2014-03-01 00:00:00 Completed [facility] TDAP 2014-03-01 00:00:00 Completed [facility] TDAP 2014-03-01 00:00:00 Completed [facility] TDAP 2014-03-01 00:00:00 Completed [facility] TDAP 2014-03-01 00:00:00 Completed [facility] TDAP 2014-03-01 00:00:00 Completed [facility] TDAP 2014-03-01 00:00:00 Completed [facility] TDAP 2014-03-01 00:00:00 Completed [facility] TDAP 2014-03-01 00:00:00 Completed [facility] TDAP 2014-03-01 00:00:00 Completed [facility] TDAP 2014-03-01 00:00:00 Completed [facility] TDAP 2014-03-01 00:00:00 Completed [facility] TDAP 2014-03-01 00:00:[address] [facility] DPT/HIB 1996 00:00:[address] [facility] Hep B, Adol or Pedi Dosage 1996 00:00:[address] [facility] Poliovirus, Live, Oral, Trivalent 1996 00:00:[address] [facility] DPT/HIB 1996 00:00:[address] [facility] Hep B, Adol or Pedi Dosage 1996 00:00:[address] [facility] Poliovirus, Live, Oral, Trivalent 1996 00:00:[address] [facility] DPT/HIB 1996 00:00:[address] [facility] Hep B, Adol or Pedi Dosage 1996 00:00:[address] [facility] Poliovirus, Live, Oral, Trivalent 1996 00:00:[address] [facility] DPT/HIB 1996 00:00:[address] [facility] Hep B, Adol or Pedi Dosage 1996 00:00:[address] [facility] Poliovirus, Live, Oral, Trivalent 1996 00:00:[address] [facility] DPT/HIB 1996 00:00:[address] [facility] Hep B, Adol or Pedi Dosage 1996 00:00:[address] [facility] Poliovirus, Live, Oral, Trivalent 1996 00:00:[address] [facility] DPT/HIB 1996 00:00:[address] [facility] Hep B, Adol or Pedi Dosage 1996 00:00:[address] [facility] Poliovirus, Live, Oral, Trivalent 1996 00:00:[address] [facility] DPT/HIB 1996 00:00:[address] [facility] Hep B, Adol or Pedi Dosage 1996 00:00:[address] [facility] Poliovirus, Live, Oral, Trivalent 1996 00:00:[address] [facility] DPT/HIB 1996 00:00:[address] [facility] Hep B, Adol or Pedi Dosage 1996 00:00:[address] [facility] Poliovirus, Live, Oral, Trivalent 1996 00:00:[address] [facility] DPT/HIB 1996 00:00:[address] [facility] Hep B, Adol or Pedi Dosage 1996 00:00:[address] [facility] Poliovirus, Live, Oral, Trivalent 1996 00:00:[address] [facility] DPT/HIB 1996 00:00:[address] [facility] Hep B, Adol or Pedi Dosage 1996 00:00:[address] [facility] Poliovirus, Live, Oral, Trivalent 1996 00:00:[address] [facility] DPT/HIB 1996 00:00:[address] [facility] Hep B, Adol or Pedi Dosage 1996 00:00:[address] [facility] Poliovirus, Live, Oral, Trivalent 1996 00:00:[address] [facility] DPT/HIB 1996 00:00:[address] [facility] Hep B, Adol or Pedi Dosage 1996 00:00:[address] [facility] Poliovirus, Live, Oral, Trivalent 1996 00:00:[address] [facility] DPT/HIB 1996 00:00:[address] [facility] Hep B, Adol or Pedi Dosage 1996 00:00:[address] [facility] Poliovirus, Live, Oral, Trivalent 1996 00:00:[address] [facility] DPT/HIB 1996 00:00:[address] [facility] Hep B, Adol or Pedi Dosage 1996 00:00:[address] [facility] Poliovirus, Live, Oral, Trivalent 1996 00:00:[address] [facility] DPT/HIB 1996 00:00:[address] [facility] Hep B, Adol or Pedi Dosage 1996 00:00:[address] [facility] Poliovirus, Live, Oral, Trivalent 1996 00:00:[address] [facility] DPT/HIB 1996 00:00:[address] [facility] Hep B, Adol or Pedi Dosage 1996 00:00:[address] [facility] Poliovirus, Live, Oral, Trivalent 1996 00:00:[address] [facility] DPT/HIB 1996 00:00:[address] [facility] Hep B, Adol or Pedi Dosage 1996 00:00:[address] [facility] Poliovirus, Live, Oral, Trivalent 1996 00:00:[address] [facility] DPT/HIB 1996 00:00:[address] [facility] Hep B, Adol or Pedi Dosage 1996 00:00:[address] [facility] Poliovirus, Live, Oral, Trivalent 1996 00:00:[address] [facility] DPT/HIB 1996 00:00:[address] [facility] Hep B, Adol or Pedi Dosage 1996 00:00:[address] [facility] Poliovirus, Live, Oral, Trivalent 1996 00:00:[address] [facility] DPT/HIB 1996 00:00:[address] [facility] Hep B, Adol or Pedi Dosage 1996 00:00:[address] [facility] Poliovirus, Live, Oral, Trivalent 1996 00:00:[address] [facility] DPT/HIB 1996 00:00:[address] [facility] Hep B, Adol or Pedi Dosage 1996 00:00:[address] [facility] Poliovirus, Live, Oral, Trivalent 1996 00:00:[address] [facility] DPT/HIB 1996 00:00:[address] [facility] Hep B, Adol or Pedi Dosage 1996 00:00:[address] [facility] Poliovirus, Live, Oral, Trivalent 1996 00:00:[address] [facility] DPT/HIB 1996 00:00:[address] [facility] Hep B, Adol or Pedi Dosage 1996 00:00:[address] [facility] Poliovirus, Live, Oral, Trivalent 1996 00:00:[address] [facility] DPT/HIB 1996 00:00:[address] [facility] Hep B, Adol or Pedi Dosage 1996 00:00:[address] [facility] Poliovirus, Live, Oral, Trivalent 1996 00:00:[address] [facility] DPT/HIB 1996 00:00:[address] [facility] Hep B, Adol or Pedi Dosage 1996 00:00:[address] [facility] Poliovirus, Live, Oral, Trivalent 1996 00:00:[address] [facility] DPT/HIB 1996 00:00:[address] [facility] Hep B, Adol or Pedi Dosage 1996 00:00:[address] [facility] Poliovirus, Live, Oral, Trivalent 1996 00:00:[address] [facility] DPT/HIB 1996 00:00:[address] [facility] Hep B, Adol or Pedi Dosage 1996 00:00:[address] [facility] Poliovirus, Live, Oral, Trivalent 1996 00:00:[address] [facility] DPT/HIB 1996 00:00:[address] [facility] Hep B, Adol or Pedi Dosage 1996 00:00:[address] [facility] Poliovirus, Live, Oral, Trivalent 1996 00:00:[address] [facility] DPT/HIB 1996 00:00:[address] [facility] Hep B, Adol or Pedi Dosage 1996 00:00:[address] [facility] Poliovirus, Live, Oral, Trivalent 1996 00:00:[address] [facility] DPT/HIB 1996 00:00:[address] [facility] Hep B, Adol or Pedi Dosage 1996 00:00:[address] [facility] Poliovirus, Live, Oral, Trivalent 1996 00:00:[address] [facility] DPT/HIB 1996 00:00:[address] [facility] Hep B, Adol or Pedi Dosage 1996 00:00:[address] [facility] Poliovirus, Live, Oral, Trivalent 1996 00:00:[address] [facility] DPT/HIB 1996 00:00:[address] [facility] Hep B, Adol or Pedi Dosage 1996 00:00:[address] [facility] Poliovirus, Live, Oral, Trivalent 1996 00:00:[address] [facility] DPT/HIB 1996 00:00:[address] [facility] Hep B, Adol or Pedi Dosage 1996 00:00:[address] [facility] Poliovirus, Live, Oral, Trivalent 1996 00:00:[address] [facility] DPT/HIB 1996 00:00:[address] [facility] Hep B, Adol or Pedi Dosage 1996 00:00:[address] [facility] Poliovirus, Live, Oral, Trivalent 1996 00:00:[address] [facility] Hep B, Unspecified Formulation 1996 00:00:[address] [facility] Hep B, Unspecified Formulation 1996 00:00:[address] [facility] Hep B, Unspecified Formulation 1996 00:00:[address] [facility] Hep B, Unspecified Formulation 1996 00:00:[address] [facility] Hep B, Unspecified Formulation 1996 00:00:00 Completed [facility] Hep B, Unspecified Formulation 1996 00:00:00 Completed [facility] Hep B, Unspecified Formulation 1996 00:00:00 Completed [facility] Hep B, Unspecified Formulation 1996 00:00:00 Completed [facility] Hep B, Unspecified Formulation 1996 00:00:00 Completed [facility] Hep B, Unspecified Formulation 1996 00:00:00 Completed [facility] Hep B, Unspecified Formulation 1996 00:00:00 Completed [facility] Hep B, Unspecified Formulation 1996 00:00:00 Completed [facility] Hep B, Unspecified Formulation 1996 00:00:00 Completed [facility] Hep B, Unspecified Formulation 1996 00:00:00 Completed [facility] Hep B, Unspecified Formulation 1996 00:00:00 Completed [facility] Hep B, Unspecified Formulation 1996 00:00:00 Completed [facility] Hep B, Unspecified Formulation 1996 00:00:00 Completed [facility] Hep B, Unspecified Formulation 1996 00:00:00 Completed [facility] Hep B, Unspecified Formulation 1996 00:00:00 Completed [facility] Hep B, Unspecified Formulation 1996 00:00:00 Completed [facility] Hep B, Unspecified Formulation 1996 00:00:00 Completed [facility] Hep B, Unspecified Formulation 1996 00:00:00 Completed [facility] Hep B, Unspecified Formulation 1996 00:00:00 Completed [facility] Hep B, Unspecified Formulation 1996 00:00:00 Completed [facility] Hep B, Unspecified Formulation 1996 00:00:00 Completed [facility] Hep B, Unspecified Formulation 1996 00:00:00 Completed [facility] Hep B, Unspecified Formulation 1996 00:00:00 Completed [facility] Hep B, Unspecified Formulation 1996 00:00:[address] [facility] Hep B, Unspecified Formulation 1996 00:00:[address] [facility] Hep B, Unspecified Formulation 1996 00:00:[address] [facility] Hep B, Unspecified Formulation 1996 00:00:[address] [facility] Hep B, Unspecified Formulation 1996 00:00:[address] [facility] Hep B, Unspecified Formulation 1996 00:00:[address] [facility] Hep B, Unspecified Formulation 1996 00:00:[address] [facility] TDAP Unknown Completed [facility] TDAP Unknown Completed [facility] HPV9 Unknown Completed [facility] DPT/HIB Unknown Completed [facility] Hep B, Unspecified Formulation Unknown Completed [facility] Hep B, Adol or Pedi Dosage Unknown Completed [facility] Poliovirus, Live, Oral, Trivalent Unknown Completed [facility] TDAP Unknown Completed [facility] HPV9 [address] [facility] TDAP Unknown Completed [facility] TDAP Unknown Completed [facility] HPV9 Unknown Completed [facility] DPT/HIB Unknown Completed [facility] Hep B, Unspecified Formulation Unknown Completed [facility] Hep B, Adol or Pedi Dosage Unknown Completed [facility] Poliovirus, Live, Oral, Trivalent Unknown Completed [facility] TDAP Unknown Completed [facility] TDAP Unknown Completed [facility] HPV9 Unknown Completed [facility] DPT/HIB Unknown Completed [facility] Hep B, Unspecified Formulation Unknown Completed [facility] Hep B, Adol or Pedi Dosage Unknown Completed [facility] Poliovirus, Live, Oral, Trivalent Unknown Completed [facility] TDAP Unknown Completed [facility] TDAP Unknown Completed [facility] HPV9 Unknown Completed [facility] DPT/HIB Unknown Completed [facility] Hep B, Unspecified Formulation Unknown Completed [facility] Hep B, Adol or Pedi Dosage Unknown Completed [facility] Poliovirus, Live, Oral, Trivalent Unknown Completed [facility] TDAP Unknown Completed [facility] DPT/HIB Unknown Completed [facility] Hep B, Unspecified Formulation Unknown Completed [facility] Hep B, Adol or Pedi Dosage Unknown Completed [facility] Poliovirus, Live, Oral, Trivalent Unknown Completed [facility] TDAP Unknown Com[address] [facility] TDAP Unknown Completed [facility] HPV9 Unknown Completed [facility] DPT/HIB Unknown Completed [facility] Hep B, Unspecified Formulation Unknown Completed [facility] Hep B, Adol or Pedi Dosage Unknown Completed [facility] Poliovirus, Live, Oral, Trivalent Unknown Completed [facility] TDAP Unknown Completed [facility] HPV9 [address] Com[address] [facility] Vital Signs Vital Name Observation Time Observation Value Comments S ource Systolic blood pressure 2022-11-22 20:28:00 120 mm[Hg] [facility] Diastolic blood pressure 2022-11-22 20:28:00 66 mm[Hg] [facility] Heart rate 2022-11-22 20:28:00 85 /min [facility] Body temperature 2022-11-22 20:28:[address] [facility] Respiratory rate 2022-11-22 20:28:00 20 /min [facility] Body height 2022-11-22 20:28:00 154.9 cm [facility] Body weight 2022-11-22 20:28:00 110.315 kg [facility] BMI 2022-11-22 20:28:00 45.95 kg/m2 [facility] Systolic blood pressure 2022-10-11 09:00:00 131 mm[Hg] [facility] Diastolic blood pressure 2022-10-11 09:00:00 78 mm[Hg] [facility] Heart rate 2022-10-11 09:00:00 67 /min [facility] Respiratory rate 2022-10-11 09:00:00 19 /min [facility] Oxygen saturation in Arterial blood by Pulse oximetry 2022-10-11 09:00:00 100 /min [facility] Body temperature 2022-10-11 08:24:[address] [facility] Body height 2022-10-11 08:24:00 154.9 cm [facility] 2022-10-11 08:24:00 108.863 kg [facility] BMI 2022-10-11 08:24:00 45.35 kg/m2 [facility] Systolic blood pressure 2022-10-10 19:51:00 134 mm[Hg] [facility] Diastolic blood pressure 2022-10-10 19:51:00 83 mm[Hg] [facility] Heart rate 2022-10-10 19:51:00 69 /min [facility] [facility] Body temperature 2022-10-10 19:51:[address] [facility] Respiratory rate 2022-10-10 19:51:00 18 /min [facility] Body height 2022-10-10 19:51:00 154.9 cm [facility] Body weight 2022-10-10 19:51:00 110.632 kg [facility] BMI 2022-10-10 19:51:00 46.08 kg/m2 [facility] Systolic blood pressure 2022-08-12 16:21:00 126 mm[Hg] [facility] Diastolic blood pressure 2022-08-12 16:21:00 87 mm[Hg] [facility] Heart rate 2022-08-12 16:21:00 71 /min [facility] Body temperature 2022-08-12 16:21:[address] [facility] Respiratory rate 2022-08-12 16:21:00 20 /min [facility] Body height 2022-08-12 16:21:00 154.9 cm [facility] Body weight 2022-08-12 16:21:00 112.974 kg [facility] BMI 2022-08-12 16:21:00 47.06 kg/m2 [facility] Oxygen saturation in Arterial blood by Pulse oximetry 2022-08-12 16:21:00 99 /min [facility] Systolic blood pressure 2022-08-05 12:59:00 133 mm[Hg] [facility] Diastolic blood pressure 2022-08-05 12:59:00 72 mm[Hg] [facility] Heart rate 2022-08-05 12:59:00 86 /min Unive [facility] Body temperature 2022-08-05 12:59:[address] [facility] Respiratory rate 2022-08-05 12:59:00 17 /min [facility] Oxygen saturation in Arterial blood by Pulse oximetry 2022-08-05 12:59:00 98 /min [facility] Body height 2022-08-03 04:50:00 154.9 cm [facility] Body weight 2022-08-03 04:50:00 119.568 kg [facility] BMI 2022-08-03 04:50:00 49.81 kg/m2 [facility] Systolic blood pressure 2022-08-04 13:00:00 141 mm[Hg] [facility] Diastolic blood pressure 2022-08-04 13:00:00 85 mm[Hg] [facility] Heart rate 2022-08-04 13:00:00 81 /min [facility] Oxygen saturation in Arterial blood by Pulse oximetry 2022-08-04 13:00:00 100 /min [facility] Body temperature 2022-08-04 07:00:[address] [facility] Respiratory rate 2022-08-04 07:00:00 18 /min [facility] Body height 2022-08-03 04:50:00 154.9 cm [facility] Body weight 2022-08-03 04:50:00 119.568 kg [facility] BMI 2022-08-03 04:50:00 49.81 kg/m2 [facility] Systolic blood pressure 2022-07-30 15:37:00 130 mm[Hg] [facility] Diastolic blood pressure 2022-07-30 15:37:00 60 mm[Hg] [facility] Heart rate 2022-07-30 15:26:00 98 /min Unive [facility] Body temperature 2022-07-30 15:25:[address] [facility] Respiratory rate 2022-07-30 15:25:00 18 /min [facility] Body height 2022-07-30 15:25:00 154.9 cm [facility] Body weight 2022-07-30 15:25:00 119.477 kg [facility] BMI 2022-07-30 15:25:00 49.77 kg/m2 [facility] Systolic blood pressure 2022-07-24 19:59:00 124 mm[Hg] [facility] Diastolic blood pressure 2022-07-24 19:59:00 83 mm[Hg] [facility] Heart rate 2022-07-24 19:59:00 91 /[facility] 2022-07-24 19:59:[address] [facility] Respiratory rate 2022-07-24 19:59:00 18 /min [facility] Body height 2022-07-24 19:59:00 154.9 cm [facility] Body weight 2022-07-24 19:59:00 120.158 kg [facility] BMI 2022-07-24 19:59:00 50.05 kg/m2 [facility] Systolic blood pressure 2022-07-21 23:00:00 119 mm[Hg] [facility] Diastolic blood pressure 2022-07-21 23:00:00 62 mm[Hg] [facility] Heart rate 2022-07-21 23:00:00 90 /min Unive [facility] Oxygen saturation in Arterial blood by Pulse oximetry 2022-07-21 23:00:00 100 /min [facility] Body temperature 2022-07-21 21:09:[address] [facility] Respiratory rate 2022-07-21 21:09:00 18 /min [facility] Body height 2022-07-21 21:02:00 154.9 cm [facility] Body weight 2022-07-21 21:02:00 123.832 kg [facility] BMI 2022-07-21 21:02:00 51.58 kg/m2 [facility] Systolic blood pressure 2022-07-18 21:12:00 129 mm[Hg] [facility] Diastolic blood pressure 2022-07-18 21:12:00 81 mm[Hg] [facility] Heart rate 2022-07-18 21:12:00 96 /min Unive [facility] Body temperature 2022-07-18 21:12:[address] [facility] Respiratory rate 2022-07-18 21:12:00 18 /min [facility] Body height 2022-07-18 21:12:00 154.9 cm [facility] Body weight 2022-07-18 21:12:00 118.434 kg [facility] BMI 2022-07-18 21:12:00 49.33 kg/m2 [facility] Systolic blood pressure 2022-07-13 19:37:00 124 mm[Hg] [facility] Diastolic blood pressure 2022-07-13 19:37:00 53 mm[Hg] [facility] Heart rate 2022-07-13 19:37:00 83 /min Unive [facility] Respiratory rate 2022-07-13 19:37:00 18 /min [facility] Oxygen saturation in Arterial blood by Pulse oximetry 2022-07-13 19:37:00 100 /min [facility] Body height 2022-07-13 17:30:00 154.9 cm [facility] Body weight 2022-07-13 17:30:00 118.389 kg [facility] BMI 2022-07-13 17:30:00 49.32 kg/m2 [facility] Systolic blood pressure 2022-07-04 20:13:00 120 mm[Hg] [facility] Diastolic blood pressure 2022-07-04 20:13:00 60 mm[Hg] [facility] Heart rate 2022-07-04 20:07:00 101 /min Unive [facility] Body temperature 2022-07-04 20:07:[address] [facility] Respiratory rate 2022-07-04 20:07:00 18 /min [facility] Body height 2022-07-04 20:07:00 154.9 cm [facility] Body weight 2022-07-04 20:07:00 117.754 kg [facility] BMI 2022-07-04 20:07:00 49.05 kg/m2 [facility] Systolic blood pressure 2022-06-21 19:06:00 129 mm[Hg] [facility] Diastolic blood pressure 2022-06-21 19:06:00 68 mm[Hg] [facility] Heart rate 2022-06-21 19:06:00 98 /min Unive [facility] Body temperature 2022-06-21 18:19:[address] [facility] Respiratory rate 2022-06-21 18:19:00 18 /min [facility] Body height 2022-06-21 18:19:00 154.9 cm [facility] Body weight 2022-06-21 18:19:00 115.123 kg [facility] BMI 2022-06-21 18:19:00 47.96 kg/m2 [facility] Systolic blood pressure 2022-06-07 16:29:00 124 mm[Hg] [facility] Diastolic blood pressure 2022-06-07 16:29:00 76 mm[Hg] [facility] Heart rate 2022-06-07 16:29:00 91 /min [facility] Body temperature 2022-06-07 16:29:[address] [facility] Respiratory rate 2022-06-07 16:29:00 18 /min [facility] Body height 2022-06-07 16:29:00 154.9 cm [facility] Body weight 2022-06-07 16:29:00 113.989 kg [facility] BMI 2022-06-07 16:29:00 47.48 kg/m2 [facility] Systolic blood pressure 2022-05-24 15:54:00 132 mm[Hg] [facility] Diastolic blood pressure 2022-05-24 15:54:00 78 mm[Hg] [facility] Heart rate 2022-05-24 15:54:00 96 /min Unive [facility] Body temperature 2022-05-24 15:54:[address] [facility] Respiratory rate 2022-05-24 15:54:00 24 /min [facility] Body height 2022-05-24 15:54:00 154.9 cm [facility] Body weight 2022-05-24 15:54:00 113.671 kg [facility] BMI 2022-05-24 15:54:00 47.35 kg/m2 [facility] Systolic blood pressure 2022-05-09 17:18:00 125 mm[Hg] [facility] Diastolic blood pressure 2022-05-09 17:18:00 74 mm[Hg] [facility] Heart rate 2022-05-09 17:18:00 95 /min Unive [facility] Body temperature 2022-05-09 17:18:[address] [facility] Respiratory rate 2022-05-09 17:18:00 18 /min [facility] Body height 2022-05-09 17:18:00 154.9 cm [facility] Body weight 2022-05-09 17:18:00 112.855 kg [facility] BMI 2022-05-09 17:18:00 47.01 kg/m2 [facility] Systolic blood pressure 2022-04-04 17:07:00 122 mm[Hg] [facility] Diastolic blood pressure 2022-04-04 17:07:00 73 mm[Hg] [facility] Heart rate 2022-04-04 17:07:00 86 /min Unive [facility] Body temperature 2022-04-04 17:07:[address] [facility] Respiratory rate 2022-04-04 17:07:00 17 /min [facility] Body height 2022-04-04 17:07:00 154.9 cm [facility] Body weight 2022-04-04 17:07:00 108.954 kg [facility] BMI 2022-04-04 17:07:00 45.39 kg/m2 [facility] Systolic blood pressure 2022-03-08 20:39:00 128 mm[Hg] [facility] Diastolic blood pressure 2022-03-08 20:39:00 76 mm[Hg] [facility] Heart rate 2022-03-08 20:39:00 83 /min Unive [facility] Body temperature 2022-03-08 20:39:[address] [facility] Respiratory rate 2022-03-08 20:39:00 17 /min [facility] Body height 2022-03-08 20:39:00 154.9 cm [facility] Body weight 2022-03-08 20:39:00 105.915 kg [facility] BMI 2022-03-08 20:39:00 44.12 kg/m2 [facility] Systolic blood pressure 2022-02-07 15:41:00 136 mm[Hg] [facility] Diastolic blood pressure 2022-02-07 15:41:00 75 mm[Hg] [facility] Heart rate 2022-02-07 15:41:00 83 /min Unive [facility] Body temperature 2022-02-07 15:41:[address] [facility] Respiratory rate 2022-02-07 15:41:00 18 /min [facility] Body height 2022-02-07 15:41:00 154.9 cm [facility] Body weight 2022-02-07 15:41:00 104.838 kg [facility] BMI 2022-02-07 15:41:00 43.67 kg/m2 [facility] Systolic blood pressure 2022-01-25 15:54:00 142 mm[Hg] [facility] Diastolic blood pressure 2022-01-25 15:54:00 87 mm[Hg] [facility] Heart rate 2022-01-25 15:54:00 85 /min Unive [facility] Body temperature 2022-01-25 15:54:[address] [facility] Respiratory rate 2022-01-25 15:54:00 18 /min [facility] Body height 2022-01-25 15:54:00 154.9 cm [facility] Body weight 2022-01-25 15:54:00 104.781 kg [facility] BMI 2022-01-25 15:54:00 43.65 kg/m2 [facility] Oxygen saturation in Arterial blood by Pulse oximetry 2022-01-25 15:54:00 100 /min [facility] Systolic blood pressure 2022-01-10 13:31:00 132 mm[Hg] [facility] Diastolic blood pressure 2022-01-10 13:31:00 74 mm[Hg] [facility] Heart rate 2022-01-10 13:31:00 85 /min Unive [facility] Body temperature 2022-01-10 13:31:[address] [facility] Respiratory rate 2022-01-10 13:31:00 18 /min [facility] Body height 2022-01-10 13:31:00 154.9 cm [facility] Body weight 2022-01-10 13:31:00 104.781 kg [facility] BMI 2022-01-10 13:31:00 43.65 kg/m2 [facility] Systolic blood pressure 2021-12-17 16:50:00 138 mm[Hg] [facility] Diastolic blood pressure 2021-12-17 16:50:00 80 mm[Hg] [facility] Heart rate 2021-12-17 16:50:00 78 /min Unive [facility] Body temperature 2021-12-17 16:50:[address] [facility] Respiratory rate 2021-12-17 16:50:00 17 /min [facility] Body height 2021-12-17 16:50:00 154.9 cm [facility] Body weight 2021-12-17 16:50:00 102.059 kg [facility] BMI 2021-12-17 16:50:00 42.51 kg/m2 [facility] Oxygen saturation in Arterial blood by Pulse oximetry 2021-12-17 16:50:00 100 /min [facility] Systolic blood pressure 2021-12-13 20:26:00 117 mm[Hg] [facility] Diastolic blood pressure 2021-12-13 20:26:00 75 mm[Hg] [facility] Heart rate 2021-12-13 20:26:00 74 /min [facility] Body temperature 2021-12-13 20:26:[address] [facility] Respiratory rate 2021-12-13 20:26:00 20 /min [facility] Body height 2021-12-13 20:26:00 154.9 cm [facility] Body weight 2021-12-13 20:26:00 101.923 kg [facility] BMI 2021-12-13 20:26:00 42.46 kg/m2 [facility] Systolic blood pressure 2021-11-30 13:47:00 120 mm[Hg] [facility] Diastolic blood pressure 2021-11-30 13:47:00 72 mm[Hg] [facility] Heart rate 2021-11-30 13:45:00 71 /min [facility] Body temperature 2021-11-30 13:45:[address] [facility] Respiratory rate 2021-11-30 13:45:00 18 /min [facility] Body weight 2021-11-30 13:45:00 102.377 kg [facility] BMI 2021-11-30 13:45:00 42.65 kg/m2 [facility] Procedures Procedure Date / Time Performed Performing Clinician Source CONSENT FOR CONTRACEPTION 2022-11-22 05:01:00 Doctor Unassigned, [place] [facility] POCT TEST 2022-11-22 00:00:[address] [facility] EKG-12 LEAD 2022-10-11 09:47:59 [facility] 2022-10-11 08:46:00 Syeda Dixon [facility] COMP. METABOLIC PANEL (70890) 2022-10-11 08:46:[address] [facility] CONSENT/REFUSAL FOR DIAGNOSIS AND TREATMENT 2022-10-11 08:17:57 Doctor Unassigned, [place] [facility] POCT TEST 2022-10-10 21:03:[address] [facility] ASSIGNMENT OF BENEFITS 2022-10-10 19:35:40 Docto r Unassigned, [place] [facility] CBC WITH DIFF 2022-08-05 09:23:[address] [facility] CBC WITH DIFF 2022-08-05 09:23:[address] [facility] VENOUS CORD GAS 2022-08-04 14:44:00 Columba Myers [facility] VENOUS CORD GAS 2022-08-04 14:44:00 Columba Myers [facility] SECTION 2022-08-04 13:20:00 [facility] 2022-08-04 13:20:00 Fany Spain [facility] HEPATITIS B SURFACE ANTIGEN 2022-08-03 03:31:[address] [facility] HB ABO GROUPING 2022-08-03 03:31:00 Columba Myers [facility] RHO (D) IMMUNE GLOBULIN 2022-08-03 03:31:[address] [facility] HIV 1/2 AG-AB WITH REFLEX 2022-08-03 03:31:[address] [facility] SYPHILIS IGG/IGM 2022-08-03 03:31:00 Columba Myers [facility] HEPATITIS B SURFACE ANTIGEN 2022-08-03 03:31:[address] [facility] HB ABO GROUPING 2022-08-03 03:31:00 [facility] GLOBULIN 2022-08-03 03:31:[address] [facility] HIV 1/2 AG-AB WITH REFLEX 2022-08-03 03:31:[address] [facility] SYPHILIS IGG/IGM 2022-08-03 03:31:00 [facility] 2022-08-02 05:01:00 Doctor Un assigned, [place] [facility] NON-STRESS TEST 2022-07-30 16:29:[address] [facility] POCT URINALYSIS 2022-07-30 15:28:[address] [facility] POCT URINALYSIS 2022-07-24 20:03:[address] [facility] URINALYSIS 2022-07-21 22:31:[address] [facility] CONSENT/REFUSAL FOR DIAGNOSIS AND TREATMENT 2022-07-21 05:01:00 Doctor Unassigned, [place] [facility] CONSENT/REFUSAL FOR DIAGNOSIS AND TREATMENT 2022-07-21 05:01:00 Doctor Unassigned, [place] [facility] GC & CHLAMYDIA AMPLIFIED ASSAY 2022-07-18 21:32:[address] [facility] POCT URINALYSIS 2022-07-18 21:15:[address] [facility] POCT URINALYSIS 2022-06-21 19:35:[address] [facility] HIV 1/2 AG-AB WITH REFLEX 2022-06-21 19:00:[address] [facility] SYPHILIS IGG/IGM 2022-06-21 19:00:[address] [facility] POCT URINALYSIS 2022-06-07 16:31:[address] [facility] TDAP VACCINE, >11 YRS, IM 2022-05-24 16:13:[address] [facility] POCT URINALYSIS 2022-05-24 15:59:[address] [facility] GLUCOSE 1 HOUR POST PRANDIAL 2022-05-09 18:19:[address] [facility] CBC WITH DIFF 2022-05-09 18:19:[address] [facility] POCT URINALYSIS 2022-05-09 17:26:[address] [facility] POCT URINALYSIS 2022-04-04 00:00:[address] [facility] SECOND AND THIRD TRIMESTER ULTRASOUND 2022-03-28 21:51:[address] [facility] COMP. METABOLIC PANEL (61500) 2022-03-08 21:24:[address] [facility] QUAD SCRN 2022-03-08 21:24:00 Micaela Gonzales [facility] POCT URINALYSIS 2022-03-08 00:00:[address] [facility] POCT URINALYSIS 2022-02-07 15:42:[address] [facility] POCT TEST 2022-01-25 16:49:[address] [facility] URINALYSIS 2022-01-25 16:46:00 Kennedy Rey [facility] CONSENT/REFUSAL FOR DIAGNOSIS AND TREATMENT 2022-01-25 15:49:26 Doctor Unassigned, [place] [facility] GLUCOSE 1 HOUR POST PRANDIAL 2022-01-10 14:49:[address] [facility] THYROID STIMULATING HORMONE 2022-01-10 14:49:[address] [facility] CBC WITH DIFF 2022-01-10 14:49:00 Lizette Alvarez Un [facility] GLYCOSYLATED HEMOGLOBIN (A1C) 2022-01-10 14:49:[address] [facility] URINE CULTURE 2022-01-10 14:49:[address] [facility] POCT URINALYSIS 2022-01-10 13:32:[address] [facility] POCT TEST 2021-12-17 17:29:[address] [facility] URINALYSIS 2021-12-17 17:28:00 Cece Edward Un [facility] CONSENT/REFUSAL FOR DIAGNOSIS AND TREATMENT 2021-12-17 16:42:22 Doctor Unassigned, [place] [facility] CBC WITH DIFF 2021-12-13 21:28:00 Lizette Alvarez Un [facility] HB ABO GROUPING 2021-12-13 21:18:[address] [facility] ASSIGNMENT OF BENEFITS 2021-12-13 19:14:26 Docto r Unassigned, [place] [facility] POCT TEST 2021-12-13 00:00:[address] [facility] POCT URINALYSIS W/O SPECIFIC GRAVITY 2021-12-13 00:00:[address] [facility] POCT TEST 2021-11-30 13:46:[address] [facility] Encounters Start Date/Time End Date/Time Encounter Type Admission Type Attending [facility] Care Facility Care Department Encounter ID Source 2021-02-04 11:05:46 Outpatient P [facility] [id number] [facility] 2021-02-04 11:00:26 Outpatient [facility] [id number] [facility] 2023-05-22 10:45:00 2023-05-22 10:45:00 Outpatient R [facility] [id number] [facility] 2023-02-10 13:30:00 2023-02-10 13:30:00 Outpatient R RICKY AVILEZ [facility] [id number] [facility] 2022-12-18 10:00:00 2022-12-18 10:00:00 Outpatient R [facility] [id number] [facility] 2022-12-13 09:30:00 2022-12-13 09:30:00 Outpatient R RICKY AVILEZ [facility] [id number] [facility] 2022-12-12 00:00:00 2022-12-12 00:00:00 Patient Secure Msg Ricky Avilez [facility] BI DEVELOPER [facility] 1..840.114 [id number] [facility] 2022-12-06 15:15:00 2022-12-06 15:15:00 Outpatient R RICKY AVILEZ [facility] [id number] [facility] 2022-11-29 14:30:00 2022-11-29 14:30:00 Outpatient R RICKY AVILEZ [facility] [id number] [facility] 2022-11-22 15:30:00 2022-11-22 16:00:00 Office Visit Ricky Avilez [facility] 1..840.114 [id number] [facility] 2022-11-22 15:30:00 2022-11-22 15:30:00 Outpatient R RICKY AVILEZ [facility] [id number] [facility] 2022-11-22 00:00:00 2022-11-22 00:00:00 Orders Only Doctor Unassigned, [place] [facility] [id number] [id number] [facility] 2022-11-06 00:00:00 2022-11-06 00:00:00 Telephone Ricky Avilez [facility] BI DEVELOPER [facility] & CHILD [facility] 1.0.114 [id number] [facility] 2022-10-11 03:21:00 2022-10-11 04:59:00 Emergency X DESTINY SYEDA [facility] [id number] [facility] 2022-10-11 03:21:00 2022-10-11 04:59:00 Emergency Syeda Dixon Gavin [facility] 1..114 350.1.13.10 [id number] [facility] 2022-10-10 15:00:00 2022-10-10 16:02:21 Outpatient R RICKY AVILEZ [facility] [id number] [facility] 2022-10-10 15:00:00 2022-10-10 16:02:21 Office Visit Ricky Avilez [facility] [employer] [facility] & CHILD [facility] 1..114 [id number] [id number] [facility] 2022-10-10 00:00:00 2022-10-10 00:00:00 Orders Only Doctor Unassigned, [place] [facility] 1..114 350.1.13.10 4.2.7.2.686 [id number] [facility] 2022-08-26 08:15:00 2022-08-26 08:15:00 Outpatient R RICKY AVILEZ [facility] [id number] [facility] 2022-08-12 11:00:00 2022-08-12 11:38:37 Nurse Visit Visit, Julito-Rmchp Nurse Nano Zimmer [facility] [place] [facility] DEVEL[facility] MATERNAL & CHILD [facility] 1..114 350.1.13.10 4.2.7.2.686 [id number] [facility] 2022-08-12 11:00:00 2022-08-12 11:00:00 Outpatient R NANO ZIMMER [facility] [id number] [facility] 2022-08-07 00:00:00 2022-08-07 00:00:00 Patient Secure Msg Ricky Avilez [facility] [place] [facility] MAT[facility]NAL & [facility] 1.2840.114 350.1.13.10 4.2.7.2.686 [id number] 107 [id number] [facility] 2022-08-06 09:45:00 2022-08-06 09:45:00 Outpatient R RICKY AVILEZ [facility] [id number] [facility] 2022-08-02 19:19:00 2022-08-05 15:45:00 Inpatient P ELIE ANSARI [facility] [id number] [facility] 2022-08-02 19:19:00 2022-08-05 15:45:00 [facility] 1.20.114 350.1.13.10 4.2.7.2.686 [id number] [facility] 2022-08-04 06:55:00 2022-08-04 08:53:00 Surgery Fany Spain [facility] 1.2.114 350.1.13.10 4.2.7.2.686 [id number] [facility] 2022-08-04 04:18:55 2022-08-04 04:18:55 Anesthesia Event Joyce Hoskins [facility] 1.2840.114 350.1.13.10 4.2.7.2.686 [id number] [facility] 2022-08-02 00:00:00 2022-08-02 00:00:00 Orders Only Doctor Unassigned, [place] [facility] 1..840.114 350.1.13.10 4.2.7.2.686 [id number] [facility] 2022-08-01 15:30:00 2022-08-01 15:30:00 Outpatient R RICKY AVILEZ [facility] [id number] [facility] 2022-07-30 13:45:00 2022-07-30 13:45:00 Routine Visit Ricky Avilez [facility] [place] BI DEVELOPER [facility] & CHILD [facility] 1..840.114 350.1.13.10 4.2.7.2.686 [id number] 107 [id number] [facility] 2022-07-30 13:45:00 2022-07-30 11:25:35 Outpatient R RICKY AVILEZ [facility] [id number] [facility] 2022-07-30 00:00:00 2022-07-30 00:00:00 Telephone Ricky Avilez [facility] [place] BI DEVELOPER [facility] & CHILD [facility] 1..840.114 350.1.13.10 4.2.7.2.686 [id number] 107 [id number] [facility] 2022-07-24 14:45:00 2022-07-24 15:36:38 Outpatient R RICKY AVILEZ [facility] [id number] [facility] 2022-07-24 14:45:00 2022-07-24 15:36:38 Routine Visit Ricky Avilez [facility] BI DEVELOPER [facility] & CHILD [facility] 1..840.114 350.1.13.10 4.2.7.2.686 [id number] 107 [id number] [facility] 2022-07-21 15:51:00 2022-07-21 18:29:00 Outpatient MARCIA CORDERO [facility] [id number] [facility] 2022-07-21 15:51:00 2022-07-21 18:29:00 Hospital Encounter Marcia Connolly [facility] 1.2.840.114 350.1.13.10 4.2.7.2.686 [id number] [facility] 2022-07-18 16:00:00 2022-07-18 16:23:55 Outpatient R RICKY AVILEZ [facility] [id number] [facility] 2022-07-18 16:00:00 2022-07-18 16:23:55 Routine Visit Ricky Avilez [facility] [place] BI DEVELOPER [facility] & CHILD [facility] 1.2.840.114 350.1.13.10 4.2.7.2.686 [id number] 107 [id number] [facility] 2022-07-13 12:10:00 2022-07-13 14:58:00 Outpatient [facility] [id number] [facility] 2022-07-13 12:10:00 2022-07-13 14:58:00 Hospital Encounter [facility] 1.2.840.114 350.1.13.10 4.2.7.2.686 [id number] [facility] 2022-07-11 00:00:00 2022-07-11 00:00:00 Telephone Ricky Avilez [facility] [place] BI DEVELOPER [facility] & CHILD [facility] 1..840.114 350.1.13.10 4.2.7.2.686 [id number] 107 [id number] [facility] 2022-07-04 14:45:00 2022-07-04 15:40:46 Outpatient R RICKY AVILEZ [facility] [id number] [facility] 2022-07-04 14:45:00 2022-07-04 15:40:46 Routine Visit Ricky Avilez [facility] [place] BI DEVELOPER [facility] & CHILD [facility] 1..840.114 350.1.13.10 4.2.7.2.686 [id number] 107 [id number] [facility] 2022-06-21 12:45:00 2022-06-21 14:11:23 Outpatient R RICKY AVILEZ [facility] [id number] [facility] 2022-06-21 12:45:00 2022-06-21 14:11:23 Routine Visit Ricky Avilez [facility] [place] BI DEVELOPER [facility] & CHILD [facility] 1..840.114 350.1.13.10 4.2.7.2.686 [id number] 107 [id number] [facility] 2022-06-07 10:15:00 2022-06-07 10:55:55 Outpatient R RICKY AVILEZ [facility] [id number] [facility] 2022-06-07 10:15:00 2022-06-07 10:55:55 Routine Visit Ricky Avilez [facility] [place] BI DEVELOPER [facility] & CHILD [facility] 1..840.114 350.1.13.10 4.2.7.2.686 [id number] 107 [id number] [facility] 2022-05-24 09:30:00 2022-05-24 10:51:26 Outpatient R MICAELA GONZALES [facility] [id number] [facility] 2022-05-24 09:30:00 2022-05-24 10:51:26 Routine Visit Provider, Micaela Santiago [facility] [place] BI DEVELOPER [facility] & CHILD [facility] 1..840.114 350.1.13.10 4.2.7.2.686 [id number] 107 [id number] [facility] 2022-05-09 13:00:00 2022-05-09 14:00:00 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 MATERNAL & CHILD [facility] ..840.114 350.1.13.10 4.2.7.2.686 [id number] [facility] 2022-05-09 13:00:00 2022-05-09 13:44:16 Outpatient Mckenna COLEMAN SWARTZY [facility] [id number] [facility] 2022-05-09 10:45:00 2022-05-09 12:09:06 Outpatient MICAELA REDDY [facility] [id number] [facility] 2022-05-09 10:45:00 2022-05-09 12:09:06 Routine Visit Provider, Micaela Santiago [facility] [place] BI [facility] MATERNAL & CHILD [facility] ..840.114 350.1.13.10 4.2.7.2.686 [id number] 107 [id number] [facility] 2022-05-09 00:00:00 2022-05-09 00:00:00 Abstract Ricky Avilez [facility] [place] BI DEVELOPER [facility] & CHILD [facility] ..840.114 350.1.13.10 4.2.7.2.686 [id number] 107 [id number] [facility] 2022-05-02 10:45:00 2022-05-02 10:45:00 Outpatient MICAELA REDDY [facility] [id number] [facility] 2022-04-04 10:45:00 2022-04-04 11:46:22 Outpatient MICAELA REDDY [facility] [id number] [facility] 2022-04-04 10:45:00 2022-04-04 11:46:22 Routine Visit Provider, Micaela Santiago [facility] [place] [facility] MAT[facility]NAL & CHILD [facility] ..840.114 350.1.13.10 4.2.7.2.686 [id number] 107 [id number] [facility] 2022-04-04 00:00:00 2022-04-04 00:00:00 Abstract Ricky Avilez [facility] [place] BI [facility] MATERNAL & CHILD [facility] 1.2.840.114 350.1.13.10 4.2.7.2.686 [id number] [facility] 2022-03-28 14:45:00 2022-03-28 16:11:00 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 1, [facility] Room Fany Spain [facility] [place] BI [facility] MAT[facility]NAL & CHILD [facility] 1..840.114 350.1.13.10 4.2.7.2.686 [id number] [facility] 2022-03-28 14:45:00 2022-03-28 14:45:00 Out[facility] [id number] [facility] 2022-03-28 11:00:00 2022-03-28 11:00:00 Outpatient P [facility] [id number] [facility] 2022-03-08 13:45:00 2022-03-08 15:24:24 Routine Visit Provider, IlsaRmchp Micaela Ordonez [facility] [place] [facility] MAT[facility]NAL & CHILD [facility] 1..840.114 350.1.13.10 4.2.7.2.686 [id number] 107 [id number] [facility] 2022-03-08 13:45:00 2022-03-08 15:24:24 Outpatient MICAELA REDDY [facility] [id number] [facility] 2022-03-07 16:00:00 2022-03-07 16:00:00 Outpatient R RICKY AVILEZ [facility] [id number] [facility] 2022-02-11 00:00:00 2022-02-11 00:00:00 Telephone Ricky Avilez [facility] [place] BI [facility] MAT[facility]NAL & CHILD [facility] 1.2.840.114 350.1.13.10 4.2.7.2.686 [id number] 107 [id number] [facility] 2022-02-07 10:30:00 2022-02-07 11:33:09 Outpatient R FATMATA RICKY [facility] [id number] [facility] 2022-02-07 10:30:00 2022-02-07 11:33:09 Routine Visit Ricky Avilez Syed [facility] [place] BI DEVELOPER [facility] & CHILD [facility] 1.2.840.114 350.1.13.10 4.2.7.2.686 [id number] 107 [id number] [facility] 2022-01-25 10:55:00 2022-01-25 13:13:00 Emergency X KENNEDY REY [facility] [id number] [facility] 2022-01-25 10:55:00 2022-01-25 13:13:00 Emergency Kennedy Rey [facility] 1.2.840.114 350.1.13.10 4.2.7.2.686 [id number] [facility] 2022-01-14 00:00:00 2022-01-14 00:00:00 Patient Secure Msg Ricky Avilez Syed [facility] [place] BI DEVELOPER [facility] & CHILD [facility] 1.2.840.114 350.1.13.10 4.2.7.2.686 [id number] 107 [id number] [facility] 2022-01-11 00:00:00 2022-01-11 00:00:00 Patient Secure Msg Ricky Avilez [facility] BI DEVELOPER [facility] & CHILD [facility] 1.2.840.114 350.1.13.10 4.2.7.2.686 [id number] 107 [id number] [facility] 2022-01-10 08:00:00 2022-01-10 08:54:12 Outpatient R RICKY AVILEZ [facility] [id number] [facility] 2022-01-10 08:00:00 2022-01-10 08:54:12 Routine Visit Ricky Avilez [facility] [place] BI [facility] MATERNAL & CHILD [facility] .840.114 350.1.13.10 4.2.7.2.686 [id number] 107 [id number] [facility] 2021-12-31 00:00:00 2021-12-31 00:00:00 Abstract Lizette Alvarez [facility] [place] BI 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 MATERNAL & CHILD [facility] .840.114 350.1.13.10 4.2.7.2.686 [id number] [facility] 2021-12-28 13:00:00 2021-12-28 13:27:32 Outpatient P ALY SWARTZ [facility] [id number] [facility] 2021-12-20 00:00:00 2021-12-20 00:00:00 Telephone Ricky Avilez [facility] [facility] MATERNAL & CHILD [facility] .840.114 350.1.13.10 4.2.7.2.686 [id number] 107 [id number] [facility] 2021-12-20 00:00:00 2021-12-20 00:00:00 Patient Secure Adelaide Duenas [facility] [facility] MATERNAL & CHILD [facility] 1.2.840.114 350.1.13.10 4.2.7.2.686 [id number] [facility] 2021-12-17 11:51:00 2021-12-17 14:43:00 Emergency X CHEYANNE CECE [facility] [id number] [facility] 2021-12-17 11:51:00 2021-12-17 14:43:00 Emergency Cheyanne Cece [facility] 1.2.840.114 350.1.13.10 4.2.7.2.686 [id number] [facility] 2021-12-17 00:00:00 2021-12-17 00:00:00 Telephone Ricky Avilez [facility] [place] BI [facility] MATERNAL & CHILD [facility] 1.2.840.114 350.1.13.10 4.2.7.2.686 [id number] 107 [id number] [facility] 2021-12-16 00:00:00 2021-12-16 00:00:00 Lizette Villnaueva [facility] [place] BI [facility] MATERNAL & CHILD [facility] 1.2.840.114 350.1.13.10 4.2.7.2.686 [id number] 107 [id number] [facility] 2021-12-14 00:00:00 2021-12-14 00:00:00 Telephone Jared Mcmanus [facility] [place] BI [facility] MATERNAL & CHILD [facility] 1.2.840.114 350.1.13.10 4.2.7.2.686 [id number] 107 [id number] [facility] 2021-12-13 14:45:00 2021-12-13 16:29:38 Outpatient LIZETTE HOROWITZ EMILY [facility] [id number] [facility] 2021-12-13 14:45:00 2021-12-13 16:29:38 Initial Visit Provider, Ang-Rmchp Lizette Potts [facility] [place] BI DEVELOPER [facility] & CHILD [facility] 1..840.114 350.1.13.10 4.2.7.2.686 [id number] [facility] 2021-12-13 15:45:00 2021-12-13 15:45:00 Outpatient ADELAIDE SON [facility] [id number] [facility] 2021-12-13 00:00:00 2021-12-13 00:00:00 Orders Only Doctor Unassigned, [place] [facility] 1..840.114 350.1.13.10 4.2.7.2.686 [id number] [facility] 2021-12-13 00:00:00 2021-12-13 00:00:00 Refill Lizette Alvarez [facility] [place] BI DEVELOPER [facility] 1..840.114 350.1.13.10 4.2.7.2.686 [id number] 107 [id number] [facility] 2021-11-30 08:30:00 2021-11-30 09:19:57 Outpatient ADELAIDE SON [facility] [id number] [facility] 2021-11-30 08:30:00 2021-11-30 09:19:57 Office Visit Adelaide Malagon [facility] [place] BI DEVELOPER [facility] & CHILD [facility] 1..840.114 350.1.13.10 4.2.7.2.686 [id number] 107 [id number] [facility] 2021-10-31 10:15:00 2021-10-31 10:15:00 Outpatient RICKY COATES [facility] [id number] [facility] 2021-10-18 00:00:00 2021-10-18 00:00:00 Telephone Lizette Alvarez [facility] [place] BI DEVELOPER [facility] & CHILD [facility] 1.840.114 350.1.13.10 4.2.7.2.686 [id number] 107 [id number] [facility] 2021-10-17 15:15:00 2021-10-17 16:28:09 Outpatient R LIZETTE ALVAREZ EMILY [facility] [id number] [facility] 2021-10-17 15:15:00 2021-10-17 16:28:09 Office Visit Provider, Lizette Ramirez [facility] [place] BI DEVELOPER [facility] CHILD [facility] 1.840.114 350.1.13.10 4.2.7.2.686 [id number] 107 [id number] [facility] 2021-10-17 15:15:00 2021-10-17 16:28:09 Outpatient R LIZETTE ALVAREZ [facility] [id number] [facility] 2021-10-17 09:00:00 2021-10-17 09:00:00 Outpatient R RICKY AVILEZ [facility] [id number] [facility] 2021-10-05 00:00:00 2021-10-05 00:00:00 Telephone Adelaide Malagon [facility] [place] BI DEVELOPER [facility] & CHILD [facility] ..840.114 350.1.13.10 4.2.7.2.686 [id number] 107 [id number] [facility] 2021-10-03 07:45:00 2021-10-03 08:48:34 Outpatient R ADELAIDE MALAGON [facility] [id number] [facility] 2021-10-03 07:45:00 2021-10-03 08:48:34 Office Visit Adelaide Malagon [facility] [place] BI DEVELOPER [facility] & CHILD [facility] 1..840.114 350.1.13.10 4.2.7.2.686 [id number] 107 [id number] [facility] 2021-10-03 00:00:00 2021-10-03 00:00:00 Orders Only Doctor Unassigned, [place] [facility] 1.114 350.1.13.10 4.2.7.2.686 [id number] [facility] 2020-12-28 15:00:00 2020-12-28 15:00:00 Outpatient R [facility] [id number] [facility] 2020-10-30 15:00:00 2020-10-30 15:00:00 Outpatient R [facility] [id number] [facility] 2020-09-29 10:15:00 2020-09-29 10:15:00 Outpatient R ADELAIDE MALAGON [facility] [id number] [facility] 2020-09-28 00:00:00 2020-09-28 00:00:00 Telephone Ricky Avilez [facility] [place] BI DEVELOPER [facility] & CHILD [facility] 1..114 350.1.13.10 4.2.7.2.686 [id number] 107 [id number] [facility] 2020-09-27 14:20:51 2020-09-27 15:29:27 Office Visit Ricky Avilez [facility] [place] BI DEVELOPER [facility] & CHILD [facility] 1..114 350.1.13.10 4.2.7.2.686 [id number] 107 [id number] [facility] 2020-09-27 14:15:00 2020-09-27 14:15:00 Outpatient R RICKY AVILEZ [facility] [id number] [facility] 2020-09-08 11:03:54 2020-09-08 11:35:50 Routine Visit Adelaide Malagon [facility] BI DEVELOPER [facility] & CHILD [facility] 1..114 350.1.13.10 4.2.7.2.686 [id number] 107 [id number] [facility] 2020-09-08 10:45:00 2020-09-08 10:45:00 Outpatient ANA SONMARCIO [facility] [id number] [facility] 2020-09-08 10:30:00 2020-09-08 10:30:00 Outpatient ADELAIDE SON [facility] [id number] [facility] 2020-08-24 00:00:00 2020-08-24 00:00:00 Telephone Lizette Dixon [facility] [place] BI DEVELOPER [facility] & CHILD [facility] 1.2.840.114 350.1.13.10 4.2.7.2.686 [id number] 107 [id number] [facility] 2020-08-22 13:33:00 2020-08-22 13:48:00 Nurse Visit Visit, [facility] Ricky Mejía [facility] [place] BI DEVELOPER [facility] & CHILD [facility] 1.2.840.114 350.1.13.10 4.2.7.2.686 [id number] 107 [id number] [facility] 2020-08-22 13:30:00 2020-08-22 13:30:00 Outpatient RICKY COATES [facility] [id number] [facility] 2020-08-18 11:00:00 2020-08-18 11:00:00 Outpatient RICKY COATES [facility] [id number] [facility] 2020-08-13 20:50:00 2020-08-17 17:05:00 Hospital Encounter Jarde Mcmanus Hassan M [facility] 1.2.840.114 350.1.13.10 4.2.7.2.686 [id number] [facility] 2020-08-17 00:00:00 2020-08-17 00:00:00 Encounter 1.2.840.1 [id number] 3.104.2.7 [id number] 1.2.840.114 350.1.13.10 4.2.7.2.696 [id number] [facility] 2020-08-17 00:00:00 2020-08-17 00:00:00 [facility].114 350.1.13.10 4.2.7.2.686 [id number] [facility] 2020-08-15 11:50:00 2020-08-15 13:39:00 [facility] 1.2840.114 350.1.13.10 4.2.7.2.686 [id number] [facility] 2020-08-13 00:00:00 2020-08-13 00:00:00 Orders Only Doctor Unassigned, [place] [facility] 1.2840.114 350.1.13.10 4.2.7.2.686 [id number] [facility] 2020-08-11 11:00:00 2020-08-11 11:00:00 Outpatient RICKY COATES [facility] [id number] [facility] 2020-07-28 10:52:44 2020-07-28 11:24:35 Routine Visit Ricky Avilez [facility] [place] BI DEVELOPER [facility] MATERNAL & [facility] 1.2.840.114 350.1.13.10 4.2.7.2.686 [id number] 107 [id number] [facility] 2020-07-28 10:45:00 2020-07-28 10:45:00 Outpatient RICKY COATES [facility] [id number] [facility] 2020-07-25 09:36:57 2020-07-25 09:56:57 Urgent Care Provider, [facility] Neida Solis [facility] [address] 1.840.114 350.1.13.10 4.2.7.2.686 [id number] [facility] 2020-07-25 09:40:00 2020-07-25 09:40:00 Outpatient R [facility] [id number] [facility] 2020-07-25 00:00:00 2020-07-25 00:00:00 Letter (Out) WillNeida [facility] [address] [facility] 1.840.114 350.1.13.10 4.2.7.2.686 [id number] [facility] 2020-07-24 00:00:00 2020-07-24 00:00:00 Telephone Ricky Avilez [facility] [place] BI DEVELOPER [facility] MATER[facility] 1.840.114 350.1.13.10 4.2.7.2.686 [id number] [facility] 2020-07-14 10:26:16 2020-07-14 11:03:01 Routine Visit Ricky Avilez [facility] [employer] DEVELOPER [facility] & [facility]ILD [facility] 1.840.114 350.1.13.10 4.2.7.2.686 [id number] 107 [id number] [facility] 2020-07-14 10:45:00 2020-07-14 10:45:00 Outpatient R RICKY AVILEZ [facility] [id number] [facility] 2020-07-10 00:00:00 2020-07-10 00:00:00 Nurse Triage Jeannette Villarreal [facility] 1.0.114 350.1.13.10 4.2.7.2.686 [id number] [facility] 2020-06-29 09:32:20 2020-06-29 10:11:49 Routine Visit Ricky Avilez [facility] [employer] DEV[employer] [facility] & [facility] 1.840.114 350.1.13.10 4.2.7.2.686 [id number] [facility] 2020-06-29 09:30:00 2020-06-29 09:30:00 Outpatient R RICKY AVILEZ [facility] [id number] [facility] 2020-06-16 00:00:00 2020-06-16 00:00:00 [facility] 1.0.114 350.1.13.10 4.2.7.2.686 [id number] [facility] 2020-06-15 10:40:50 2020-06-15 11:30:51 Routine Visit Ricky Avilez [facility] [employer] DEVEL[employer] [facility] 1.0.114 350.1.13.10 4.2.7.2.686 [id number] [facility] 2020-06-15 10:45:00 2020-06-15 10:45:00 Outpatient R RICKY AVILEZ [facility] [id number] [facility] 2020-06-08 00:00:00 2020-06-08 00:00:00 Telephone Ricky Avilez [facility] [employer] DEVEL[employer] [facility] & [facility] 1.0.114 350.1.13.10 4.2.7.2.686 [id number] 107 [id number] [facility] 2020-06-07 08:07:07 2020-06-07 08:21:51 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 Lab, [facility] Ricky Avilez [facility] [employer] [facility] & [facility]ILD [facility] 1.2840.114 350.1.13.10 4.2.7.2.686 [id number] [facility] 2020-06-07 08:00:00 2020-06-07 08:00:00 Outpatient R RICKY AVILEZ [facility] [id number] [facility] 2020-06-02 00:00:00 2020-06-02 00:00:00 Telephone Ricky Avilez Syed [facility] [employer] DEVEL[employer] [facility] 1..840.114 350.1.13.10 4.2.7.2.686 [id number] [facility] 2020-06-01 09:08:05 2020-06-01 09:53:33 Routine Visit Sreerolandnia Ricky Lynch [facility] [employer] DEVEL[employer] [facility] & [facility]ILD [facility] 1..840.114 350.1.13.10 4.2.7.2.686 [id number] [facility] 2020-06-01 09:15:00 2020-06-01 09:15:00 Outpatient R RANDY AVILEZILOLA [facility] [id number] [facility] 2020-05-19 00:00:00 2020-05-19 00:00:00 Abstract Adelaide Malagon [facility] [employer] DEVEL[employer] [facility] & CHILD [facility] 1..840.114 350.1.13.10 4.2.7.2.686 [id number] [facility] 2020-05-18 08:04:42 2020-05-18 08:42:46 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ERNAL & CHILD [facility] 1.2.840.114 350.1.13.10 4.2.7.2.686 [id number] [facility] 2020-05-09 12:45:11 2020-05-09 13:23:31 Routine Visit Ricky Avilez [facility] [employer] DEVELOPER [facility] & CHILD [facility] 1.2.840.114 350.1.13.10 4.2.7.2.686 [id number] [facility] 2020-05-09 12:45:00 2020-05-09 12:45:00 Outpatient R RICKY AVILEZ [facility] [id number] [facility] 2020-04-25 00:00:00 2020-04-25 00:00:00 Patient Secure Msg Doctor Unassigned, [place] [facility] BI DEVELOPER [facility] CHILD [facility] 1.2840.114 350.1.13.10 4.2.7.2.686 [id number] [facility] 2020-04-18 00:00:00 2020-04-18 00:00:00 Abstract Adelaide Malagon [facility] BI DEVELOPER [facility] CHILD [facility] 1.2.840.114 350.1.13.10 4.2.7.2.686 [id number] [facility] 2020-04-17 12:57:46 2020-04-17 14:12:46 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 Ultrasound, Clarissa Dunlap [facility] [place] BI DEVELOPER [facility] & CHILD [facility] 1.2.840.114 350.1.13.10 4.2.7.2.686 [id number] [facility] 2020-04-17 13:00:00 2020-04-17 13:00:00 Outpatient P [facility] [id number] [facility] 2020-04-11 08:06:51 2020-04-11 08:47:38 Routine Visit SreerolandniaRicky Syed [facility] [place] BI DEVELOPER [facility] & CHILD [facility] 1.2.840.114 350.1.13.10 4.2.7.2.686 [id number] [facility] 2020-04-11 08:00:00 2020-04-11 08:00:00 Outpatient R FATMATA RICKY [facility] [id number] [facility] 2020-03-09 00:00:00 2020-03-09 00:00:00 Telephone FatmataRandyRicky C [facility] [employer] DEVELOPER [facility] CHILD [facility] 1.840.114 350.1.13.10 4.2.7.2.686 [id number] [facility] 2020-03-08 10:31:40 2020-03-08 10:55:43 Routine Visit Sreerolandnia Ricky C [facility] BI DEVELOPER [facility] CHILD [facility] 1.840.114 350.1.13.10 4.2.7.2.686 [id number] [facility] 2020-03-08 10:31:40 2020-03-08 10:55:43 Routine Visit Fatmata Ricky C [facility] BI DEVELOPER [facility] & CHILD [facility] 1.2840.114 350.1.13.10 4.2.7.2.686 [id number] 2020-03-08 10:45:00 2020-03-08 10:45:00 Outpatient R FATMATA RICKY [facility] [id number] [facility] 2020-03-05 00:00:00 2020-03-05 00:00:00 Refill Doctor Unassigned, [place] [facility] [employer] DEVELOPER [facility] & CHILD [facility] 1.840.114 350.1.13.10 4.2.7.2.686 [id number] [facility] 2020-02-16 11:30:00 2020-02-16 11:30:00 Outpatient R [facility] [id number] [facility] 2020-02-14 00:00:00 2020-02-14 00:00:00 Telephone Ricky Avilez [facility] [place] BI DEVELOPER [facility] MATERNAL & CHILD [facility] 1.2.840.114 350.1.13.10 4.2.7.2.686 [id number] [facility] 2020-02-14 00:00:00 2020-02-14 00:00:00 Abstract MalagonAdelaide [facility] [place] BI DEVELOPER [facility] MATERNAL & CHILD [facility] 1.2.840.114 350.1.13.10 4.2.7.2.686 [id number] [facility] 2020-02-14 00:00:00 2020-02-14 00:00:00 Telephone Ricky Avilez [facility] [place] BI DEVELOPER [facility] MATERNAL & CHILD [facility] 1.2.840.114 350.1.13.10 4.2.7.2.686 [id number] 2020-02-14 00:00:00 2020-02-14 00:00:00 Abstract Luis FernandoAdelaide [facility] [place] BI DEVELOPER [facility] MATERNAL & CHILD [facility] 1.2.840.114 350.1.13.10 4.2.7.2.686 [id number] 2020-02-11 13:04:58 2020-02-11 13:34:58 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 1, [facility] Room Jared Mcmanus [facility] [place] BI DEVELOPER [facility] MAT[facility]NAL & [facility]ILD [facility] 1.2.840.114 350.1.13.10 4.2.7.2.686 [id number] [facility] 2020-02-11 13:04:58 2020-02-11 13:34:58 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 1, [facility] Room [facility] [place] BI DEVEL[facility] 1.2.840.114 350.1.13.10 4.2.7.2.686 [id number] 2020-02-11 13:00:00 2020-02-11 13:00:00 Outpatient R [facility] [id number] [facility] 2020-02-09 09:56:57 2020-02-09 10:54:32 Initial Visit Ricky Avilez [facility] [place] BI DEVELOPER [facility] MATERNAL & CHILD [facility] 1.2.840.114 350.1.13.10 4.2.7.2.686 [id number] [facility] 2020-02-09 10:00:00 2020-02-09 10:00:00 Outpatient R RICKY AVILEZ [facility] [id number] [facility] 2020-02-09 00:00:00 2020-02-09 00:00:00 Orders Only Doctor Unassigned, [place] [facility] 1.2.840.114 350.1.13.10 4.2.7.2.686 [id number] [facility] 2020-02-09 00:00:00 2020-02-09 00:00:00 Telephone Ricky Avilez [facility] [place] BI DEVELOPER [facility] & CHILD [facility] 1.2.840.114 350.1.13.10 4.2.7.2.686 [id number] [facility] 2020-02-09 00:00:00 2020-02-09 00:00:00 Telephone Ricky Avilez [facility] [place] BI DEVELOPER [facility] & CHILD [facility] 1.2.840.114 350.1.13.10 4.2.7.2.686 [id number] Results Test Description Test Time Test Comments Results Result Co mments Source [facility] [id number] 20:30:00* Test Item Value Reference Range Interpretation Comme nts POCT PREG (test code = 1605) Negative On board controls acceptable with C Line (test code = 3574) Yes POCT PREG LOT # (test code = 3575) POCT PREG TEST DATE ( test code = 3576) [facility] [id number] 09:35:19* Test Item Value Reference Range Interpretation Comme nts TROPONIN I (test code = 7685348739) 0.000 ng/mL <=0.034 BENTON (test code = BENTON) Reference (Normal) Range (defined by the 99th percentile reference limit): <= 0.034 ng/mL Note: Cardiac troponin begins to rise 3-4 hours after the onset of ischemia. Repeat in 4-6 hours if the sample was drawn within 3-4 hours of the onset of the symptom and found normal. Diagnosis of myocardial injury is made with acute changes in cTn concentrations with at least one serial sample above the 99th percentile upper reference limit (URL), taken together with the patient's clinical presentation. Biotin has been reported to cause a negative bias, interpret results relative to patient's use of biotin. Lab Interpretation (test code = 56106-6) Normal [facility] METABOLIC PANEL ([id number])2022-10-11 09:23:58* Test Item Value Reference Range Interpretation Comme nts NA (test code = 1390547869) 142 mmol/L 135-145 K (test code = 4434753324) 4.3 mmol/L 3.5-5.0 CL (test code = 4608451933) 109 mmol/L 98-108 H CO2 TOTAL (test code = 8083673754) 24 mmol/L 23-31 AGAP (test code = 2668726070) 9 2-16 BUN (test code = 7184319933) 10 mg/dL 7-23 GLUCOSE (test code = 8354634429) 96 mg/dL 70-110 CREATININE (test code = 7620682621) 0.58 mg/dL 0.50-1.04 TOTAL BILI (test code = 7799350812) 0.5 mg/dL 0.1-1.1 CALCIUM (test code = 0849577458) 8.9 mg/dL 8.6-10.6 T PROTEIN (test code = 3803982597) 7.1 g/dL 6.3-8.2 ALBUMIN (test code = 7554198435) 4.3 g/dL 3.5-5.0 ALK PHOS (test code = 8329558884) 69 U/L 34-122 ALTv (test code = 1742-6) 29 U/L 5-35 AST(SGOT) (test code = 7254248457) 25 U/L 13-40 eGFR (test code = 7812007161) 125.7 mL/min/1.73m2 BENTON (test code = BENTON) Association of [...] or abnormalities in imaging tests). Lab Interpretation (test code = 23718-8) Abnormal [facility] [id number] 21:03:00* Test Item Value Reference Range Interpretation Comme nts POCT PREG (test code = 1605) Negative On board controls acceptable with C Line (test code = 3574) Yes POCT PREG LOT # (test code = 3575) POCT PREG TEST DATE ( test code = 3576) [facility] [id number] 21:03:00* Test Item Value Reference Range Interpretation Comme nts POCT PREG (test code = 1605) Negative On board controls acceptable with C Line (test code = 3574) Yes POCT PREG LOT # (test code = 3575) POCT PREG TEST DATE ( test code = 3576) [facility] (D) IMMUNE [id number] 17:21:59* Test Item Value Reference Range Interpretation Comme nts RHIG CANDIDATE? (test code = 5188) No- see comment Patient is not a candidate for RhIg- Patient is Rh Positive.Performed at [facility] Laboratory Services [facility] Blood [address] [address] Free: [phone] No. [id number] [facility] (D) IMMUNE [id number] 17:21:59* Test Item Value Reference Range Interpretation Comme nts RHIG CANDIDATE? (test code = 5188) No- see comment Patient is not a candidate for RhIg- Patient is Rh Positive.Performed at [facility] Laboratory Services - [facility] Blood [address] Free: [phone] No. [id number] [facility] CORD [id number] 15:13:25* Test Item Value Reference Range Interpretation Comme nts VENOUS BASE EXCESS, CORD (test code = 6767876592) -4.6 mEq/L VENOUS PH, CORD (test code = 5903699902) 7.33 7.25-7.45 VENOUS PC02, CORD (test code = 8608864526) 41 See_Comment [Automated messa ge] The system which generated this result transmitted reference range: 27 - 49 mmHg. The reference range was not used to interpret this result as normal/abnormal. VENOUS PO2, CORD (test code = 8890736593) 28 See_Comment [Automated me ssage] The system which generated this result transmitted reference range: 17 - 41 mmHg. The reference range was not used to interpret this result as normal/abnormal. VENOUS BICARBONATE, CORD (test code = 9233576342) 21 See_Comment QUES [Automated message] The system which generated this result transmitted reference range: 12 - 29 mEq/L. The reference range was not used to interpret this result as normal/abnormal. [facility] [id number] 15:13:25* Test Item Value Reference Range Interpretation Comme nts VENOUS BASE EXCESS, CORD (test code = 6819242559) -4.6 mEq/L VENOUS PH, CORD (test code = 6207725181) 7.33 7.25-7.45 VENOUS PC02, CORD (test code = 3853393887) 41 See_Comment [Automated messa ge] The system which generated this result transmitted reference range: 27 - 49 mmHg. The reference range was not used to interpret this result as normal/abnormal. VENOUS PO2, CORD (test code = 9653716691) 28 See_Comment [Automated me ssage] The system which generated this result transmitted reference range: 17 - 41 mmHg. The reference range was not used to interpret this result as normal/abnormal. VENOUS BICARBONATE, CORD (test code = 4423537664) 21 See_Comment QUES [Automated message] The system which generated this result transmitted reference range: 12 - 29 mEq/L. The reference range was not used to interpret this result as normal/abnormal. [facility] CORD [id number] 15:10:44* Test Item Value Reference Range Interpretation Comme nts BASE EXCESS, CORD (test code = 9150842853) -3.7 mEq/L QUES AC PH, CORD (BEAKER) (test code = 1855056192) 7.26 7.18-7.38 PC02, CORD (test code = 6128617377) 56 See_Comment [Automated messa ge] The system which generated this result transmitted reference range: 32 - 66 mmHg. The reference range was not used to interpret this result as normal/abnormal. PO2, CORD (test code = 8910836860) 10 See_Comment [Automated messa ge] The system which generated this result transmitted reference range: 10 - 30 mmHg. The reference range was not used to interpret this result as normal/abnormal. BICARBONATE, CORD (test code = 8478382578) 24 See_Comment [Automated messa ge] The system which generated this result transmitted reference range: 17 - 27 mEq/L. The reference range was not used to interpret this result as normal/abnormal. [facility] CORD [id number] 15:10:44* Test Item Value Reference Range Interpretation Comme nts BASE EXCESS, CORD (test code = 8257002801) -3.7 mEq/L QUES AC PH, CORD (BEAKER) (test code = 9945124436) 7.26 7.18-7.38 PC02, CORD (test code = 1273829146) 56 See_Comment [Automated messa ge] The system which generated this result transmitted reference range: 32 - 66 mmHg. The reference range was not used to interpret this result as normal/abnormal. PO2, CORD (test code = 0564394617) 10 See_Comment [Automated messa ge] The system which generated this result transmitted reference range: 10 - 30 mmHg. The reference range was not used to interpret this result as normal/abnormal. BICARBONATE, CORD (test code = 5300724527) 24 See_Comment [Automated messa ge] The system which generated this result transmitted reference range: 17 - 27 mEq/L. The reference range was not used to interpret this result as normal/abnormal. [facility] ONLY - SYPHILIS [id number] 16:13:17* Test Item Value Reference Range Interpretation Comme nts Syphilis IgG/IgM (test code = 01727-8) Non-reactive Non-reactive BENTON (test code = BENTON) Non-reactive - No serologic evidence of T. pallidum infection. Cannot exclude incubating or early syphilis. Submit a second specimen in 2-4 weeks if syphilis is clinically suspected. Equivocal - Further testing to follow. Reactive - Further testing to follow. Lab Interpretation (test code = 24620-9) Normal [facility] ONLY - SYPHILIS [id number] 16:13:17* Test Item Value Reference Range Interpretation Comme nts Syphilis IgG/IgM (test code = 68531-4) Non-reactive Non-reactive BENTON (test code = BENTON) Non-reactive - No serologic evidence of T. pallidum infection. Cannot exclude incubating or early syphilis. Submit a second specimen in 2-4 weeks if syphilis is clinically suspected. Equivocal - Further testing to follow. Reactive - Further testing to follow. Lab Interpretation (test code = 04089-6) [facility] [id number] 05:16:26* Test Item Value Reference Range Interpretation Comme nts HIV Semi-quantitative (test code = 65221-0) 0.08 Negative BENTON (test code = BENTON) Non-reactive for HIV-1 antigen and HIV-1/HIV-2 antibodies. ?No laboratory evidence of HIV infection. ?Repeat in 2-4 weeks if acute HIV infection is suspected. [facility] WITH [id number] 05:16:26* Test Item Value Reference Range Interpretation Comme nts HIV Semi-quantitative (test code = 33904-1) 0.08 Negative BENTON (test code = BENTON) Non-reactive for HIV-1 antigen and HIV-1/HIV-2 antibodies. ?No laboratory evidence of HIV infection. ?Repeat in 2-4 weeks if acute HIV infection is suspected. [facility] B Surface [id number] 05:07:25 * Test Item Value Reference Range Interpretation Comme nts HBsAg Semi-Quantitative (damian t code = 5195-3) 0.06 Negative [facility] B Surface [id number] 05:07:25 * Test Item Value Reference Range Interpretation Comme nts HBsAg Semi-Quantitative (damian t code = 5195-3) 0.06 Negative [facility] and Screen - ONCE [id number] 04:09:00 * Test Item Value Reference Range Interpretation Comme nts ABO & RH (test code = 20) A POSITIVE IAT (test code = 1185) Negative [facility] and Screen - ONCE [id number] 04:09:00 * Test Item Value Reference Range Interpretation Comme nts ABO & RH (test code = 20) A POSITIVE IAT (test code = 1185) Negative [facility] URINALYSIS W SPECIFIC [id number] 15:28:00* Test Item Value Reference Range Interpretation Comme nts POCT U SP GRAV (test code = 3255) . 1.005-1.025 POCT PH U (test code = 3254) . 5-8 POCT U LEUK EST (test code = 3263) . Negative - N egative POCT U NIT (test code = 3262) . Negative - Negati ve POCT U PROT (test code = 3259) trace Negative - Negat dustin POCT U GLU (test code = 3256) 50 Negative - Negati ve POCT U KETONE (test code = 3258) . Negative - Neg ative POCT U UROBILI (test code = 3260) . 0.2-1 POCT U BILI (test code = 3261) . Negative - Negat dustin POCT U BLD (test code = 3257) . Negative - Negati ve POCT U COLOR (test code = 3266) . POCT U APPEAR (test code = 3267) . [facility] URINALYSIS W SPECIFIC [id number] 20:03:00* Test Item Value Reference Range Interpretation Comme nts POCT U SP GRAV (test code = 3255) . 1.005-1.025 POCT PH U (test code = 3254) . 5-8 POCT U LEUK EST (test code = 3263) . Negative - N egative POCT U NIT (test code = 3262) . Negative - Negati ve POCT U PROT (test code = 3259) trace Negative - Negat dustin POCT U GLU (test code = 3256) neg Negative - Negati ve POCT U KETONE (test code = 3258) . Negative - Neg ative POCT U UROBILI (test code = 3260) . 0.2-1 POCT U BILI (test code = 3261) . Negative - Negat dustin POCT U BLD (test code = 3257) . Negative - Negati ve POCT U COLOR (test code = 3266) . POCT U APPEAR (test code = 3267) . [facility] URINALYSIS W SPECIFIC [id number] 20:03:00* Test Item Value Reference Range Interpretation Comme nts POCT U SP GRAV (test code = 3255) . 1.005-1.025 POCT PH U (test code = 3254) . 5-8 POCT U LEUK EST (test code = 3263) . Negative - N egative POCT U NIT (test code = 3262) . Negative - Negati ve POCT U PROT (test code = 3259) trace Negative - Negat dustin POCT U GLU (test code = 3256) neg Negative - Negati ve POCT U KETONE (test code = 3258) . Negative - Neg ative POCT U UROBILI (test code = 3260) . 0.2-1 POCT U BILI (test code = 3261) . Negative - Negat dustin POCT U BLD (test code = 3257) . Negative - Negati ve POCT U COLOR (test code = 3266) . POCT U APPEAR (test code = 3267) . [facility] URINALYSIS W SPECIFIC [id number] 20:03:00* Test Item Value Reference Range Interpretation Comme nts POCT U SP GRAV (test code = 3255) . 1.005-1.025 POCT PH U (test code = 3254) . 5-8 POCT U LEUK EST (test code = 3263) . Negative - N egative POCT U NIT (test code = 3262) . Negative - Negati ve POCT U PROT (test code = 3259) trace Negative - Negat dustin POCT U GLU (test code = 3256) neg Negative - Negati ve POCT U KETONE (test code = 3258) . Negative - Neg ative POCT U UROBILI (test code = 3260) . 0.2-1 POCT U BILI (test code = 3261) . Negative - Negat dustin POCT U BLD (test code = 3257) . Negative - Negati ve POCT U COLOR (test code = 3266) . POCT U APPEAR (test code = 3267) . [facility] URINALYSIS W SPECIFIC [id number] 20:03:00* Test Item Value Reference Range Interpretation Comme nts POCT U SP GRAV (test code = 3255) . 1.005-1.025 POCT PH U (test code = 3254) . 5-8 POCT U LEUK EST (test code = 3263) . Negative - N egative POCT U NIT (test code = 3262) . Negative - Negati ve POCT U PROT (test code = 3259) trace Negative - Negat dustin POCT U GLU (test code = 3256) neg Negative - Negati ve POCT U KETONE (test code = 3258) . Negative - Neg ative POCT U UROBILI (test code = 3260) . 0.2-1 POCT U BILI (test code = 3261) . Negative - Negat dustin POCT U BLD (test code = 3257) . Negative - Negati ve POCT U COLOR (test code = 3266) . POCT U APPEAR (test code = 3267) . [facility] URINALYSIS W SPECIFIC [id number] 20:03:00* Test Item Value Reference Range Interpretation Comme nts POCT U SP GRAV (test code = 3255) . 1.005-1.025 POCT PH U (test code = 3254) . 5-8 POCT U LEUK EST (test code = 3263) . Negative - N egative POCT U NIT (test code = 3262) . Negative - Negati ve POCT U PROT (test code = 3259) trace Negative - Negat dustin POCT U GLU (test code = 3256) neg Negative - Negati ve POCT U KETONE (test code = 3258) . Negative - Neg ative POCT U UROBILI (test code = 3260) . 0.2-1 POCT U BILI (test code = 3261) . Negative - Negat dustin POCT U BLD (test code = 3257) . Negative - Negati ve POCT U COLOR (test code = 3266) . POCT U APPEAR (test code = 3267) . [facility] URINALYSIS W SPECIFIC [id number] 21:15:00* Test Item Value Reference Range Interpretation Comme nts POCT U SP GRAV (test code = 3255) . 1.005-1.025 POCT PH U (test code = 3254) . 5-8 POCT U LEUK EST (test code = 3263) . Negative - N egative POCT U NIT (test code = 3262) . Negative - Negati ve POCT U PROT (test code = 3259) trace Negative - Negat dustin POCT U GLU (test code = 3256) neg Negative - Negati ve POCT U KETONE (test code = 3258) . Negative - Neg ative POCT U UROBILI (test code = 3260) . 0.2-1 POCT U BILI (test code = 3261) . Negative - Negat dustin POCT U BLD (test code = 3257) . Negative - Negati ve POCT U COLOR (test code = 3266) . POCT U APPEAR (test code = 3267) . [facility] - [facility]ILIS [id number] 19:02:37* Test Item Value Reference Range Interpretation Comme [facility] Syphilis IgG/IgM (test code = 75893-6) Non-reactive Non-reactive BENTON (test code = BENTON) Non-reactive - No serologic evidence of T. pallidum infection. Cannot exclude incubating or early syphilis. Submit a second specimen in 2-4 weeks if syphilis is clinically suspected. Equivocal - Further testing to follow. Reactive - Further testing to follow. Lab Interpretation (test code = 39874-5) Normal [facility] AG-AB WITH [id number] 06:57:29* Test Item Value Reference Range Interpretation Comme nts HIV Semi-quantitative (test code = 01759-0) 0.09 Negative BENTON (test code = BENTON) Non-reactive for HIV-1 antigen and HIV-1/HIV-2 antibodies. ?No laboratory evidence of HIV infection. ?Repeat in 2-4 weeks if acute HIV infection is suspected. [facility] W SPECIFIC [id number] 19:35:00* Test Item Value Reference Range Interpretation Comme nts POCT U SP GRAV (test code = 3255) . 1.005-1.025 POCT PH U (test code = 3254) . 5-8 POCT U LEUK EST (test code = 3263) . Negative - N egative POCT U NIT (test code = 3262) . Negative - Negati ve POCT U PROT (test code = 3259) Trace Negative - Negat dustin POCT U GLU (test code = 3256) 1+ Negative - Negati ve POCT U KETONE (test code = 3258) . Negative - Neg ative POCT U UROBILI (test code = 3260) . 0.2-1 POCT U BILI (test code = 3261) . Negative - Negat dustin POCT U BLD (test code = 3257) . Negative - Negati ve POCT U COLOR (test code = 3266) POCT U APPEAR (test code = 3267) [facility] URINALYSIS W SPECIFIC [id number] 16:31:00* Test Item Value Reference Range Interpretation Comme nts POCT U SP GRAV (test code = 3255) . 1.005-1.025 POCT PH U (test code = 3254) . 5-8 POCT U LEUK EST (test code = 3263) . Negative - N egative POCT U NIT (test code = 3262) . Negative - Negati ve POCT U PROT (test code = 3259) trace Negative - Negat dustin POCT U GLU (test code = 3256) neg Negative - Negati ve POCT U KETONE (test code = 3258) . Negative - Neg ative POCT U UROBILI (test code = 3260) . 0.2-1 POCT U BILI (test code = 3261) . Negative - Negat dustin POCT U BLD (test code = 3257) . Negative - Negati ve POCT U COLOR (test code = 3266) . POCT U APPEAR (test code = 3267) . [facility] URINALYSIS W SPECIFIC [id number] 16:03:00* Test Item Value Reference Range Interpretation Comme nts POCT U SP GRAV (test code = 3255) . 1.005-1.025 POCT PH U (test code = 3254) 6 mg/dl 5-8 POCT U LEUK EST (test code = 3263) neg Negative - Negative POCT U NIT (test code = 3262) neg Negative - Negati ve POCT U PROT (test code = 3259) trace Negative - Negat dustin POCT U GLU (test code = 3256) neg Negative - Negati ve POCT U KETONE (test code = 3258) neg Negative - Neg ative POCT U UROBILI (test code = 3260) . 0.2-1 POCT U BILI (test code = 3261) . Negative - Negat dustin POCT U BLD (test code = 3257) neg Negative - Negati ve POCT U COLOR (test code = 3266) POCT U APPEAR (test code = 3267) [facility] URINALYSIS W SPECIFIC [id number] 17:26:00* Test Item Value Reference Range Interpretation Comme nts POCT U SP GRAV (test code = 3255) * 1.005-1.025 POCT PH U (test code = 3254) * 5-8 POCT U LEUK EST (test code = 3263) * Negative - Negative POCT U NIT (test code = 3262) * Negative - Negati ve POCT U PROT (test code = 3259) trace Negative - Negat dustin POCT U GLU (test code = 3256) negative Negative - Negati ve POCT U KETONE (test code = 3258) * Negative - Neg ative POCT U UROBILI (test code = 3260) * 0.2-1 POCT U BILI (test code = 3261) * Negative - Negat dustin POCT U BLD (test code = 3257) * Negative - Negati ve POCT U COLOR (test code = 3266) * POCT U APPEAR (test code = 3267) [facility] URINALYSIS W SPECIFIC [id number] 17:18:00* Test Item Value Reference Range Interpretation Comme nts POCT U SP GRAV (test code = 3255) . 1.005-1.025 POCT PH U (test code = 3254) . 5-8 POCT U LEUK EST (test code = 3263) . Negative - Negative POCT U NIT (test code = 3262) . Negative - Negati ve POCT U PROT (test code = 3259) negative Negative - Negat dustin POCT U GLU (test code = 3256) negative Negative - Negati ve POCT U KETONE (test code = 3258) . Negative - Neg ative POCT U UROBILI (test code = 3260) . 0.2-1 POCT U BILI (test code = 3261) . Negative - Negat dustin POCT U BLD (test code = 3257) . Negative - Negati ve POCT U COLOR (test code = 3266) . POCT U APPEAR (test code = 3267) . [facility] URINALYSIS W SPECIFIC [id number] 20:40:00* Test Item Value Reference Range Interpretation Comme nts POCT U SP GRAV (test code = 3255) . 1.005-1.025 POCT PH U (test code = 3254) . 5-8 POCT U LEUK EST (test code = 3263) . Negative - N egative POCT U NIT (test code = 3262) . Negative - Negati ve POCT U PROT (test code = 3259) trace Negative - Negat dustin POCT U GLU (test code = 3256) normal Negative - Negati ve POCT U KETONE (test code = 3258) . Negative - Neg ative POCT U UROBILI (test code = 3260) . 0.2-1 POCT U BILI (test code = 3261) . Negative - Negat dustin POCT U BLD (test code = 3257) . Negative - Negati ve POCT U COLOR (test code = 3266) . POCT U APPEAR (test code = 3267) . [facility] URINALYSIS W SPECIFIC [id number] 15:42:00* Test Item Value Reference Range Interpretation Comme nts POCT U SP GRAV (test code = 3255) . 1.005-1.025 POCT PH U (test code = 3254) 6 mg/dl 5-8 POCT U LEUK EST (test code = 3263) Trace Negative - Negative POCT U NIT (test code = 3262) Neg Negative - Negati ve POCT U PROT (test code = 3259) Trace Negative - Negat dustin POCT U GLU (test code = 3256) Neg Negative - Negati ve POCT U KETONE (test code = 3258) None Negative - Neg ative POCT U UROBILI (test code = 3260) . 0.2-1 POCT U BILI (test code = 3261) . Negative - Negat dustin POCT U BLD (test code = 3257) Trace Negative - Negati ve POCT U COLOR (test code = 3266) . POCT U APPEAR (test code = 3267) .. [facility] [id number] 16:49:00* Test Item Value Reference Range Interpretation Comme nts POCT PREG (test code = 1605) positive On board controls acceptable with C Line (test code = 3574) present POCT PREG LOT # (test code = 3570) [id number] POCT PREG TEST DATE ( test code = 3576) 06/05/2023 Lab Interpretation (test cod e = 41287-1) Normal [facility] [[id number]] 2022-01-11 21:47:02* Test Item Value Reference Range Interpretation Comme nts TSH (test code = 4444545313) See_Comment Biotin has been reported to cause a negative bias, interpret results relative to patient's use of biotin. [Automated message] The system which generated this result transmitted reference range: 0.45 - 4.70 mIU/L. The reference range was not used to interpret this result as normal/abnormal. Lab Interpretation (test code = 64917-6) Normal [facility]OS[facility]ATED HEMOGLOBIN (A1C)(aka A1C) [[id number]]2022-01-11 08:43:24* Test Item Value Reference Range Interpretation Comme nts HGB A1C (test code = 4548-4) 4.9 % 4-5.7 BENTON (test code = BENTON) Reference RangesNormal: <5.7%Prediabetes: 5.7 - 6.4%Diabetes: > 6.5% Lab Interpretation (test code = 34381-3) Normal [facility] Hour Post [id number] 06:05:20* Test Item Value Reference Range Interpretation Comme nts GLUC 1 HR (test code = 5165841429) 90 mg/dL 120-170 L Lab Interpretation (test cod e = 30790-3) Abnormal [facility]FF [[id number]]2022-01-11 05:35:59* Test Item Value Reference Range Interpretation Comme nts WBC (test code = 6690-2) See_Comment [Automated messa ge] The system which generated this result transmitted reference range: 4.30 - 11.10 10*3/?L. The reference range was not used to interpret this result as normal/abnormal. RBC (test code = 789-8) See_Comment [Automated messa ge] The system which generated this result transmitted reference range: 3.93 - 5.25 10*6/?L. The reference range was not used to interpret this result as normal/abnormal. HGB (test code = 718-7) 13.1 g/dL 11.6-15 HCT (test code = 4544-3) 38.8 % 35.7-45.2 MCV (test code = 787-2) 89.2 fL 80.6-95.5 MCH (test code = 785-6) 30.1 pg 25.9-32.8 MCHC (test code = 786-4) 33.8 g/dL 31.6-35.1 RDW-SD (test code = 33802-4) 40.2 fL 39-49.9 RDW-CV (test code = 788-0) 12.4 % 12-15.5 PLT (test code = 777-3) See_Comment [Automated messa ge] The system which generated this result transmitted reference range: 166 - 358 10*3/?L. The reference range was not used to interpret this result as normal/abnormal. MPV (test code = 38959-4) 9.6 fL 9.5-12.9 NRBC/100 WBC (test code = 8645724288) See_Comment [Automated me ssage] The system which generated this result transmitted reference range: 0.0 - 10.0 /100 WBCs. The reference range was not used to interpret this result as normal/abnormal. NRBC x10^3 (test code = 6528880668) See_Comment [Automated me ssage] The system which generated this result transmitted reference range: 10*3/?L. The reference range was not used to interpret this result as normal/abnormal. GRAN MAT (NEUT) % (test code = 770-8) 69.5 % IMM GRAN % (test code = 9531769481) 0.50 % LYMPH % (test code = 736-9) 23.1 % MONO % (test code = 5905-5) 5.4 % EOS % (test code = 713-8) 1.1 % BASO % (test code = 706-2) 0.4 % GRAN MAT x10^3(ANC) (test code = 5918697953) 5.96 10*3/uL 1.88-7.09 IMM GRAN x10^3 (test code = 8889794236) 0.04 10*3/uL 0-0.06 LYMPH x10^3 (test code = 731-0) 1.98 10*3/uL 1.32-3.29 MONO x10^3 (test code = 742-7) 0.46 10*3/uL 0.33-0.92 EOS x10^3 (test code = 711-2) 0.09 10*3/uL 0.03-0.39 BASO x10^3 (test code = 704-7) 0.03 10*3/uL 0.01-0.07 [facility] URINALYSIS W SPECIFIC [id number] 13:32:00* Test Item Value Reference Range Interpretation Comme nts POCT U SP GRAV (test code = 3255) . 1.005-1.025 POCT PH U (test code = 3254) . 5-8 POCT U LEUK EST (test code = 3263) . Negative - N egative POCT U NIT (test code = 3262) . Negative - Negati ve POCT U PROT (test code = 3259) Trace Negative - Negat dustin POCT U GLU (test code = 3256) Neg Negative - Negati ve POCT U KETONE (test code = 3258) . Negative - Neg ative POCT U UROBILI (test code = 3260) . 0.2-1 POCT U BILI (test code = 3261) . Negative - Negat dustin POCT U BLD (test code = 3257) . Negative - Negati ve POCT U COLOR (test code = 3266) . POCT U APPEAR (test code = 3267) . [facility] [id number] 17:29:00* Test Item Value Reference Range Interpretation Comme nts POCT PREG (test code = 1605) positive On board controls acceptable with C Line (test code = 3574) present POCT PREG LOT # (test code = 3575) [id number] POCT PREG TEST DATE ( test code = 3576) 03-06-2023 Lab Interpretation (test cod e = 52452-1) Normal [facility], BLOOD [id number] 07:03:08 * Test Item Value Reference Range Interpretation Comme nts ABO & RH (test code = 20) A POSITIVE Performed at [facility] [[email or web address]] B Laboratory Services - [facility] Blood [address] [address] Free: [phone] No. [id number] IAT (test code = 1185) Negative Performed at [facility] [[email or web address]] B Laboratory Services - [facility] Blood [address] [address]cl Free: [phone] No. [id number] [facility] WITH [id number] 05:08:49* Test Item Value Reference Range Interpretation Comme nts WBC (test code = 6690-2) See_Comment [Automated messa ge] The system which generated this result transmitted reference range: 4.30 - 11.10 10*3/?L. The reference range was not used to interpret this result as normal/abnormal. RBC (test code = 789-8) See_Comment [Automated messa ge] The system which generated this result transmitted reference range: 3.93 - 5.25 10*6/?L. The reference range was not used to interpret this result as normal/abnormal. HGB (test code = 718-7) 13.6 g/dL 11.6-15 HCT (test code = 4544-3) 40.4 % 35.7-45.2 MCV (test code = 787-2) 91.0 fL 80.6-95.5 MCH (test code = 785-6) 30.6 pg 25.9-32.8 MCHC (test code = 786-4) 33.7 g/dL 31.6-35.1 RDW-SD (test code = 17035-7) 41.6 fL 39-49.9 RDW-CV (test code = 788-0) 12.7 % 12-15.5 PLT (test code = 777-3) See_Comment [Automated messa ge] The system which generated this result transmitted reference range: 166 - 358 10*3/?L. The reference range was not used to interpret this result as normal/abnormal. MPV (test code = 33284-2) 9.6 fL 9.5-12.9 NRBC/100 WBC (test code = 7797834931) See_Comment [Automated me ssage] The system which generated this result transmitted reference range: 0.0 - 10.0 /100 WBCs. The reference range was not used to interpret this result as normal/abnormal. NRBC x10^3 (test code = 0515928044) See_Comment [Automated me ssage] The system which generated this result transmitted reference range: 10*3/?L. The reference range was not used to interpret this result as normal/abnormal. GRAN MAT (NEUT) % (test code = 770-8) 66.2 % IMM GRAN % (test code = 4997009437) 0.40 % LYMPH % (test code = 736-9) 26.5 % MONO % (test code = 5905-5) 5.9 % EOS % (test code = 713-8) 0.7 % BASO % (test code = 706-2) 0.3 % GRAN MAT x10^3(ANC) (test code = 1284147227) 5.89 10*3/uL 1.88-7.09 IMM GRAN x10^3 (test code = 6847726450) 0.04 10*3/uL 0-0.06 LYMPH x10^3 (test code = 731-0) 2.36 10*3/uL 1.32-3.29 MONO x10^3 (test code = 742-7) 0.53 10*3/uL 0.33-0.92 EOS x10^3 (test code = 711-2) 0.06 10*3/uL 0.03-0.39 BASO x10^3 (test code = 704-7) 0.03 10*3/uL 0.01-0.07 [facility] [id number] 19:53:00* Test Item Value Reference Range Interpretation Comme nts POCT PREG (test code = 1605) Positive On board controls acceptable with C Line (test code = 3574) Yes POCT PREG LOT # (test code = 3575) POCT PREG TEST DATE ( test code = 3576) [facility] URINALYSIS W/O SPECIFIC [id number] 19:53:00* Test Item Value Reference Range Interpretation Comme nts POCT PH U (test code = 3254) 6 mg/dl 5-8 POCT U LEUK EST (test code = 3263) 1+ Negative - Negative POCT U NIT (test code = 3262) negative Negative - Negati ve POCT U PROT (test code = 3259) trace Negative - Negat dustin POCT U GLU (test code = 3256) negative Negative - Negati ve POCT U KETONE (test code = 3258) negative Negative - Neg ative POCT U BLD (test code = 3257) trace Negative - Negati ve [facility] [id number] 13:46:00* Test Item Value Reference Range Interpretation Comme nts POCT PREG (test code = 1605) Negative On board controls acceptable with C Line (test code = 3574) Yes POCT PREG LOT # (test code = 3575) POCT PREG TEST DATE ( test code = 3576) [facility] Notes Date/Time Note Provider Source 2022-11-06 14:55:35 Kax2kuQNfcEyw2wVQMya FLnqsgZWDZp4r9Lvi TkaZKkf1OcmXnqIlcM4DG4pfkU51235-69-93 T14:55:35 Floater pack sent to [facility].Lucila Mitchell RN 11/06/22 2:55 PM 22153-2Jdxpixmce encounter AjuhRF3090-39-61D66:56:09Telephone encounter NoteTXT1.2.840.740454.1.13.104.2.7.2. 223672|[id number] for patient bzof98009-8JupcDYVLSALCMT[address] Hu[id number] SAUBULPQWOKOSZDZCVOZP6420-46-88P32:56 :091.2.840.825742.1.72.3.15|1.2.840.1 [id number] 1 [facility] 2022-11-06 13:56:44 7BaYOfpIElhOO4uBjn9A R+C1d+wsQBCNDh5K+ P4X2gVMBAJ87yuk9IjRP+bqXAQM1593-81-64 T13:56:44 Please send refill for 1 danielle of control pills as we have rescheduled nexplanon insert due to provider schedule. 08679-8Nlesmcywz encounter TvyeIQ0478-23-78S39:59:35Telephone encounter NoteTXT1.2.840.652893.1.13.104.2.7.2. 390331|[id number] for patient [id number] L [address] NlogChmoljfvbXkyymutocPUIH3923684621O XLCBWMDKIZQYCFWZRCWOD9943-62-55H28:59 :351.2.840.467135.1.72.3.15|1.2.840.1 [id number] 0 Nancy Winslow [facility]"
--- NOTE | 2023-05-26 18:01 | ER ---
Nurse's Notes [facility] Name: Yahaira Vu Age: 28 yrs Sex: Female : 1995 Arrival Date: 05/26/2023 Time: 16:29 Bed 10 Private MD: Diagnosis: Carpal tunnel syndrome, right upper limb;Carpal tunnel syndrome Presentation: 05/26 16:34 Chief complaint: Patient states: Numbness and tingling to R fingers and forearm x 1 ph week, also states that both arms are "falling asleep at night." Denies injury, no weakness noted. Coronavirus screen: Vaccine status: Patient reports receiving the 2nd dose of the covid vaccine. Ebola Screen: No symptoms or risks identified at this time. Initial Sepsis Screen: Does the patient meet any 2 criteria? No. Patient's initial sepsis screen is negative. Does the patient have a suspected source of infection? No. Patient's initial sepsis screen is negative. Risk Assessment: Do you want to hurt yourself or someone else? Patient reports no desire to harm self or others. Onset of symptoms was May 26, 2023. 16:34 Method Of Arrival: Ambulatory ph 16:34 Acuity: SHERYL 4 ph Historical: - Allergies: 16:38 No Known Drug Allergies; ph - PMHx: 16:38 Ovarian cyst; ph - PSHx: 16:38 section; ph - Immunization history:: Adult Immunizations unknown. - Social history:: Smoking status: Patient denies any tobacco usage or history of. Screenin:46 [facility] ED Fall Risk Assessment (Adult) History of falling in the last 3 months, kc6 including since admission No falls in past 3 months (0 pts) Confusion or Disorientation No (0 pts) Intoxicated or Sedated No (0 pts) Impaired Gait No (0 pts) Mobility Assist Device Used No (0 pt) Altered Elimination No (0 pt) Score/Fall Risk Level 0 - 2 = Low Risk. Abuse screen: Denies threats or abuse. Denies injuries from another. Nutritional screening: No deficits noted. Tuberculosis screening: No symptoms or risk factors identified. Assessment: 18:09 General: Appears in no apparent distress. comfortable, well groomed, well developed, kc6 Behavior is calm, cooperative, appropriate for age. Pain: Complains of pain in right hand and right arm. Neuro: Level of Consciousness is awake, alert, obeys commands, Oriented to person, place, time, situation, Appropriate for age Reports numbness in right hand and right arm paresthesias in right hand and right arm. Cardiovascular: Capillary refill < 3 seconds. Respiratory: Airway is patent Trachea midline Respiratory effort is even, unlabored, Respiratory pattern is regular, symmetrical. GI: No signs and/or symptoms were reported involving the gastrointestinal system. : No signs and/or symptoms were reported regarding the genitourinary system. EENT: No signs and/or symptoms were reported regarding the EENT system. Derm: No signs and/or symptoms reported regarding the dermatologic system. Skin is intact, is healthy with good turgor, Skin is pink, warm \\T\\ dry. Musculoskeletal: No signs and/or symptoms reported regarding the musculoskeletal system. Circulation, motion, and sensation intact. Capillary refill < 3 seconds, Range of motion: intact in all extremities. Vital Signs: 16:34 BP 150 / 97; Pulse 83; Resp 18; Temp 97.8; Pulse Ox 100% on R/A; Weight 99.79 kg; ph Height 5 ft. 1 in. ; 16:34 Body Mass Index 41.57 (99.79 kg, 154.94 cm) ph NIH Stroke Scale Scores: 17:53 NIHSS Score: 0 conrado ED Course: 16:31 Patient arrived in ED. rg4 16:34 Aly Marmolejo MD is Attending Physician. conrado 16:38 Triage completed. ph 16:39 Arm band placed on. ph 16:45 Yanet Ahmadi, PRIYANKA is Primary Nurse. kc6 16:46 Patient has correct armband on for positive identification. Bed in low position. Call kc6 light in reach. Side rails up X 1. Adult w/ patient. Client placed on continuous cardiac and pulse oximetry monitoring. NIBP monitoring applied. 16:46 Patient maintains SpO2 saturation greater than 95% on room air. kc6 18:00 Rocky Echevarria MD is Referral Physician. conrado 18:10 No provider procedures requiring assistance completed. Patient did not have IV access kc6 during this emergency room visit. Administered Medications: 18:00 Drug: Ibuprofen PO 800 mg PO once Route: PO; kc6 18:06 Follow up: Response: No adverse reaction kc6 18:00 Drug: predniSONE PO 40 mg PO once Route: PO; kc6 18:06 Follow up: Response: No adverse reaction kc6 Medication: 18:11 VIS not applicable for this client. 6 Outcome: 18:00 Discharge ordered by . conrado 18:10 Discharged to home ambulatory, with significant other, kc6 18:10 Condition: good 18:10 Discharge instructions given to patient, Instructed on discharge instructions, follow up and referral plans. medication usage, Demonstrated understanding of instructions, follow-up care, medications, Prescriptions given X 2, 18:11 Patient left the ED. kc6 NIH Stroke Scale - NIH Stroke Score Date: 05/26/2023 Time: 17:53 Total Score = 0 10. Dysarthria (speech clarity - read or repeat words) - 0(Normal) 11. Extinction and Inattention (visual/tactile/auditory/spatial/personal) - 0(No abnormality) 1a. Level of Consciousness (LOC) - 0(Alert) 1b. Level of Consciousness (LOC) (Month \\T\\ Age) - 0(Both) 1c. LOC Commands (Open \\T\\ Closes Eyes/Gallery Intern) - 0(Both) 2. Best Gaze (Lateral Gaze Paresis) - 0(Normal) 3. Visual Field Loss - 0(No visual loss) 4. Facial Palsy - 0(Normal) 5a. Left Arm: Motor (10-second hold) - 0(No drift) 5b. Right Arm: Motor (10-second hold) - 0(No drift) 6a. Left Leg: Motor (5-second hold - always test supine) - 0(No drift) 6b. Right Leg: Motor (5-second hold - always test supine) - 0(No drift) 7. Limb Ataxia (finger/nose \\T\\ heel/locke - test with eyes open) - 0(Absent) 8. Sensory Loss (pinprick arms/legs/face) - 0(Normal) 9. Best Language: Aphasia (description/naming/reading) - 0(No aphasia) Initials: [facility] Signatures: [id number] Marmolejo MD MD cha Hall, Patricia, RN RN Maci Maldonado4 Yanet Ahmadi RN RN kc6
--- NOTE | 2023-05-26 18:02 | EDPHYS ---
Physician Documentation [facility] Name: Yahaira Vu Age: 28 yrs Sex: Female : 1995 Arrival Date: 05/26/2023 Time: 16:29 Bed 10 Private MD: ED Physician Aly Marmolejo HPI: 05/26 17:49 This 28 yrs old Female presents to ER via Ambulatory with complaints of conrado Numbness Of Arm, Numbness Of Hand. 17:49 The patient or guardian complains of pain, that is acute. The complaints affect the [facility] right hand. Context: The problem was sustained at an unknown location, resulted from unknown cause. Onset: The symptoms/episode began/occurred 3 day(s) ago. Treatment prior to arrival includes: no previous treatment. Modifying factors: The symptoms are alleviated by nothing. the symptoms are aggravated by movement. Associated signs and symptoms: The patient has no apparent associated signs or symptoms. Severity of symptoms: At their worst the symptoms were mild, in the emergency department the symptoms are unchanged. The patient has experienced similar episodes in the past, several times. Historical: - Allergies: 16:38 No Known Drug Allergies; ph - PMHx: 16:38 Ovarian cyst; ph - PSHx: 16:38 section; ph - Immunization history:: Adult Immunizations unknown. - Social history:: Smoking status: Patient denies any tobacco usage or history of. ROS: 17:53 Constitutional: Negative for fever, chills, and weight loss, Eyes: Negative for injury, conrado pain, redness, and discharge, ENT: Negative for injury, pain, and discharge, Neck: Negative for injury, pain, and swelling, Cardiovascular: Negative for chest pain, palpitations, and edema, Respiratory: Negative for shortness of breath, cough, wheezing, and pleuritic chest pain, Abdomen/GI: Negative for abdominal pain, nausea, vomiting, diarrhea, and constipation, Back: Negative for injury and pain, : Negative for injury, bleeding, discharge, and swelling, Skin: Negative for injury, rash, and discoloration, Psych: Negative for depression, anxiety, suicide ideation, homicidal ideation, and hallucinations, Allergy/Immunology: Negative for hives, rash, and allergies, Endocrine: Negative for neck swelling, polydipsia, polyuria, polyphagia, and marked weight changes, 17:53 MS/extremity: Positive for paresthesias, of the right hand, Exam: 17:53 Constitutional: This is a well developed, well nourished patient who is awake, alert, conrado and in no acute distress. Head/Face: Normocephalic, atraumatic. Eyes: Pupils equal round and reactive to light, extra-ocular motions intact. Lids and lashes normal. Conjunctiva and sclera are non-icteric and not injected. Cornea within normal limits. Periorbital areas with no swelling, redness, or edema. ENT: Nares patent. No nasal discharge, no septal abnormalities noted. Tympanic membranes are normal and external auditory canals are clear. Oropharynx with no redness, swelling, or masses, exudates, or evidence of obstruction, uvula midline. Mucous membranes moist. Neck: Trachea midline, no thyromegaly or masses palpated, and no cervical lymphadenopathy. Supple, full range of motion without nuchal rigidity, or vertebral point tenderness. No Meningismus. Chest/axilla: Normal chest wall appearance and motion. Nontender with no deformity. No lesions are appreciated. Cardiovascular: Regular rate and rhythm with a normal S1 and S2. No gallops, murmurs, or rubs. Normal PMI, no JVD. No pulse deficits. Respiratory: Lungs have equal breath sounds bilaterally, clear to auscultation and percussion. No rales, rhonchi or wheezes noted. No increased work of breathing, no retractions or nasal flaring. Abdomen/GI: Soft, non-tender, with normal bowel sounds. No distension or tympany. No guarding or rebound. No evidence of tenderness throughout. Back: No spinal tenderness. No costovertebral tenderness. Full range of motion. Skin: Warm, dry with normal turgor. Normal color with no rashes, no lesions, and no evidence of cellulitis. Neuro: Awake and alert, GCS 15, oriented to person, place, time, and situation. Cranial nerves II-XII grossly intact. Motor strength 5/5 in all extremities. Sensory grossly intact. Cerebellar exam normal. Normal gait. Psych: Awake, alert, with orientation to person, place and time. Behavior, mood, and affect are within normal limits. 17:53 Musculoskeletal/extremity: Extremities: grossly normal except: THUMB , INDEX,MIDDLE AND LATERAL 4TH, ROM: no acute changes, intact in all extremities, full active range of motion, full passive range of motion, Circulation is intact in all extremities. the dorsal aspect of distal phalanx of right thumb, dorsal aspect of middle phalanx of right index finger, dorsal aspect of middle phalanx of right middle finger and dorsal aspect of middle phalanx of right ring finger decreased sensation, Weight bearing: able to fully bear weight, DVT Exam: No signs of deep vein thrombosis. no pain, no swelling, no tenderness, negative Homans' sign noted on exam, no appreciated bluish discoloration, no erythema, no increased warmth, Vital Signs: 16:34 BP 150 / 97; Pulse 83; Resp 18; Temp 97.8; Pulse Ox 100% on R/A; Weight 99.79 kg; ph Height 5 ft. 1 in. ; 16:34 Body Mass Index 41.57 (99.79 kg, 154.94 cm) ph NIH Stroke Scale Scores: 17:53 NIHSS Score: 0 conrado MDM: 16:34 Patient medically screened. [facility] 17:56 Differential diagnosis: contusion, tendonitis. Data reviewed: vital signs, nurses [facility] notes, lab test result(s), EKG, radiologic studies. Consideration of Admission/Observation Escalation of care including admission/observation considered. I considered the following discharge prescriptions or medication management in the emergency department Medications were administered in the Emergency Department. See MAR. Test considered but Not performed: Other Details NO EKG, NOLABS. Historians other than the Patient: Spouse/Significant Other: SIGNIFICANT OTHER , WELL INFORMED. Care significantly affected by the following chronic conditions: NONE, OVARIAN CYST. Counseling: I had a detailed discussion with the patient and/or guardian regarding the historical points, exam findings, and any diagnostic results supporting the discharge/admit diagnosis, the need for outpatient follow up, for definitive care, a family practitioner, a neurologist. 05/26 17:48 Order name: Splint - Volar Wrist Splint; Complete Time: 17:50 conrado Administered Medications: 18:00 Drug: Ibuprofen PO 800 mg PO once Route: PO; kc6 18:06 Follow up: Response: [facility] 18:00 Drug: predniSONE PO 40 mg PO once Route: PO; kc6 18:06 Follow up: Response: No adverse reaction [facility] Disposition Summary: 05/26/23 18:00 Discharge Ordered Notes: Location: Home conrado Problem: new conrado Symptoms: have improved conrado Condition: Stable conrado Diagnosis - Carpal tunnel syndrome, right upper limb conrado - Carpal tunnel syndrome conrado Followup: conrado - With: Private Physician - When: 2 - 3 days - Reason: Recheck today's complaints, Continuance of care, Re-evaluation by your physician Followup: conrado - With: Rocky Echevarria MD - When: 2 - 3 days - Reason: Recheck today's complaints, Re-evaluation by your physician Discharge Instructions: - Discharge Summary Sheet conrado - Carpal Tunnel Syndrome conrado - Wrist Splint or Brace, Adult conrado - Wrist Splint or Brace, Adult, [id number] conrado - Peripheral Neuropathy conrado - Carpal Tunnel Syndrome, [id number] [facility] Forms: - Medication Reconciliation Form [facility] - Thank You Letter [facility] - Antibiotic Education conrado - Prescription Opioid Use conrado - Patient Portal Instructions [facility] - Leadership Thank You Letter [facility] Prescriptions: - Diclofenac Sodium 75 mg Oral tablet, delayed release (enteric coated) - take 1 tablet ORAL route 2 times per day; 20 tablet; Refills: 0, Product [facility] Selection Permitted - Medrol (Stephen) 4 mg Oral Tablets, Dose Pack - take 1 tablet ORAL route as directed - follow package instructions; 1 packet; conrado Refills: 0, Product Selection Permitted NIH Stroke Scale - NIH Stroke Score Date: 05/26/2023 Time: 17:53 Total Score = 0 10. Dysarthria (speech clarity - read or repeat words) - 0(Normal) 11. Extinction and Inattention (visual/tactile/auditory/spatial/personal) - 0(No abnormality) 1a. Level of Consciousness (LOC) - 0(Alert) 1b. Level of Consciousness (LOC) (Month \T\ Age) - 0(Both) 1c. LOC Commands (Open \T\ Closes Eyes/Amusement Or Recreation Card Checker) - 0(Both) 2. Best Gaze (Lateral Gaze Paresis) - 0(Normal) 3. Visual Field Loss - 0(No visual loss) 4. Facial Palsy - 0(Normal) 5a. Left Arm: Motor (10-second hold) - 0(No drift) 5b. Right Arm: Motor (10-second hold) - 0(No drift) 6a. Left Leg: Motor (5-second hold - always test supine) - 0(No drift) 6b. Right Leg: Motor (5-second hold - always test supine) - 0(No drift) 7. Limb Ataxia (finger/nose \T\ heel/locke - test with eyes open) - 0(Absent) 8. Sensory Loss (pinprick arms/legs/face) - 0(Normal) 9. Best Language: Aphasia (description/naming/reading) - 0(No aphasia) Initials: [facility] Signatures: Aly Marmolejo MD MD cha Hall, Patricia RN RN Yanet Chan RN RN [id number]
[2023-05-26 18:15] VITALS: BP 150/97; TEMP 97.8; O2SAT 100
== END ==
LOC: ER 16:29
DX: G56.01 Carpal tunnel syndrome, right upper limb (principal)
CPT/HCPCS: J7512